=== PATIENT | male | born 1965 | race Caucasian/White ===

== ENCOUNTER 2022-07-03 01:35 | Emergency (ER) | payer OTHER, MEDICAID, SELFPAY ==
--- NOTE | ~2022-07-03 | CT_ITS ---
EXAMINATION: CT CHEST, ABDOMEN AND PELVIS WITH CONTRAST. CLINICAL INFORMATION: Pain, fall. COMPARISON: No pertinent prior studies are available for comparison. TECHNIQUE: Multidetector volumetric imaging was performed from the thoracic inlet through the pubic symphysis following administration of 85 mL Omnipaque 300 intravenous contrast. Sagittal and coronal reformatted images were obtained on the technologist's workstation. This CT examination was performed using dose optimization techniques as appropriate, variously including the following: *Automated exposure control *Adjustment of mA and/or kV according to patient size (this includes techniques or standardized protocols for targeted exams where dose is matched to indication/reason for exam; i.e. extremities or head) *Use of iterative reconstruction technique DLP: 483 mGy-cm FINDINGS: CHEST: Lung: Evaluation of lung nodules and parenchymal details is limited due to respiratory motion. No focal consolidation or significant groundglass disease. Central airways. No pulmonary mass. Mediastinum: Normal heart size. No pericardial effusion. No hilar or mediastinal lymphadenopathy. Normal thyroid gland. Pericardium/Pleura: No pleural effusion. No pleural mass or thickening. No pneumothorax. Chest Wall/Axilla: No lymphadenopathy by size criteria. ABDOMEN/PELVIS: Peritoneal Space: No free air or free fluid. Liver, Gallbladder, Biliary Tree: There is a 2.8 cm lesion in the periphery of the right hepatic lobe (3:17), not consistent with a cyst measuring up to 50 Hounsfield units. Otherwise, the liver is normal in size, shape and attenuation. Cholelithiasis. No pericholecystic inflammatory changes or gallbladder wall thickening. No biliary duct dilatation. Pancreas: Unremarkable. Spleen: Unremarkable. Adrenal Glands: There is a 1.5 cm left adrenal nodule measuring 47 Hounsfield units. Normal right adrenal gland. Kidneys and Ureters: The kidneys are normal in size, shape, and attenuation. No hydronephrosis, hydroureter, or calculi seen. No perinephric stranding. Bladder: Unremarkable. Gastrointestinal Tract: The small and large bowel are unremarkable. The appendix is unremarkable. Abdominal Wall: Fat stranding of the anterior abdominal wall with a few foci of air on the left side (3:46) and right-sided (3:64). Fat stranding in the left gluteal soft tissues. Lymphovascular Structures: No lymphadenopathy by size criteria. The abdominal aorta is of normal diameter. Pelvic Viscera: Unremarkable. Osseous Structures: Mild compression deformity at L5, likely degenerative, no surrounding soft tissue swelling or hematomas. Grade 1 anterolisthesis of L5 on S1 with L5 pars defects. Multilevel degenerative changes of the spine. Evaluation of bony fractures in the chest is limited due to motion. There is discontinuity of the lower sternal body on the sagittal view, which is likely related with motion and artifactual. No definite displaced rib fractures. CT/CT abdomen pelvis w IV con IMPRESSION: 1. Evaluation of bony fractures in the chest is limited due to motion. There is discontinuity of the lower sternal body on the sagittal view, which is likely related with motion and artifactual, with no surrounding inflammatory changes or hematoma. Correlate with point tenderness. 2. Fat stranding of the anterior abdominal wall with a few foci of air, nonspecific could be associated with injection sites or less likely contusions. 3. Fat stranding in the left gluteal soft tissues, could be associated with hematoma in the setting of trauma, correlate with physical examination. 4. Indeterminate liver lesion. Recommend further evaluation with an abdominal MRI with and without intravenous contrast. 5. Indeterminate left adrenal lesion measuring 1.5 cm. This is homogeneous, most likely represent an adenoma, however it is incompletely characterized in this examination. This could be further characterized at the moment of the above recommend abdominal MRI. 6. Cholelithiasis but no evidence of acute cholecystitis. 7. Grade 1 anterolisthesis of L5 on S1 with L5 pars defects. Mild compression deformity of L5 is likely degenerative in nature, correlate with point tenderness.
--- NOTE | ~2022-07-03 | CT_ITS ---
EXAMINATION: CT HEAD WITHOUT CONTRAST CT CERVICAL SPINE WITHOUT CONTRAST CLINICAL INFORMATION: Fall, pain. COMPARISON: CTA head and neck 05/28/2013. TECHNIQUE: Contiguous axial imaging was performed from the skull base to vertex without intravenous administration of contrast. Contiguous axial imaging was performed from the upper chest through the skull base without intravenous administration of contrast. Coronal and sagittal reformats were obtained at the acquisition workstation. This CT examination was performed using dose optimization techniques as appropriate, variously including the following: *Automated exposure control *Adjustment of mA and/or kV according to patient size (this includes techniques or standardized protocols for targeted exams where dose is matched to indication/reason for exam; i.e. extremities or head) *Use of iterative reconstruction technique DLP: 432 and 831 mGy-cm FINDINGS: Head: Confluent white matter hypoattenuation, suggestive of chronic microangiopathy, progressed when compared to 2012. Chronic infarct adjacent to the left caudate, stable since 2012. No intraparenchymal bleeding or edematous territorial infarction. No evidence for obstructive hydrocephalus. No abnormal mass effect or midline shift. No extra-axial fluid collections. No acute soft tissue or osseous abnormalities. The mastoid air cells and paranasal sinuses are clear. Cervical Spine: The atlantooccipital and atlantoaxial articulations remain well aligned. Straightening of the normal cervical lordosis with mild reversal at the level of the mid cervical spine. Otherwise, there is anatomic alignment of the vertebral bodies and posterior elements. Moderate multilevel cervical spondylosis. The vertebral body heights and disc spaces are maintained. There is no prevertebral soft tissue swelling. The thyroid gland and remaining cervical soft tissues are normal in appearance. The lung apices demonstrate no abnormalities. CT/CT cervical spine wo IV con IMPRESSION: 1. No acute intracranial pathology. 2. Chronic microangiopathy, progressed when compared to 2012. In this background, small infarctions may be occult, therefore if there is clinical concern for an acute cerebrovascular accident, correlation with an MR of the brain is recommended. 3. Straightening and mild reversal of the cervical lordosis nonspecific could be associated with muscular spasm or patient positioning. 4. No acute cervical spinal fractures or malalignment.
[2022-07-03 01:45] VITALS: BP 122/98; PULSE 95; O2SAT 96; BMI 30.9
[2022-07-03 01:57] VITALS: BP 106/68; PULSE 92; RESP 14; TEMP 36.7; O2SAT 98
--- NOTE | 2022-07-03 02:16 | PC.NURSE ---
Pt arrived via EMS coming from [facility], alert and oriented to self, place, and situation. Unable to identify today's date. Pt reports never keeping up with the date. Reports having a fall 3 or 4 days ago where pt was trying to re-position self on the wheel chair. Documents from [place] report pt had a witnessed fall earlier in the day. Pt reports left sided back and leg pain. Bruising noted on the abd area and left hip area. Bilateral pedal pulses present. +CMS. Pt has a hx of MS. SOW aware.
--- NOTE | 2022-07-03 02:21 | ECG_ITS ---
Test Reason : FALL Blood Pressure : / mmHG Vent. Rate : 095 BPM Atrial Rate : 095 BPM P-R Int : 160 ms QRS Dur : 102 ms QT Int : 372 ms P-R-T Axes : 035 -13 052 degrees QTc Int : 467 ms Normal sinus rhythm Inferior infarct (cited on or before 28-MAY-2013) Abnormal ECG When compared with ECG of 09-NOV-2013 16:48, Criteria for Lateral infarct are no longer Present Referred By: Yani Gamez Electronically Signed By:Yonathan Schaefer
--- NOTE | 2022-07-03 02:32 | ED_ITS ---
HPI - Fall General Chief Complaint: Fall Stated Complaint: Fall Time Seen by Provider: 07/03/22 01:59 Source: patient, EMS and other Mode of arrival: EMS History of Present Illness HPI Narrative: 56-year-old male brought in by EMS from [facility] for reports that patient had a witnessed fall out of his wheelchair earlier today, patient states that he fell 4 days ago. Patient staffed deny loss of consciousness or head strike and although initially there were no concerns for anticoagulation on further investigation it appears patient is on aspirin Plavix. Currently, patient reports left chest wall pain as well as leg and shoulder pain. Related Data Allergies Allergy/AdvReac Type Severity Reaction Status Date / Time morphine [MORPHINE] AdvReac Unknown VOMITING Unverified 04/01/20 17:49 Review of Systems Review of Systems: Pertinent positives and negatives as stated in HPI 10 point review of systems is otherwise negative. [facility] Past Medical History Source: nursing notes reviewed Social History Social History Smoked in Last 30 Days: Yes Use of substances other than those prescribed or required for medical reasons: No Advance Directives: No Advance Directives Information Provided: No Physical Exam Vital Signs: Vital Signs: Last Vital Signs Temp 98.0 F 07/03/22 01:57 Pulse 92 07/03/22 01:57 Resp 14 07/03/22 01:57 BP 106/68 07/03/22 01:57 Pulse Ox 98 07/03/22 01:57 O2 Del Method 07/03/22 01:57 BMI result Body Mass Index 30.9 VITAL SIGNS: Reviewed. GENERAL: Chronically ill, in no acute distress. HEAD: Normocephalic/atraumatic EYES: PERRLA, EOMI EARS: Ext canals without abnormality OROPHARYNX: no oral lesions noted, posterior pharynx clear NECK: Supple, no adenopathy, no midline cervical spine tenderness LUNGS: Normal breath sounds. No adventitious sounds or accessory muscle use. SpO2<98>; CHEST WALL: There is no deformity, crepitus but there is noted contusion/ecchymosis to lower left chest with tenderness on palpation CARDIOVASCULAR: Regular rate and rhythm without noted murmurs, no JVD or lower extremity edema. ABDOMEN: Soft, non-tender, non-distended with bowel sounds, abdominal wall with ecchymotic areas in various stages of healing HIP: Ecchymosis noted to left hip/gluteal area MUSCULOSKELETAL: No tenderness, deformities, or effusions noted on gross inspection. EXTREMITIES: No cyanosis, clubbing or edema. SKIN: Inspection of the skin reveals no rashes NEUROLOGIC: Alert and oriented x 2. Strength and sensation to light touch were grossly intact x 4. Course Course Course Narrative: 56-year-old male with history and clinical presentation consistent with accidental fall out of chair witnessed by staff without head strike or loss of consciousness. Patient is noted be on aspirin Plavix, review of all imaging studies to include CT of the head/C-spine/chest/abdomen/pelvis there are no acute traumatic injuries identified and left gluteal findings are consistent with clinical findings to suggest soft tissue contusion. In addition, I suspect left lower rib contusion as there are no identified fractures on CT but there is an ecchymotic area. The ecchymotic areas on the anterior abdomen are in various stages of healing and most consistent with subcutaneous injections. Review of all investigations otherwise chronically stable and patient discharged back to the facility in stable condition. Medications Administered Discontinued Medications Generic Name Dose Route Start Last Admin Trade Name Freq PRN Reason Stop Dose Admin Iohexol 85 ml 07/03/22 04:10 07/03/22 04:10 Iohexol 350 Mg/Ml 100 Ml Infus..Btl IV 07/03/22 04:11 85 ml ONCE ONE Administration Medical Decision Making Lab Data Result Diagrams: 07/03/22 02:58 07/03/22 02:58 Labs: Lab Results 07/03/22 07/03/22 07/03/22 Range/Units 02:58 02:58 02:58 WBC 7.2 (4.8-10.8) X10*3/uL RBC 5.78 (4.60-5.80) X10*6/uL Hgb 15.8 (14.0-18.0) g/dl Hct 47.0 (42.0-52.0) % MCV 81.3 (80.0-98.0) fL MCH 27.3 (27.0-33.0) pg MCHC 33.6 (31.0-36.0) g/dl RDW 13.9 (11.0-16.0) % Plt Count 287 (160-400) X10*3/uL MPV 9.7 (9.4-12.4) fL Immature Gran % (Auto) 0.6 H (0.0-0.4) % Neut % (Auto) 55.6 (45-73) % Lymph % (Auto) 30.0 (20-40) % [place] % (Auto) 8.7 (2-11) % Eos % (Auto) 4.3 H (0-4) % Baso % (Auto) 0.8 (0-2) % Lymph # (Auto) 2.2 (1.2-4.9) X10*3/uL [place] # (Auto) 0.6 (0.1-1.2) X10*3/uL Eos # (Auto) 0.3 (0.0-0.4) X10*3/uL Baso # (Auto) 0.1 (0.0-0.2) X10*3/uL Abs Immat Gran (auto) 0.04 H (0.00-0.03) X10*3/uL Absolute Neuts (auto) 4.0 (2.0-8.3) x10*3/uL Absolute Nucleated RBC 0.000 (0.0-0.012) X10*3/uL Nucleated RBC % (auto) 0.0 (0.0-0.2) /100WBC PT 12.4 (10.0-13.1) SEC INR 1.1 (0.9-1.1) Sodium 143 (135-145) mmol/L Potassium 3.6 (3.3-5.1) mmol/L Chloride 106 (96-108) mmol/L Carbon Dioxide 28 (22-29) mmol/L Anion Gap 13 (12-20) BUN 15 (9-16) mg/dL Creatinine 0.73 (0.5-1.4) mg/dL Estim Creat Clear Calc 108.9 Estimated GFR > 60 Random Glucose 161 H (60-115) mg/dL Calcium 9.6 (8.4-10.2) mg/dL Total Bilirubin 0.9 (0.0-1.0) mg/dL AST 20 (5-37) U/L ALT 26 (0-40) U/L Alkaline Phosphatase 101 (39-117) U/L Total Protein 5.9 L (6.5-8.0) g/dL Albumin 4.0 (3.5-5.0) g/dL Independent Interpretation I performed an independent interpretation of an: EKG Interpretation: Normal sinus rhythm, HR-95, no STEMI, OK/QRS/QTC are within normal limits. Discharge Plan Discharge Clinical Impression: Fall, Chest wall contusion Patient Disposition: [facility] Instructions: Fall Prevention for Older Adults (ED), Contusion in Adults (ED) Additional Instructions: 1. Resume all home medications as prescribed. 2. Follow-up with your primary care provider in the morning . Return to the ER for worsening symptoms.
[2022-07-03 03:03] LABS: Basophils Absolute Auto 0.1 X10*3/uL (0.0-0.2); Basophils Percent Auto 0.8 % (0-2); Eosinophils Absolute Auto 0.3 X10*3/uL (0.0-0.4); Eosinophils Percent Auto 4.3 % (0-4); Hemoglobin 15.8 g/dl (14.0-18.0); Imm Gran Abs Auto 0.04 X10*3/uL (0.00-0.03); Imm Gran Pct Auto 0.6 % (0.0-0.4); Lymphocytes Absolute Auto 2.2 X10*3/uL (1.2-4.9); MANUAL DIFF FLAG NO; Mean Corpuscular HGB Conc 33.6 g/dl (31.0-36.0); Mean Corpuscular Hemoglobin 27.3 pg (27.0-33.0); Mean Corpuscular Volume 81.3 fL (80.0-98.0); Mean Platelet Volume 9.7 fL (9.4-12.4); Monocytes Absolute Auto 0.6 X10*3/uL (0.1-1.2); Monocytes Percent Auto 8.7 % (2-11); Neutrophils Percent Auto 55.6 % (45-73); Platelet Count 287 X10*3/uL (160-400); Red Blood Count 5.78 X10*6/uL (4.60-5.80); Red Cell Distribution Width 13.9 % (11.0-16.0); White Blood Count 7.2 X10*3/uL (4.8-10.8)
[2022-07-03 03:22] LABS: INTERNATIONAL NORM RATIO 1.1 (0.9-1.1); Prothrombin Time 12.4 SEC (10.0-13.1)
[2022-07-03 03:24] LABS: Alanine Aminotransferase 26 U/L (0-40); Alkaline Phosphatase 101 U/L (39-117); Anion Gap 13 (12-20); Aspartate Amino Transferase 20 U/L (5-37); Bilirubin Total 0.9 mg/dL (0.0-1.0); Blood Urea Nitrogen 15 mg/dL (9-16); Calcium 9.6 mg/dL (8.4-10.2); Carbon Dioxide 28 mmol/L (22-29); Chloride 106 mmol/L (96-108); Creatinine Clr Calc Pharmacy 108.9; Estimated Glomerular Filt Rate > 60; Glucose Random 161 mg/dL (60-115); Potassium 3.6 mmol/L (3.3-5.1); Sodium 143 mmol/L (135-145); Total Protein 5.9 g/dL (6.5-8.0)
--- NOTE | 2022-07-03 03:24 | PC.NURSE ---
Call placed to [place] [facility] in regarding obtaining an updated diagnosis list for this pt. Agency nurse at [facility] reports the following medical diagnosis: CVA, DM, HTN, Polycythemia, MS. Pt has NKDA. Nurse will fax over updated records. MD reid.
[2022-07-03] MEDS: iohexoL 350 MG/ML 100 ML INFUS..BTL 85 ML IV (04:10)
[2022-07-03 05:59] VITALS: BP 142/83; PULSE 87; TEMP 36.7; O2SAT 93
[2022-07-03 06:00] VITALS: BP 123/86; PULSE 81; RESP 12; TEMP 36.7; O2SAT 95
--- NOTE | 2022-07-03 06:18 | MHC.EDTECH ---
Spoke with Whit from [place] at [phone] for a bls transfer back to [facility],Booked for .Rn aware
--- NOTE | 2022-07-03 07:00 | PC.NURSE ---
report given to Irma @ [facility] for transport back to facility
[2022-07-03 07:19] VITALS: BP 142/85; PULSE 78; RESP 12; O2SAT 93
--- NOTE | 2022-07-03 08:35 | MHC.EDTECH ---
@0882 CALL PLACED TO [facility] ASKING FOR UPDATED ETA THE ORIGINAL ETA WAS GIVEN : SANDRA (CALE Schumacher/KRISTY) ANSWERS AND WAS TOLD THE CREW HAS BEEN ON SCENE FOR 5 MINUTES AND SHOULD BE IN THE BUILDING SOON. NOT IN THE BUILDING @ THIS TIME 0811
--- NOTE | 2022-07-03 08:39 | MHC.EDTECH ---
[facility] HERE GETTING PAPERWORK @ THIS TIME
== END 2022-07-03 08:46 | disposition skilled nursing facility (03) ==
PROVIDERS: Emergency Provider Student in an Organized Health Care Education/Training Program
DX: S20.213A Contusion of bilateral front wall of thorax, initial encounter (principal); R51.9 Headache, unspecified; M54.2 Cervicalgia; R07.89 Other chest pain; M54.6 Pain in thoracic spine; W05.0XXA Fall from non-moving wheelchair, initial encounter; Y93.9 Activity, unspecified; Y92.9 Unspecified place or not applicable; Y99.9 Unspecified external cause status; Z79.899 Other long term (current) drug therapy
CPT/HCPCS: 36415; 70450; 71260; 72125; 74177; 80053; 85025; 85610; 93005; 99285; Q9967

== ENCOUNTER 2022-07-17 11:50 | Inpatient (IN) | payer OTHER, SELFPAY ==
--- NOTE | ~2022-07-17 | CT_ITS ---
EXAMINATION: CT HEAD WITHOUT CONTRAST (STROKE PROTOCOL) CLINICAL INFORMATION: Stroke protocol. Dizziness and numbness COMPARISON: July 03, 2022 TECHNIQUE: Contiguous axial imaging was performed from the skull base to vertex without intravenous administration of contrast. This CT examination was performed using dose optimization techniques as appropriate, variously including the following: *Automated exposure control *Adjustment of mA and/or kV according to patient size (this includes techniques or standardized protocols for targeted exams where dose is matched to indication/reason for exam; i.e. extremities or head) *Use of iterative reconstruction technique DLP: 713 mGy-cm FINDINGS: There is a new region of diminished density seen about the superior aspect of the lentiform nucleus and posterior limb of the internal capsule measuring approximately 1.8 x 0.9 cm in size which may represent an evolving infarct. This lies adjacent to the right lateral ventricle. No associated edema is seen. No intracranial hemorrhage is identified. No significant mass effect or midline structure shift is seen. No abnormal extra-axial fluid collection. There is a large amount of periventricular white matter low density consistent with microangiopathy. There is an old infarct seen within the lentiform nucleus along the anterior limb of the internal capsule. CT/CT head for stroke IMPRESSION: Question evolving infarct in the region of the posterior limb of internal capsule. MRI would be of help in further evaluation of this finding. Microangiopathy. This critical result was discussed with Carlos Vang MD at 1:10 PM hours on July 17, 2022. It was ascertained that the content and urgency of the report was understood at the time of direct communication.
--- NOTE | ~2022-07-17 | MR_ITS ---
EXAMINATION: MRI OF THE BRAIN WITHOUT CONTRAST CLINICAL INFORMATION: Changes in CT scan. Assess for infarct. COMPARISON: CT scan of the head earlier on 07/17/2022. Remote MRI scan of the brain 05/28/2013. TECHNIQUE: MRI of the brain was obtained using routine sequences without contrast. FINDINGS: There is a small area of increased diffusion signal with hyperintense ADC map and FLAIR signal adjacent to the posterior body of the right lateral ventricle which has corresponding low T1 signal. There is no evidence of hemorrhage. The findings are most consistent with a subacute to chronic infarct, and corresponds to the findings on the CT scan. There is a punctate area of restricted diffusion in the left temporal lobe with minimally increased T2/FLAIR signal, consistent with a punctate acute infarct. No mass effect or midline shift is seen. The ventricles and sulci are slightly commensurately prominent, and there is a cavum septum pellucidum and vergae.. There are extensive areas of hyperintense T2 and FLAIR signal in the periventricular and subcortical white matter, as well as within the slade which are consistent with chronic microvascular ischemic changes. There is a chronic lacunar infarct in the left basal ganglia with adjacent ex-vacuo dilatation of the body of the left lateral ventricle. This infarct has a thin peripheral rim of low gradient signal which may be due to hemosiderin staining or chronic microhemorrhage. These changes were less extensive, but were present on the prior MRI scan. No extra-axial fluid collections are seen. The cerebellum appears normal. There is no evidence of acute hemorrhage. There is a small focus of low gradient signal in the left posterior temporal lobe medially with central increased T1 and T2 signal and with mild surrounding low T2 signal. It corresponds to a small focus of calcification demonstrated on the CT scan and may be consistent with a small cavernoma, and was demonstrated on prior imaging. The craniovertebral junction, marrow signal, and midline structures are normal. The major intracranial flow-voids at the level of the [place] of [place] are preserved. The dural venous sinus flow-voids are maintained. The mastoid air cells and paranasal sinuses are well-aerated. MR/MR head/brain wo con IMPRESSION: 1. There is a small area of acute infarction in the left temporal lobe without evidence of hemorrhagic transformation. 2. There is an area of increased diffusion signal with hyperintense ADC map and FLAIR signal adjacent to the body of the right lateral ventricle, corresponding to the area of low attenuation seen on the prior CT scan, and most consistent with a subacute to chronic infarct. 3. 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 There are chronic microvascular ischemic changes and there is diffuse volume loss. There are no acute bleeds or other masses. 4. This critical result was discussed with Yani Gamez MD by telephone on 07/17/2022 history PPM and it was ascertained that the content and urgency of the report was understood at the time of direct communication.
--- NOTE | ~2022-07-17 | CT_ITS ---
EXAMINATION: CT ANGIOGRAM HEAD CT ANGIOGRAM NECK CLINICAL INFORMATION: Multiaged infarcts of the left temporal lobe and right caudate nucleus. COMPARISON: Brain MRI from 07/17/2022. CT head from 07/17/2022. TECHNIQUE: Initial noncontrast family lawyer imaging of the head and neck was performed. Comparison is made with noncontrast head CT from earlier today. Test bolus sequences followed by intravenous administration 70 mL of Omnipaque 350. Helical imaging was performed in the axial plane from the aortic arch to the skull vertex. Delayed postcontrast imaging of the head was also performed. The data was processed at the applied technologist's workstation for generation of MIP sequences. Angled MIPs and volume rendered reformatted images were also generated at an offline 3D workstation. Stenoses are assessed in accordance with NASCET criteria unless otherwise indicated. This CT examination was performed using dose optimization techniques as appropriate, variously including the following: *Automated exposure control. *Adjustment of mA and/or kV according to patient size (this includes techniques or standardized protocols for targeted exams where dose is matched to indication/reason for exam; i.e. extremities or head). *Use of iterative reconstruction technique. DLP: 1593 mGy-cm FINDINGS: CT Head: There is no evidence of acute intracranial hemorrhage or edematous territorial infarction. Scattered hypoattenuation in the periventricular and deep white matter are consistent with moderate microangiopathy. Chronic lacunar infarct of the left internal capsule/lentiform nucleus. Evolving subacute infarct of the right welch radiata/caudate tail. The previously noted small infarct of the left temporal lobe was better demonstrated on recent MRI. No new loss of berkowitz-white matter differentiation. Proportional prominence of the ventricles and sulcal spaces. No evidence for obstructive hydrocephalus. No abnormal mass effect or midline shift. No extra-axial fluid collections. No pathologic intra-axial enhancement. No acute soft tissue or osseous abnormalities. Mild mucosal thickening of the paranasal sinuses. Moderate leftward nasal septal deviation. The mastoid air cells and middle ear cavities are clear. The patient is edentulous. Mild to moderate degenerative arthropathy of the temporomandibular joints. CT Neck: The thyroid gland and remaining cervical soft tissues are within normal limits. Mild reversal the normal cervical lordosis centered on C4-C5. Moderate degenerative disc disease from C4-C7. Facet and uncovertebral joint arthropathy leads to osseous encroachment on the neural foramina from C3-T1. CT Upper Chest: The visualized lung apices and upper mediastinum are within normal limits. Neck CTA: Aortic Arch: Normal contour and caliber with mild calcific atherosclerotic disease. Classic 3 vessel branching pattern of the aortic arch. Great Vessel Origins: No significant stenosis of the branch origins. Right Common Carotid Artery: No focal stenosis or occlusion. Cervical Right Internal Carotid Artery: Calcific atherosclerotic disease of the carotid bulb and proximal internal carotid artery causing less than 50% stenosis. Left Common Carotid Artery: No focal stenosis or occlusion. Cervical Left Internal Carotid Artery: Mild calcific atherosclerotic disease of the carotid bulb and proximal internal carotid artery without flow-limiting stenosis. Cervical Right Vertebral Artery: Co-dominant. No focal stenosis or occlusion. Cervical Left Vertebral Artery: Co-dominant. No focal stenosis or occlusion. Brain CTA: Intracranial Internal Carotid Arteries: Calcific atherosclerotic disease of the intracranial internal carotid arteries without occlusion or flow-limiting stenosis. Right Anterior Cerebral Artery: Normal A1 segment. Normal opacification of the distal STEPHANIE segments. Left Anterior Cerebral Artery: Normal A1 segment. Normal opacification of the distal STEPHANIE segments. Anterior Communicating Artery: Normal. Right Middle Cerebral Artery: Normal M1 segment of the MCA without focal stenosis or occlusion. Normal arborization of the distal segments. Left Middle Cerebral Artery: Normal M1 segment of the MCA without focal stenosis or occlusion. Normal arborization of the distal segments. Right Vertebral Artery: Mild atherosclerotic disease of the V4 segment without flow-limiting stenosis. The posterior inferior cerebellar artery is not well opacified; however, there is no CT evidence of acute occlusion. Left Vertebral Artery: Mild atherosclerotic disease of the V4 segment without flow-limiting stenosis. Normal opacification of the proximal segments of the posterior inferior cerebellar artery. Basilar Artery: Mild atherosclerotic disease without flow-limiting stenosis or occlusion. Normal appearance of the proximal superior cerebellar arteries. Right Posterior Cerebral Artery: Normal P1 segment. Normal opacification of the distal CONTA[employer] L[employer]ER segments. Left Posterior Cerebral Artery: The P1 segment is diminutive. origin of the CON[employer] with robust opacification of the posterior communicating artery. Normal opacification of the distal CON[employer] segments. The left transverse/sigmoid sinuses are hypoplastic in nature. Otherwise, normal opacification of the superior sagittal, straight, transverse, and sigmoid sinuses. CT/CT angio head neck stroke IMPRESSION: 1. Evolving subacute infarct of the right welch radiata/caudate tail. The previously noted small infarct of the left temporal lobe was better demonstrated on recent MRI. Chronic lacunar infarct of the left internal capsule/lentiform nucleus. Moderate underlying microangiopathy and generalized cerebral volume loss. 2. No evidence of acute intracranial hemorrhage or edematous territorial infarction. 3. CTA of the head and neck without proximal occlusion or flow-limiting stenosis.
[2022-07-17 12:00] VITALS: BP 138/80; BP 145/89; PULSE 85; PULSE 95; RESP 20; TEMP 36.9; O2SAT 94; O2SAT 97; BMI 32.8
--- NOTE | 2022-07-17 12:37 | ED_ITS ---
HPI - Neuro Symptoms/Deficit General Chief Complaint: Neuro Symptoms/Deficit <CieraMADELINE PadillaNATHAN - Last Filed: 07/17/22 18:07> Stated Complaint: HEADACHE,NUMBNESS,WEAKNESS PER EMS <CieraRERE PadillaSTEPHON - Last Filed: 07/17/22 18:07> Time Seen by Provider: 07/17/22 12:22 <RERE HahnSTEPHON - Last Filed: 07/17/22 18:07> Source: patient, EMS and RN notes reviewed <Ciera Romelia Gonzalez HUMAN RESOURCE OFFICERANNI - Last Filed: 07/17/22 18:07> Mode of arrival: EMS <Ciera Gonzalez FUENTES - Last Filed: 07/17/22 18:07> Limitations: no limitations <Cieradawson Gonzalez FUENTES - Last Filed: 07/17/22 18:07> History of Present Illness HPI Narrative: 56-year-old male with past medical history of MS is here today for for complaining of left leg and arm tingling and numbness. Patient reports that he woke up at 07:00 o'clock with those symptoms. Patient states that he went to [facility] past week where he left his medications that he is on for MS. He is unsure of the name of the medication that he was on. Unable to take the medications for 3 days. Patient denies dizziness, presyncope, syncope, SOB with or without exertion, CP, PND. However patient reports that he felt dizzy yesterday. He states that dizziness is on and off. He denies feeling like the room is spinning. Denies any nausea or vomiting. Patient feels like he is dehydrated. He has been drinking Gatorade but reports that he has not drank much of water. Patient states that he went outside to smoke early this morning and felt like his both left arm and left leg were tingling, feeling heavy. <RERE HahnSTEPHON - Last Filed: 07/17/22 18:07> Onset (ago): day(s) <RERE HahnSTEPHON - Last Filed: 07/17/22 18:07> Location: left arm and left leg <RENATA Hahn-BC - Last Filed: 07/17/22 18:07> Related Data Home Medications: Home Medications Medication Instructions Recorded Confirmed aspirin 81 mg chewable tablet 1 tab PO DAILY 07/17/22 07/17/22 atorvastatin 80 mg tablet 1 tab PO BEDTIME 07/17/22 07/17/22 dulaglutide 3 mg/0.5 mL 3 mg subcut QWEEK 07/17/22 07/17/22 subcutaneous pen injector (Trulicity) lisinopril 30 mg tablet 1 tab PO DAILY 07/17/22 07/17/22 <RENATA Hahn-BC - Last Filed: 07/17/22 18:07> Allergies/Adverse Reactions: Allergies Allergy/AdvReac Type Severity Reaction Status Date / Time morphine [MORPHINE] AdvReac Unknown VOMITING Unverified 04/01/20 17:49 <MADELINE HahnP-BC - Last Filed: 07/17/22 18:07> Review of Systems Review of Systems: Constitutional : No Weight loss, No Fever, No Chills, No Night Sweats, No Fatigue, No Malaise ENT/Mouth : No Hearing loss, No Ear Pain, No Nasal Congestion, No Sinus Pain, No Hoarseness, No sore throat, No Rhinorrhea, No Swallowing Difficulty Eyes: No Eye Pain, No Swelling, No Redness, No Foreign Body, No Discharge, No Vision Changes Cardiovascular : No Chest Pain, No SOB, No Dyspnea on Exertion, No Orthopnea, No Edema, No Palpitations Respiratory : No Cough, No Sputum, No Wheezing, No Smoke Exposure, No Dyspnea Gastrointestinal : No Nausea, No Vomiting, No Diarrhea, No Constipation, No abd ominal Pain, No Hematochezia, No Melena Genitourinary : no irregular bleeding, No Dysuria, No Urinary Frequency, No Hematuria, No Urinary Incontinence, No Urgency, No Flank Pain, No Urinary Flow Changes, No Hesitancy Musculoskeletal : No joint pain, No Myalgias, No Joint Swelling Skin : No Skin Lesions, No rash Neuro : No Weakness, Numbness LUE and LLE, No Paresthesias, No Loss of Consciousness, Dizziness, No Headache Psych : No Anxiety/Panic, No Depression, No SI/HI/AH/VH, No Social Issues, Heme/Lymph: No Bruising, No Bleeding,No Lymphadenopathy Endocrine : No Polyuria, No Polydipsia, No Temperature Intolerance <RENATA Hahn-BC - Last Filed: 07/17/22 18:07> Yes all other systems are reviewed and are negative <RENATA Hahn-BC - Last Filed: 07/17/22 18:07> PMFSH Social History Social History: Social History Alcohol intake: never Smoked in Last 30 Days: Yes Use of substances other than those prescribed or required for medical reasons: No Advance Directives: No Advance Directives Information Provided: Yes <RENATA Hahn-BC - Last Filed: 07/17/22 18:07> Physical Exam Vital Signs: Vital Signs: Last Vital Signs Temp 98.4 F 07/17/22 12:00 Pulse 95 07/17/22 12:00 Resp 20 07/17/22 12:00 BP 145/89 H 07/17/22 12:00 Pulse Ox 97 07/17/22 12:00 O2 Del Method 07/17/22 12:00 BMI result Body Mass Index 32.8 <RENATA Hahn-BC - Last Filed: 07/17/22 18:07> Vital Signs: Last Vital Signs Temp 98.4 F 07/17/22 12:00 Pulse 95 07/17/22 12:00 Resp 20 07/17/22 12:00 BP 145/89 H 07/17/22 12:00 Pulse Ox 97 07/17/22 12:00 O2 Del Method 07/17/22 12:00 BMI result Body Mass Index 32.8 <JAY Viera - Last Filed: 07/17/22 18:17> Const: General: healthy appearing, no acute distress and well developed <RENATA Hahn-BC - Last Filed: 07/17/22 18:07> Nutritional Appearance: well nourished <RENATA Hahn-BC - Last Filed: 07/17/22 18:07> Orientation/consciousness: patient oriented x3 <RENATA Hahn-BC - Last Filed: 07/17/22 18:07> HEENT: Head: Yes normal to inspection, Yes normocephalic and Yes atraumatic <MADELINE HahnP-BC - Last Filed: 07/17/22 18:07> Face and sinus: Yes normal facial exam <MADELINE HahnP-BC - Last Filed: 07/17/22 18:07> Mouth: Normal oral and palatal mucosa present <Cieralyn Gonzalez HUMAN RESOURCE OFFICER-BC - Last Filed: 07/17/22 18:07> Throat: Yes posterior oropharynx normal, Yes tonsils normal and Yes uvula midline <Cieradawson Gonzalez HUMAN RESOURCE OFFICER-BC - Last Filed: 07/17/22 18:07> Eyes: General: appearance normal, both eyes and all related structures <Ciera Gonzalez HUMAN RESOURCE OFFICER-BC - Last Filed: 07/17/22 18:07> Neck: Neck: Yes normal visual inspection, Yes full ROM and Yes trachea midline <Ciera Gonzalez HUMAN RESOURCE OFFICER-BC - Last Filed: 07/17/22 18:07> Thyroid: Thyroid normal <Ciera Gonzalez HUMAN RESOURCE OFFICER-BC - Last Filed: 07/17/22 18:07> Resp: Effort & Inspection: normal respiratory effort, able to speak in complete sentences, no tracheal deviation and symmetric chest movement <MDAELINE HahnP-BC - Last Filed: 07/17/22 18:07> Auscultation: clear to auscultation bilaterally <MADELINE HahnP-BC - Last Filed: 07/17/22 18:07> Cardio: Jugular venous distension: no JVD <Ciera Gonzalez HUMAN RESOURCE OFFICER-BC - Last Filed: 07/17/22 18:07> Rate: regular rate <Ciera Gonzalez HUMAN RESOURCE OFFICER-BC - Last Filed: 07/17/22 18:07> Heart sounds: S1 normal heart sound present, S2 normal heart sound present, no gallops and no murmurs <Ciera Gonzalez HUMAN RESOURCE OFFICER-BC - Last Filed: 07/17/22 18:07> GI: Inspection: Yes normal to inspection and No distended <Ciera Gonzalez HUMAN RESOURCE OFFICER-BC - Last Filed: 07/17/22 18:07> Palpation (GI): Soft to palpation, not firm, nontender and No hepatosplenomegaly present <Ciera D Carlos, HUMAN RESOURCE OFFICER-BC - Last Filed: 07/17/22 18:07> Auscultation: normal bowel sounds <Ciera D Carlos, HUMAN RESOURCE OFFICER-BC - Last Filed: 09/07 18:07> : General: Yes no CVA tenderness <Ciera D Carlos, HUMAN RESOURCE OFFICER-BC - Last Filed: 07/17/22 18:07> Back/Spine/Pelvis: Back: no CVA tenderness <Ciera D Carlos, HUMAN RESOURCE OFFICER-BC - Last Filed: 07/17/22 18:07> Skin: General skin exam: elasticity normal, turgor normal and dry skin <Ciera D Carlos, HUMAN RESOURCE OFFICER-BC - Last Filed: 07/17/22 18:07> Neuro: General: patient oriented x3, moves all extremities and no focal motor deficits <Ciera D Acrlos, HUMAN RESOURCE OFFICER-BC - Last Filed: 07/17/22 18:07> Cranial nerves: Yes Normal facial strength present, Yes Midline tongue present, Yes Normal gag reflex present and Yes Ability to bilaterally rotate head present <Ciera D Carlos, HUMAN RESOURCE OFFICER-BC - Last Filed: 07/17/22 18:07> Cognition (Neuro): normal cognition <Ciera D Carlos, HUMAN RESOURCE OFFICER-BC - Last Filed: 07/17/22 18:07> Gait exam (Neuro): Normal gait present <Ciera D Carlos, HUMAN RESOURCE OFFICER-BC - Last Filed: 07/17/22 18:07> Motor exam (neuro): 5/5 motor strength present throughout <Ciera D Carlos, HUMAN RESOURCE OFFICER-BC - Last Filed: 07/17/22 18:07> Coordination: [id number] test normal <Ciera D Carlos, HUMAN RESOURCE OFFICER-BC - Last Filed: 07/17/22 18:07> Comatose Patient: corneal reflex present <Ciera D Carlos, HUMAN RESOURCE OFFICER-BC - Last Filed: 07/17/22 18:07> Psych: Appearance: grossly normal <Ciera D Carlos, HUMAN RESOURCE OFFICER-BC - Last Filed: 07/17/22 18:07> Mental Status: mental status grossly normal <FUENTES Hahn - Last Filed: 07/17/22 18:07> Speech and movement: Normal speech and movement present <FUENTES Hahn - Last Filed: 07/17/22 18:07> Affect: normal affect <FUENTES Hahn - Last Filed: 07/17/22 18:07> Attitude: cooperative <FUENTES Hahn - Last Filed: 07/17/22 18:07> Thought process: Normal thought process present <FUENTES Hahn - Last Filed: 07/17/22 18:07> Thought content: Normal thought content present <FUENTES Hahn - Last Filed: 07/17/22 18:07> Insight: Good insight present (Psych) <FUENTES Hahn - Last Filed: 07/17/22 18:07> Judgement: Good judgement present (Psych) <FUENTES Hahn - Last Filed: 07/17/22 18:07> Course Course Course Narrative: 56-year-old male with past medical history of MS is here today for for complaining of left leg and arm tingling and numbness. Patient reports that he woke up at 07:00 o'clock with those symptoms. Patient states that he went to [facility] past week where he left his medications that he is on for MS. He is unsure of the name of the medications that he was on. Unable to take the medications for 3 days. Patient denies dizziness, presyncope, syncope, SOB with or without exertion, CP, PND. Neuro exam negative. Will do CT scan. Per EMS patient had CT scan at [facility] and at [facility]. Labs, IV, fluids. Patient does report that he feels like he is dehydrated. <FUENTES Hahn - Last Filed: 07/17/22 18:07> Reevaluation(s) Reevaluation #1: Patient reports to be feeling better. CT scan showed ? involving infarct in the region of the posterior limb of the internal capsule. Will order MRI per Radiology recommendation. Patient's neuro's continue to be negative. We will call neurology after MRI. <Ciera RENATA Bravo-BC - Last Filed: 07/17/22 18:07> Reevaluation #2: Patient returned from MRI [place] radiologist spoke with Dr. 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 Spoke to unit assembler and call out to neuro [id number], patient continues to have no symptoms. Neuro exam repeated and negative. <Ciera Romelia Gonzalez HUMAN RESOURCE OFFICER-BC - Last Filed: 07/17/22 18:07> Reevaluation #3: Spoke to unit assembler who tried calling neurologist and was no answer. Patient continues to have no symptoms. Will call neurology stat <MADELINE HahnP-STEPHON - Last Filed: 07/17/22 18:07> Time: 15:15 <RENATA Hahn-BC - Last Filed: 07/17/22 18:07> Additional Reevaluation(s): Patient to CTA and back without any incidence. Patient continues with no symptoms. Awaiting results. Will speak to hospitalist team for admission. [id number] Report to Vasquez THOMPSON. we are to call Dr. Rodriguez back after results are read. <RERE HahnSTEPHON - Last Filed: 07/17/22 18:07> Consultations Consultation #1: Dr. Rodriguez: report from both CT scanned and MRI given to him. Will order CTA of head and neck as per Dr. Rodriguez recommendation. Will give low-dose asp irin. Patient unsure if he took aspirin this morning. <RENATA Hahn-BC - Last Filed: 07/17/22 18:07> Time: 15:39 <RENATA Hahn-BC - Last Filed: 07/17/22 18:07> Consultation #2: Discussed CTA results with Dr. Rodriguez, recommend statins, cardiology Consul and anti-platelet agent. Communicated this with attending hospitalist.. <JAY Viera - Last Filed: 07/17/22 18:17> Time: 18:17 <JAY Viera - Last Filed: 07/17/22 18:17> Medications Administered Discontinued Medications Generic Name Dose Route Start Last Admin Trade Name Freq PRN Reason Stop Dose Admin Aspirin 81 mg 07/17/22 15:59 07/17/22 16:42 Aspirin Enteric Coated 81 Mg Tablet.Dr ANNE 07/17/22 16:00 81 mg ONCE ONE Administration Iohexol 100 ml 07/17/22 16:24 07/17/22 16:25 Iohexol 350 Mg/Ml 100 Ml Infus..Btl IV 07/17/22 16:25 70 ml ONCE ONE Administration <Ciera Gonzalez HUMAN RESOURCE OFFICER-BC - Last Filed: 07/17/22 18:07> Medications Administered Discontinued Medications Generic Name Dose Route Start Last Admin Trade Name Freq PRN Reason Stop Dose Admin Aspirin 81 mg 07/17/22 15:59 07/17/22 16:42 Aspirin Enteric Coated 81 Mg Tablet.Dr ANNE 07/17/22 16:00 81 mg ONCE ONE Administration Iohexol 100 ml 07/17/22 16:24 07/17/22 16:25 Iohexol 350 Mg/Ml 100 Ml Infus..Btl IV 07/17/22 16:25 70 ml ONCE ONE Administration <JAY Viera - Last Filed: 07/17/22 18:17> Medical Decision Making Differential Diagnosis Differential Diagnoses: The differential diagnosis associated with the presentation includes <Ciera Gonzalez HUMAN RESOURCE OFFICER-BC - Last Filed: 07/17/22 18:07> CVA, migraine, intracranial hemorrhage <Ciera Gonzalez HUMAN RESOURCE OFFICER-BC - Last Filed: 07/17/22 18:07> Consult Healthcare Provider Management of the patient was discussed with: Business Development Director (Dr. Rodriguez) <Ciera Gonzalez HUMAN RESOURCE OFFICER-BC - Last Filed: 07/17/22 18:07> Lab Data MDM Lab Attestation statement: I reviewed the patient's lab results. <Ciera Gonzalez HUMAN RESOURCE OFFICER-BC - Last Filed: 07/17/22 18:07> Result Diagrams: : 07/17/22 13:31 07/17/22 13:31 <Ciera Gonzalez HUMAN RESOURCE OFFICER-BC - Last Filed: 07/17/22 18:07> Labs: Lab Results 07/17/22 07/17/22 Range/Units 13:31 13:31 WBC 6.9 (4.8-10.8) X10*3/uL RBC 5.73 (4.60-5.80) X10*6/uL Hgb 15.7 (14.0-18.0) g/dl Hct 46.8 (42.0-52.0) % MCV 81.7 (80.0-98.0) fL MCH 27.4 (27.0-33.0) pg MCHC 33.5 (31.0-36.0) g/dl RDW 14.6 (11.0-16.0) % Plt Count 264 (160-400) X10*3/uL MPV 9.8 (9.4-12.4) fL Immature Gran % (Auto) 0.4 (0.0-0.4) % Neut % (Auto) 63.7 (45-73) % Lymph % (Auto) 23.7 (20-40) % [place] % (Auto) 7.7 (2-11) % Eos % (Auto) 3.6 (0-4) % Baso % (Auto) 0.9 (0-2) % Lymph # (Auto) 1.6 (1.2-4.9) X10*3/uL [place] # (Auto) 0.5 (0.1-1.2) X10*3/uL Eos # (Auto) 0.3 (0.0-0.4) X10*3/uL Baso # (Auto) 0.1 (0.0-0.2) X10*3/uL Abs Immat Gran (auto) 0.03 (0.00-0.03) X10*3/uL Absolute Neuts (auto) 4.4 (2.0-8.3) x10*3/uL Absolute Nucleated RBC 0.000 (0.0-0.012) X10*3/uL Nucleated RBC % (auto) 0.0 (0.0-0.2) /100WBC Sodium 143 (135-145) mmol/L Potassium 3.8 (3.3-5.1) mmol/L Chloride 106 (96-108) mmol/L Carbon Dioxide 28 (22-29) mmol/L Anion Gap 13 (12-20) BUN 13 (9-16) mg/dL Creatinine 0.67 (0.5-1.4) mg/dL Estim Creat Clear Calc 122.2 Estimated GFR > 60 Random Glucose 128 H (60-115) mg/dL Calcium 9.6 (8.4-10.2) mg/dL <Ciera Gonzalez HUMAN RESOURCE OFFICER-BC - Last Filed: 07/17/22 18:07> Lab Results 07/17/22 07/17/22 Range/Units 13:31 13:31 WBC 6.9 (4.8-10.8) X10*3/uL RBC 5.73 (4.60-5.80) X10*6/uL Hgb 15.7 (14.0-18.0) g/dl Hct 46.8 (42.0-52.0) % MCV 81.7 (80.0-98.0) fL MCH 27.4 (27.0-33.0) pg MCHC 33.5 (31.0-36.0) g/dl RDW 14.6 (11.0-16.0) % Plt Count 264 (160-400) X10*3/uL MPV 9.8 (9.4-12.4) fL Immature Gran % (Auto) 0.4 (0.0-0.4) % Neut % (Auto) 63.7 (45-73) % Lymph % (Auto) 23.7 (20-40) % [place] % (Auto) 7.7 (2-11) % Eos % (Auto) 3.6 (0-4) % Baso % (Auto) 0.9 (0-2) % Lymph # (Auto) 1.6 (1.2-4.9) X10*3/uL [place] # (Auto) 0.5 (0.1-1.2) X10*3/uL Eos # (Auto) 0.3 (0.0-0.4) X10*3/uL Baso # (Auto) 0.1 (0.0-0.2) X10*3/uL Abs Immat Gran (auto) 0.03 (0.00-0.03) X10*3/uL Absolute Neuts (auto) 4.4 (2.0-8.3) x10*3/uL Absolute Nucleated RBC 0.000 (0.0-0.012) X10*3/uL Nucleated RBC % (auto) 0.0 (0.0-0.2) /100WBC Sodium 143 (135-145) mmol/L Potassium 3.8 (3.3-5.1) mmol/L Chloride 106 (96-108) mmol/L Carbon Dioxide 28 (22-29) mmol/L Anion Gap 13 (12-20) BUN 13 (9-16) mg/dL Creatinine 0.67 (0.5-1.4) mg/dL Estim Creat Clear Calc 122.2 Estimated GFR > 60 Random Glucose 128 H (60-115) mg/dL Calcium 9.6 (8.4-10.2) mg/dL <JAY Viera - Last Filed: 07/17/22 18:17> Independent Interpretation I performed an independent interpretation of an: EKG <FUENTES Hahn - Last Filed: 07/17/22 18:07> Radiology Impression Discussion of test interpretation with radiology: I discussed test interpretation with the radiologist <RERE Hahn - Last Filed: 07/17/22 18:07> Radiologist Impression: CT scan of the head FINDINGS: There is a new region of diminished density seen about the superior aspect of the lentiform nucleus and posterior limb of the internal capsule measuring approximately 1.8 x 0.9 cm in size which may represent an evolving infarct. This lies adjacent to the right lateral ventricle. No associated edema is seen. No intracranial hemorrhage is identified. No significant mass effect or midline structure shift is seen. No abnormal extra-axial fluid collection. There is a large amount of periventricular white matter low density consistent with microangiopathy. There is an old infarct seen within the lentiform nucleus along the anterior limb of the internal capsule. CT/CT head for stroke IMPRESSION: Question evolving infarct in the region of the posterior limb of internal capsule. MRI would be of help in further evaluation of this finding. ? Microangiopathy. ? This critical result was discussed with Carlos Vang MD at 1:10 PM hours on July 17, 2022. It was ascertained that the content and urgency of the report was understood at the time of direct communication. MRI brain FINDINGS: There is a small area of increased diffusion signal with hyperintense ADC map and FLAIR signal adjacent to the posterior body of the right lateral ventricle which has corresponding low T1 signal. There is no evidence of hemorrhage. The findings are most consistent with a subacute to chronic infarct, and corresponds to the findings on the CT scan. There is a punctate area of restricted diffusion in the left temporal lobe with minimally increased T2/FLAIR signal, consistent with a punctate acute infarct. No mass effect or midline shift is seen. The ventricles and sulci are slightly commensurately prominent, and there is a cavum septum pellucidum and vergae.. There are extensive areas of hyperintense T2 and FLAIR signal in the periventricular and subcortical white matter, as well as within the slade which are consistent with chronic microvascular ischemic changes. There is a chronic lacunar infarct in the left basal ganglia with adjacent ex-vacuo dilatation of the body of the left lateral ventricle. This infarct has a thin peripheral rim of low gradient signal which may be due to hemosiderin staining or chronic microhemorrhage. These changes were less extensive, but were present on the prior MRI scan. No extra-axial fluid collections are seen. The cerebellum appears normal. There is no evidence of acute hemorrhage. There is a small focus of low gradient signal in the left posterior temporal lobe medially with central increased T1 and T2 signal and with mild surrounding low T2 signal. It corresponds to a small focus of calcification demonstrated on the CT scan and may be consistent with a small cavernoma, and was demonstrated on prior imaging. The craniovertebral junction, marrow signal, and midline structures are normal. The major intracranial flow-voids at the level of the [place] are preserved. The dural venous sinus flow-voids are maintained. The mastoid air cells and paranasal sinuses are well-aerated. MR/MR head/brain wo con IMPRESSION: 1. There is a small area of acute infarction in the left temporal lobe without evidence of hemorrhagic transformation. ? 2. There is an area of increased diffusion signal with hyperintense ADC map and FLAIR signal adjacent to the body of the right lateral ventricle, corresponding to the area of low attenuation seen on the prior CT scan, and most consistent with a subacute to chronic infarct. ? 3. 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 There are chronic microvascular ischemic changes and there is diffuse volume loss. There are no acute bleeds or other masses. ? 4. This critical result was discussed with Yani Gamez MD by telephone on 07/17/2022 history PPM and it was ascertained that the content and urgency of the report was understood at the time of direct communication. ? <Ciera D Carlos, HUMAN RESOURCE OFFICER-BC - Last Filed: 07/17/22 18:07> NIH Stroke Scale Internal: Initial- Upon Arrival <Ciera D Carlos, HUMAN RESOURCE OFFICER-BC - Last Filed: 07/17/22 18:07> Level of Consciousness: Alert <Ciera D Carlos, HUMAN RESOURCE OFFICER-BC - Last Filed: 07/17/22 18:07> Level of Consciousness Questions: Answers both questions correctly <Ciera D Carlos, HUMAN RESOURCE OFFICER-BC - Last Filed: 07/17/22 18:07> Level of Consciousness Commands: Performs both tasks correctly <Ciera D Carlos, HUMAN RESOURCE OFFICER-BC - Last Filed: 07/17/22 18:07> Best Gaze: Normal <Ciera D Carlos, HUMAN RESOURCE OFFICER-BC - Last Filed: 07/17/22 18:07> Visual: No visual loss <Ciera D Carlos, HUMAN RESOURCE OFFICER-BC - Last Filed: 07/17/22 18:07> Facial Palsy: Normal <Ciera D Carlos, HUMAN RESOURCE OFFICER-BC - Last Filed: 07/17/22 18:07> Motor Arm (Right): No drift <Ciera D Carlos, HUMAN RESOURCE OFFICER-BC - Last Filed: 07/17/22 18:07> Motor Arm (Left): No drift <Ciera D Carlos, HUMAN RESOURCE OFFICER-BC - Last Filed: 07/17/22 18:07> Motor Leg (Right): No drift <Ciera D Carlos, HUMAN RESOURCE OFFICER-BC - Last Filed: 07/17/22 18:07> Motor Leg (Left): No drift <Ciera D Carlos, HUMAN RESOURCE OFFICER-BC - Last Filed: 07/17/22 18:07> Limb Ataxia: Absent <Ciera D Carlos, HUMAN RESOURCE OFFICER-BC - Last Filed: 07/17/22 18:07> Sensory: Normal <Ciera D Carlos, HUMAN RESOURCE OFFICER-BC - Last Filed: 07/17/22 18:07> Best Language: No aphasia <FUENTES Hahn - Last Filed: 07/17/22 18:07> Dysarthia: Normal <FUENTES Hahn - Last Filed: 07/17/22 18:07> Extinction and Inattention: No abnormality <FUENTES Hahn - Last Filed: 07/17/22 18:07> Score: 0 <FUENTES Hahn - Last Filed: 07/17/22 18:07> 0 <JAY Viera - Last Filed: 07/17/22 18:17> Discharge Plan Discharge Clinical Impression: Cerebrovascular accident Qualifiers: CVA mechanism: unspecified Qualified Code(s): I63.9 - Cerebral infarction, unspecified <FUENTES Hahn - Last Filed: 07/17/22 18:07> Patient Disposition: Still a Patient <FUENTES Hahn - Last Filed: 07/17/22 18:07> Prescriptions: No Action atorvastatin 80 mg tablet 1 tab PO BEDTIME lisinopril 30 mg tablet 1 tab PO DAILY aspirin 81 mg tablet,chewable 1 tab PO DAILY Trulicity 3 mg/0.5 mL pen injector 3 mg subcut QWEEK <FUENTES Hahn - Last Filed: 07/17/22 18:07>
--- NOTE | 2022-07-17 12:49 | PC.NURSE ---
taken to ct scan via stretcher, neuros appear intact. hyperverbal.
[2022-07-17 13:37] LABS: MANUAL DIFF FLAG NO
[2022-07-17 13:38] LABS: Basophils Absolute Auto 0.1 X10*3/uL (0.0-0.2); Basophils Percent Auto 0.9 % (0-2); Eosinophils Absolute Auto 0.3 X10*3/uL (0.0-0.4); Eosinophils Percent Auto 3.6 % (0-4); Hematocrit 46.8 % (42.0-52.0); Hemoglobin 15.7 g/dl (14.0-18.0); Imm Gran Abs Auto 0.03 X10*3/uL (0.00-0.03); Imm Gran Pct Auto 0.4 % (0.0-0.4); Lymphocytes Absolute Auto 1.6 X10*3/uL (1.2-4.9); Lymphocytes Percent Auto 23.7 % (20-40); Mean Corpuscular HGB Conc 33.5 g/dl (31.0-36.0); Mean Corpuscular Hemoglobin 27.4 pg (27.0-33.0); Mean Corpuscular Volume 81.7 fL (80.0-98.0); Mean Platelet Volume 9.8 fL (9.4-12.4); Monocytes Absolute Auto 0.5 X10*3/uL (0.1-1.2); Monocytes Percent Auto 7.7 % (2-11); Neutrophils Absolute Auto 4.4 x10*3/uL (2.0-8.3); Neutrophils Percent Auto 63.7 % (45-73); Platelet Count 264 X10*3/uL (160-400); Red Blood Count 5.73 X10*6/uL (4.60-5.80); Red Cell Distribution Width 14.6 % (11.0-16.0); White Blood Count 6.9 X10*3/uL (4.8-10.8)
[2022-07-17 13:53] LABS: Anion Gap 13 (12-20); Blood Urea Nitrogen 13 mg/dL (9-16); Calcium 9.6 mg/dL (8.4-10.2); Carbon Dioxide 28 mmol/L (22-29); Chloride 106 mmol/L (96-108); Creatinine Clr Calc Pharmacy 122.2; Estimated Glomerular Filt Rate > 60; Glucose Random 128 mg/dL (60-115); Potassium 3.8 mmol/L (3.3-5.1); Sodium 143 mmol/L (135-145)
--- NOTE | 2022-07-17 15:26 | MHC.EDTECH ---
@3:15 per request of Ciera Gonzalez, I called Neuro to get the reconciler doctor. The individual that answered the phone took the name of the provider, the name, and room number of the patient. The individual said she would notify the reconciler provider and call us back at the call back number I gave.
--- NOTE | 2022-07-17 15:43 | PC.NURSE ---
[employer]DER SUPERVISOR REQUESTING CONTACT WITH NEURO, THIS RN CALLED [facility]- ANSWERED BY STAFF AND STATES THEY WILL PUT A CALL OUT TO MD OCAMPO
[2022-07-17] MEDS: iohexoL 350 MG/ML 100 ML INFUS..BTL IV (16:25)
[2022-07-17] MEDS: Aspirin Enteric Coated 81 MG TABLET.DR PO (16:42)
--- NOTE | 2022-07-17 17:20 | PHA.MEDREC ---
Pharmacy Consult ? Medication Reconciliation Pharmacy has completed the medication reconciliation.
--- NOTE | 2022-07-17 17:59 | PM.IMHP ---
History of Present Illness Date of Service: 07/17/22 Attending physician on admission: Jethro Lopez Chief Complaint: Left leg and arm tingling and numbness Pt is a 56-year-old male with a PMH significant for CAD s/P KIM LCx in 2003, s/p KIM OM in 2019,?MS,optic neuritis, TIA in 2012, HTN, HLD, and non-insulin dependent diabetes who presents to the ED for evaluation of left leg and arm numbness and tingling. Patient states that when he woke up at 07:00 this morning he had a right-sided headache and felt numbness and tingling in his left arm and leg. Was able to move and get out of bed, but condition worsened about an hour later, when his left side was functionally paralyzed. This lasted about an hour until symptoms improved. They again worsened after another hour, and proceeded to wax and wane over the next few hours. Pt eventually called EMS after he fell off his scooter when attempting to go to town to purchase cigarettes around noon. Pt denies he experienced any facial droop, difficulty in speaking, change to vision or altered mentation. No chest pain/pressure, palpitations. Denies shortness of breath. No abdominal pain. Of note, review of medical records reveals the patient has recently been seen for similar symptoms of left-sided numbness and tingling at [facility] on 06/11/2022 and again on 07/15/2022. For his visit on 07/15/[address] of head negative for acute intracranial abnormalities and CTA with no intracranial LVO. Patient received no endovascular intervention and was sent home on aspirin, Plavix, and a statin. Review of records also found patient's diagnosis of MS is questionable. [facility] neurology outpatient office visit 03/23/2022 lb the patient reports MS but has never been treated for it and has had no recurrence of optic neuritis. They concluded that white matter lesions from MRI more suggestive of microvascular disease than MS. In the ED labs were unremarkable. 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 CTA of head and neck showed an evolving subacute infarct of the right welch radiata/caudate tail, and no evidence of acute intracranial hemorrhage or edematous territorial infarction. EKG showed normal sinus rhythm with no acute ischemic changes. Pt was treated in the ED with aspirin. Pt will be admitted to the hospital for treatment evaluation of cerebrovascular accident. Review of Systems Review of Systems: Left-sided numbness, weakness, and tingling No facial droop Denies changes to speech or vision No chest pain/pressure, palpitations Denies SOB Yes all other systems are reviewed and are negative [facility] Social History Alcohol intake: never Smoked in Last 30 Days: Yes Use of substances other than those prescribed or required for medical reasons: No Advance Directives: No Advance Directives Information Provided: Yes Meds Allergies Allergy/AdvReac Type Severity Reaction Status Date / Time morphine [MORPHINE] AdvReac Unknown VOMITING Unverified 04/01/20 17:49 Active Medications: Current Medications Pharmacy Consult (Consult Rx Perform Med Rec) 1 each MISCELLANE ONCE PRN PRN Reason: Consult order Home Medications Medication Instructions Recorded Confirmed Last Taken Type aspirin 81 mg chewable tablet 1 tab PO DAILY 07/17/22 07/17/22 07/17/22 History atorvastatin 80 mg tablet 1 tab PO BEDTIME 07/17/22 07/17/22 07/16/22 History dulaglutide 3 mg/0.5 mL 3 mg subcut QWEEK 07/17/22 07/17/22 07/17/22 History subcutaneous pen injector (Trulicity) lisinopril 30 mg tablet 1 tab PO DAILY 07/17/22 07/17/22 07/16/22 History Physical Exam Vital Signs and Narrative: Vital Signs: Last Vital Signs Temp 98.4 F 07/17/22 12:00 Pulse 95 07/17/22 12:00 Resp 20 07/17/22 12:00 BP 145/89 H 07/17/22 12:00 Pulse Ox 97 07/17/22 12:00 O2 Del Method 07/17/22 12:00 BMI result Body Mass Index 32.8 Constitutional: Combative at times. Alert, in no acute distress. Mental Status: Oriented to person, place and time. Eyes: Pupils are equal, round, and reactive to light. Ear, Nose, and Throat: Oropharynx clear, mucous membranes moist. Ears and nose without deformities. Trachea midline. Respiratory: Clear to auscultation bilaterally. No wheezing, rales, or rhonchi. Cardiovascular: S1, S2 regular. No murmurs, rubs, or gallops. Gastrointestinal: Abdomen soft, non-tender, non-distended. Normal bowel sounds. Neurologic: Cranial nerves II-XI are grossly intact. Tongue midline. Facial strength preserved. No focal neurological deficits. Moves all extremities spontaneously. 5/5 upper extremities strength bilaterally. 4/5 strength left leg hip extention. 5/5 strength hip flexion bilaterally. Skin: No rashes or lesions noted. Musculoskeletal: No cyanosis or clubbing. Extremities: No edema. Psychiatric: Normal mood and affect. Results Labs CBC and Chem 7: 07/17/22 13:31 07/17/22 13:31 Labs: Laboratory Results - last 24 hr 07/17/22 07/17/22 13:31 13:31 MCV 81.7 MCH 27.4 MCHC 33.5 RDW 14.6 Plt Count 264 MPV 9.8 Immature Gran % (Auto) 0.4 Neut % (Auto) 63.7 Lymph % (Auto) 23.7 [place] % (Auto) 7.7 Eos % (Auto) 3.6 Baso % (Auto) 0.9 Lymph # (Auto) 1.6 [place] # (Auto) 0.5 Eos # (Auto) 0.3 Baso # (Auto) 0.1 Abs Immat Gran (auto) 0.03 Absolute Neuts (auto) 4.4 Absolute Nucleated RBC 0.000 Nucleated RBC % (auto) 0.0 Anion Gap 13 Estim Creat Clear Calc 122.2 Estimated GFR > 60 Random Glucose 128 H Calcium 9.6 Imaging Radiologist's Impressions: Impressions Head CT 07/17/22 12:56 IMPRESSION: Question evolving infarct in the region of the posterior limb of internal capsule. MRI would be of help in further evaluation of this finding. Microangiopathy. This critical result was discussed with Carlos Vang MD at 1:10 PM hours on July 17, 2022. It was ascertained that the content and urgency of the report was understood at the time of direct communication. Brain MRI 07/17/22 14:19 IMPRESSION: 1. There is a small area of acute infarction in the left temporal lobe without evidence of hemorrhagic transformation. 2. There is an area of increased diffusion signal with hyperintense ADC map and FLAIR signal adjacent to the body of the right lateral ventricle, corresponding to the area of low attenuation seen on the prior CT scan, and most consistent with a subacute to chronic infarct. 3. 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 There are chronic microvascular ischemic changes and there is diffuse volume loss. There are no acute bleeds or other masses. 4. This critical result was discussed with aYni Gamez MD by telephone on 07/17/2022 history PPM and it was ascertained that the content and urgency of the report was understood at the time of direct communication. Head/Neck CTA 07/17/22 16:25 IMPRESSION: 1. Evolving subacute infarct of the right welch radiata/caudate tail. The previously noted small infarct of the left temporal lobe was better demonstrated on recent MRI. Chronic lacunar infarct of the left internal capsule/lentiform nucleus. Moderate underlying microangiopathy and generalized cerebral volume loss. 2. No evidence of acute intracranial hemorrhage or edematous territorial infarction. 3. CTA of the head and neck without proximal occlusion or flow-limiting stenosis. Assessment and Plan (1) Cerebrovascular accident: Qualifiers: CVA mechanism: unspecified Qualified Code(s): I63.9 - Cerebral infarction, unspecified Status: Acute Plan Pt is a 56-year-old male with a PMH significant for CAD s/P KIM LCx in 2003, s/p KIM OM in 2019,?MS,optic neuritis, TIA in 2012, HTN, HLD, and non-insulin dependent diabetes? 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 CTA of head and neck showed an evolving subacute infarct of the right welch radiata/caudate tail, and no evidence of acute intracranial hemorrhage or edematous territorial infarction.?Pt will be admitted to telemetry for evaluation and treatment of cerebrovascular accident. cerebrovascular accident physical exam benign; no focal deficits noted; appears back to baseline aspirin, Plavix, statin was not given TPA d/t pt's last well time being >4.5 hours echocardiogram w/bubble study lipid panel neurology consult non-insulin dependent diabetes hold Trulicity diabetic diet pending swallow eval ssi nicotine dependence patch smoking cessation advised question of MS not on any meds or exhibiting symptoms Full Code Attending:? DVT Prophylaxis: on Pt will require a hospitalization of at least two nights for treatment of? with . Time Spent With Patient Time: Total time managing care of this patient today ____ minutes. Quality Stroke Does the patient have a stroke diagnosis?: Yes Reason for No Anti-thrombotic by Day Two: Drug treatment not indicated (Pt's last known time of well-being outside of treatment window) VTE Prior VTE?: No VTE Risk Level:: Medical - moderate - high VTE Device Contraindication: Treatment Not Indicated VTE Drug Contraindication: N/A - Med Ordered
--- NOTE | 2022-07-17 18:56 | PM.EVENT ---
Event Note Date of Service: 07/18/22 Event Note: Addendum to history and physical by the advanced practice provider, JAY Lopez I interviewed and examined the patient. I discussed their presentation and management with the LILIAN. I reviewed the history and physical and agree with the documentation, with the following additions and corrections: 56yo M with DM2, MS unsure what meds he is on, woke up this AM at 700 with dizziness and numbness of L side. He said it was hard to distinguish between numbness and weakness and felt essentially paralyzed on his left side. Symptoms subsequently resolved to the point where he could walk to the store. On exam, no focal neurological deficits. CT with ?evolving posterior IC limb infarct + microangiopathy. MRI with small acute L temporal infarction; subacute-chronic infarct adjacent to body of R lateral ventricle. CTA no large vessel occlusion. Plan admit to telemetry, TTE, ASA, statin, PT/OT, neuro consults. Time Spent With Patient Time: Total time managing care of this patient today ____ minutes.
--- NOTE | 2022-07-17 19:39 | PC.NURSE ---
Attempted to call report to overflow at 1940. Will call back
[2022-07-17 20:47] LABS: Cholesterol 158 mg/dL; HDL Cholesterol 37 mg/dL; LDL Cholesterol Calculated 100 mg/dl; Triglycerides 108 mg/dL
--- NOTE | 2022-07-17 21:18 | PM.EVENT ---
Event Note Date of Service: 07/17/22 Event Note: Patient has been aggressive and combative with medical staff, swearing at staff and threatening to leave. Patient has been expressing frustration with the slow pace of getting him into a different bed and into his own room on the hospital floor. Patient has been moved to overflow and into a regular hospital bed. Patient prescribed Ativan for anxiety and restlessness. Time Spent With Patient Time: Total time managing care of this patient today ____ minutes.
[2022-07-17] MEDS: Enoxaparin Sodium 40 MG/0.4 ML SYRINGE SUBCUT (21:31)
[2022-07-17] MEDS: Atorvastatin Calcium 80 MG TABLET PO (21:32)
[2022-07-17] MEDS: Nicotine 21 MG PATCH.TD24 TRANSDERMA (21:32)
--- NOTE | 2022-07-17 21:40 | PC.NURSE ---
patient moved into overflow bed 1 and placed on surveillance system monitor. bed time meds given per mar and nicotine patch applied to L upper arm. will continue to monitor
[2022-07-17 21:42] LABS: Glucose, Whole Blood 135 mg/dL (60-115)
[2022-07-18] VITALS (7 sets, daily range): BP systolic 138–175; BP diastolic 75–94; PULSE 75–98; RESP 14–16; TEMP 36.4–36.8; O2SAT 96–100
[2022-07-18 06:54] LABS: Glucose, Whole Blood 111 mg/dL (60-115)
--- NOTE | 2022-07-18 07:14 | PC.NURSE ---
assumed care of patient, pt resting comfortably in bed, breakfast tray delivered, awaiting inpt bed, VSS
[2022-07-18 07:20] LABS: Cholesterol 140 mg/dL; HDL Cholesterol 33 mg/dL; LDL Cholesterol Calculated 75 mg/dl; Triglycerides 160 mg/dL
[2022-07-18] MEDS: Aspirin 81 MG TAB.CHEW PO (07:37)
[2022-07-18] MEDS: lisinopriL 10 MG TABLET 30 MG PO (07:37)
[2022-07-18] MEDS: Nicotine 21 MG PATCH.TD24 TRANSDERMA (07:37)
[2022-07-18 07:41] LABS: COVID-19 Test Negative (Negative); IDNOW Serial# 9DB6401D
--- NOTE | 2022-07-18 09:09 | MHC.CM.PN ---
CM spoke with Patient over the phone on his cell at [phone] and addressed IMM with him. Patient lives alone in an apartment and uses a scooter to assist with mobility. Patient states that his Neighbor looks out for him. PT is recommending STR and Patient is agreeable to a SNF search. CM has initiated and will follow for dc planning. Patient has received Covid vax x4and he is not yet established with a PCP.
[2022-07-18] MEDS: ondansetron HCL 4 MG/2 ML VIAL IVPUSH (09:23)
[2022-07-18] MEDS: Acetaminophen 325 MG TABLET 650 MG PO ×2 (10:18→20:31)
[2022-07-18] MEDS: LORazepam 1 MG TABLET PO ×2 (10:18→20:35)
[2022-07-18] MEDS: Magnesium Hydrox/Alum Hydrox 30 ML ORAL.SUSP PO (10:18)
--- NOTE | 2022-07-18 12:16 | P.PNIM_ITS ---
Subjective Subjective Date of Service: 07/18/22 Interval History: notes L-sided numbness feels tired, unbalanced STR recommended Review of Systems Review of Systems: Yes all other systems are reviewed and are negative Physical Exam Vital Signs: Vital Signs: Last Vital Signs Temp 98.2 F 07/18/22 06:00 Pulse 77 07/18/22 08:07 Resp 16 07/18/22 06:00 BP 147/94 H 07/18/22 08:07 Pulse Ox 100 07/18/22 08:07 O2 Del Method 07/18/22 06:00 BMI result Body Mass Index 32.8 Gen: in no acute distress HEENT: sclera anicteric, moist mucus membranes Neck: supple Lungs: clear to auscultation bilaterally Heart: regular rate and rhythm, no murmurs Abd: soft, non-tender, non-distended Ext: no edema Skin: warm/well-perfused Neuro: alert and oriented x3, no focal findings Psych: appropriate affect Objective Data Active Medications Acetaminophen (Acetaminophen 325 Mg Tablet) 650 mg PO Q6H PRN PRN Reason: Pain, Mild (Pain Scale 1-3) Last Admin: 07/18/22 10:18 Dose: 650 mg Documented By: JUAQUIN Al Hydroxide/Mg Hydroxide (Magnesium Hydrox/Alum Hydrox 30 Ml Oral.Susp) 30 ml PO Q4H PRN PRN Reason: dyspepsia Last Admin: 07/18/22 10:18 Dose: 30 ml Documented By: JUAQUIN Aspirin (Aspirin 81 Mg Tab.Chew) 81 mg PO DAILY [facility] Last Admin: 07/18/22 07:37 Dose: 81 mg Documented By: JUAQUIN Atorvastatin Calcium (Atorvastatin Calcium 80 Mg Tablet) 80 mg PO BEDTIME [facility] Last Admin: 07/17/22 21:32 Dose: 80 mg Documented By: HAZEL Clopidogrel Bisulfate (Clopidogrel Bisulfate 75 Mg Tablet) 75 mg PO DAILY [facility] Dextrose (Dextrose 50 % 25 Gm/50 Ml Syringe) 25 gm IVPUSH Q15M PRN; Protocol PRN Reason: per Hypoglycemia Standing Ord. Docusate Sodium (Docusate Sodium 100 Mg Capsule) 100 mg PO DAILY PRN PRN Reason: Constipation Enoxaparin Sodium (Enoxaparin Sodium 40 Mg/0.4 Ml Syringe) 40 mg SUBCUT Q24H [facility] Last Admin: 07/17/22 21:31 Dose: 40 mg Documented By: HAZEL Famotidine (Famotidine 20 Mg Tablet) 20 mg PO BID [facility] Last Admin: 07/18/22 10:10 Dose: Not Given Documented By: JUAQUIN Non-Admin Reason: Patient Refused Glucose (Glucose Gel 15 Gm Gel..Gram.) 15 gm PO Q15M PRN; Protocol PRN Reason: per Hypoglycemia Standing Ord. Insulin Human Lispro (Insulin Lispro 100 Unit/Ml 3 Ml Vial) 0 unit SUBCUT QIDACHS [facility]; Protocol Last Admin: 07/18/22 10:35 Dose: Not Given Documented By: JUAQUIN Non-Admin Reason: No Insulin Coverage Lisinopril (Lisinopril 10 Mg Tablet) 30 mg PO DAILY [facility]; Protocol Last Admin: 07/18/22 07:37 Dose: 30 mg Documented By: CHIO-MARTI Lorazepam (Lorazepam 1 Mg Tablet) 1 mg PO Q4H PRN PRN Reason: anxiety/restlessness Last Admin: 07/18/22 10:18 Dose: 1 mg Documented By: CHIO-MARTI Nicotine (Nicotine 21 Mg Patch.Td24) 21 mg TRANSDERMA DAILY [facility] Last Admin: 07/18/22 07:37 Dose: 21 mg Documented By: CHIO-MARTI Ondansetron HCl (Ondansetron Hcl 4 Mg/2 Ml Vial) 4 mg IVPUSH Q8H PRN PRN Reason: Nausea and Vomiting Last Admin: 07/18/22 09:23 Dose: 4 mg Documented By: JUAQUIN Pharmacy Consult (Consult Rx Perform Med Rec) 1 each MISCELLANE ONCE PRN PRN Reason: Consult order Labs CBC & Chem 7: 07/17/22 13:31 07/17/22 13:31 Labs: Laboratory Results - last 24 hr 07/17/22 07/17/22 07/17/22 13:31 13:31 21:39 MCV 81.7 MCH 27.4 MCHC 33.5 RDW 14.6 Plt Count 264 MPV 9.8 Immature Gran % (Auto) 0.4 Neut % (Auto) 63.7 Lymph % (Auto) 23.7 Hood % (Auto) 7.7 Eos % (Auto) 3.6 Baso % (Auto) 0.9 Lymph # (Auto) 1.6 Hood # (Auto) 0.5 Eos # (Auto) 0.3 Baso # (Auto) 0.1 Abs Immat Gran (auto) 0.03 Absolute Neuts (auto) 4.4 Absolute Nucleated RBC 0.000 Nucleated RBC % (auto) 0.0 Anion Gap 13 Estim Creat Clear Calc 122.2 Estimated GFR > 60 POC Glucose 135 H Random Glucose 128 H Calcium 9.6 Triglycerides 108 Cholesterol 158 LDL Cholesterol, Calc 100 HDL Cholesterol 37 COVID-19 ([facility]) COVID-19 Clin Com 07/18/22 07/18/22 07/18/22 06:26 06:47 07:18 MCV MCH MCHC RDW Plt Count MPV Immature Gran % (Auto) Neut % (Auto) Lymph % (Auto) Hood % (Auto) Eos % (Auto) Baso % (Auto) Lymph # (Auto) Hood # (Auto) Eos # (Auto) Baso # (Auto) Abs Immat Gran (auto) Absolute Neuts (auto) Absolute Nucleated RBC Nucleated RBC % (auto) Anion Gap Estim Creat Clear Calc Estimated GFR POC Glucose 111 Random Glucose Calcium Triglycerides 160 Cholesterol 140 LDL Cholesterol, Calc 75 HDL Cholesterol 33 COVID-19 ([facility]) Negative COVID-19 Clin Com See Note Assessment and Plan (1) Cerebrovascular accident: Status: Acute Plan d#2 56yo M with ?MS [per [facility] [place] unlikely MS and more likely chronic microvascular ischemic changes, but pt adamant that he has MS] with multiple recent CVA for which he was at [facility] 06/11/22 and 07/15/22 on DAPT presenting with LLE numbness/weakness, found to have small acute L temporal infarction, subacute R welch radiata infarction. # acute/subacute CVA - DAPT, high-intensity statin, BP control. Neuro consult, TTE. Per PT/OT STR placement. # HTN - lisinopril # DM2 - correction-dose lispro # tobacco abuse - NRT, evp general counsel cessation # VTE ppx: LMWH # dispo: STR placement In my clinical judgment, the patient requires continued inpatient hospitalization for the following reasons: neuro consult, STR placement Time Spent With Patient Time: Total time managing care of this patient today __38__ minutes. Quality Stroke Does the patient have a stroke diagnosis?: Yes Reason for No Anti-thrombotic by Day Two: Drug treatment not indicated (Pt's last known time of well-being outside of treatment window) VTE Prior VTE?: No VTE Risk Level:: Medical - moderate - high VTE Device Contraindication: Treatment Not Indicated VTE Drug Contraindication: N/A - Med Ordered
[2022-07-18 12:36] LABS: Glucose, Whole Blood 127 mg/dL (60-115)
[2022-07-18 15:27] LABS: Glucose, Whole Blood 199 mg/dL (60-115)
[2022-07-18] MEDS: Insulin Lispro 100 UNIT/ML 3 ML VIAL SUBCUT ×2 (15:28→20:32)
--- NOTE | 2022-07-18 15:31 | P.CNNE_ITS ---
History of Present Illness Data of Consult Service Date: 07/18/22 Primary Care Provider: Unknown Physician HPI Reason for consult: stroke with transient and fluctuating left sided weakness This is a 56-year-old male with a h/o CAD s/p KIM LCx in 2003, s/p KIM OM in 2019,?? diag. of MS with optic neuritis, TIA in 2012, HTN, HLD, and non-insulin dependent diabetes. He presented to [facility] for evaluation of left leg and arm numbness and tingling.?He woke up at 07:00 in the morning with a right-sided headache and felt numbness and tingling in his left arm and leg. He was able to move and get out of bed, but sx worsened about an hour later, when his left side was paralyzed. This lasted about an hour until symptoms improved. They again worsened after another hour, and proceeded to wax and wane over the next few hours. Pt eventually called EMS after he fell off his scooter when attempting to go to town to purchase cigarettes around noon. No facial droop, difficulty in speaking, change in vision or altered mentation.? No chest pain/pressure, palpitations.?He was seen for similar symptoms of left-sided numbness and tingling at [facility] on 06/11/2022 and again on 07/15/2022.? For his visit on 07/15/[address] of head negative for acute intracranial abnormalities and CTA with no intracranial LVO.? Patient received no endovascular intervention and was sent home on aspirin, Plavix, and a statin.?The diagnosis of MS is questionable.? [facility] neurology outpatient office visit 03/23/2022 : the patient reports MS but has never been treated for it and has had no recurrence of optic neuritis.? They concluded that white matter lesions from MRI more suggestive of microvascular disease than MS. 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 CTA of head and neck showed large vessel occlusions. Review of Systems Review of Systems: Left-sided numbness, weakness, and tingling No facial droop Denies changes to speech or vision No chest pain/pressure, palpitations Denies SOB Yes all other systems are reviewed and are negative [facility] Social History Social History Alcohol intake: never Smoked in Last 30 Days: Yes Use of substances other than those prescribed or required for medical reasons: No Advance Directives: No Advance Directives Information Provided: Yes service: Yes Current occupational status: disabled Meds Allergies Allergy/AdvReac Type Severity Reaction Status Date / Time morphine [MORPHINE] AdvReac Unknown VOMITING Unverified 04/01/20 17:49 Active Medications: Current Medications Acetaminophen (Acetaminophen 325 Mg Tablet) 650 mg PO Q6H PRN PRN Reason: Pain, Mild (Pain Scale 1-3) Last Admin: 07/18/22 10:18 Dose: 650 mg Al Hydroxide/Mg Hydroxide (Magnesium Hydrox/Alum Hydrox 30 Ml Oral.Susp) 30 ml PO Q4H PRN PRN Reason: dyspepsia Last Admin: 07/18/22 10:18 Dose: 30 ml Aspirin (Aspirin 81 Mg Tab.Chew) 81 mg PO DAILY [facility] Last Admin: 07/18/22 07:37 Dose: 81 mg Atorvastatin Calcium (Atorvastatin Calcium 80 Mg Tablet) 80 mg PO BEDTIME [facility] Last Admin: 07/17/22 21:32 Dose: 80 mg Clopidogrel Bisulfate (Clopidogrel Bisulfate 75 Mg Tablet) 75 mg PO DAILY [facility] Dextrose (Dextrose 50 % 25 Gm/50 Ml Syringe) 25 gm IVPUSH Q15M PRN; Protocol PRN Reason: per Hypoglycemia Standing Ord. Docusate Sodium (Docusate Sodium 100 Mg Capsule) 100 mg PO DAILY PRN PRN Reason: Constipation Enoxaparin Sodium (Enoxaparin Sodium 40 Mg/0.4 Ml Syringe) 40 mg SUBCUT Q24H [facility] Last Admin: 07/17/22 21:31 Dose: 40 mg Famotidine (Famotidine 20 Mg Tablet) 20 mg PO BID [facility] Last Admin: 07/18/22 10:10 Dose: Not Given Glucose (Glucose Gel 15 Gm Gel..Gram.) 15 gm PO Q15M PRN; Protocol PRN Reason: per Hypoglycemia Standing Ord. Insulin Human Lispro (Insulin Lispro 100 Unit/Ml 3 Ml Vial) 0 unit SUBCUT QIDACHS [facility]; Protocol Last Admin: 07/18/22 15:28 Dose: 2 unit Lisinopril (Lisinopril 10 Mg Tablet) 30 mg PO DAILY [facility]; Protocol Last Admin: 07/18/22 07:37 Dose: 30 mg Lorazepam (Lorazepam 1 Mg Tablet) 1 mg PO Q4H PRN PRN Reason: anxiety/restlessness Last Admin: 07/18/22 10:18 Dose: 1 mg Nicotine (Nicotine 21 Mg Patch.Td24) 21 mg TRANSDERMA DAILY [facility] Last Admin: 07/18/22 07:37 Dose: 21 mg Ondansetron HCl (Ondansetron Hcl 4 Mg/2 Ml Vial) 4 mg IVPUSH Q8H PRN PRN Reason: Nausea and Vomiting Last Admin: 07/18/22 09:23 Dose: 4 mg Pharmacy Consult (Consult Rx Perform Med Rec) 1 each MISCELLANE ONCE PRN PRN Reason: Consult order Home Medications Medication Instructions Recorded Confirmed Last Taken Type aspirin 81 mg chewable tablet 1 tab PO DAILY 07/17/22 07/17/22 07/17/22 History atorvastatin 80 mg tablet 1 tab PO BEDTIME 07/17/22 07/17/22 07/16/22 History dulaglutide 3 mg/0.5 mL 3 mg subcut QWEEK 07/17/22 07/17/22 07/17/22 History subcutaneous pen injector (Trulicity) lisinopril 30 mg tablet 1 tab PO DAILY 07/17/22 07/17/22 07/16/22 History Physical Exam Vital Signs: Vital Signs: Last Vital Signs Temp 98.2 F 07/18/22 06:00 Pulse 77 07/18/22 08:07 Resp 16 07/18/22 06:00 BP 147/94 H 07/18/22 08:07 Pulse Ox 100 07/18/22 08:07 O2 Del Method 07/18/22 06:00 BMI result Body Mass Index 32.8 Const: General: healthy appearing, no acute distress and well developed Nutritional Appearance: well nourished Orientation/consciousness: patient oriented x3 HEENT: Head: Yes normal to inspection, Yes normocephalic and Yes atraumatic Face and sinus: Yes normal facial exam Mouth: Normal oral and palatal mucosa present Throat: Yes posterior oropharynx normal, Yes tonsils normal and Yes uvula midline Eyes: General: appearance normal, both eyes and all related structures Neck: Neck: Yes normal visual inspection, Yes full ROM and Yes trachea midline Thyroid: Thyroid normal Resp: Effort & Inspection: normal respiratory effort, able to speak in complete sentences, no tracheal deviation and symmetric chest movement Auscultation: clear to auscultation bilaterally Cardio: Jugular venous distension: no JVD Rate: regular rate Heart sounds: S1 normal heart sound present, S2 normal heart sound present, no gallops and no murmurs GI: Inspection: Yes normal to inspection and No distended Palpation (GI): Soft to palpation, not firm, nontender and No hepatosplenomegaly present Auscultation: normal bowel sounds : General: Yes no CVA tenderness Back/Spine/Pelvis: Back: no CVA tenderness Skin: General skin exam: elasticity normal, turgor normal and dry skin Neuro: General: patient oriented x3, moves all extremities and no focal motor deficits Cranial nerves: Yes Normal facial strength present, Yes Midline tongue present, Yes Normal gag reflex present and Yes Ability to bilaterally rotate head present Cognition (Neuro): normal cognition Gait exam (Neuro): Normal gait present Motor exam (neuro): 5/5 motor strength present throu ghout Coordination: [id number] test normal Comatose Patient: corneal reflex present Psych: Appearance: grossly normal Mental Status: mental status grossly normal Speech and movement: Normal speech and movement present Affect: normal affect Attitude: cooperative Thought process: Normal thought process present Thought content: Normal thought content present Insight: Good insight present (Psych) Judgement: Good judgement present (Psych) Results Labs CBC & Chem 7: 07/17/22 13:31 07/17/22 13:31 Assessment and Plan (1) Cerebrovascular accident: Qualifiers: CVA mechanism: unspecified Qualified Code(s): I63.9 - Cerebral infarction, unspecified Status: Acute small vessel microvascular disease. Recom: ASA 81mg and Plavix 75mg. Atorvastatin. BP control. Echocardiogram with bubble study. Plan d#2 56yo M with ?MS [per [facility] [place] Neuro unlikely MS and more likely chronic microvascular ischemic changes, but pt adamant that he has MS] with multiple recent CVA for which he was at [facility] [place] 06/11/22 and 07/15/22 on DAPT presenting with LLE numbness/weakness, found to have small acute L temporal infarction, subacute R welhc radiata infarction. # acute/subacute CVA - DAPT, high-intensity statin, BP control. Neuro consult, TTE. Per PT/OT STR placement. # HTN - lisinopril # DM2 - correction-dose lispro # tobacco abuse - NRT, certified addiction counselor cessation # VTE ppx: LMWH # dispo: STR placement In my clinical judgment, the patient requires continued inpatient hospitalization for the following reasons: neuro consult, STR placement Time Spent With Patient Time: Total time managing care of this patient today ____ minutes. Procedures Date of Service Date of Service: 07/18/22
--- NOTE | 2022-07-18 16:35 | MHC.STROKE ---
07/17/22 1141 EMS PRE-NOTIFICATION, NO STROKE ALERT. ARRIVED AT 1150. C/O NUMBNESS OF LEFT LEG AND DIZZINESS. EXAMINED BY PROVIDER NIHSS = 0. CONFIRMED LKW 07/17/22 0000. WOKE WITH THESE SYMPTOMS AROUND 0700. AFTER SPEAKING WITH HIM HE SAID HE FELT LIKE HE MIGHT OF HAD THESE SYMPTOMS ON AND OFF FOR A FEW DAYS. EXCLUDED FROM THROMBOLYTICS BASED ON LKW > 4.[address], MRI, AND CTA H/N DONE. RESULTS REVIEWED WITH THE PATIENT AND I GAVE HIM SCREENSHOT OF THE MRI IMAGES AND THE LOCATION OF HIS STROKES. HE EXPLAINED THAT HE HAS VASCULAR DISEASE IN HIS HEAD. HE HAS NOT TAKEN HIS MEDICATIONS EXCEPT FOR ASPIRIN BECAUSE THE EMT'S TOOK HIS MEDICATIONS AND GAVE THEM TO THE NURSE AT [facility] AND HE NEVER GOT THEM BACK. HE SAID HE WENT TO REHAB FOR A FEW DAYS IN [place]UN[place]. I PROVIDED STROKE EDUCATION AND REVIEWED THE BOOKLET, HIS LABS, MEDICATIONS, BLOOD SUGARS. DR ARROYO ALSO ROUNDED. I ANSWERED HIS QUESTIONS, EMPTIES HIS URINAL FOR 800CC, GOT HIM A COFFEE AND MADE SURE HE HAD EVERYTHING HE NEEDED. I WILL CONTINUE TO FOLLOW.
--- NOTE | 2022-07-18 18:02 | PC.NURSE ---
patient becoming increasingly agitated about dinner tray wait time even after being given multiple sandwiches and juice. pt educated on appropriate behavior while here in ED. pt reminded that the food is still on the way
[2022-07-18] MEDS: Clopidogrel Bisulfate 75 MG TABLET PO (19:17)
--- NOTE | 2022-07-18 19:52 | PC.NURSE ---
Patient c/o numbness in left upper and lower lips, no facial droop noted. Patient speaking in full sentences. He is able to manage secretions. VS: T 96.7, P 92, BP 175/88, O2 Sat 96% RA. Patient removed continuous desk monitor and refusing desk monitor to be reapplied despite explanation of importance of monitoring HR and rhythm. Dr. Ambrosio notified, no new orders at this time.
--- NOTE | 2022-07-18 19:54 | MHC.EDTECH ---
RN IS AWARE THAT PT REFUSED TO WEAR HEART MONITOR .
[2022-07-18 20:28] LABS: Glucose, Whole Blood 197 mg/dL (60-115)
[2022-07-18] MEDS: Famotidine 20 MG TABLET PO (20:31)
[2022-07-18] MEDS: Atorvastatin Calcium 80 MG TABLET PO (20:32)
[2022-07-18] MEDS: Enoxaparin Sodium 40 MG/0.4 ML SYRINGE SUBCUT (20:32)
--- NOTE | 2022-07-18 20:38 | PC.NURSE ---
Patient is alert and oriented x4. Patient is able to make his needs known. VSS. Patient c/o headache 5/ at present. PRN PO Tylenol administered. Patient reports lips numbness resolved. Patient reports feeling anxious. PRN Lorazepam administered. POC 197. Humalog 2 units mold filler plastic dolls per sliding scale protocol. Patient continues to refuse application of continuos cardiac catheterization technician.
--- NOTE | 2022-07-19 03:02 | PC.NURSE ---
Patient is sleeping, no s/s of distress noted. RR 14, breathing unlabored. Call osuna within patient's reach.
[2022-07-19 06:00] VITALS: BP 156/85; PULSE 72; RESP 16; TEMP 36.5; O2SAT 98
--- NOTE | 2022-07-19 06:19 | MHC.EDTECH ---
patient slept all night ,drank 120 ml fluids .
--- NOTE | 2022-07-19 07:00 | CA_ITS ---
Transthoracic Echocardiogram Patient (Last, First, Middle): Kevin Montes J Gender: Male Date of : 1965 Age: 56 Procedure Date: 07/19/2022 Procedure Type: Transthoracic Echocardiogram Location: ER Height: 162.56 cm Weight: 86.64 kg BSA: 1.92 m2 Heart Rate: 71 bpm BP: 147 / 94 mmHg Carburizing Furnace Operator: DANNY Referring MD: Ursula THOMPSON Symptoms: Recurrent stroke, including Bubble Study Quality: Adequate ECG Rhythm: Sinus Conclusions: - The left ventricular systolic function is normal. The calculated ejection fraction is 62% by biplane method. - There is evidence of regional wall motion abnormalities. - There is no evidence of interatrial shunt by agitated saline. - No obvious valvular pathology seen on this study. Findings Left Ventricle Normal left ventricular cavity size. The left ventricular systolic function is normal. The calculated ejection fraction is 62% by biplane method. There is evidence of regional wall motion abnormalities. Diastolic function is normal for age. There is mild septal asymmetric hypertrophy. Wall Motion Rest Echo Findings The mid inferior and mid inferolateral segments are hypokinetic. The basal inferior segment is akinetic. Right Ventricle Normal right ventricular cavity size and systolic function. Atria Both atria are normal in size. There is no evidence of interatrial shunt by agitated saline. Bubble study negative with rest and valsalva. Aortic Valve There is a normal trileaflet aortic valve. There is no aortic valve stenosis. There is no aortic valve regurgitation. Mitral Valve The mitral valve appears normal. There is no mitral valve regurgitation. There is no mitral valve stenosis. Pulmonic Valve The pulmonic valve is likely normal. Tricuspid Valve Normal tricuspid valve structure. There is trace tricuspid valve regurgitation. There is no evidence of pulmonary hypertension. Great Vessels The asc aorta is normal in size. Venous The inferior vena cava is normal in size and collapses greater than 50% with inspiration. Pericardium/Pleural There is no evidence of pericardial effusion. Prior Study Comparison No prior study available for comparison. Recommendations, Care & Conclusions No obvious valvular pathology seen on this study. Measurements 2D Linear Measurements IVSd: 1.13 0.6-0.9/0.6-1.0 cm LVIDd: 4.79 3.9-5.3/4.2-5.9 cm LVIDd Index: 2.49 2.4-3.2/2.2-3.1 cm/m2 LVIDs: 4.02 2.0-3.6 cm LVPWd: 0.94 0.7-1.1 cm LA Diam: 3.30 2.7-3.8/3.0-4.0 cm LAIDs Index: 1.72 1.5-2.3 cm/m2 LV Mass: 221.88 67-162/88-224 g LV Mass Index: 115.56 43-95/49-115 g/m2 LVOT Diam: 2.20 3.0+(-)1.3 cm 2D Systolic Function EF 4C: 60.20 >55% EF 2C: 64.30 >55% EF BiP: 61.80 >55% Mitral Valve MV Pk E: 0.75 MV PK A: 0.82 MV Decel Time: 246.00 E/A: 0.90 E'Lateral: 7.40 E'Medial: 5.66 E/E' Med: 13.20 E/E' Lat: 10.10 PHT: 72.00 MVA PHT: 3.06 Decel [place]: 3.04 Aortic Valve AoV Pk Dale: 1.44 AoV Mn Dale: 1.07 AoV VTI: 0.28 AoV Pk Grad: 8.00 Aov Mn Grad: 5.00 CAITLIN Cont.VTI: 2.55 LVOT LVOT Pk Dale: 0.97 LVOT Mn Dale: 0.66 LVOT VTI: 0.19 LVOT Pk Grad: 4.00 LVOT Mn Grad: 2.00 LVOT Diam: 2.20 LVOT Area: 3.80 Diastolic Function MV Pk E: 0.75 MV Pk A: 0.82 E/A: 0.90 E'Medial: 5.66 E/E' Med: 13.20 E' Laterial: 7.40 E/E' Lat: 10.10 Right Ventricle TAPSE (mm): 20.30 TVS' Dale: 13.60 Tricuspid Valve RA Press: 3.00 Great Vessels Aorta Sinus of Valsalva: 3.30 2.0-3.5 cm Ao Asc: 3.30 2.1-3.4 cm Pulmonary Valve PV Pk Dale: 0.93 Peak PV Grad: 3.00 Updated in Other Vendor System with Status of Final Be Pope MD electronically signed on 07/19/2022 12:47:53 PM with status of Final
[2022-07-19 07:22] LABS: Glucose, Whole Blood 132 mg/dL (60-115)
[2022-07-19 08:02] VITALS: BP 144/87; PULSE 94; RESP 16; TEMP 36.7; O2SAT 94
[2022-07-19] MEDS: lisinopriL 10 MG TABLET 30 MG PO (08:50)
[2022-07-19] MEDS: Clopidogrel Bisulfate 75 MG TABLET PO (08:50)
[2022-07-19] MEDS: Famotidine 20 MG TABLET PO ×2 (08:50→21:23)
[2022-07-19] MEDS: Nicotine 21 MG PATCH.TD24 TRANSDERMA (08:50)
[2022-07-19] MEDS: Aspirin 81 MG TAB.CHEW PO (08:50)
[2022-07-19 09:14] VITALS: BP 144/87; PULSE 94; O2SAT 94
[2022-07-19] MEDS: Docusate Sodium 100 MG CAPSULE PO (10:40)
[2022-07-19] MEDS: Acetaminophen 325 MG TABLET 650 MG PO (12:06)
[2022-07-19] MEDS: LORazepam 1 MG TABLET PO ×2 (12:06→21:24)
--- NOTE | 2022-07-19 12:09 | PC.NURSE ---
assumed care of pt at 1100, pt a&ox3, vss, GCS 15, medicated for 5/10 headache w some increased anxiety. pt expressing some agitation at not getting moved upstairs, explained that pts that he has seen leaving are going to open beds on a different unit. pt pending bed assignment.
[2022-07-19 12:23] LABS: Glucose, Whole Blood 152 mg/dL (60-115)
--- NOTE | 2022-07-19 12:56 | PC.NURSE ---
per pt IV fell out when turning over in bed.
[2022-07-19] MEDS: Insulin Lispro 100 UNIT/ML 3 ML VIAL SUBCUT ×3 (13:22→21:23)
--- NOTE | 2022-07-19 13:25 | PC.NURSE ---
pt medicated per provider order, denies any pain at this time.
--- NOTE | 2022-07-19 13:29 | PC.NURSE ---
attempted to call report to [facility], RN to call back.
--- NOTE | 2022-07-19 14:19 | HO.PM.IMPN ---
Subjective Subjective Date of Service: 07/19/22 Interval History: LLE numbness/weakness improved no chest pain no dyspnea Review of Systems Review of Systems: Yes all other systems are reviewed and are negative Physical Exam Vital Signs: Vital Signs: Last Vital Signs Temp 98.0 F 07/19/22 08:02 Pulse 94 07/19/22 09:14 Resp 16 07/19/22 08:02 BP 144/87 H 07/19/22 09:14 Pulse Ox 94 07/19/22 09:14 O2 Del Method 07/19/22 08:02 BMI result Body Mass Index 32.8 Gen: in no acute distress HEENT: sclera anicteric, moist mucus membranes Neck: supple Lungs: clear to auscultation bilaterally Heart: regular rate and rhythm, no murmurs Abd: soft, non-tender, non-distended Ext: no edema Skin: warm/well-perfused Neuro: alert and oriented x3, no focal findings Psych: appropriate affect Objective Data Active Medications Acetaminophen (Acetaminophen 325 Mg Tablet) 650 mg PO Q6H PRN PRN Reason: Pain, Mild (Pain Scale 1-3) Last Admin: 07/19/22 12:06 Dose: 650 mg Documented By: GABE Al Hydroxide/Mg Hydroxide (Magnesium Hydrox/Alum Hydrox 30 Ml Oral.Susp) 30 ml PO Q4H PRN PRN Reason: dyspepsia Last Admin: 07/18/22 10:18 Dose: 30 ml Documented By: JUAQUIN Aspirin (Aspirin 81 Mg Tab.Chew) 81 mg PO DAILY [facility] Last Admin: 07/19/22 08:50 Dose: 81 mg Documented By: DOMINIQUE Atorvastatin Calcium (Atorvastatin Calcium 80 Mg Tablet) 80 mg PO BEDTIME [facility] Last Admin: 07/18/22 20:32 Dose: 80 mg Documented By: JAMARI Clopidogrel Bisulfate (Clopidogrel Bisulfate 75 Mg Tablet) 75 mg PO DAILY [facility] Last Admin: 07/19/22 08:50 Dose: 75 mg Documented By: DOMINIQUE Dextrose (Dextrose 50 % 25 Gm/50 Ml Syringe) 25 gm IVPUSH Q15M PRN; Protocol PRN Reason: per Hypoglycemia Standing Ord. Docusate Sodium (Docusate Sodium 100 Mg Capsule) 100 mg PO DAILY PRN PRN Reason: Constipation Last Admin: 07/19/22 10:40 Dose: 100 mg Documented By: DOMINIQUE Enoxaparin Sodium (Enoxaparin Sodium 40 Mg/0.4 Ml Syringe) 40 mg SUBCUT Q24H [facility] Last Admin: 07/18/22 20:32 Dose: 40 mg Documented By: JAMARI Famotidine (Famotidine 20 Mg Tablet) 20 mg PO BID [facility] Last Admin: 07/19/22 08:50 Dose: 20 mg Documented By: DOMINIQUE Glucose (Glucose Gel 15 Gm Gel..Gram.) 15 gm PO Q15M PRN; Protocol PRN Reason: per Hypoglycemia Standing Ord. Insulin Human Lispro (Insulin Lispro 100 Unit/Ml 3 Ml Vial) 0 unit SUBCUT QIDACHS [facility]; Protocol Last Admin: 07/19/22 13:22 Dose: 2 unit Documented By: GABE Lisinopril (Lisinopril 10 Mg Tablet) 30 mg PO DAILY [facility]; Protocol Last Admin: 07/19/22 08:50 Dose: 30 mg Documented By: DOMINIQUE Lorazepam (Lorazepam 1 Mg Tablet) 1 mg PO Q4H PRN PRN Reason: anxiety/restlessness Last Admin: 07/19/22 12:06 Dose: 1 mg Documented By: GABE Nicotine (Nicotine 21 Mg Patch.Td24) 21 mg TRANSDERMA DAILY [facility] Last Admin: 07/19/22 08:50 Dose: 21 mg Documented By: DOMINIQUE Ondansetron HCl (Ondansetron Hcl 4 Mg/2 Ml Vial) 4 mg IVPUSH Q8H PRN PRN Reason: Nausea and Vomiting Last Admin: 07/18/22 09:23 Dose: 4 mg Documented By: JUAQUIN Pharmacy Consult (Consult Rx Perform Med Rec) 1 each MISCELLANE ONCE PRN PRN Reason: Consult order Labs CBC & Chem 7: 07/17/22 13:31 07/17/22 13:31 Labs: Laboratory Results - last 24 hr 07/18/22 07/18/22 07/19/22 15:24 20:24 07:18 POC Glucose 199 H 197 H 132 H 07/19/22 12:09 POC Glucose 152 H TTE 07/19/22 - The left ventricular systolic function is normal.? The ? calculated ejection fraction is 62% by biplane method. ? - There is evidence of regional wall motion abnormalities. ? ? ? - There is no evidence of interatrial shunt by agitated saline.? - No obvious valvular pathology seen on this study.? Assessment and Plan (1) Cerebrovascular accident: Status: Acute Plan d#3 56yo M with ?MS [per [facility] Neuro unlikely MS and more likely chronic microvascular ischemic changes, but pt adamant that he has MS] with multiple recent CVA for which he was at [facility] 06/11/22 and 07/15/22 on DAPT presenting with LLE numbness/weakness, found to have small acute L temporal infarction, subacute R welch radiata infarction. # acute/subacute CVA - secondary prevention with DAPT, high-intensity statin, BP control. Neuro consulted. Per PT/OT STR placement. # regional WMAs on TTE - Cardiology consultation # HTN - lisinopril # DM2 - correction-dose lispro # tobacco abuse - NRT, group home counselor cessation # VTE ppx: LMWH # dispo: STR placement In my clinical judgment, the patient requires continued inpatient hospitalization for the following reasons: card consult, STR placement Time Spent With Patient Time: Total time managing care of this patient today __28__ minutes. Quality Stroke Does the patient have a stroke diagnosis?: Yes Reason for No Anti-thrombotic by Day Two: Drug treatment not indicated (Pt's last known time of well-being outside of treatment window) VTE Prior VTE?: No VTE Risk Level:: Medical - moderate - high VTE Device Contraindication: Treatment Not Indicated VTE Drug Contraindication: N/A - Med Ordered
--- NOTE | 2022-07-19 14:23 | PC.NURSE ---
RN-RN report called into over, transport notified.
[2022-07-19 16:00] VITALS: BP 142/90; PULSE 78; RESP 15; TEMP 36.9; O2SAT 94
[2022-07-19 16:38] LABS: Glucose, Whole Blood 176 mg/dL (60-115)
[2022-07-19 19:11] VITALS: BP 155/90; PULSE 88; RESP 15; TEMP 36.7; O2SAT 94
[2022-07-19 20:12] LABS: Glucose, Whole Blood 183 mg/dL (60-115)
[2022-07-19] MEDS: Atorvastatin Calcium 80 MG TABLET PO (21:23)
[2022-07-19] MEDS: Enoxaparin Sodium 40 MG/0.4 ML SYRINGE SUBCUT (21:23)
[2022-07-19 23:39] VITALS: BP 158/82; PULSE 73; RESP 18; TEMP 37.1; O2SAT 96
[2022-07-20] VITALS (8 sets, daily range): BP systolic 140–185; BP diastolic 90–108; PULSE 73–102; RESP 18–20; TEMP 36.1–37.1; O2SAT 92–97
[2022-07-20 07:42] LABS: Glucose, Whole Blood 134 mg/dL (60-115)
[2022-07-20] MEDS: lisinopriL 10 MG TABLET 30 MG PO (08:18)
[2022-07-20] MEDS: Aspirin 81 MG TAB.CHEW PO (08:18)
[2022-07-20] MEDS: Clopidogrel Bisulfate 75 MG TABLET PO (08:18)
[2022-07-20] MEDS: Famotidine 20 MG TABLET PO ×2 (08:19→20:24)
[2022-07-20] MEDS: Nicotine 21 MG PATCH.TD24 TRANSDERMA (08:19)
[2022-07-20] MEDS: Docusate Sodium 100 MG CAPSULE PO (08:24)
--- NOTE | 2022-07-20 10:15 | P.CONCA_ITS ---
History of Present Illness History of Present Illness Date of Service: 07/20/22 Chief complaint: Left-sided numbness and tingling Narrative: This is a cardiology consultation regarding abnormal echocardiogram with wall motion abnormality. Patient reportedly has had KIM to circumflex in 2003 and KIM to OM in 2019 but admit to verify this information from catheterization data. Apparently, other comorbidities include TIA, hypertension, hyperlipidemia, diabetes, MS among others. Current admission is because of stroke-like symptoms. In this context, he had an echocardiogram and that showed wall motion abnormality leading to consultation. As mentioned above, prior coronary disease/PCI but limited information. Patient is very vague about cardiology follow-up some states he might have seen somebody at [facility] but cannot give any further details. However, denies any complaints like angina or shortness of breath or in fact anything cardiac related. Review of Systems Review of Systems: Yes all other systems are reviewed and are negative Constitutional: Constitutional: Reports as per HPI Eyes: Eyes: Reports as per HPI ENT: Reports as per HPI Cardiovascular: Cardiovascular: Reports as per HPI, Denies acrocyanosis, Denies cool extremities, Denies chest pain, Denies leg edema, Denies lightheadedness, Denies palpitations and Denies dyspnea Respiratory: Respiratory: Reports as per HPI, Reports no additional respiratory complaints and Denies dyspnea Gastrointestinal: Gastrointestinal: Reports as per HPI and Reports no additional gastrointestinal complaints Genitourinary: Genitourinary: Reports no additional male genitourinary complaints and Reports as per HPI Musculoskeletal: Musculoskeletal: Reports no additional musculoskeletal complaints and Reports as per HPI Integumentary/Breasts: Skin/Breast: Reports system reviewed and no additional complaints, except as docu Neurologic: Reports system reviewed and no additional complaints, except as documented and Reports as per HPI Psychiatric: Psychiatric: Reports no additional psychiatric complaints and Reports as per HPI Endocrine: Endocrine: Reports no additional endocrine complaints, Reports as per HPI and Denies palpitations Hematologic/Lymphatic: Hematologic/Lymphatic: Reports no additional hematologic/lymphatic complaints and Reports as per HPI Allergic/Immunologic: Allergic/Immunologic: Reports no additional allergic/imm unologic complaints and Reports as per HPI [facility] Past Medical History Medical History (Updated 07/20/22 @ 10:19 by Be Pope MD) Atherosclerotic cardiovascular disease Essential hypertension Other and unspecified hyperlipidemia Smoking Type 2 diabetes mellitus with unspecified complications Family History Pertinent family history: Patient states he does not know as he was adopted. Social History Social History Household Members: None Housing: Apartment Do you presently have visiting nurse or other home services: No Alcohol intake: never Patient Tobacco Use Status: Current someday Tobacco user service: Yes Current occupational status: disabled Meds Allergies Allergy/AdvReac Type Severity Reaction Status Date / Time morphine [MORPHINE] AdvReac Unknown VOMITING Unverified 04/01/20 17:49 Active Medications: Current Medications Acetaminophen (Acetaminophen 325 Mg Tablet) 650 mg PO Q6H PRN PRN Reason: Pain, Mild (Pain Scale 1-3) Last Admin: 07/19/22 12:06 Dose: 650 mg Al Hydroxide/Mg Hydroxide (Magnesium Hydrox/Alum Hydrox 30 Ml Oral.Susp) 30 ml PO Q4H PRN PRN Reason: dyspepsia Last Admin: 07/18/22 10:18 Dose: 30 ml Aspirin (Aspirin 81 Mg Tab.Chew) 81 mg PO DAILY [facility] Last Admin: 07/20/22 08:18 Dose: 81 mg Atorvastatin Calcium (Atorvastatin Calcium 80 Mg Tablet) 80 mg PO BEDTIME [facility] Last Admin: 07/19/22 21:23 Dose: 80 mg Clopidogrel Bisulfate (Clopidogrel Bisulfate 75 Mg Tablet) 75 mg PO DAILY [facility] Last Admin: 07/20/22 08:18 Dose: 75 mg Dextrose (Dextrose 50 % 25 Gm/50 Ml Syringe) 25 gm IVPUSH Q15M PRN; Protocol PRN Reason: per Hypoglycemia Standing Ord. Docusate Sodium (Docusate Sodium 100 Mg Capsule) 100 mg PO DAILY PRN PRN Reason: Constipation Last Admin: 07/20/22 08:24 Dose: 100 mg Enoxaparin Sodium (Enoxaparin Sodium 40 Mg/0.4 Ml Syringe) 40 mg SUBCUT Q24H [facility] Last Admin: 07/19/22 21:23 Dose: 40 mg Famotidine (Famotidine 20 Mg Tablet) 20 mg PO BID [facility] Last Admin: 07/20/22 08:19 Dose: 20 mg Glucose (Glucose Gel 15 Gm Gel..Gram.) 15 gm PO Q15M PRN; Protocol PRN Reason: per Hypoglycemia Standing Ord. Insulin Human Lispro (Insulin Lispro 100 Unit/Ml 3 Ml Vial) 0 unit SUBCUT QIDACHS [facility]; Protocol Last Admin: 07/20/22 08:12 Dose: Not Given Lisinopril (Lisinopril 10 Mg Tablet) 30 mg PO DAILY [facility]; Protocol Last Admin: 07/20/22 08:18 Dose: 30 mg Lorazepam (Lorazepam 1 Mg Tablet) 1 mg PO Q4H PRN PRN Reason: anxiety/restlessness Last Admin: 07/19/22 21:24 Dose: 1 mg Nicotine (Nicotine 21 Mg Patch.Td24) 21 mg TRANSDERMA DAILY [facility] Last Admin: 07/20/22 08:19 Dose: 21 mg Ondansetron HCl (Ondansetron Hcl 4 Mg/2 Ml Vial) 4 mg IVPUSH Q8H PRN PRN Reason: Nausea and Vomiting Last Admin: 07/18/22 09:23 Dose: 4 mg Pharmacy Consult (Consult Rx Perform Med Rec) 1 each MISCELLANE ONCE PRN PRN Reason: Consult order Home Medications Medication Instructions Recorded Confirmed Last Taken Type aspirin 81 mg chewable tablet 1 tab PO DAILY 07/17/22 07/17/22 07/17/22 History atorvastatin 80 mg tablet 1 tab PO BEDTIME 07/17/22 07/17/22 07/16/22 History dulaglutide 3 mg/0.5 mL 3 mg subcut QWEEK 07/17/22 07/17/22 07/17/22 History subcutaneous pen injector (Trulicity) lisinopril 30 mg tablet 1 tab PO DAILY 07/17/22 07/17/22 07/16/22 History Physical Exam Vital Signs: Vital Signs: Last Vital Signs Temp 97.0 F 07/20/22 07:29 Pulse 84 07/20/22 07:29 Resp 20 07/20/22 07:29 BP 140/92 H 07/20/22 07:29 Pulse Ox 94 07/20/22 07:29 O2 Del Method 07/20/22 07:29 BMI result Body Mass Index 32.8 Const: General: comfortable and no acute distress Orientation/consciousness: patient oriented x3 HEENT: Other: Unremarkable Head: Yes normal to inspection Neck: Neck: Yes normal visual inspection Chest: Chest palpation & inspection: normal inspection of the chest Resp: Auscultation: clear to auscultation bilaterally Cardio: Palpation: normal PMI Heart sounds: S1 normal heart sound present, S2 normal heart sound present, no gallops, no murmurs and no rubs GI: Palpation (GI): Soft to palpation Back/Spine/Pelvis: Other: unremarkable Skin: General skin exam: no rashes or lesions noted Neuro: General: patient oriented x3 Extrem: General: Yes normal to inspection Psych: Mental Status: mental status grossly normal Objective Labs and Meds Result diagrams: 07/17/22 13:31 07/17/22 13:31 Lab results: Laboratory Results - last 24 hr 07/19/22 07/19/22 07/19/22 12:09 16:35 19:53 POC Glucose 152 H 176 H 183 H 07/20/22 07:28 POC Glucose 134 H ECG Interpretation: EKG with sinus rhythm at 95/Min; old inferior infarct but otherwise unremarkable. Assessment and Plan (1) Atherosclerotic cardiovascular disease: Status: Acute (2) Type 2 diabetes mellitus with unspecified complications: Status: Acute (3) Essential hypertension: Status: Acute (4) Other and unspecified hyperlipidemia: Status: Acute (5) Smoking: Status: Acute (6) Cerebrovascular accident: Qualifiers: CVA mechanism: unspecified Qualified Code(s): I63.9 - Cerebral infarction, unspecified Status: Acute Plan Known coronary disease with prior PCI to circumflex/OM by history, multiple risk factors including diabetes, hypertension, dyslipidemia, smoking presenting with stroke symptoms. Baseline EKG shows probable prior inferior infarct. Echocardiogram with preserved LVEF and inferior wall motion abnormality. Basal inferior akinesis. Mid inferior/inferolateral hypokinesis. Findings are likely chronic and reflects stable CAD. Do not believe he had any acute coronary symptoms/syndrome. Can check troponins to clarify this further. Discussed with Dr. Klein. Otherwise, aggressive risk factor management including appropriate management of diabetes, hypertension and lipids. Smoking cessation. Antiplatelet per neurology. Discussed with hospitalist. Time Spent With Patient Time: Total time managing care of this patient today 70 minutes. Procedures Date of Service Date of Service: 07/20/22
[2022-07-20 11:27] LABS: Troponin-I High Sensitivity 4.4 ng/L (<3.5-35.0)
[2022-07-20 11:35] LABS: Glucose, Whole Blood 185 mg/dL (60-115)
[2022-07-20] MEDS: Insulin Lispro 100 UNIT/ML 3 ML VIAL SUBCUT ×2 (12:10→16:38)
[2022-07-20] MEDS: amLODIPine Besylate 5 MG TABLET PO (13:43)
--- NOTE | 2022-07-20 14:11 | HO.PM.IMPN ---
Subjective Subjective Date of Service: 07/20/22 Interval History: Denies chest pain, no shortness of breath, no palpitations, continued to have left lower extremity numbness and weakness, seen by Physical therapy they recommend short-term rehab, no acute events overnight tolerating diet with no nausea, no vomiting, no abdominal pain, noted to have elevated blood pressures Review of Systems Review of Systems: Yes all other systems are reviewed and are negative Physical Exam Vital Signs: Vital Signs: Last Vital Signs Temp 97.4 F 07/20/22 12:00 Pulse 88 07/20/22 12:00 Resp 20 07/20/22 12:00 BP 150/91 H 07/20/22 12:00 Pulse Ox 96 07/20/22 12:00 O2 Del Method 07/20/22 12:00 BMI result Body Mass Index 32.8 Const: Other: Gen: in no acute distress HEENT: sclera anicteric, moist mucus membranes Neck: supple Lungs: clear to auscultation bilaterally Heart: regular rate and rhythm, no murmurs Abd: soft, non-tender, non-distended Ext: no edema Skin: warm/well-perfused Neuro: alert and oriented x3, nonfocal Psych: appropriate affect ? Objective Data Active Medications Acetaminophen (Acetaminophen 325 Mg Tablet) 650 mg PO Q6H PRN PRN Reason: Pain, Mild (Pain Scale 1-3) Last Admin: 07/19/22 12:06 Dose: 650 mg Documented By: GABE Al Hydroxide/Mg Hydroxide (Magnesium Hydrox/Alum Hydrox 30 Ml Oral.Susp) 30 ml PO Q4H PRN PRN Reason: dyspepsia Last Admin: 07/18/22 10:18 Dose: 30 ml Documented By: JUAQUIN Amlodipine Besylate (Amlodipine Besylate 5 Mg Tablet) 5 mg PO DAILY [facility]; Protocol Last Admin: 07/20/22 13:43 Dose: 5 mg Documented By: BRE Aspirin (Aspirin 81 Mg Tab.Chew) 81 mg PO DAILY [facility] Last Admin: 07/20/22 08:18 Dose: 81 mg Documented By: BRE Atorvastatin Calcium (Atorvastatin Calcium 80 Mg Tablet) 80 mg PO BEDTIME [facility] Last Admin: 07/19/22 21:23 Dose: 80 mg Documented By: LUIS F Clopidogrel Bisulfate (Clopidogrel Bisulfate 75 Mg Tablet) 75 mg PO DAILY [facility] Last Admin: 07/20/22 08:18 Dose: 75 mg Documented By: BRE Dextrose (Dextrose 50 % 25 Gm/50 Ml Syringe) 25 gm IVPUSH Q15M PRN; Protocol PRN Reason: per Hypoglycemia Standing Ord. Docusate Sodium (Docusate Sodium 100 Mg Capsule) 100 mg PO DAILY PRN PRN Reason: Constipation Last Admin: 07/20/22 08:24 Dose: 100 mg Documented By: BRE Enoxaparin Sodium (Enoxaparin Sodium 40 Mg/0.4 Ml Syringe) 40 mg SUBCUT Q24H [facility] Last Admin: 07/19/22 21:23 Dose: 40 mg Documented By: LUIS F Famotidine (Famotidine 20 Mg Tablet) 20 mg PO BID [facility] Last Admin: 07/20/22 08:19 Dose: 20 mg Documented By: BRE Glucose (Glucose Gel 15 Gm Gel..Gram.) 15 gm PO Q15M PRN; Protocol PRN Reason: per Hypoglycemia Standing Ord. Insulin Human Lispro (Insulin Lispro 100 Unit/Ml 3 Ml Vial) 0 unit SUBCUT QIDACHS [facility]; Protocol Last Admin: 07/20/22 12:10 Dose: 2 unit Documented By: BRE Lisinopril (Lisinopril 10 Mg Tablet) 30 mg PO DAILY [facility]; Protocol Last Admin: 07/20/22 08:18 Dose: 30 mg Documented By: BRE Lorazepam (Lorazepam 1 Mg Tablet) 1 mg PO Q4H PRN PRN Reason: anxiety/restlessness Last Admin: 07/19/22 21:24 Dose: 1 mg Documented By: LUIS F Nicotine (Nicotine 21 Mg Patch.Td24) 21 mg TRANSDERMA DAILY [facility] Last Admin: 07/20/22 08:19 Dose: 21 mg Documented By: BRE Ondansetron HCl (Ondansetron Hcl 4 Mg/2 Ml Vial) 4 mg IVPUSH Q8H PRN PRN Reason: Nausea and Vomiting Last Admin: 07/18/22 09:23 Dose: 4 mg Documented By: JUAQUIN Pharmacy Consult (Consult Rx Perform Med Rec) 1 each MISCELLANE ONCE PRN PRN Reason: Consult order Labs CBC & Chem 7: 07/17/22 13:31 07/17/22 13:31 Labs: Laboratory Results - last 24 hr 07/19/22 07/19/22 07/20/22 16:35 19:53 07:28 POC Glucose 176 H 183 H 134 H Troponin I High Sens 07/20/22 07/20/22 10:53 11:31 POC Glucose 185 H Troponin I High Sens 4.4 Assessment and Plan (1) Cerebrovascular accident: Status: Acute Plan d#3 56yo M with ?MS [per [facility] Neuro unlikely MS and more likely chronic microvascular ischemic changes, but pt adamant that he has MS] with multiple recent CVA for which he was at [facility] 06/11/22 and 07/15/22 on DAPT presenting with LLE numbness/weakness, found to have small acute L temporal infarction, subacute R welch radiata infarction. # acute/subacute CVA - no new neuro deficit, continue secondary prevention with DAPT, high-intensity statin, BP control. Neuro consulted. Per PT/OT STR placement. # regional WMAs on TTE - case discussed with Dr. 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 Quality Stroke Does the patient have a stroke diagnosis?: Yes Reason for No Anti-thrombotic by Day Two: Drug treatment not indicated (Pt's last known time of well-being outside of treatment window) VTE Prior VTE?: No VTE Risk Level:: Medical - moderate - high VTE Device Contraindication: Treatment Not Indicated VTE Drug Contraindication: N/A - Med Ordered
[2022-07-20 16:13] LABS: Glucose, Whole Blood 160 mg/dL (60-115)
[2022-07-20] MEDS: LORazepam 1 MG TABLET PO (16:38)
[2022-07-20 19:55] LABS: Glucose, Whole Blood 149 mg/dL (60-115)
[2022-07-20] MEDS: Atorvastatin Calcium 80 MG TABLET PO (20:24)
[2022-07-20] MEDS: Enoxaparin Sodium 40 MG/0.4 ML SYRINGE SUBCUT (20:24)
[2022-07-21] VITALS (10 sets, daily range): BP systolic 140–170; BP diastolic 59–96; PULSE 77–101; RESP 12–18; TEMP 36.2–37.1; O2SAT 92–98
[2022-07-21 07:39] LABS: Glucose, Whole Blood 124 mg/dL (60-115)
[2022-07-21] MEDS: Nicotine 21 MG PATCH.TD24 TRANSDERMA (09:44)
[2022-07-21] MEDS: amLODIPine Besylate 5 MG TABLET PO (09:45)
[2022-07-21] MEDS: LORazepam 1 MG TABLET PO (09:45)
[2022-07-21] MEDS: lisinopriL 10 MG TABLET 30 MG PO (09:45)
[2022-07-21] MEDS: Aspirin 81 MG TAB.CHEW PO (09:45)
[2022-07-21] MEDS: Clopidogrel Bisulfate 75 MG TABLET PO (09:45)
[2022-07-21] MEDS: Famotidine 20 MG TABLET PO ×2 (09:46→21:18)
[2022-07-21 11:10] LABS: Glucose, Whole Blood 143 mg/dL (60-115)
--- NOTE | 2022-07-21 11:35 | PM.PNCARD ---
Subjective Subjective Date of Service: 07/21/22 Interval history: He does not have any cardiac symptoms. Denies chest pain. States he is very constipated. Review of Systems Review of Systems Yes all other systems are reviewed and are negative Constitutional: Reports as per HPI Eyes: Reports as per HPI Reports as per HPI Cardiovascular: Reports as per HPI, Denies acrocyanosis, Denies cool extremities, Denies chest pain, Denies leg edema, Denies lightheadedness, Denies palpitations and Denies dyspnea Respiratory: Reports as per HPI, Reports no additional respiratory complaints and Denies dyspnea Gastrointestinal: Reports as per HPI and Reports no additional gastrointestinal complaints Genitourinary: Reports no additional male genitourinary complaints and Reports as per HPI Musculoskeletal: Reports no additional musculoskeletal complaints and Reports as per HPI Skin/Breast: Reports system reviewed and no additional complaints, except as docu Reports system reviewed and no additional complaints, except as documented and Reports as per HPI Psychiatric: Reports no additional psychiatric complaints and Reports as per HPI Endocrine: Reports no additional endocrine complaints, Reports as per HPI and Denies palpitations Hematologic/Lymphatic: Reports no additional hematologic/lymphatic complaints and Reports as per HPI Allergic/Immunologic: Reports no additional allergic/immunologic complaints and Reports as per HPI Physical Exam Vital Signs: Last Vital Signs Temp 98.3 F 07/21/22 11:05 Pulse 86 07/21/22 11:05 Resp 14 07/21/22 11:05 BP 150/62 H 07/21/22 11:05 Pulse Ox 92 07/21/22 11:05 O2 Del Method 07/21/22 11:05 BMI result Body Mass Index 32.8 Const General: comfortable and no acute distress Orientation/consciousness: patient oriented x3 HEENT Other: Unremarkable Head: Yes normal to inspection Neck Neck: Yes normal visual inspection Chest Chest palpation & inspection: normal inspection of the chest Resp Auscultation: clear to auscultation bilaterally Cardio Palpation: normal PMI Heart sounds: S1 normal heart sound present, S2 normal heart sound present, no gallops, no murmurs and no rubs GI Palpation (GI): Soft to palpation Back/Spine/Pelvis Other: unremarkable Skin General skin exam: no rashes or lesions noted Neuro General: patient oriented x3 Extrem General: Yes normal to inspection Psych Mental Status: mental status grossly normal Objective Labs and Meds 07/17/22 13:31 07/17/22 13:31 Lab results: Laboratory Results - last 24 hr 07/20/22 07/20/22 07/20/22 11:31 16:09 19:51 POC Glucose 185 H 160 H 149 H 07/21/22 07/21/22 07:22 11:03 POC Glucose 124 H 143 H Progress Note: A&P Assessment and plan (1) Atherosclerotic cardiovascular disease: Status: Acute (2) Type 2 diabetes mellitus with unspecified complications: Status: Acute (3) Essential hypertension: Status: Acute (4) Other and unspecified hyperlipidemia: Status: Acute (5) Smoking: Status: Acute (6) Cerebrovascular accident: Status: Acute Plan [facility] records reviewed. Last cardiac catheterization is from 2019. In that report, it is mentioned that he had PCI to mid circumflex in 2013. In the 2019 catheterization, occluded stent noted in the mid circumflex. Chronically occluded mid left circumflex stent with moderate collaterals to distal left circumflex/PL branch why RCA marginal branch. Also severe stenosis in the proximal large OM 2 branch. He underwent PCI to large OM 2. No significant disease in left main, lad or RCA. Echocardiogram then showed LVEF 50-55% with mid to distal inferolateral/anterolateral hypokinesis. No significant valvular issues. He last had appointment with Dr. Maki in 06/2020 by tele visit. In the current admission, negative troponins. Echocardiogram findings reflect his chronic coronary disease. Do not think there is anything acute. Aggressive risk factor management for his risk factors as listed above. Smoking cessation. Antiplatelet drugs and is currently on aspirin as well as Plavix. Follow-up with [facility] if able but he states he has got no transport. In that case, at least PCP. Discussed with Dr. Klein. Time Spent With Patient Time: Total time managing care of this patient today 40 minutes. Progress Note: Quality Stroke Does the patient have a stroke diagnosis?: Yes Reason for No Anti-thrombotic by Day Two: Drug treatment not indicated (Pt's last known time of well-being outside of treatment window) Procedures Date of Service Date of Service: 07/21/22
--- NOTE | 2022-07-21 11:48 | HO.PM.IMPN ---
Subjective Subjective Date of Service: 07/21/22 Interval History: Complaining of constipation, no nausea no vomiting, tolerating diet denies fever chills, denies lower extremity weakness or numbness. No acute events overnight. Review of Systems Review of Systems: Yes all other systems are reviewed and are negative Physical Exam Vital Signs: Vital Signs: Last Vital Signs Temp 98.3 F 07/21/22 11:05 Pulse 86 07/21/22 11:05 Resp 14 07/21/22 11:05 BP 150/62 H 07/21/22 11:05 Pulse Ox 92 07/21/22 11:05 O2 Del Method 07/21/22 11:05 BMI result Body Mass Index 32.8 Const: Other: Gen: in no acute distress HEENT: sclera anicteric, moist mucus membranes Neck: supple Lungs: clear to auscultation bilaterally Heart: regular rate and rhythm, no murmurs Abd: soft, non-tender, non-distended Ext: no edema Skin: warm/well-perfused Neuro: alert and oriented x3, nonfocal exam Psych: appropriate affect Objective Data Active Medications Acetaminophen (Acetaminophen 325 Mg Tablet) 650 mg PO Q6H PRN PRN Reason: Pain, Mild (Pain Scale 1-3) Last Admin: 07/19/22 12:06 Dose: 650 mg Documented By: GABE Al Hydroxide/Mg Hydroxide (Magnesium Hydrox/Alum Hydrox 30 Ml Oral.Susp) 30 ml PO Q4H PRN PRN Reason: dyspepsia Last Admin: 07/18/22 10:18 Dose: 30 ml Documented By: JUAQUIN Amlodipine Besylate (Amlodipine Besylate 5 Mg Tablet) 5 mg PO DAILY [facility]; Protocol Last Admin: 07/21/22 09:45 Dose: 5 mg Documented By: BRE Aspirin (Aspirin 81 Mg Tab.Chew) 81 mg PO DAILY [facility] Last Admin: 07/21/22 09:45 Dose: 81 mg Documented By: BRE Atorvastatin Calcium (Atorvastatin Calcium 80 Mg Tablet) 80 mg PO BEDTIME [facility] Last Admin: 07/20/22 20:24 Dose: 80 mg Documented By: CHON Clopidogrel Bisulfate (Clopidogrel Bisulfate 75 Mg Tablet) 75 mg PO DAILY [facility] Last Admin: 07/21/22 09:45 Dose: 75 mg Documented By: BRE Dextrose (Dextrose 50 % 25 Gm/50 Ml Syringe) 25 gm IVPUSH Q15M PRN; Protocol PRN Reason: per Hypoglycemia Standing Ord. Docusate Sodium (Docusate Sodium 100 Mg Capsule) 100 mg PO DAILY PRN PRN Reason: Constipation Last Admin: 07/20/22 08:24 Dose: 100 mg Documented By: BRE Enoxaparin Sodium (Enoxaparin Sodium 40 Mg/0.4 Ml Syringe) 40 mg SUBCUT Q24H [facility] Last Admin: 07/20/22 20:24 Dose: 40 mg Documented By: CHON Famotidine (Famotidine 20 Mg Tablet) 20 mg PO BID [facility] Last Admin: 07/21/22 09:46 Dose: 20 mg Documented By: BRE Glucose (Glucose Gel 15 Gm Gel..Gram.) 15 gm PO Q15M PRN; Protocol PRN Reason: per Hypoglycemia Standing Ord. Insulin Human Lispro (Insulin Lispro 100 Unit/Ml 3 Ml Vial) 0 unit SUBCUT QIDACHS [facility]; Protocol Last Admin: 07/21/22 07:47 Dose: Not Given Documented By: BRE Non-Admin Reason: No Insulin Coverage Lisinopril (Lisinopril 10 Mg Tablet) 30 mg PO DAILY [facility]; Protocol Last Admin: 07/21/22 09:45 Dose: 30 mg Documented By: BRE Lorazepam (Lorazepam 0.5 Mg Tablet) 0.5 mg PO Q6H PRN PRN Reason: anxiety/restlessness Nicotine (Nicotine 21 Mg Patch.Td24) 21 mg TRANSDERMA DAILY [facility] Last Admin: 07/21/22 09:44 Dose: 21 mg Documented By: BRE Ondansetron HCl (Ondansetron Hcl 4 Mg/2 Ml Vial) 4 mg IVPUSH Q8H PRN PRN Reason: Nausea and Vomiting Last Admin: 07/18/22 09:23 Dose: 4 mg Documented By: JUAQUIN Pharmacy Consult (Consult Rx Perform Med Rec) 1 each MISCELLANE ONCE PRN PRN Reason: Consult order Polyethylene Glycol (Polyethylene Glycol 3350 17 Gm Powd.Pack) 17 gm PO DAILY [facility] Labs 07/17/22 13:31 07/17/22 13:31 Labs: Laboratory Results - last 24 hr 07/20/22 07/20/22 07/21/22 16:09 19:51 07:22 POC Glucose 160 H 149 H 124 H 07/21/22 11:03 POC Glucose 143 H Assessment and Plan (1) Cerebrovascular accident: Status: Acute Plan d#3 56yo M with ?MS [[place] [facility] [place] unlikely MS and more likely chronic microvascular ischemic changes, but pt adamant that he has MS] with multiple recent CV[place] which [place] [facility] [place] 07/15/22 on DAPT presenting with LLE numbness/weakness, found to have small acute L temporal infarction, subacute R welch radiata infarction. # acute/subacute CVA - no new neuro deficit, continue secondary prevention with DAPT, high-intensity statin, BP control. Seen by neuro patient noted to have microvascular disease, PT recommend short-term rehab. # [facility] on TTE - case discussed with Dr. Pope obtained troponin that is negative patient denies chest pain cardiology do not believe patient has acute coronary syndrome, and recommends aggressive risk factor management of diabetes hypertension and hyperlipidemia, will continue statins, close blood pressure and blood sugar monitoring, # HTN - elevated blood pressure added Norvasc 5 mg yesterday, continue home lisinopril 30 mg follow BP closely # DM2 - stable ,correction-dose lispro # tobacco abuse - NRT, counseling director cessation # constipation added MiraLax 17 g daily will give lactulose x1 dose recommend out of bed to chair and high-fiber diet # VTE ppx: LMWH # dispo: STR placement In my clinical judgment, the patient requires continued inpatient hospitalization for the following reasons: Safe discharge to STR Time Spent With Patient Time: Total time managing care of this patient today ____ minutes. Quality Stroke Does the patient have a stroke diagnosis?: Yes Reason for No Anti-thrombotic by Day Two: Drug treatment not indicated (Pt's last known time of well-being outside of treatment window) VTE Prior VTE?: No VTE Risk Level:: Medical - moderate - high VTE Device Contraindication: Treatment Not Indicated VTE Drug Contraindication: N/A - Med Ordered
[2022-07-21] MEDS: Lactulose 20 GM/30 ML SOLUTION 10 GM PO (12:05)
--- NOTE | 2022-07-21 12:47 | MHC.CM.PN ---
Patient is medically cleared for dc pending bed offer; SNF referrals have been updated. CM will follow.
[2022-07-21 16:25] LABS: Glucose, Whole Blood 160 mg/dL (60-115)
[2022-07-21] MEDS: Acetaminophen 325 MG TABLET 650 MG PO (16:37)
[2022-07-21] MEDS: Insulin Lispro 100 UNIT/ML 3 ML VIAL SUBCUT (16:38)
[2022-07-21 19:47] LABS: Glucose, Whole Blood 129 mg/dL (60-115)
[2022-07-21] MEDS: Atorvastatin Calcium 80 MG TABLET PO (21:18)
[2022-07-21] MEDS: LORazepam 0.5 MG TABLET PO (21:21)
[2022-07-21] MEDS: Enoxaparin Sodium 40 MG/0.4 ML SYRINGE SUBCUT (21:25)
[2022-07-22] MEDS: Acetaminophen 325 MG TABLET 650 MG PO ×3 (00:07→21:14)
[2022-07-22 00:08] VITALS: BP 140/100
[2022-07-22 03:29] VITALS: BP 144/93; PULSE 69; RESP 14; TEMP 36.1; O2SAT 97
[2022-07-22 07:38] VITALS: BP 140/80; PULSE 81; RESP 18; TEMP 36.6; O2SAT 95
[2022-07-22 07:43] LABS: Glucose, Whole Blood 158 mg/dL (60-115)
[2022-07-22] MEDS: Insulin Lispro 100 UNIT/ML 3 ML VIAL SUBCUT ×4 (08:17→21:15)
[2022-07-22] MEDS: Aspirin 81 MG TAB.CHEW PO (08:17)
[2022-07-22] MEDS: lisinopriL 10 MG TABLET 30 MG PO (08:18)
[2022-07-22] MEDS: Clopidogrel Bisulfate 75 MG TABLET PO (08:18)
[2022-07-22] MEDS: Nicotine 21 MG PATCH.TD24 TRANSDERMA (08:18)
[2022-07-22] MEDS: amLODIPine Besylate 5 MG TABLET PO (08:18)
[2022-07-22] MEDS: Famotidine 20 MG TABLET PO ×2 (08:18→21:14)
[2022-07-22] MEDS: polyethylene glycoL 3350 17 GM POWD.PACK PO (08:19)
--- NOTE | 2022-07-22 10:21 | P.PNIM_ITS ---
Subjective Subjective Date of Service: 07/22/22 Interval History: Offers no acute complaints, had a bowel movement yesterday, tolerating diet denies nausea vomiting abdominal pain, no acute events overnight, has been participating with physical therapy and noted to have increased impulsivity and continued high risk for fall. Review of Systems Review of Systems: Yes all other systems are reviewed and are negative Physical Exam Vital Signs: Vital Signs: Last Vital Signs Temp 97.9 F 07/22/22 07:38 Pulse 81 07/22/22 07:38 Resp 18 07/22/22 07:38 BP 140/80 H 07/22/22 07:38 Pulse Ox 95 07/22/22 07:38 O2 Del Method 07/22/22 07:38 BMI result Body Mass Index 32.8 Const: Other: Gen: in no acute d istress HEENT: scl era anicteric, chun st mucus membranes Neck: supple Lung s: clear to auscul tation bilaterally Heart: regular ra te and rhythm, no murmurs Abd: soft, non-tender, non-d istended Ext: no e elyse Skin: warm/we ll-perfused Neuro: alert and oriente d x3, nonfocal exa m Psych: appropria te affect Objective Data Active Medications Acetaminophen (Acetaminophen 325 Mg Tablet) 650 mg PO Q6H PRN PRN Reason: Pain, Mild (Pain Scale 1-3) Last Admin: 07/22/22 00:07 Dose: 650 mg Documented By: KESHAV Al Hydroxide/Mg Hydroxide (Magnesium Hydrox/Alum Hydrox 30 Ml Oral.Susp) 30 ml PO Q4H PRN PRN Reason: dyspepsia Last Admin: 07/18/22 10:18 Dose: 30 ml Documented By: JUAQUIN Amlodipine Besylate (Amlodipine Besylate 5 Mg Tablet) 5 mg PO DAILY [facility]; Protocol Last Admin: 07/22/22 08:18 Dose: 5 mg Documented By: SEUN Aspirin (Aspirin 81 Mg Tab.Chew) 81 mg PO DAILY [facility] Last Admin: 07/22/22 08:17 Dose: 81 mg Documented By: SEUN Atorvastatin Calcium (Atorvastatin Calcium 80 Mg Tablet) 80 mg PO BEDTIME [facility] Last Admin: 07/21/22 21:18 Dose: 80 mg Documented By: KESHAV Clopidogrel Bisulfate (Clopidogrel Bisulfate 75 Mg Tablet) 75 mg PO DAILY [facility] Last Admin: 07/22/22 08:18 Dose: 75 mg Documented By: SEUN Dextrose (Dextrose 50 % 25 Gm/50 Ml Syringe) 25 gm IVPUSH Q15M PRN; Protocol PRN Reason: per Hypoglycemia Standing Ord. Docusate Sodium (Docusate Sodium 100 Mg Capsule) 100 mg PO DAILY PRN PRN Reason: Constipation Last Admin: 07/20/22 08:24 Dose: 100 mg Documented By: RIOSCEL Enoxaparin Sodium (Enoxaparin Sodium 40 Mg/0.4 Ml Syringe) 40 mg SUBCUT Q24H [facility] Last Admin: 07/21/22 21:25 Dose: 40 mg Documented By: KESHAV Famotidine (Famotidine 20 Mg Tablet) 20 mg PO BID [facility] Last Admin: 07/22/22 08:18 Dose: 20 mg Documented By: SEUN Glucose (Glucose Gel 15 Gm Gel..Gram.) 15 gm PO Q15M PRN; Protocol PRN Reason: per Hypoglycemia Standing Ord. Insulin Human Lispro (Insulin Lispro 100 Unit/Ml 3 Ml Vial) 0 unit SUBCUT QID [facility]; Protocol Last Admin: 07/22/22 08:17 Dose: 2 unit Documented By: SEUN Lisinopril (Lisinopril 10 Mg Tablet) 30 mg PO DAILY [facility]; Protocol Last Admin: 07/22/22 08:18 Dose: 30 mg Documented By: SEUN Lorazepam (Lorazepam 0.5 Mg Tablet) 0.5 mg PO Q6H PRN PRN Reason: anxiety/restlessness Last Admin: 07/21/22 21:21 Dose: 0.5 mg Documented By: KESHAV Nicotine (Nicotine 21 Mg Patch.Td24) 21 mg TRANSDERMA DAILY [facility] Last Admin: 07/22/22 08:18 Dose: 21 mg Documented By: SEUN Ondansetron HCl (Ondansetron Hcl 4 Mg/2 Ml Vial) 4 mg IVPUSH Q8H PRN PRN Reason: Nausea and Vomiting Last Admin: 07/18/22 09:23 Dose: 4 mg Documented By: JUAQUIN Pharmacy Consult (Consult Rx Perform Med Rec) 1 each MISCELLANE ONCE PRN PRN Reason: Consult order Polyethylene Glycol (Polyethylene Glycol 3350 17 Gm Powd.Pack) 17 gm PO DAILY [facility] Last Admin: 07/22/22 08:19 Dose: 17 gm Documented By: SEUN Labs 07/17/22 13:31 07/17/22 13:31 Labs: Laboratory Results - last 24 hr 07/21/22 07/21/22 07/21/22 11:03 16:17 19:42 POC Glucose 143 H 160 H 129 H 07/22/22 07:35 POC Glucose 158 H Assessment and Plan (1) Cerebrovascular accident: Status: Acute Plan 56yo M with ?MS [place] [facility] [place] and more likely chronic microvascular ischemic changes, but pt adamant that he has MS] with multiple recent CV[place] [facility] [place] 07/15/22 on DAPT presenting with LLE numbness/weakness, found to have small acute L temporal infarction, subacute R welch radiata infarction. # acute/subacute CVA - no new neuro deficit, continue secondary prevention with DAPT, high-intensity statin, BP control. Seen by neuro patient noted to have microvascular disease, PT recommend short-term rehab. # [facility] on TTE - case discussed with Dr. 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 Quality Stroke Does the patient have a stroke diagnosis?: Yes Reason for No Anti-thrombotic by Day Two: Drug treatment not indicated (Pt's last known time of well-being outside of treatment window) VTE Prior VTE?: No VTE Risk Level:: Medical - moderate - high VTE Device Contraindication: Treatment Not Indicated VTE Drug Contraindication: N/A - Med Ordered
[2022-07-22 10:57] VITALS: BP 126/70; PULSE 92; RESP 18; TEMP 36.7; O2SAT 94
[2022-07-22 11:17] LABS: Glucose, Whole Blood 151 mg/dL (60-115)
[2022-07-22 15:16] VITALS: BP 130/82; PULSE 95; RESP 18; TEMP 36.8; O2SAT 96
[2022-07-22 15:52] LABS: Glucose, Whole Blood 152 mg/dL (60-115)
[2022-07-22 19:07] VITALS: BP 140/81; PULSE 97; RESP 18; TEMP 36.5; O2SAT 96
[2022-07-22 19:39] LABS: Glucose, Whole Blood 185 mg/dL (60-115)
[2022-07-22] MEDS: Atorvastatin Calcium 80 MG TABLET PO (21:14)
[2022-07-22] MEDS: Enoxaparin Sodium 40 MG/0.4 ML SYRINGE SUBCUT (21:15)
[2022-07-23] VITALS: PULSE 74
--- NOTE | 2022-07-23 02:25 | PC.NURSE ---
Patient educated on high fall risk protocol and refusing.
[2022-07-23 04:00] VITALS: BP 135/87; PULSE 84; RESP 20; TEMP 36.3; O2SAT 96
[2022-07-23 07:37] VITALS: BP 140/86; PULSE 74; RESP 19; TEMP 36.9; O2SAT 95
[2022-07-23 07:38] LABS: Glucose, Whole Blood 137 mg/dL (60-115)
[2022-07-23] MEDS: Clopidogrel Bisulfate 75 MG TABLET PO (08:32)
[2022-07-23] MEDS: Nicotine 21 MG PATCH.TD24 TRANSDERMA (08:32)
[2022-07-23] MEDS: Aspirin 81 MG TAB.CHEW PO (08:32)
[2022-07-23] MEDS: lisinopriL 10 MG TABLET 30 MG PO (08:32)
[2022-07-23] MEDS: Famotidine 20 MG TABLET PO ×2 (08:32→20:00)
[2022-07-23] MEDS: polyethylene glycoL 3350 17 GM POWD.PACK PO (08:32)
[2022-07-23] MEDS: amLODIPine Besylate 5 MG TABLET PO (08:32)
--- NOTE | 2022-07-23 10:14 | HO.PM.IMPN ---
Subjective Subjective Date of Service: 07/23/22 Physical Exam Vital Signs: Vital Signs: Last Vital Signs Temp 98.4 F 07/23/22 07:37 Pulse 74 07/23/22 07:37 Resp 19 07/23/22 07:37 BP 140/86 H 07/23/22 07:37 Pulse Ox 95 07/23/22 07:37 O2 Del Method 07/23/22 07:37 BMI result Body Mass Index 32.8 Objective Data Active Medications Acetaminophen (Acetaminophen 325 Mg Tablet) 650 mg PO Q6H PRN PRN Reason: Pain, Mild (Pain Scale 1-3) Last Admin: 07/22/22 21:14 Dose: 650 mg Documented By: KESHAV Al Hydroxide/Mg Hydroxide (Magnesium Hydrox/Alum Hydrox 30 Ml Oral.Susp) 30 ml PO Q4H PRN PRN Reason: dyspepsia Last Admin: 07/18/22 10:18 Dose: 30 ml Documented By: JUAQUIN Amlodipine Besylate (Amlodipine Besylate 5 Mg Tablet) 5 mg PO DAILY [facility]; Protocol Last Admin: 07/23/22 08:32 Dose: 5 mg Documented By: SEUN Aspirin (Aspirin 81 Mg Tab.Chew) 81 mg PO DAILY [facility] Last Admin: 07/23/22 08:32 Dose: 81 mg Documented By: SEUN Atorvastatin Calcium (Atorvastatin Calcium 80 Mg Tablet) 80 mg PO BEDTIME [facility] Last Admin: 07/22/22 21:14 Dose: 80 mg Documented By: KESHAV Clopidogrel Bisulfate (Clopidogrel Bisulfate 75 Mg Tablet) 75 mg PO DAILY [facility] Last Admin: 07/23/22 08:32 Dose: 75 mg Documented By: SEUN Dextrose (Dextrose 50 % 25 Gm/50 Ml Syringe) 25 gm IVPUSH Q15M PRN; Protocol PRN Reason: per Hypoglycemia Standing Ord. Docusate Sodium (Docusate Sodium 100 Mg Capsule) 100 mg PO DAILY PRN PRN Reason: Constipation Last Admin: 07/20/22 08:24 Dose: 100 mg Documented By: EVANSCBRENDON Enoxaparin Sodium (Enoxaparin Sodium 40 Mg/0.4 Ml Syringe) 40 mg SUBCUT Q24H [facility] Last Admin: 07/22/22 21:15 Dose: 40 mg Documented By: KESHAV Famotidine (Famotidine 20 Mg Tablet) 20 mg PO BID [facility] Last Admin: 07/23/22 08:32 Dose: 20 mg Documented By: SEUN Glucose (Glucose Gel 15 Gm Gel..Gram.) 15 gm PO Q15M PRN; Protocol PRN Reason: per Hypoglycemia Standing Ord. Insulin Human Lispro (Insulin Lispro 100 Unit/Ml 3 Ml Vial) 0 unit SUBCUT QIDACHS [facility]; Protocol Last Admin: 07/23/22 07:41 Dose: Not Given Documented By: SEUN Non-Admin Reason: No Insulin Coverage Lisinopril (Lisinopril 10 Mg Tablet) 30 mg PO DAILY [facility]; Protocol Last Admin: 07/23/22 08:32 Dose: 30 mg Documented By: SEUN Lorazepam (Lorazepam 0.5 Mg Tablet) 0.5 mg PO Q6H PRN PRN Reason: anxiety/restlessness Last Admin: 07/21/22 21:21 Dose: 0.5 mg Documented By: KESHAV Nicotine (Nicotine 21 Mg Patch.Td24) 21 mg TRANSDERMA DAILY [facility] Last Admin: 07/23/22 08:32 Dose: 21 mg Documented By: SEUN Ondansetron HCl (Ondansetron Hcl 4 Mg/2 Ml Vial) 4 mg IVPUSH Q8H PRN PRN Reason: Nausea and Vomiting Last Admin: 07/18/22 09:23 Dose: 4 mg Documented By: JUAQUIN Pharmacy Consult (Consult Rx Perform Med Rec) 1 each MISCELLANE ONCE PRN PRN Reason: Consult order Polyethylene Glycol (Polyethylene Glycol 3350 17 Gm Powd.Pack) 17 gm PO DAILY [facility] Last Admin: 07/23/22 08:32 Dose: 17 gm Documented By: SEUN Labs 07/17/22 13:31 07/17/22 13:31 Labs: Laboratory Results - last 24 hr 07/22/22 07/22/22 07/22/22 10:54 15:49 19:35 POC Glucose 151 H 152 H 185 H 07/23/22 07:34 POC Glucose 137 H Assessment and Plan (1) Cerebrovascular accident: Status: Acute Plan 56yo M with ?MS [place] [facility] [place] and more likely chronic microvascular ischemic changes, but pt adamant that he has MS] with multiple recent [place] [facility] [place]/15/22 on DAPT presenting with LLE numbness/weakness, found to have small acute L temporal infarction, subacute R welch radiata infarction. # acute/subacute CVA small acute L temporal infarction, subacute R welch radiata infarction. no new neuro deficit, continue secondary prevention with DAPT, high-intensity statin, BP control. Seen by neuro patient noted to have microvascular disease, PT recommend short-term rehab, due to poor safety awareness and impulsivity and high risk for fall # [facility] on TTE - case discussed with Dr. 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 Quality Stroke Does the patient have a stroke diagnosis?: Yes Reason for No Anti-thrombotic by Day Two: Drug treatment not indicated (Pt's last known time of well-being outside of treatment window) VTE Prior VTE?: No VTE Risk Level:: Medical - moderate - high VTE Device Contraindication: Treatment Not Indicated VTE Drug Contraindication: N/A - Med Ordered
[2022-07-23 11:15] LABS: Glucose, Whole Blood 147 mg/dL (60-115)
[2022-07-23 12:00] VITALS: BP 137/85; PULSE 99; RESP 18; TEMP 37; O2SAT 93
[2022-07-23] MEDS: oxyCODONE HCl Immed Release 5 MG TABLET PO (15:07)
[2022-07-23 15:15] VITALS: BP 129/90; PULSE 100; RESP 18; TEMP 36.7; O2SAT 94
[2022-07-23 16:06] LABS: Glucose, Whole Blood 120 mg/dL (60-115)
[2022-07-23 19:03] VITALS: BP 121/78; PULSE 91; RESP 18; TEMP 36.3; O2SAT 94
[2022-07-23 19:11] LABS: Glucose, Whole Blood 171 mg/dL (60-115)
[2022-07-23] MEDS: Enoxaparin Sodium 40 MG/0.4 ML SYRINGE SUBCUT (20:00)
[2022-07-23] MEDS: Atorvastatin Calcium 80 MG TABLET PO (20:00)
[2022-07-23] MEDS: Insulin Lispro 100 UNIT/ML 3 ML VIAL SUBCUT (20:01)
[2022-07-24] VITALS (7 sets, daily range): BP systolic 117–125; BP diastolic 69–83; PULSE 75–93; RESP 16–20; TEMP 36.1–36.8; O2SAT 91–98
[2022-07-24 08:00] LABS: Glucose, Whole Blood 153 mg/dL (60-115)
[2022-07-24] MEDS: Famotidine 20 MG TABLET PO ×2 (10:22→20:30)
[2022-07-24] MEDS: Aspirin 81 MG TAB.CHEW PO (10:22)
[2022-07-24] MEDS: lisinopriL 10 MG TABLET 30 MG PO (10:22)
[2022-07-24] MEDS: amLODIPine Besylate 5 MG TABLET PO (10:22)
[2022-07-24] MEDS: Clopidogrel Bisulfate 75 MG TABLET PO (10:22)
[2022-07-24] MEDS: Nicotine 21 MG PATCH.TD24 TRANSDERMA (10:23)
[2022-07-24] MEDS: Insulin Lispro 100 UNIT/ML 3 ML VIAL SUBCUT ×3 (10:24→20:31)
[2022-07-24] MEDS: oxyCODONE HCl Immed Release 5 MG TABLET PO (10:26)
[2022-07-24 10:55] LABS: Glucose, Whole Blood 239 mg/dL (60-115)
--- NOTE | 2022-07-24 12:03 | MHC.CM.PN ---
Patient is medically cleared for dc and PT continue to recommend STR. Broad SNF search is in progress and referrals have been updated. CM will follow.
[2022-07-24 15:30] LABS: Glucose, Whole Blood 92 mg/dL (60-115)
--- NOTE | 2022-07-24 16:14 | HO.PM.IMPN ---
Subjective Subjective Date of Service: 07/24/22 Interval History: Offers no acute complaints, tolerating diet with no nausea, no vomiting, no abdominal pain, no constipation, denies chest pain, no palpitation no lightheadedness or dizziness tolerating diet no acute events overnight. Review of Systems Review of Systems: Yes all other systems are reviewed and are negative Physical Exam Vital Signs: Vital Signs: Last Vital Signs Temp 97.6 F 07/24/22 15:10 Pulse 86 07/24/22 15:10 Resp 17 07/24/22 15:10 BP 125/72 07/24/22 15:10 Pulse Ox 98 07/24/22 15:10 O2 Del Method 07/24/22 15:10 BMI result Body Mass Index 32.8 Const: Other: Gen: in no acute distress HEENT: sclera anicteric, moist mucus membranes Neck: supple Lungs: clear to auscultation bilaterally Heart: regular rate and rhythm, no murmurs Abd: soft, non-tender, non-distended Ext: no edema Skin: warm/well-perfused Neuro: alert and oriented x3, nonfocal exam, good motor strength lower extremity, Psych: appropriate affect Objective Data Active Medications Acetaminophen (Acetaminophen 325 Mg Tablet) 650 mg PO Q6H PRN PRN Reason: Pain, Mild (Pain Scale 1-3) Last Admin: 07/22/22 21:14 Dose: 650 mg Documented By: KESHAV Al Hydroxide/Mg Hydroxide (Magnesium Hydrox/Alum Hydrox 30 Ml Oral.Susp) 30 ml PO Q4H PRN PRN Reason: dyspepsia Last Admin: 07/18/22 10:18 Dose: 30 ml Documented By: JUAQUIN Amlodipine Besylate (Amlodipine Besylate 5 Mg Tablet) 5 mg PO DAILY [facility]; Protocol Last Admin: 07/24/22 10:22 Dose: 5 mg Documented By: DEVIN Aspirin (Aspirin 81 Mg Tab.Chew) 81 mg PO DAILY [facility] Last Admin: 07/24/22 10:22 Dose: 81 mg Documented By: DEVIN Atorvastatin Calcium (Atorvastatin Calcium 80 Mg Tablet) 80 mg PO BEDTIME [facility] Last Admin: 07/23/22 20:00 Dose: 80 mg Documented By: CHON Clopidogrel Bisulfate (Clopidogrel Bisulfate 75 Mg Tablet) 75 mg PO DAILY [facility] Last Admin: 07/24/22 10:22 Dose: 75 mg Documented By: DEVIN Dextrose (Dextrose 50 % 25 Gm/50 Ml Syringe) 25 gm IVPUSH Q15M PRN; Protocol PRN Reason: per Hypoglycemia Standing Ord. Docusate Sodium (Docusate Sodium 100 Mg Capsule) 100 mg PO DAILY PRN PRN Reason: Constipation Last Admin: 07/20/22 08:24 Dose: 100 mg Documented By: RIOSCBRENDON Enoxaparin Sodium (Enoxaparin Sodium 40 Mg/0.4 Ml Syringe) 40 mg SUBCUT Q24H [facility] Last Admin: 07/23/22 20:00 Dose: 40 mg Documented By: CHON Famotidine (Famotidine 20 Mg Tablet) 20 mg PO BID [facility] Last Admin: 07/24/22 10:22 Dose: 20 mg Documented By: DEVIN Glucose (Glucose Gel 15 Gm Gel..Gram.) 15 gm PO Q15M PRN; Protocol PRN Reason: per Hypoglycemia Standing Ord. Insulin Human Lispro (Insulin Lispro 100 Unit/Ml 3 Ml Vial) 0 unit SUBCUT QIDACHS [facility]; Protocol Last Admin: 07/24/22 16:11 Dose: Not Given Documented By: GREGORY Non-Admin Reason: No Insulin Coverage Lisinopril (Lisinopril 10 Mg Tablet) 30 mg PO DAILY [facility]; Protocol Last Admin: 07/24/22 10:22 Dose: 30 mg Documented By: DEVIN Lorazepam (Lorazepam 0.5 Mg Tablet) 0.5 mg PO Q6H PRN PRN Reason: anxiety/restlessness Last Admin: 07/21/22 21:21 Dose: 0.5 mg Documented By: KESHAV Nicotine (Nicotine 21 Mg Patch.Td24) 21 mg TRANSDERMA DAILY [facility] Last Admin: 07/24/22 10:23 Dose: 21 mg Documented By: DEVIN Ondansetron HCl (Ondansetron Hcl 4 Mg/2 Ml Vial) 4 mg IVPUSH Q8H PRN PRN Reason: Nausea and Vomiting Last Admin: 07/18/22 09:23 Dose: 4 mg Documented By: LANAMARTI Oxycodone HCl (Oxycodone Hcl Immed Release 5 Mg Tablet) 5 mg PO Q6H PRN PRN Reason: Pain, Moderate (Pain Scale 4-6 Last Admin: 07/24/22 10:26 Dose: 5 mg Documented By: DVEIN Pharmacy Consult (Consult Rx Perform Med Rec) 1 each MISCELLANE ONCE PRN PRN Reason: Consult order Polyethylene Glycol (Polyethylene Glycol 3350 17 Gm Powd.Pack) 17 gm PO DAILY [facility] Last Admin: 07/24/22 10:23 Dose: Not Given Documented By: DEVIN Non-Admin Reason: Patient Refused Labs 07/17/22 13:31 07/17/22 13:31 Labs: Laboratory Results - last 24 hr 07/23/22 07/24/22 07/24/22 19:08 07:56 10:51 POC Glucose 171 H 153 H 239 H 07/24/22 15:12 POC Glucose 92 Assessment and Plan (1) Cerebrovascular accident: Status: Acute Plan 56yo M with ?MS [[place] [facility] [place] unlikely MS and more likely chronic microvascular ischemic changes, but pt adamant that he has MS] with multiple recent CVA for which he was [place] [facility] [place] and 07/15/22 on DAPT presenting with LLE numbness/weakness, found to have small acute L temporal infarction, subacute R welch radiata infarction. # acute/subacute CVA small acute L temporal infarction, subacute R welch radiata infarction. no new neuro deficit, continue secondary prevention with DAPT, high-intensity statin, BP control. Seen by neuro patient noted to have microvascular disease, PT recommend short-term rehab, due to poor safety awareness and impulsivity and high risk for fall, transplant case manager arranging for safe discharge # [facility] on [facility]TE - case discussed with Dr. 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 Quality Stroke Does the patient have a stroke diagnosis?: Yes Reason for No Anti-thrombotic by Day Two: Drug treatment not indicated (Pt's last known time of well-being outside of treatment window) VTE Prior VTE?: No VTE Risk Level:: Medical - moderate - high VTE Device Contraindication: Treatment Not Indicated VTE Drug Contraindication: N/A - Med Ordered
[2022-07-24 19:33] LABS: Glucose, Whole Blood 169 mg/dL (60-115)
[2022-07-24] MEDS: Atorvastatin Calcium 80 MG TABLET PO (20:30)
[2022-07-24] MEDS: Enoxaparin Sodium 40 MG/0.4 ML SYRINGE SUBCUT (20:31)
[2022-07-25 03:48] VITALS: BP 124/74; PULSE 78; RESP 14; TEMP 36.2; O2SAT 95
[2022-07-25 07:10] VITALS: BP 122/88; PULSE 81; RESP 14; TEMP 36.7; O2SAT 94
[2022-07-25 07:19] LABS: Glucose, Whole Blood 157 mg/dL (60-115)
[2022-07-25] MEDS: polyethylene glycoL 3350 17 GM POWD.PACK PO (08:16)
[2022-07-25] MEDS: Insulin Lispro 100 UNIT/ML 3 ML VIAL SUBCUT ×3 (08:16→17:00)
[2022-07-25] MEDS: Clopidogrel Bisulfate 75 MG TABLET PO (08:16)
[2022-07-25] MEDS: Aspirin 81 MG TAB.CHEW PO (08:16)
[2022-07-25] MEDS: lisinopriL 10 MG TABLET 30 MG PO (08:17)
[2022-07-25] MEDS: amLODIPine Besylate 5 MG TABLET PO (08:17)
[2022-07-25] MEDS: Famotidine 20 MG TABLET PO ×2 (08:17→19:58)
[2022-07-25] MEDS: Nicotine 21 MG PATCH.TD24 TRANSDERMA (08:25)
[2022-07-25 10:55] VITALS: BP 122/88; PULSE 81; O2SAT 94
[2022-07-25 11:02] VITALS: BP 125/71; PULSE 86; RESP 12; TEMP 36.9; O2SAT 94
[2022-07-25 11:07] LABS: Glucose, Whole Blood 178 mg/dL (60-115)
--- NOTE | 2022-07-25 13:28 | P.PNIM_ITS ---
Subjective Subjective Date of Service: 07/26/22 Interval History: Follow up -acute/subacute CVA Review of Systems no acute events overnight no fevers ,tolerating diet with no nausea, no vomiting, no abdominal pain, no constipation, denies chest pain, no palpitation or lightheadedness or dizziness. Physical Exam Vital Signs: Vital Signs: Last Vital Signs Temp 98.4 F 07/25/22 11:02 Pulse 86 07/25/22 11:02 Resp 12 07/25/22 11:02 BP 125/71 07/25/22 11:02 Pulse Ox 94 07/25/22 11:02 O2 Del Method 07/25/22 11:02 BMI result Body Mass Index 32.8 Appearance: Alert.? Oriented X3.? not in distress. cvs: rrr, [id number] , no murmur res: clear to auscultation ,no rhonchii or wheezing abd: no rebound or guarding ,nt, bs present. ext pulses present , no cyanosis . neuro: axo3 , nonfocal. Objective Data Active Medications Acetaminophen (Acetaminophen 325 Mg Tablet) 650 mg PO Q6H PRN PRN Reason: Pain, Mild (Pain Scale 1-3) Last Admin: 07/22/22 21:14 Dose: 650 mg Documented By: KESHAV Al Hydroxide/Mg Hydroxide (Magnesium Hydrox/Alum Hydrox 30 Ml Oral.Susp) 30 ml PO Q4H PRN PRN Reason: dyspepsia Last Admin: 07/18/22 10:18 Dose: 30 ml Documented By: JUAQUIN Amlodipine Besylate (Amlodipine Besylate 5 Mg Tablet) 5 mg PO DAILY [facility]; Protocol Last Admin: 07/25/22 08:17 Dose: 5 mg Documented By: TERA Aspirin (Aspirin 81 Mg Tab.Chew) 81 mg PO DAILY [facility] Last Admin: 07/25/22 08:16 Dose: 81 mg Documented By: TERA Atorvastatin Calcium (Atorvastatin Calcium 80 Mg Tablet) 80 mg PO BEDTIME [facility] Last Admin: 07/24/22 20:30 Dose: 80 mg Documented By: GREGORY Clopidogrel Bisulfate (Clopidogrel Bisulfate 75 Mg Tablet) 75 mg PO DAILY [facility] Last Admin: 07/25/22 08:16 Dose: 75 mg Documented By: TERA Dextrose (Dextrose 50 % 25 Gm/50 Ml Syringe) 25 gm IVPUSH Q15M PRN; Protocol PRN Reason: per Hypoglycemia Standing Ord. Docusate Sodium (Docusate Sodium 100 Mg Capsule) 100 mg PO DAILY PRN PRN Reason: Constipation Last Admin: 07/20/22 08:24 Dose: 100 mg Documented By: BRE Enoxaparin Sodium (Enoxaparin Sodium 40 Mg/0.4 Ml Syringe) 40 mg SUBCUT Q24H [facility] Last Admin: 07/24/22 20:31 Dose: 40 mg Documented By: GREGORY Famotidine (Famotidine 20 Mg Tablet) 20 mg PO BID [facility] Last Admin: 07/25/22 08:17 Dose: 20 mg Documented By: TERA Glucose (Glucose Gel 15 Gm Gel..Gram.) 15 gm PO Q15M PRN; Protocol PRN Reason: per Hypoglycemia Standing Ord. Insulin Human Lispro (Insulin Lispro 100 Unit/Ml 3 Ml Vial) 0 unit SUBCUT QIDACHS [facility]; Protocol Last Admin: 07/25/22 11:53 Dose: 2 unit Documented By: TERA Lisinopril (Lisinopril 10 Mg Tablet) 30 mg PO DAILY [facility]; Protocol Last Admin: 07/25/22 08:17 Dose: 30 mg Documented By: TERA Lorazepam (Lorazepam 0.5 Mg Tablet) 0.5 mg PO Q6H PRN PRN Reason: anxiety/restlessness Last Admin: 07/21/22 21:21 Dose: 0.5 mg Documented By: KESHAV Nicotine (Nicotine 21 Mg Patch.Td24) 21 mg TRANSDERMA DAILY [facility] Last Admin: 07/25/22 08:25 Dose: 21 mg Documented By: TERA Ondansetron HCl (Ondansetron Hcl 4 Mg/2 Ml Vial) 4 mg IVPUSH Q8H PRN PRN Reason: Nausea and Vomiting Last Admin: 07/18/22 09:23 Dose: 4 mg Documented By: LANAMARTI Oxycodone HCl (Oxycodone Hcl Immed Release 5 Mg Tablet) 5 mg PO Q6H PRN PRN Reason: Pain, Moderate (Pain Scale 4-6 Last Admin: 07/24/22 10:26 Dose: 5 mg Documented By: DEVIN Pharmacy Consult (Consult Rx Perform Med Rec) 1 each MISCELLANE ONCE PRN PRN Reason: Consult order Polyethylene Glycol (Polyethylene Glycol 3350 17 Gm Powd.Pack) 17 gm PO DAILY [facility] Last Admin: 07/25/22 08:16 Dose: 17 gm Documented By: TERA Labs 07/17/22 13:31 07/17/22 13:31 Labs: Laboratory Results - last 24 hr 07/24/22 07/24/22 07/25/22 15:12 19:25 07:16 POC Glucose 92 169 H 157 H 07/25/22 11:01 POC Glucose 178 H Assessment and Plan (1) Cerebrovascular accident: Status: Acute (2) Atherosclerotic cardiovascular disease: Status: Acute (3) Type 2 diabetes mellitus with unspecified complications: Status: Acute (4) Essential hypertension: Status: Acute (5) Smoking: Status: Acute (6) Overweight: Status: Acute Plan 56yo M with ?MS [[place] [facility] unlikely MS and more likely chronic microvascular ischemic changes, but pt adamant that he has MS] with multiple recent CVA [place] which [place] [facility] [place] 07/15/22 on DAPT presenting with LLE numbness/weakness, found to have small acute L temporal infarction, subacute R welch radiata infarction. # acute/subacute CVA small acute L temporal infarction, subacute R welch radiata infarction. no new neuro deficit, continue secondary prevention with DAPT, high-intensity statin, BP control. Seen by neuro patient noted to have microvascular disease, PT recommend short-term rehab, due to poor safety awareness and impulsivity and high risk for fall, telephonic case manager arranging for safe discharge # [facility] on TTE - case discussed with Dr. Pope obtained troponin that is negative patient denies chest pain cardiology do not believe patient has acute coronary syndrome, and recommends aggressive risk factor management of diabetes hypertension and hyperlipidemia, will continue statins, close blood pressure and blood sugar monitoring, # HTN - better blood pressure control with addition of Norvasc 5 mg, continue lisinopril 30 mg # DM2 - stable ,correction-dose lispro # tobacco abuse - NRT, head counselor cessation # constipation resolved continue MiraLax 17 g daily overweight : encouraged to lose weight . # VTE ppx: LMWH # dispo: STR placement In my clinical judgment, the patient requires continued inpatient hospitalization for the following reasons: Safe discharge to [facility] Time Spent With Patient Time: Total time managing care of this patient today ____ minutes. Quality Stroke Does the patient have a stroke diagnosis?: Yes Reason for No Anti-thrombotic by Day Two: Drug treatment not indicated (Pt's last known time of well-being outside of treatment window) VTE Prior VTE?: No VTE Risk Level:: Medical - moderate - high VTE Device Contraindication: Treatment Not Indicated VTE Drug Contraindication: N/A - Med Ordered
[2022-07-25 15:23] LABS: Glucose, Whole Blood 169 mg/dL (60-115)
[2022-07-25 19:35] VITALS: BP 113/85; PULSE 91; RESP 16; TEMP 36.4; O2SAT 96
[2022-07-25 19:40] LABS: Glucose, Whole Blood 125 mg/dL (60-115)
[2022-07-25] MEDS: Enoxaparin Sodium 40 MG/0.4 ML SYRINGE SUBCUT (19:58)
[2022-07-25] MEDS: Atorvastatin Calcium 80 MG TABLET PO (19:58)
[2022-07-25 23:38] VITALS: BP 111/77; PULSE 80; RESP 16; TEMP 36.3; O2SAT 96
[2022-07-26 03:44] VITALS: BP 116/82; PULSE 76; RESP 16; TEMP 36.6; O2SAT 96
[2022-07-26] MEDS: oxyCODONE HCl Immed Release 5 MG TABLET PO (03:46)
[2022-07-26 07:17] VITALS: BP 123/83; PULSE 89; RESP 20; TEMP 36.6; O2SAT 95
[2022-07-26 07:23] LABS: Glucose, Whole Blood 161 mg/dL (60-115)
[2022-07-26] MEDS: Insulin Lispro 100 UNIT/ML 3 ML VIAL SUBCUT (07:42)
[2022-07-26] MEDS: Clopidogrel Bisulfate 75 MG TABLET PO (07:43)
[2022-07-26] MEDS: Aspirin 81 MG TAB.CHEW PO (07:43)
[2022-07-26] MEDS: Nicotine 21 MG PATCH.TD24 TRANSDERMA (07:43)
[2022-07-26] MEDS: polyethylene glycoL 3350 17 GM POWD.PACK PO (07:43)
[2022-07-26] MEDS: amLODIPine Besylate 5 MG TABLET PO (07:43)
[2022-07-26] MEDS: lisinopriL 10 MG TABLET 30 MG PO (07:43)
[2022-07-26] MEDS: Famotidine 20 MG TABLET PO (07:43)
[2022-07-26 11:02] VITALS: BP 113/76; PULSE 89; RESP 20; TEMP 36.9; O2SAT 93
[2022-07-26 11:13] LABS: Glucose, Whole Blood 137 mg/dL (60-115)
[2022-07-26 11:28] VITALS: BP 113/76; PULSE 89; O2SAT 93
--- NOTE | 2022-07-26 11:59 | MHC.CM.PN ---
pt accepted at [facility] today at3
[2022-07-26 12:36] LABS: COVID-19 Test Negative (Negative); IDNOW Serial# 55D5AD1C
--- NOTE | 2022-07-26 13:07 | P.DS_ITS ---
DS: Providers Provider Date of Service: 07/26/22 Date of admission: 07/17/22 19:04 Primary care physician: Unknown Physician Consults: 07/17/22 18:52 Consult to Neurology Routine Consulting Provider: [facility] Reason for consultation: Acute infarct of left temporal lobe Has provider been notified: No 07/19/22 14:18 Consult to Cardiology Routine Consulting Provider: Be Pope Reason for consultation: recurrent CVA, regional WMAs on TTE DS: Diagnosis Discharge Diagnosis (1) Cerebrovascular accident: Status: Acute (2) Atherosclerotic cardiovascular disease: Status: Acute (3) Type 2 diabetes mellitus with unspecified complications: Status: Acute (4) Essential hypertension: Status: Acute (5) Smoking: Status: Acute (6) Other and unspecified hyperlipidemia: Status: Acute DS: Summary Hospital Course Hospital Course: 56-year-old male with a PMH significant for CAD s/P KIM LCx in 2003, s/p KIM OM in 2019,?MS,optic neuritis, TIA in 2012, HTN, HLD, and non-insulin dependent diabetes? who presents to the ED for evaluation of left leg and arm numbness and tingling.? Patient states that when he woke up at 07:00 this morning he had a right-sided headache and felt numbness and tingling in his left arm and leg. Was able to move and get out of bed, but condition worsened about an hour later, when his left side was functionally paralyzed. This lasted about an hour until symptoms improved. They again worsened after another hour, and proceeded to wax and wane over the next few hours. Pt eventually called EMS after he fell off his scooter when attempting to go to [facility] to purchase cigarettes around noon. Pt denies he experienced any facial droop, difficulty in speaking, change to vision or altered mentation.? No? chest pain/pressure, palpitations.? Denies shortness of breath.? No abdominal pain.? Of note, review of medical records reveals the patient has recently been seen for similar symptoms of left-sided numbness and tingling at [facility] on 06/11/2022 and again on 07/15/2022.? For his visit on 07/15/[address] of head negative for acute intracranial abnormalities and CTA with no intracranial LVO.? Patient received no endovascular intervention and was sent home on aspirin, Plavix, and a statin.? Review of records also found patient's diagnosis of MS is questionable.? [facility] neurology outpatient office visit 03/23/2022 lb the patient reports MS but has never been treated for it and has had no recurrence of optic neuritis.? They concluded that white matter lesions from MRI more suggestive of microvascular disease than MS. In the ED labs were unremarkable. 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 CTA of head and neck showed an evolving subacute infarct of the right welch radiata/caudate tail, and no evidence of acute intracranial hemorrhage or edematous territorial infarction.? EKG showed normal sinus rhythm with no acute ischemic changes. Pt was treated in the ED with aspirin. Pt will be admitted to the hospital for treatment evaluation of cerebrovascular accident. Hospital course: Patient was admitted left lower extremity weakness/ numbness found to have acute/subacute CVA-his symptoms are somewhat improving. Seen by neurology recommended continue dual antiplatelet therapy, statin and risk factor control including htn and diabetes. Seen by PT recommended to go to rehab( snf/acute rehab). In addition-patient was found have regional WMAs on TTE:seen by cardiology:do not believe patient has acute coronary syndrome, and recommends aggressive risk factor management of diabetes,hypertension and hyperlipidemia-continue statins, close blood pressure and blood sugar monitoring. Patient is to follow up outpatient with Cardiology for further management. 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 Patient is to follow up outpatient with Cardiology. Above management discussed with patient in detail and he understand and in agreement with the above plan, time spent 50 minute. Time Spent with Patient Time attestation: Total time managing care of this patient today ____ minutes. Discharge coordination time: Greater than 30 minutes Quality: Safe Use of Opioids Does Pt have an Active Cancer Diagnosis on the Problem List?: No Quality: Stroke Does the patient have a stroke diagnosis?: No Physical Exam Vital Signs: Vital Signs: Last Vital Signs Temp 98.5 F 07/26/22 11:02 Pulse 89 07/26/22 11:28 Resp 20 07/26/22 11:02 BP 113/76 07/26/22 11:28 Pulse Ox 93 07/26/22 11:28 O2 Del Method 07/26/22 07:17 BMI result Body Mass Index 32.8 Gen: in no acute distress HEENT: sclera anicteric, moist mucus membranes Neck: supple Lungs: clear to auscultation bilaterally Heart: regular rate and rhythm, no murmurs Abd: soft, non-tender, non-distended Ext: no edema Skin: warm/well-perfused Neuro: alert and oriented x3, nonfocal exam, good motor strength lower extremity, Psych: appropriate affect DS: Data Data Completed and Pending Labs on day of discharge: Laboratory Results - last 24 hr 07/25/22 07/25/22 07/26/22 15:19 19:36 07:20 POC Glucose 169 H 125 H 161 H COVID-19 ([facility]ARG[facility]ITA) COVID-19 Clin Com 07/26/22 07/26/22 11:10 12:06 POC Glucose 137 H COVID-19 ([facility]ARGARITA) Negative COVID-19 Clin Com See Note Imaging Chest x-ray: Radiologist's impression: ITS Impressions Head CT 07/17/22 12:56 IMPRESSION: Question evolving infarct in the region of the posterior limb of internal capsule. MRI would be of help in further evaluation of this finding. Microangiopathy. This critical result was discussed with Carlos Vang MD at 1:10 PM hours on July 17, 2022. It was ascertained that the content and urgency of the report was understood at the time of direct communication. Brain MRI 07/17/22 14:19 IMPRESSION: 1. There is a small area of acute infarction in the left temporal lobe without evidence of hemorrhagic transformation. 2. There is an area of increased diffusion signal with hyperintense ADC map and FLAIR signal adjacent to the body of the right lateral ventricle, corresponding to the area of low attenuation seen on the prior CT scan, and most consistent with a subacute to chronic infarct. 3. 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 There are chronic microvascular ischemic changes and there is diffuse volume loss. There are no acute bleeds or other masses. 4. This critical result was discussed with Yani Gamez MD by telephone on 07/17/2022 history PPM and it was ascertained that the content and urgency of the report was understood at the time of direct communication. Head/Neck CTA 07/17/22 16:25 IMPRESSION: 1. Evolving subacute infarct of the right welch radiata/caudate tail. The previously noted small infarct of the left temporal lobe was better demonstrated on recent MRI. Chronic lacunar infarct of the left internal capsule/lentiform nucleus. Moderate underlying microangiopathy and generalized cerebral volume loss. 2. No evidence of acute intracranial hemorrhage or edematous territorial infarction. 3. CTA of the head and neck without proximal occlusion or flow-limiting stenosis. Echo: Conclusions: - The left ventricular systolic function is normal.? The ? calculated ejection fraction is 62% by biplane method. ? - There is evidence of regional wall motion abnormalities. ? ? ? - There is no evidence of interatrial shunt by agitated saline.? - No obvious valvular pathology seen on this study.? Findings Left Ventricle Normal left ventricular cavity size.? The left ventricular systolic function is normal.? The calculated ejection fraction is 62% by biplane method.? There is evidence of regional wall motion abnormalities.? Diastolic function is normal for age.? There is mild septal asymmetric hypertrophy. Wall Motion Rest Echo Findings The mid inferior and mid inferolateral segments are hypokinetic. The basal inferior segment is akinetic. Right Ventricle Normal right ventricular cavity size and systolic function. Atria Both atria are normal in size.? There is no evidence of interatrial shunt by agitated saline.? Bubble study negative with rest and valsalva. Aortic Valve There is a normal trileaflet aortic valve.? There is no aortic valve stenosis.? There is no aortic valve regurgitation. Mitral Valve The mitral valve appears normal.? There is no mitral valve regurgitation. There is no mitral valve stenosis. Pulmonic Valve The pulmonic valve is likely normal. Tricuspid Valve Normal tricuspid valve structure.? There is trace tricuspid valve regurgitation.? There is no evidence of pulmonary hypertension. Great Vessels The asc aorta is normal in size. Venous The inferior vena cava is normal in size and collapses greater than 50% with inspiration. Pericardium/Pleural There is no evidence of pericardial effusion. Prior Study Comparison No prior study available for comparison. Recommendations, Care & Conclusions No obvious valvular pathology seen on this study. Discharge Plan Discharge Anticipated Discharge Date/Time: 07/26/22 11:59 Patient Disposition: Xfer SNF Discharge Diagnosis: Acute/subacute CVA , regional WMAs on TTE Referrals: [facility] [Other] - 1 Week Physician,Unknown J [Primary Care Provider] - 1 Week Discharge Medications: New insulin lispro [Humalog U-100 Insulin] 100 unit/mL Solution See Protocol subcut QIDACHS Qty: 1 0RF Protocol: Insulin Correction Scale Less than or equal to 110 ---- Give (units): 0 111 to 150 Give (units): 0 151 to 200 Give (units): 2 201 to 250 Give (units): 4 251 to 300 Give (units): 6 301 to 350 Give (units): 8 Greater than 350 Give (units): 10 Call MD if Blood Glucose > : 350 famotidine 20 mg Tablet 20 mg PO BID Qty: 60 0RF polyethylene glycol 3350 17 gram Powder In Packet 17 g PO DAILY PRN (Reason: constipation) Qty: 30 0RF clopidogrel 75 mg Tablet 75 mg PO DAILY Qty: 30 0RF docusate sodium 100 mg Capsule 100 mg PO DAILY PRN (Reason: Constipation) Qty: 30 0RF nicotine 21 mg/24 hr Patch 24 Hour 21 mg transdermal DAILY Qty: 7 0RF amlodipine 5 mg Tablet 5 mg PO DAILY Qty: 30 0RF Protocol: Hold for SBP< HOLD for SBP < : 90 Continued atorvastatin 80 mg tablet 1 tab PO BEDTIME lisinopril 30 mg tablet 1 tab PO DAILY aspirin 81 mg tablet,chewable 1 tab PO DAILY Trulicity 3 mg/0.5 mL pen injector 3 mg subcut QWEEK Discharge Orders: Discharge Order (Routine); Ordered 07/26/22 Ordered By: Mercy Lerner Diet: Advance to usual diet Activity on Discharge: As tolerated Stand Alone Forms: Patient Portal Discharge page Care Plan Goals: Patient was admitted left lower extremity weakness/ numbness found to have acute/subacute CVA-his symptoms are somewhat improving. Seen by neurology recommended continue dual antiplatelet therapy, statin and risk factor control including htn and diabetes. Seen by PT recommended to go to rehab( snf/acute rehab). In addition-patient was found have regional WMAs on TTE:seen by cardiology:do not believe patient has acute coronary syndrome, and recommends aggressive risk factor management of diabetes,hypertension and hyperlipidemia-continue statins, close blood pressure and blood sugar monitoring. Patient is to follow up outpatient with Cardiology for further management. Health Concerns: As above. Plan of Treatment: As above. Assessment: As above.
== END 2022-07-26 15:39 | disposition skilled nursing facility (03) | DRG 66 ==
LOC: HO.ED 17:44 → HO.EDOVER 19:17 → HO.IMC 07-19 13:14
PROVIDERS: Family Medicine; Hospitalist; Nurse Practitioner Family; Psychiatry & Neurology Neurology; Admitting Provider Student in an Organized Health Care Education/Training Program; Emergency Provider Student in an Organized Health Care Education/Training Program; Visit Provider Internal Medicine
DX: I63.9 Cerebral infarction, unspecified (principal); I25.10 Atherosclerotic heart disease of native coronary artery without angina pectoris; F17.210 Nicotine dependence, cigarettes, uncomplicated; I10 Essential (primary) hypertension; E11.9 Type 2 diabetes mellitus without complications; R29.700 NIHSS score 0; E78.5 Hyperlipidemia, unspecified; K59.00 Constipation, unspecified; G83.34 Monoplegia, unspecified affecting left nondominant side; Z95.5 Presence of coronary angioplasty implant and graft; Z20.822 Contact with and (suspected) exposure to COVID-19; Z71.6 Tobacco abuse counseling; Z86.73 Personal history of transient ischemic attack (TIA), and cerebral infarction without residual deficits; Z88.5 Allergy status to narcotic agent; Z79.4 Long term (current) use of insulin; Z79.82 Long term (current) use of aspirin; Z79.899 Other long term (current) drug therapy
CPT/HCPCS: 36415; 70450; 70496; 70498; 70551; 80048; 80061; 82947; 84484; 85025; 87635; 93306; 97110; 97116; 97162; 97166; 97530; 97535; 99285; J1650; J2405; Q9957; Q9967

== ENCOUNTER 2023-02-06 17:50 | Inpatient (IN) | payer OTHER, SELFPAY ==
--- NOTE | ~2023-02-06 | CT_ITS ---
EXAMINATION: CT HEAD WITHOUT CONTRAST (STROKE PROTOCOL) CLINICAL INFORMATION: Stroke protocol. Right-sided weakness. Slurred speech. COMPARISON: CT head 07/17/2022, 07/03/2022 TECHNIQUE: Contiguous axial imaging was performed from the skull base to vertex without intravenous administration of contrast. Coronal and sagittal reformatted images are performed at the CT scanner. [This CT examination was performed using dose optimization techniques as appropriate, variously including the following: *Automated exposure control *Adjustment of mA and/or kV according to patient size (this includes techniques or standardized protocols for targeted exams where dose is matched to indication/reason for exam; i.e. extremities or head) *Use of iterative reconstruction technique] DLP: 733 mGy-cm. FINDINGS: There is a chronic lacunar infarct in the left basal ganglia unchanged since prior studies. There is an involving infarct in the right welch radiata/caudate tail. This was present on prior CT exam. This lesion is now more radiolucent than prior exams. No new change. No intracranial hemorrhage. No extra-axial collection. No mass effect. Proportional prominence of the ventricles and sulci. There is no osseous abnormality. The mastoid air cells and visualized portions of the paranasal sinuses are well-aerated. CT/CT head for stroke IMPRESSION: 1. Evolving infarct in the right weclh radiata/caudate tail. No new change. 2. Old lacunar infarct left basal ganglia. 3. No intracranial hemorrhage. This critical result was discussed with Dr. Brown at 1817 hours on 02/06/2023. It was ascertained that the content and urgency of the report was understood at the time of direct communication.
--- NOTE | ~2023-02-06 | MR_ITS ---
EXAMINATION: MRI BRAIN WITHOUT CONTRAST CLINICAL INFORMATION: Stroke. COMPARISON: CT angiogram of the head and neck 02/06/2023. Brain MRI 07/17/2022. TECHNIQUE: Multiplanar MR imaging the brain was performed without contrast. FINDINGS: There are numerous foci of T2 FLAIR signal hyperintensity within the periventricular white matter, basal ganglia, thalami and, and slade. There are also a few chronic lacunar infarcts for instance within the right centrum semiovale and the anterior limb of the left internal capsule. There is a small focus of restricted diffusion representing an acute striatocapsular lacunar infarct extending from the left putamen across the posterior limb and the left internal capsule into the centrum semiovale best visualized on axial image 20 of 33 series 3. The gradient recalled echo sequence demonstrates a lobulated T2 hyperintense lesion with a rim of hemosiderin staining located within the subcortical white matter along the undersurface of the right posterior temporal lobe at its junction with the occipital lobe best visualized on axial image 11 of 26 series 8 measuring approximately 0.6 cm in maximal transaxial dimension. Intracranial vascular flow voids are grossly maintained. There is no intracranial mass effect or midline shift. No abnormal extra-axial collection. Lateral and third ventricles are normal. No hydrocephalus. Midline structures including the cervicomedullary junction are normal. No acute bone marrow signal changes. No mastoid middle ear effusion. Mild paranasal sinus mucosal thickening primarily involving the ethmoid air cells. Globes and orbits are symmetric. MR/MR head/brain wo con IMPRESSION: There is an acute left striatocapsular lacunar infarct. This finding is superimposed upon numerous chronic small vessel ischemic changes primarily involving the periventricular white matter, basal ganglia, thalami, and slade. Incidentally there is a 0.6 and the cavernous malformation located within subcortical white matter along the undersurface of the right posterior temporal lobe near its junction with the occipital lobe. This finding has remained stable when compared to prior imaging from 07/18/2022.
--- NOTE | ~2023-02-06 | CT_ITS ---
EXAMINATION: CT ANGIOGRAM NECK WITH CONTRAST CT ANGIOGRAM BRAIN WITH CONTRAST CLINICAL INFORMATION: Right sided weakness. COMPARISON: CT head and neck 07/17/2022 TECHNIQUE: Test bolus sequences followed by intravenous administration 100 mL of Omnipaque 350. Helical imaging was performed in the axial plane from the thoracic inlet to the skull vertex. Delayed postcontrast imaging of the head was also performed. The data was processed at the technologist infectious disease workstation for generation of MIP sequences. Angled MIPs and volume rendered reformatted images were also generated at an offline 3D workstation. Stenoses are assessed in accordance with NASCET criteria unless otherwise indicated. This CT examination was performed using dose optimization techniques as appropriate, variously including the following: *Automated exposure control *Adjustment of mA and/or kV according to patient size (this includes techniques or standardized protocols for targeted exams where dose is matched to indication/reason for exam; i.e. extremities or head) *Use of iterative reconstruction technique DLP: 1565 mGy-cm FINDINGS: Head CT: There is no intracranial hemorrhage, large acute infarction, or mass lesion. The ventricles are normal in size and configuration without evidence of hydrocephalus. There is moderate to severe chronic microangiopathy. Chronic lacunar infarcts are seen in the bilateral basal ganglia. There is no abnormal enhancement. The dural venous sinuses are normally opacified. The visualized paranasal sinuses and mastoid air cells are clear. Neck CTA: Mild atheromatous changes seen involving the aortic arch without stenosis of the great vessel origins. Both common internal carotid arteries are patent with significant motion artifact limiting evaluation of the carotid bifurcations. The cervical ICAs are patent. Atheromatous changes are seen at the carotid siphons without significant stenosis. The vertebral artery origins are difficult to evaluate due to motion artifact. The bilateral vertebral artery cervical segments are both patent. Head CTA: No large vessel occlusion is seen. There is a left ALGOLOGIST. Atheromatous changes are seen along the left M2 MCA. There is focal high-grade stenosis of the distal left M3 MCA branch seen on series 12 image 73/192. Atheromatous changes are seen within the basilar artery without significant stenosis. No aneurysm is seen. Non-vascular findings: The cervical soft tissues are within normal limits. There is no consolidation within the imaged portions of the lungs. Mild degenerative changes are seen within the spine. CT/CT angio head neck stroke IMPRESSION: CT HEAD: No intracranial hemorrhage or large acute infarction. Background changes of advanced chronic microangiopathy. Chronic lacunar infarcts seen in the bilateral basal ganglia. CTA NECK: Motion artifact limits evaluation of the carotid bifurcations. No significant stenosis within the major neck arteries. CTA HEAD: No large vessel occlusion. Focal high-grade stenosis of a distal left M2 M3 MCA branch.
--- NOTE | ~2023-02-06 | XR_ITS ---
EXAMINATION: XR CHEST CLINICAL INFORMATION: SOB COMPARISON: None available. TECHNIQUE: Frontal view of the chest was obtained. FINDINGS: No significant abnormality is noted involving the heart, lungs, mediastinum, bony thorax or soft tissues. XR/XR chest 1V IMPRESSION: Unremarkable chest examination.
--- NOTE | 2023-02-06 17:57 | ECG_ITS ---
Test Reason : STROKE Blood Pressure : / mmHG Vent. Rate : 092 BPM Atrial Rate : 092 BPM P-R Int : 170 ms QRS Dur : 090 ms QT Int : 370 ms P-R-T Axes : 063 -23 054 degrees QTc Int : 457 ms Normal sinus rhythm Inferior infarct (cited on or before 28-MAY-2013) Abnormal ECG When compared with ECG of 03-JUL-2022 02:40, No significant change was found Referred By: Lisa Brown Electronically Signed By:BENSON LAU MD
[2023-02-06] MEDS: iohexoL 350 MG/ML 100 ML INFUS..BTL IV (18:14)
[2023-02-06 18:18] VITALS: BP 225/144; PULSE 108; O2SAT 96
[2023-02-06 18:23] VITALS: BP 208/111; PULSE 108; RESP 18; O2SAT 98; BMI 30.8
--- NOTE | 2023-02-06 18:31 | PC.NURSE ---
pt arrived via ems; suspect stroke. pt axox4 on arrival. md to bedside. neuro exam shows R. sided weakness BUE and BLE; facial droop noted on right side. pt taken to ct; second iv established. poc 125, inr 1.1. nsr on monitor 97 bpm. respirations even and unlabored; sats 98% RA. skin wpd. cap refill <3 secs. pt reports last known well time 1200; onset with feeling of weakness. pt reports on eliquis. + stroke per Dr. Brown, no new orders at this time, no acute tx d/t timing/sx. tech obtaining lab work, call [facility] within reach.
[2023-02-06 18:34] LABS: Prothrombin Time Whole Bld POC 13.1 sec (11.1-13.5); ~PT, ~INR - Anti Coag Clinic 1.1 (0.9-1.1)
[2023-02-06 18:40] VITALS: BP 181/107; PULSE 92; RESP 12; TEMP 36.6; O2SAT 97
[2023-02-06 18:42] LABS: MANUAL DIFF FLAG NO
[2023-02-06 18:48] LABS: Prothrombin Time 11.8 SEC (11.1-13.3)
[2023-02-06 18:51] LABS: Partial Thromboplastin Time 37.3 SEC (26.0-36.4)
[2023-02-06 18:53] LABS: Glucose Random 116 mg/dL (60-115); Stroke Lab Use COMPLETE
[2023-02-06 18:56] LABS: Basophils Absolute Auto 0.1 X10*3/uL (0.0-0.2); Basophils Percent Auto 0.7 % (0-2); Eosinophils Absolute Auto 0.1 X10*3/uL (0.0-0.4); Eosinophils Percent Auto 1.4 % (0-4); Hematocrit 47.2 % (42.0-52.0); Hemoglobin 15.5 g/dl (14.0-18.0); Imm Gran Abs Auto 0.11 X10*3/uL (0.00-0.03); Imm Gran Pct Auto 1.1 % (0.0-0.4); Lymphocytes Absolute Auto 1.4 X10*3/uL (1.2-4.9); Lymphocytes Percent Auto 14.2 % (20-40); Mean Corpuscular HGB Conc 32.8 g/dl (31.0-36.0); Mean Corpuscular Hemoglobin 26.3 pg (27.0-33.0); Mean Corpuscular Volume 80.1 fL (80.0-98.0); Mean Platelet Volume 9.5 fL (9.4-12.4); Monocytes Absolute Auto 0.8 X10*3/uL (0.1-1.2); Monocytes Percent Auto 7.4 % (2-11); Neutrophils Absolute Auto 7.6 x10*3/uL (2.0-8.3); Neutrophils Percent Auto 75.2 % (45-73); Platelet Count 243 X10*3/uL (160-400); Red Blood Count 5.89 X10*6/uL (4.60-5.80); Red Cell Distribution Width 17.5 % (11.0-16.0); White Blood Count 10.1 X10*3/uL (4.8-10.8)
--- NOTE | 2023-02-06 19:01 | ED_ITS ---
HPI - Neuro Symptoms/Deficit General Chief Complaint: Stroke Stated Complaint: signs of stroke, per ems Time Seen by Provider: 02/06/23 17:56 History of Present Illness HPI Narrative: Presented today with having right-sided weakness that was sudden in onset. Patient claims the last known well time is approximately noon time. He feels his speech is off he has a facial droop he also feel clumsiness in his right hand and weakness in his right leg. Baseline patient is right handed. Denies any fever denies any pain on urination denies any chest pain denies any palpitation no history of irregular heartbeat not on blood thinners. Denies any recreational drug use. Positive history of strokes patient on Plavix. Positive history of hypertension, hypercholesterolemia. Positive history of diabetes on insulin Related Data Home Medications Medication Instructions Recorded Confirmed aspirin 81 mg chewable tablet 1 tab PO DAILY 07/17/22 02/06/23 atorvastatin 80 mg tablet 1 tab PO BEDTIME 07/17/22 02/06/23 dulaglutide 3 mg/0.5 mL 3 mg subcut WE 07/17/22 02/06/23 subcutaneous pen injector (Trulicity) lisinopril 40 mg tablet 40 mg PO DAILY 02/06/23 02/06/23 metformin 500 mg tablet 500 mg PO QAM 02/06/23 02/06/23 Previous Rx's Medication Instructions Recorded clopidogrel 75 mg tablet 75 mg PO DAILY #30 tabs 07/26/22 Allergies Allergy/AdvReac Type Severity Reaction Status Date / Time morphine [MORPHINE] AdvReac Unknown VOMITING Verified 07/24/22 11:05 Review of Systems Review of Systems: No fever no chills no chest pain or shortness of breath positive history of diabetes positive history of smoking. Yes all other systems are reviewed and are negative [facility] Past Medical History Attestation statement: The following information was validated with the patient. Medical History (Updated 02/06/23 @ 19:10 by Lisa Brown MD) Atherosclerotic cardiovascular disease Essential hypertension Other and unspecified hyperlipidemia Smoking Type 2 diabetes mellitus with unspecified complications Social History Social History Household Members: None Housing: Apartment Do you presently have visiting nurse or other home services: No Alcohol intake: never Patient Tobacco Use Status: Current someday Tobacco user Smoked in Last 30 Days: Yes Use of substances other than those prescribed or required for medical reasons: No Advance Directives: No Advance Directives Information Provided: Yes service: Yes Current occupational status: disabled Physical Exam Vital Signs: Vital Signs: Last Vital Signs Temp 98 F 02/06/23 18:40 Pulse 92 02/06/23 19:07 Resp 20 02/06/23 19:07 BP 170/115 H 02/06/23 19:07 Pulse Ox 95 02/06/23 19:07 O2 Del Method Room Air 02/06/23 19:07 BMI result Body Mass Index 30.8 Appearance: Alert. Oriented X3. No acute distress. Eyes: Pupils equal, round and reactive to light. ENT: Pharynx normal. Neck: Normal inspection. Neck supple. No lymph nodes noted. No crepitus CVS: Normal heart rate and rhythm. Pulses normal. Normal S1 and S2 Respiratory: No respiratory distress. Breath sounds normal. No Wheezing. No rales Abdomen: Soft and nontender. No rigidity. No distention. good BS x4 Skin: Skin warm and dry. Normal skin color. Normal skin turgor. Extremities: No lower extremity edema. Neurovascular intact to all extremities. No Lacerations. No Rash Neuro: Oriented X 3. Positive slight facial droop on the right. [id number] was off on the right side. Right leg appears to be weaker than the left. Unable to hold up against gravity for for 5 seconds. No sensory deficit. Moving all extermities. Positive slurred speech Medications Administered Discontinued Medications Generic Name Dose Route Start Last Admin Trade Name Chadq PRN Reason Stop Dose Admin Iohexol 100 ml 02/06/23 18:14 02/06/23 18:14 Iohexol 350 Mg/Ml 100 Ml Infus..Btl IV 02/06/23 18:15 70 ml ONCE ONE Administration Medical Decision Making Medical Decision Making MDM Narrative: Patient's last known well times proximally 12 noon. It has been 6 hours on arrival. Not a candidate for tPA. Patient's NIH stroke scale was 4. CT head and CTA were both negative. There is no large vessel occlusions. No intervent ional neurosurgical intervention needed. Patient symptom approximally the same. Sugar was over 100 there is no evidence for hypoglycemia. Question patient had CVA today. Will require admission for further evaluation. Electrolytes are still pending. Patient's previous record examine. Previously patient has left-sided weakness. Differential Diagnosis Differential Diagnoses: The differential diagnosis associated with the presentation includes Multiple sclerosis which patient has a history of. CVA, infection, hypoglycemia Admission/Observation Consideration of admission/observation: Escalation of care including admission/observation considered Consult Healthcare Provider Management of the patient was discussed with: Hospitalist Lab Data MDM Lab Attestation statement: I reviewed the patient's lab results. 02/06/23 18:37 02/06/23 18:37 Labs: Lab Results 02/06/23 02/06/23 02/06/23 Range/Units 18:03 18:37 18:37 WBC 10.1 (4.8-10.8) X10*3/uL RBC 5.89 H (4.60-5.80) X10*6/uL Hgb 15.5 (14.0-18.0) g/dl Hct 47.2 (42.0-52.0) % MCV 80.1 (80.0-98.0) fL MCH 26.3 L (27.0-33.0) pg MCHC 32.8 (31.0-36.0) g/dl RDW 17.5 H (11.0-16.0) % Plt Count 243 (160-400) X10*3/uL MPV 9.5 (9.4-12.4) fL Immature Gran % (Auto) 1.1 H (0.0-0.4) % Neut % (Auto) 75.2 H (45-73) % Lymph % (Auto) 14.2 L (20-40) % [place] % (Auto) 7.4 (2-11) % Eos % (Auto) 1.4 (0-4) % Baso % (Auto) 0.7 (0-2) % Lymph # (Auto) 1.4 (1.2-4.9) X10*3/uL [place] # (Auto) 0.8 (0.1-1.2) X10*3/uL Eos # (Auto) 0.1 (0.0-0.4) X10*3/uL Baso # (Auto) 0.1 (0.0-0.2) X10*3/uL Abs Immat Gran (auto) 0.11 H (0.00-0.03) X10*3/uL Absolute Neuts (auto) 7.6 (2.0-8.3) x10*3/uL Absolute Nucleated RBC 0.000 (0.0-0.012) X10*3/uL Nucleated RBC % (auto) 0.0 (0.0-0.2) /100WBC PT (11.1-13.3) SEC Whole Blood PT 13.1 (11.1-13.5) sec INR (0.9-1.1) Whole Blood INR 1.1 (0.9-1.1) APTT (26.0-36.4) SEC Sodium 143 (135-145) mmol/L Potassium 4.1 (3.3-5.1) mmol/L Chloride 106 (96-108) mmol/L Carbon Dioxide 27 (22-29) mmol/L Anion Gap 14 (12-20) BUN 12 (9-16) mg/dL Creatinine 0.68 (0.5-1.4) mg/dL Estim Creat Clear Calc 115.4 Estimated GFR > 60 Random Glucose 118 H (60-115) mg/dL Calcium 9.4 (8.4-10.2) mg/dL Phosphorus 3.3 (2.7-4.5) mg/dL Magnesium 2.0 (1.6-2.6) mg/dL Total Bilirubin 0.5 (0.0-1.0) mg/dL Direct Bilirubin 0.2 (0.0-0.5) mg/dL AST 16 (5-37) U/L ALT 11 (0-40) U/L Alkaline Phosphatase 83 (39-117) U/L Total Creatine Kinase 259 H (38-174) U/L Troponin I High Sens (<3.5-35.0) ng/L Total Protein 6.6 (6.5-8.0) g/dL Albumin 4.2 (3.5-5.0) g/dL TSH 1.65 (0.32-4.0) uIU/mL 02/06/23 02/06/23 02/06/23 Range/Units 18:37 18:37 18:37 WBC (4.8-10.8) X10*3/uL RBC (4.60-5.80) X10*6/uL Hgb (14.0-18.0) g/dl Hct (42.0-52.0) % MCV (80.0-98.0) fL MCH (27.0-33.0) pg MCHC (31.0-36.0) g/dl RDW (11.0-16.0) % Plt Count (160-400) X10*3/uL MPV (9.4-12.4) fL Immature Gran % (Auto) (0.0-0.4) % Neut % (Auto) (45-73) % Lymph % (Auto) (20-40) % [place] % (Auto) (2-11) % Eos % (Auto) (0-4) % Baso % (Auto) (0-2) % Lymph # (Auto) (1.2-4.9) X10*3/uL [place] # (Auto) (0.1-1.2) X10*3/uL Eos # (Auto) (0.0-0.4) X10*3/uL Baso # (Auto) (0.0-0.2) X10*3/uL Abs Immat Gran (auto) (0.00-0.03) X10*3/uL Absolute Neuts (auto) (2.0-8.3) x10*3/uL Absolute Nucleated RBC (0.0-0.012) X10*3/uL Nucleated RBC % (auto) (0.0-0.2) /100WBC PT 11.8 (11.1-13.3) SEC Whole Blood PT (11.1-13.5) sec INR 1.0 (0.9-1.1) Whole Blood INR (0.9-1.1) APTT 37.3 H (26.0-36.4) SEC Sodium (135-145) mmol/L Potassium (3.3-5.1) mmol/L Chloride (96-108) mmol/L Carbon Dioxide (22-29) mmol/L Anion Gap (12-20) BUN (9-16) mg/dL Creatinine (0.5-1.4) mg/dL Estim Creat Clear Calc Estimated GFR Random Glucose 116 H (60-115) mg/dL Calcium (8.4-10.2) mg/dL Phosphorus (2.7-4.5) mg/dL Magnesium (1.6-2.6) mg/dL Total Bilirubin (0.0-1.0) mg/dL Direct Bilirubin (0.0-0.5) mg/dL AST (5-37) U/L ALT (0-40) U/L Alkaline Phosphatase (39-117) U/L Total Creatine Kinase (38-174) U/L Troponin I High Sens 4.8 (<3.5-35.0) ng/L Total Protein (6.5-8.0) g/dL Albumin (3.5-5.0) g/dL TSH (0.32-4.0) uIU/mL Independent Interpretation I performed an independent interpretation of an: EKG and CT Scan Interpretation: My interpretation the patient's EKG showed a sinus pattern heart rate is 90 IA QRS QT within normal limits is no acute ST segment elevation noted. My interpretation the patient's CT scan was grossly negative for any acute evidence of bleeding. Radiology Impression Discussion of test interpretation with radiology: I have reviewed the radiologist's reading. Independent Historian Clinical information obtained from an independent historian. History obtained from or confirmed by: EMS External Record Review External record reviewed: Inpatient record Previous admission reviewed Chronic Conditions Patient?s care impacted by: Diabetes and Hypertension MS NIH Stroke Scale Internal: Initial- Upon Arrival Time: 19:02 Level of Consciousness: Alert Level of Consciousness Questions: Answers both questions correctly Level of Consciousness Commands: Performs both tasks correctly Best Gaze: Normal Visual: No visual loss Facial Palsy: Minor paralyis Motor Arm (Right): No drift Motor Arm (Left): No drift Motor Leg (Right): Drift Motor Leg (Left): No drift Limb Ataxia: Present in one limb Sensory: Normal Best Language: Mild to moderate aphasia Dysarthia: Normal Extinction and Inattention: No abnormality Score: 4 Discharge Plan Discharge Clinical Impression: Cerebrovascular accident Patient Disposition: Admitted As Inpatient
[2023-02-06 19:04] LABS: Alanine Aminotransferase 11 U/L (0-40); Albumin Level 4.2 g/dL (3.5-5.0); Alkaline Phosphatase 83 U/L (39-117); Anion Gap 14 (12-20); Aspartate Amino Transferase 16 U/L (5-37); Bilirubin Direct 0.2 mg/dL (0.0-0.5); Bilirubin Total 0.5 mg/dL (0.0-1.0); Blood Urea Nitrogen 12 mg/dL (9-16); Calcium 9.4 mg/dL (8.4-10.2); Carbon Dioxide 27 mmol/L (22-29); Chloride 106 mmol/L (96-108); Creatinine Clr Calc Pharmacy 115.4; Estimated Glomerular Filt Rate > 60; Glucose Random 118 mg/dL (60-115); Phosphorus 3.3 mg/dL (2.7-4.5); Potassium 4.1 mmol/L (3.3-5.1); Sodium 143 mmol/L (135-145); Total Protein 6.6 g/dL (6.5-8.0)
[2023-02-06 19:05] LABS: Troponin-I High Sensitivity 4.8 ng/L (<3.5-35.0)
[2023-02-06 19:07] VITALS: BP 170/115; PULSE 92; RESP 20; O2SAT 95
[2023-02-06 19:19] LABS: Thyroid Stimulating Hormone 1.65 uIU/mL (0.32-4.0)
--- OUTSIDE RECORDS SUMMARY | 2023-02-06 19:28 | XMS_ITS | Continuity of Care Document ---
Author Name Unknown Organization [facility] Address [address], [address], [address] [place] [id number]- Care Team Providers Care Deposit Clerk Name Role Phone Not on Staff, PCP Primary Care Physician Unavail able Encounter [facility] Date(s): 03/23/22 - 04/22/22 [facility] [address], [address], [address] [place] [id number]- Allergies, Adverse Reactions, Alerts No Known Allergies Immunizations Given and Recorded Vaccine Date Status Refusal Reason SARS-CoV-2 mRNA ([id number]) vax 10/25/21 Given SARS-CoV-2 (COVID-19) mRNA BNT-162b2 vac 06/03/21 Recorded SARS-CoV-2 (COVID-19) mRNA BNT-162b2 vac 10/25/20 Recorded SARS-CoV-2 (COVID-19) mRNA BNT-162b2 vac 10/04/20 Recorded Influenza Virus Vaccine (oldterm) 04/15/20 Recorde d influenza virus vaccine, inactivated 1 05/14/18 Re corded influenza virus vaccine, inactivated 04/21/16 Sergey rded pneumococcal 23-valent vaccine 03/25/14 Recorded diphtheria/tetanus/pertussis, acel(DTaP) 04/03/13 Recorded 1Result Comment: [05/14/2018] flu shot rec'd at [facility] Medications Aspirin Low Dose 81 mg oral tablet, chewable 1 tablet, By Mouth, Daily, for 90 days, # 90 tablet, 3 Refills, Physician Stop 05/08/22 10:14:00 EDT, 05/13/21 10:14:00 EDT, [id number], 161.5, cm, 12/14/20 7:49:00 EDT, Height, 100, kg, 05/23/20 18:05:00 EST, Dry Weight Start Date: 05/13/21 Stop Date: 05/08/22 Status: Ordered atorvastatin 80 mg oral tablet 1 tablet = 80 mg, By Mouth, Daily at bedtime, # 90 tablet, 3 Refills, Maintenance, 05/13/21 10:15:00 EDT, Tablet, [id number], 161.5, cm, 12/14/20 7:49:00 EDT, Height, 100, kg, 05/23/20 18:05:00 EST, Dry Weight Start Date: 05/13/21 Stop Date: 05/08/22 Status: Ordered Freestyle Lite Lancets See Instructions, # 90 each, Refills 11, Tot. Refills 11, Maintenance, Type 2 Diabetes Mellitus ICD10 E 11.9. Test 2 times daily., 11/19/19 8:55:00 EDT, Compound, 162.5, cm, 08/25/19 8:40:00 EST, Height, 101.6, kg, 08/06/19 9:59:00 EST, Dry Weight Start Date: 11/19/19 Status: Ordered Freestyle Lite Monitor See Instructions, # 1 each, Refills 0, Tot. Refills 0, Maintenance, Type 2 Diabetes Mellitus ICD 10E 11.9. Test 2 times daily., 07/29/18 8:17:47 EST, Compound Start Date: 07/29/18 Status: Ordered Freestyle Lite Test Strips See Instructions, # 50 each, Refills 11, Tot. Refills 11, Maintenance, Type 2 Diabetes Mellitus ICD10 E 11.9. Test 2 times daily. 25 day supply, 11/19/19 8:55:00 EDT, Compound, 162.5, cm, 08/25/19 8:40:00 EST, Height, 101.6, kg, 08/06/19 9:59:00 EST,... Start Date: 11/19/19 Status: Ordered isopropyl alcohol 70% topical pad See Instructions, TEST BLOOD SUGAR TWICE DAILY, # 100 Unknown, 6 Refills, Maintenance, [id number], 50, TEST BLOOD SUGAR TWICE DAILY, 162.5, cm, 08/25/19 8:40:00 EST, Height, 101.6, kg, 08/06/19 9:59:00 EST, Dry Weight Start Date: 11/19/19 Status: Ordered lisinopril 20 mg oral tablet 1, tablet, By Mouth, Daily, for 90 days, # 90 tablet, Refills 3, Tot. Refills 3, Physician Stop 10/15/22 10:51:00 EDT, 10/20/21 10:51:00 EDT, Route to Pharmacy Electronically, [id number], 163, cm, 10/20/21 10:33:00 EDT, Height, 93, kg, ... Start Date: 10/20/21 Stop Date: 10/15/22 Status: Ordered lisinopril 30 mg oral tablet 1 tablet = 30 mg, By Mouth, Daily, new dosage, # 90 tablet, 1 Refills, Maintenance, 10/21/21 16:06:00 EDT, Tablet, [facility] #[id number], new dosage, 163, cm, 10/20/21 11:13:00 EDT, Height, 93, kg, 08/04/21 11:31:00 EST, Dry Weight Start Date: 10/21/21 Status: Ordered NuLYTELY with Flavor Packs oral powder for reconstitution See Instructions, 240 mL By Mouth Every 15 minutes, # 4,000 mL, 0 Refills, Maintenance, 08/25/19 9:00:00 EST, [facility] #[id number], 240 mL By Mouth Every 15 minutes, 162.5, cm, 08/25/19 8:40:00 EST, Height, 101.6, kg, 08/06/19 9:59:00 EST, Dry Weight Start Date: 08/25/19 Status: Ordered Trulicity Pen 3 mg/0.5 mL subcutaneous solution = 3 mg, Subcutaneous Injection, Every week, rotate injection sites, # 6 mL, 3 Refills, Maintenance,10/20/21 10:48:00 EDT, Solution, [facility] #[id number], cancel rx for trulicity 1.5mg, 163, cm, 10/20/21 10:33:00 EDT, Height, 93, kg, 08/04/21 11:31:00 E... Start Date: 10/20/21 Stop Date: 4/2/23 Status: Ordered Problem List Condition Confirmation Course Effective Dates Status H ealth Status Informant Back pain at L4-L5 level Confirmed Active Chest pain Confirmed Active ; Chest pain Confirmed Active ; Myocardial infarctions - s/p KIM LCx in 2013, s/p KIM OM in 2019 Confirmed Active History of TIA 2012 Confirmed Active Hyperlipidemia Confirmed Active Hypertension Confirmed Active Multiple sclerosis Confirmed Active Tobacco Use Confirmed Active Obese class II Confirmed Active SAQIB - refuses CPAP Confirmed Active Optic neuritis Confirmed Active Routine medical exam Confirmed Active Colonoscopy due in 2018 Confirmed Active Type 2 diabetes mellitus Confirmed Active Social History Social History Type Response Smoking Status Current every day tosha gallo; Tobacco user in household: No entered on: 04/24/18 Sex Patient Care team information Personnel Name: Not on Staff, PCP
--- OUTSIDE RECORDS SUMMARY | 2023-02-06 19:28 | XMS_ITS | Continuity of Care Document ---
Author Name Unknown Organization [facility] ter Address [address] [place] [id number]- Care Team Providers Care Licensed Prosthetist Name Role Phone Not on Staff, PCP Primary Care Physician Unavail able Encounter [facility] Date(s): 06/11/22 - 06/14/[address] [id number]- Encounter Diagnosis Weakness of left lower extremity(Final) - 06/11/22 Weakness of left upper extremity(Final) - 06/11/22 Multiple sclerosis(Final) - 06/11/22 Discharge Disposition: A-Transfer SNF Attending Physician: Lisa SOW, Kaylene River Admitting Physician: Nani SOW, Evan Liz Referring Physician: Not on Staff, Referring MD Allergies, Adverse Reactions, Alerts No Known Allergies Immunizations Given and Recorded Vaccine Date Status Refusal Reason [id number] 12y+ bivalent booster vax 04/29/22 Recorded SARS-CoV-2 mRNA ([id number]) vax 10/25/21 Given SARS-CoV-2 (COVID-19) mRNA BNT-162b2 vac 06/03/21 Recorded SARS-CoV-2 (COVID-19) mRNA BNT-162b2 vac 10/25/20 Recorded SARS-CoV-2 (COVID-19) mRNA BNT-162b2 vac 10/04/20 Recorded Influenza Virus Vaccine (oldterm) 04/15/20 Recorde d influenza virus vaccine, inactivated 1 05/14/18 Re corded influenza virus vaccine, inactivated 04/21/16 Sergey rded pneumococcal 23-valent vaccine 03/25/14 Recorded diphtheria/tetanus/pertussis, acel(DTaP) 04/03/13 Recorded Not Given Vaccine Date Status Refusal Reason influenza virus vaccine, inactivated 2 06/13/22 No t Given Patient Refuses 1Result Comment: [05/14/2018] flu shot rec'd at [facility] 2Result Comment: reports he has allready recieved Medications amLODIPine 5 mg oral tablet 5 mg, Tablet, By Mouth, Once, Routine, 06/14/22 14:00:00 EST, Stop date 06/14/22 14:00:00 EST Start Date: 06/14/22 Stop Date: 06/14/22 Status: Completed amLODIPine 5 mg oral tablet 10 mg, 2, tablet, By Mouth, Daily, Refills 0, Maintenance, 06/14/22 11:54:00 EST, Partial fill uponpatient request if the prescription is for a schedule II opioid drug. Start Date: 06/14/22 Status: Ordered aspirin 81 mg oral delayed release tablet 81 mg, 1, tablet, By Mouth, Daily, Refills 0, Maintenance, 05/16/22 11:40:00 EDT, Partial fill uponpatient request if the prescription is for a schedule II opioid drug. Start Date: 05/16/22 Status: Ordered atorvastatin 80 mg oral tablet 1 tablet = 80 mg, By Mouth, Daily at bedtime, # 90 tablet, 3 Refills, Maintenance, 05/13/21 10:15:00 EDT, Tablet, [facility]/pharm[facility] #[id number], 161.5, cm, 12/14/20 7:49:00 EDT, Height, 100, kg, 05/23/20 18:05:00 EST, Dry Weight Start Date: 05/13/21 Stop Date: 05/08/22 Status: Ordered Docusate/Senna Tablet 1 tablet, By Mouth, 2 times a day, PRN Constipation, 0 Refills, Maintenance, 06/14/22 11:57:00 EST,Tablet, Partial fill upon patient request if the prescription is for a schedule II opioid drug. Start Date: 06/14/22 Status: Ordered insulin lispro 100 u/ml subcutaneous injection 2-10 units, Subcutaneous Injection, 3 times a day before meals, << Sliding Scale Comments >> 150 - 199 2 units Call if less than 70 200 - 249 4 units 250 - 299 6 units 300 - 349 8 units 350 - 399 10 units Call if greater than 400 <<... Start Date: 06/14/22 Status: Ordered lisinopril 20 mg oral tablet 40 mg, 2, tablet, By Mouth, Daily, Refills 0, Maintenance, 06/14/22 11:53:00 EST, Partial fill uponpatient request if the prescription is for a schedule II opioid drug. Start Date: 06/14/22 Status: Ordered MiraLax Powder 1 pack/packet = 17 Gm, By Mouth, Daily, PRN Constipation, 0 Refills, Maintenance, 06/14/22 11:56:00EST, Powder, Partial fill upon patient request if the prescription is for a schedule II opioid drug. Start Date: 06/14/22 Status: Ordered Plavix 75 mg oral tablet 75 mg, 1, tablet, By Mouth, Daily, Refills 0, Maintenance, 06/14/22 11:54:00 EST, Partial fill uponpatient request if the prescription is for a schedule II opioid drug. Start Date: 06/14/22 Status: Ordered Trulicity Pen 3 mg/0.5 mL subcutaneous solution = 3 mg, Subcutaneous Injection, Every week, rotate injection sites, # 6 mL, 3 Refills, Maintenance,10/20/21 10:48:00 EDT, Solution, [id number], cancel rx for trulicity 1.5mg, 163, cm, 10/20/21 10:33:00 EDT, Height, 93, kg, 08/04/21 11:31:00 E... Start Date: 10/20/21 Stop Date: 10/15/22 Status: Ordered Problem List Condition Confirmation Course [...] Active Tobacco Use Confirmed Active Obese class I Confirmed Active SAQIB - refuses CPAP Confirmed Active Optic neuritis Confirmed Active Routine medical exam Confirmed Active Colonoscopy due in 2018 Confirmed Active Type 2 diabetes mellitus Confirmed Active Results Radiology Reports * Exam Date Time Procedure Performing Provider Status 06/12/22 2:09 AM MRA Neck W/ Contrast Dona Lee; Shivam h (Verified) Notes: (MRA Neck W/ Contrast) Reason For Exam: L sided weakness, and RI ICA stenosis on CTA;Other: RESULT: MRA Neck W/ Contrast MRA Neck W/ Contrast Reason: Other:; L sided weakness, and RI ICA stenosis on limited CTA; Clinical Question(s): Other:;Order Comment: Please see Reference Text for complete list of contraindications / Other: TECHNIQUE: Contrast-enhanced MRA of the neck was performed. 3D rotational MIP reformats of the cervical vessels were created on a separate workstation and used in the interpretation. All stenoses aremeasured using NASCET criteria. 20 mL of Clariscan was administered intravenously. COMPARISON: CTA 06/11/2022 FINDINGS: Arch: There is a three vessel aortic arch. The proximal innominate and left common carotid arteriesare normal. There is an apparent 50% stenosis involving the origin of the left subclavian artery. Right carotid system: There is no evidence of stenosis or dissection. The bifurcation is well visualized. Left carotid system: There is no evidence of stenosis or dissection. The bifurcation is well visualized. There is a co-dominant vertebral artery system. Right vertebral: The vessel mildly fluctuates in caliber with no significant stenosis identified. Left vertebral: There is a 50% stenosis present just proximal to the origin of the posterior inferior cerebellar artery. There is mild irregularity of this vessel distal to the posterior inferior cerebellar artery origin. There is mild irregularity of the basilar artery without critical stenosis. There are apparent 50% stenoses involving the P2 segment of the left posterior cerebral artery. IMPRESSION: 1. 50% stenosis at the origin of the left subclavian artery. 2. No stenosis of either common or internal carotid artery is appreciated. 3. 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 WSN: [id number] Ordering Physician: Jules Melendrez Dictated By: Simeon Kline MD Dictated Date/Time: 06/12/22 8:33 am Reviewed By: Simeon Kline MD Signed By: Simeon Kline MD Signed Date/Time: 06/12/22 8:33 am Transcribed By: ALEJANDRA Transcribed Date/Time: 06/12/22 8:26 am * Exam Date Time Procedure Performing Provider Status 06/12/22 2:09 AM MRI Cervical Spine W +W/O Contrast Dona Lee; Auth (Verified) Notes: (MRI Cervical Spine W+W/O Contrast) Reason For Exam: new onset LLE & LUE weakness;Other: RESULT: MRI Cervical Spine W+W/O Contrast MRI Cervical Spine W+W/O Contrast INDICATION: Reason: Other:; new onset LLE LUE weakness; Clinical Question(s): Other:; Order Comment: Please see Reference Text for complete list of contraindications Other: TECHNIQUE: MRI of the cervical spine was performed with and without intravenous contrast utilizing sagittal T1, sagittal T2, sagittal STIR, axial gradient echo, axial T1, and axial T2-weighted sequences, and post-contrast sagittal T1 and axial T1-weighted sequences. 20 mL of Clariscan was administered intravenously. COMPARISON: None FINDINGS: Many of the sequences are mildly to moderately limited by motion artifact. ALIGNMENT, VERTEBRAE, MARROW, AND DISCS: No suspicious marrow signal abnormality is noted. No subluxation is present. POSTERIOR FOSSA AND CORD: The spinal cord is normal in configuration and signal intensity. There isno abnormal enhancement. PARASPINAL TISSUES: No mass is identified. Small anterior and posterior osteophytes at C4-5 do not appear to be significant. Small anterior osteophytes and a small central posterior disc herniations are present at C5-6 and C6-7. Visualizationof the axial images is limited by motion artifact but no nerve root compression is suspected. IMPRESSION: 1. No spinal cord abnormality is identified. 2. Small central posterior disc herniations at C5-6 and C6-7 of questionable clinical significance. 3. The examination is mildly to moderately limited by motion artifact on many sequences. WSN: [id number] Ordering Physician: Jake Pulido Dictated By: Simeon Kline MD Dictated Date/Time: 06/12/22 7:34 am Reviewed By: Simeon Kline MD Signed By: Simeon Kline MD Signed Date/Time: 06/12/22 7:34 am Transcribed By: ALEJANDRA Transcribed Date/Time: 06/12/22 7:31 am * Exam Date Time Procedure Performing Provider Status 06/12/22 2:09 AM MRI Brain W+W/O Contrast Dona Lee; Daren (Verified) Notes: (MRI Brain W+W/O Contrast) Reason For Exam: new onset LLE & LUE weakness;Other: RESULT: MRI Brain W+W/O Contrast MRI Brain W+W/O Contrast INDICATION / CLINICAL QUESTION: Reason: Other:; new onset LLE LUE weakness; Clinical Question(s): Other:; Order Comment: Please see Reference Text for complete list of contraindications Other: TECHNIQUE: MRI of the brain was performed with and without contrast utilizing sagittal and axial T1, axial T2, axial FLAIR, axial SWAN, and axial DWI sequences, and post-contrast 3D T1 SUNSHINE with multiplanar reformats. 20 mL of Clariscan was administered intravenously. COMPARISON: CT 06/11/2022, MRI 08/20/2019 a site of restricted diffusion measuring up to 21 x 9 mm transversely and involves the posterior right welch radiata extending inferiorly into the posterior limb of the internal capsule and putamen. There is very slight corresponding FLAIR and T2 hyperintensity. No mass effect or hemorrhage is noted in this region. An elliptical area of enhancement measuring approximate 5 mm in diameter and only 2 mm in thickness is present in the posterolateral margin of the left thalamus, immediately adjacent to the transverse cerebral fissure and extending to the region of the geniculate bodies. This could represent an area of subacute ischemia but is difficult to appreciate as an abnormality on any other sequence. It was not present on the MRI of 08/20/2019. No site of restricted diffusion is noted elsewhere. A 13 mm old, cavitary lacune with hemosiderin stained margins indicating hemorrhage is present in the left anterior putamen and anterior limb of the internal capsule. A moderate amount of FLAIR hyperintensity is present in subcortical and periventricular white matter and in the slaed. An 8 mm site of old hemorrhage is present in the right posterior medial temporal lobe. No discrete old cortical infarct is noted. No extra-axial collection or mass effect is noted. There is no evidence of obstructive hydrocephalus. There is ex vacuo dilatation of the body of the left lateral ventricle. Incidentally noted is a cavum septum lucidum and cavum septum vergae. The foramen magnum is normal. There is no evidence of vessel occlusion. 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 No abnormal contrast enhancement is demonstrated elsewhere. The orbits and paranasal sinuses are normal. FINDINGS: 1. Area of acute ischemia involving the right posterior welch radiata, putamen and posterior limb of the internal capsule measuring up to 21 mm in diameter. There is no evidence of associated hemorrhage, mass effect or vessel occlusion. 2. 5 x 5 x 2 mm area of enhancement at the posterior margin of the left thalamus, new from 2019. This is of uncertain etiology and significance but could represent a subacute area of ischemia. 3. Old left anterior putamen and anterior limb of the internal capsule lacune. Moderate white matter abnormality consistent with chronic ischemia and small vessel disease. WSN: [id number] Ordering Physician: Jake Pulido Dictated By: Simeon Kline MD Dictated Date/Time: 06/12/22 7:30 am Reviewed By: Simeon Kline MD Signed By: Simeon Kline MD Signed Date/Time: 06/12/22 7:30 am Transcribed By: ALEJANDRA Transcribed Date/Time: 06/12/22 7:20 am * Exam Date Time Procedure Performing Provider Status 06/11/22 9:16 AM Knee 1 or 2 Views Left Africa Somers ; Auth (Verified) Notes: (Knee 1 or 2 Views Left) Reason For Exam: with Pain;Trauma RESULT: Knee 1 or 2 Views Left Knee 1 or 2 Views Left, 2 views Reason: Trauma; with Pain; Clinical Question(s): Fracture COMPARISON: None. FINDINGS: There is no evidence of acute or healing fracture, dislocation or bone lesion. No arthritic changes. No osteochondral defects or intra-articular loose bodies. No evidence of joint effusion. Mild vascular calcifications. IMPRESSION: No evidence of acute osseous abnormality. WSN: [id number] Ordering Physician: Jake Pulido Dictated By: Bear Nazario MD Dictated Date/Time: 06/11/22 9:23 am Reviewed By: Bear Nazario MD Signed By: Bear Nazario MD Signed Date/Time: 06/11/22 9:23 am Transcribed By: ALEJANDRA Transcribed Date/Time: 06/11/22 9:23 am * Exam Date Time Procedure Performing Provider Status 06/11/22 9:16 AM Chest 2 Views Frontal and Lat Africa Jasso; Auth (Verified) Notes: (Chest 2 Views Frontal and Lat) Reason For Exam: Stroke;Other: RESULT: Chest 2 Views Frontal and Lat Chest 2 Views Frontal and Lat Reason: Other:; Stroke; Clinical Question(s): CHF / CHF COMPARISON: 05/23/2020 FINDINGS: LINES AND TUBES: None. LUNGS AND PLEURA: Clear lungs. Normal pulmonary vascularity. No pleural effusion. No pneumothorax. HEART, MEDIASTINUM AND DAVID: Heart is normal in size. Normal mediastinal and hilar contour. BONES AND SOFT TISSUES: No acute abnormality. IMPRESSION: No evidence of acute abnormality. WSN: [id number] Ordering Physician: Jake Pulido Dictated By: Bear Nazario MD Dictated Date/Time: 06/11/22 9:23 am Reviewed By: Bear Nazario MD Signed By: Bear Nazario MD Signed Date/Time: 06/11/22 9:23 am Transcribed By: ALEJANDRA Transcribed Date/Time: 06/11/22 9:22 am * Exam Date Time Procedure Performing Provider Status 06/11/22 9:[address] Angio Neck Yani Dc (Verified) Notes: (CT Angio Neck) Reason For Exam: Aneurysm, neck vessel(s);Other: RESULT: CT Angio Neck CT Angio Head, CT Angio Neck Reason: Other:; Neuro deficit, acute, stroke suspected; Clinical Question(s): Other:; Hematoma Aneurysm / Other: TECHNIQUE: CT angiogram of the head and neck was performed after bolus administration of intravenous contrast. 100 mL of Omnipaque 300 was administered intravenously. Coronal and sagittal MIP reformatted images were obtained. Additional 3-D images were created on a separate workstation under concurrent supervision by the attending radiologist. All stenoses are measured using NASCET criteria. Weight-based protocol using automatic tube modulation was used to optimize exposure parameters. RADIATION DOSE PARAMETERS: CTDIvol Body: 14.33 mGy, DLP Body: 802 mGy*cm. COMPARISON: Noncontrast CT head performed concurrently. FINDINGS: The study is limited by motion artifacts. There is a 3 vessel arch. Mural calcified and noncalcified atherosclerotic plaques are seen along the visualized aortic arch and the supraaortic proximal great neck vessels. The origins of the proximal great vessels are degraded by beam hardening artifacts and difficult to evaluate. The right common carotid artery is normal in caliber. The right carotid bulb has mild mural calcifications without stenosis. The right proximal ICA is degraded by motion artifacts. There may be a focal area of severe stenosis at the origin of the right ICA. The left common carotid artery and the left proximal internal carotid artery are degraded by motionartifacts. The origin is difficult to evaluate. The left common carotid artery shows no significantstenosis. The left proximal ICA likely shows 0% stenosis by NASCET criteria. Right vertebral artery: The proximal V1 segment is degraded by beam artifacts and difficult to evaluate. The rest segments are patent without stenosis. Left vertebral artery: Slightly dominant. The proximal V1 segment is degraded by artifacts and could not be evaluated. The rest segments show no stenosis. Cervical spine: A minimally reversed cervical lordosis and mild spondylosis. Soft tissues and lung apices: The visualized upper lungs are degraded by motion artifacts. No definite acute pathology. Bilateral thyroid lobes are unremarkable. There is no definite abnormality throughout the soft tissue neck. [place]: Concurrent CT of head showed no acute pathology. Generalized volume loss and bilateral periventricular hypodensities are noted. Bilateral internal carotid arteries at the skull base have multiple mural calcifications. No definite stenosis is seen. Bilateral posterior communicating arteries are visualized, bigger on the left. There is an infundibulum at the origin of the right posterior communicating artery. Bilateral ACAs, MCAs and their branches are patent. No stenosis or vessel cut off is seen. No definite aneurysm is noted. The left vertebral artery is slightly dominant. Bilateral intracranial vertebral arteries show mildirregularities with focal areas of mild stenosis. The vertebrobasilar junction is normal. The basilar artery has diffuse mild irregularities and focal areas of mild stenosis.. No stenosis or dissection is seen. There is no basilar tip aneurysm. The P1 segment of left [employer] is hypoplastic. There is a origin of left [employer]. A focal area of moderate stenosis is seen at the proximal P2 segment of the left [employer]. The right [employer]] branches are patent. The superior sagittal sinuses, the straight sinus, bilateral transverse and sigmoid sinuses: Patentwithout dural sinus thrombosis. IMPRESSION: Limited study due to motion artifacts. No cutoff or high-grade stenosis of the major branches of the intracranial arteries. A focal area of moderate stenosis is seen at the proximal P2 segment of left [employer]. The right proximal internal carotid artery is degraded by motion artifacts. There may be a focal area of severe stenosis at origin of the right ICA. The left proximal internal carotid artery is degraded by motion artifacts. No indication stenosis by NASCET criteria. The proximal V1 segment of the right vertebral artery is degraded by artifacts and difficult to evaluate. The rest of segments show no significant stenosis. The proximal V1 segment of the left vertebral artery is degraded by artifacts and could not be evaluated. The rest segments show no significant stenosis. REFERENCE: NASCET Criteria: The degree of internal carotid stenosis is based on NASCET Criteria: Normal: No stenosis Mild: Less than 50% stenosis Moderate: 50-69% stenosis Severe: 70-99% stenosis Total occlusion: No detectable patent lumen. The report was cortext to Dr. Jake Pulido at 9:21 AM on 06/11/2022. WSN: [id number] Ordering Physician: Jake Pulido Dictated By: Freddy Leal MD Dictated Date/Time: 06/11/22 12:42 p Reviewed By: Freddy Leal MD Signed By: Freddy Leal MD Signed Date/Time: 06/11/22 12:42 pm Transcribed By: ALEJANDRA Transcribed Date/Time: 06/11/22 12:38 pm * Exam Date Time Procedure Performing Provider Status 06/11/22 9:[address] Angio Head Yani Dc (Verified) Notes: (CT Angio Head) Reason For Exam: Neuro deficit, acute, stroke suspected;Other: RESULT: CT Angio Head CT Angio Head, CT Angio Neck Reason: Other:; Neuro deficit, acute, stroke suspected; Clinical Question(s): Other:; Hematoma Aneurysm / Other: TECHNIQUE: CT angiogram of the head and neck was performed after bolus administration of intravenous contrast. 100 mL of Omnipaque 300 was administered intravenously. Coronal and sagittal MIP reformatted images were obtained. Additional 3-D images were created on a separate workstation under concurrent supervision by the attending radiologist. All stenoses are measured using NASCET criteria. Weight-based protocol using automatic tube modulation was used to optimize exposure parameters. RADIATION DOSE PARAMETERS: CTDIvol Body: 14.33 mGy, DLP Body: 802 mGy*cm. COMPARISON: Noncontrast CT head performed concurrently. FINDINGS: The study is limited by motion artifacts. There is a 3 vessel arch. Mural calcified and noncalcified atherosclerotic plaques are seen along the visualized aortic arch and the supraaortic proximal great neck vessels. The origins of the proximal great vessels are degraded by beam hardening artifacts and difficult to evaluate. The right common carotid artery is normal in caliber. The right carotid bulb has mild mural calcifications without stenosis. The right proximal ICA is degraded by motion artifacts. There may be a focal area of severe stenosis at the origin of the right ICA. The left common carotid artery and the left proximal internal carotid artery are degraded by motionartifacts. The origin is difficult to evaluate. The left common carotid artery shows no significantstenosis. The left proximal ICA likely shows 0% stenosis by NASCET criteria. Right vertebral artery: The proximal V1 segment is degraded by beam artifacts and difficult to evaluate. The rest segments are patent without stenosis. Left vertebral artery: Slightly dominant. The proximal V1 segment is degraded by artifacts and could not be evaluated. The rest segments show no stenosis. Cervical spine: A minimally reversed cervical lordosis and mild spondylosis. Soft tissues and lung apices: The visualized upper lungs are degraded by motion artifacts. No definite acute pathology. Bilateral thyroid lobes are unremarkable. There is no definite abnormality throughout the soft tissue neck. [place] of [place]: Concurrent CT of head showed no acute pathology. Generalized volume loss and bilateral periventricular hypodensities are noted. Bilateral internal carotid arteries at the skull base have multiple mural calcifications. No definite stenosis is seen. Bilateral posterior communicating arteries are visualized, bigger on the left. There is an infundibulum at the origin of the right posterior communicating artery. Bilateral ACAs, MCAs and their branches are patent. No stenosis or vessel cut off is seen. No definite aneurysm is noted. The left vertebral artery is slightly dominant. Bilateral intracranial vertebral arteries show mildirregularities with focal areas of mild stenosis. The vertebrobasilar junction is normal. The basilar artery has diffuse mild irregularities and focal areas of mild stenosis.. No stenosis or dissection is seen. There is no basilar tip aneurysm. The P1 segment of left [employer] is hypoplastic. There is a origin of left [employer]. A focal area of moderate stenosis is seen at the proximal P2 segment of the left [employer]. The right [employer]] branches are patent. The superior sagittal sinuses, the straight sinus, bilateral transverse and sigmoid sinuses: Patentwithout dural sinus thrombosis. IMPRESSION: Limited study due to motion artifacts. No cutoff or high-grade stenosis of the major branches of the intracranial arteries. A focal area of moderate stenosis is seen at the proximal P2 segment of left [employer]. The right proximal internal carotid artery is degraded by motion artifacts. There may be a focal area of severe stenosis at origin of the right ICA. The left proximal internal carotid artery is degraded by motion artifacts. No indication stenosis by NASCET criteria. The proximal V1 segment of the right vertebral artery is degraded by artifacts and difficult to evaluate. The rest of segments show no significant stenosis. The proximal V1 segment of the left vertebral artery is degraded by artifacts and could not be evaluated. The rest segments show no significant stenosis. REFERENCE: NASCET Criteria: The degree of internal carotid stenosis is based on NASCET Criteria: Normal: No stenosis Mild: Less than 50% stenosis Moderate: 50-69% stenosis Severe: 70-99% stenosis Total occlusion: No detectable patent lumen. The report was cortext to Dr. Jkae Pulido at 9:21 AM on 06/11/2022. WSN: [id number] Ordering Physician: Jake Pulido Dictated By: Freddy Leal MD Dictated Date/Time: 06/11/22 12:42 p Reviewed By: Freddy Leal MD Signed By: Freddy Leal MD Signed Date/Time: 06/11/22 12:42 pm Transcribed By: ALEJANDRA Transcribed Date/Time: 06/11/22 12:38 pm * Exam Date Time Procedure Performing Provider Status 06/11/22 9:[address] Head/Brain W/O Contrast Yani Kapadia (Verified) Notes: (CT Head/Brain W/O Contrast) Reason For Exam: Neuro deficit, acute, stroke suspected;Other: RESULT: CT Head/Brain W/O Contrast CT Head/Brain W/O Contrast INDICATION: Reason: Other:; Neuro deficit, acute, stroke suspected; Clinical Question(s): Other:; Hematoma Infarction TECHNIQUE: Noncontrast head CT using axial technique and reconstructed in axial and coronal planes.Iterative reconstruction techniques are used to optimize dose and image quality. CTDIvol Head: 46.20 mGy, DLP Head: 773 mGy*cm. COMPARISON: Correlated with MRI dated 08/20/2019 FINDINGS: [employer] Associate view findings, lines and tubes: None. BRAIN AND EXTRA-AXIAL SPACES: Chronic lacunar infarct left lentiform nucleus. No parenchymal hemorrhage, midline shift, or mass effect. Kim-white matter differentiation is well preserved. Ventricles, sulci, and basilar cisterns are normal. Periventricular and subcortical white matter disease likely secondary to known multiple sclerosis. No subarachnoid hemorrhage. No subdural or epidural collection. CALVARIUM, SKULL BASE, AND SOFT TISSUES: No fractures or suspicious bony lesions. Visualized orbits and globes are intact. The extracranial soft tissues are unremarkable. IMPRESSION: No acute intracranial pathology. I have personally reviewed the images and I agree with this report. WSN: [id number] Ordering Physician: Jake Pulido Dictated By: Garrison Crabtree MD Dictated Date/Time: 06/11/22 9:27 am Reviewed By: Jake Almonte MD Signed By: Jake Almonte MD Signed Date/Time: 06/11/22 9:32 am Transcribed By: ALEJANDRA Transcribed Date/Time: 06/11/22 9:21 am Vital Signs Most recent to oldest [Reference Range]: 1 2 3 Height 162 cm (06/14/22 1:02 PM) 162 cm (06/14/22 11:54 AM) 162 cm (06/14/22 7:27 AM) Weight 89.7 kg (06/12/22 4:10 PM) Oxygen Saturation [94-100 %] 92 % *L* (06/14/22 1:02 PM) 96 % (06/14/22 11:54 AM) 94 % (06/14/22 7:27 AM) Pulse Rate [55-90 bpm] 105 bpm *H* (06/14/22 1:02 PM) 100 bpm *H* (06/14/22 11:54 AM) 88 bpm (06/14/22 7:27 AM) Body Mass Index [18.5-24.99 kg/m2] 34.18 kg/m2 *>HHI* (06/12/22 4:10 PM) Blood Pressure [90-138/55-84 mm Hg] 152/85mm Hg *H* (06/14/22 2:28 PM) 152/85mm Hg *H* (06/14/22 1:02 PM) 146/99mm Hg *H* (06/14/22 11:54 AM) Respiratory Rate [16-30 br/min] 18 br/min (06/14/22 1:02 PM) 18 br/min (06/14/22 11:54 AM) 18 br/min (06/14/22 7:27 AM) Temperature [96.8-100.4 DegF] 98.7 DegF (06/14/22 1:02 PM) 97.9 DegF (06/14/22 11:54 AM) 98.8 DegF (06/14/22 7:27 AM) Mode of Delivery (Oxygen) Room air (06/14/22 1:02 PM) Room air (06/14/22 11:54 AM) Room air (06/14/22 7:27 AM) Blood pressure sites Arm, right (06/14/22 1:02 PM) Arm, right (06/14/22 11:54 AM) Arm, left (06/14/22 7:27 AM) Temperature Route Oral (06/14/22 1:02 PM) Oral (06/14/22 11:54 AM) Oral (06/14/22 7:27 AM) Dry Weight 89.7 kg (06/12/22 4:10 PM) Weight Obtained Via Bed scale (06/12/22 4:10 PM) Social History Social History Type Response Smoking Status Current every day tosha gallo; Tobacco user in household: No entered on: 04/24/18 Sex Admission evaluation note * Parvin SOW, Jules Montesinos: MODIFY, PERFORM, MODIFY Event Display: Admission Note Authored Date: Patient: ??JOEY BAKER ? Age:??56 Years?Sex:??Male?:??1965?? Chief Complaint/Reason for Consultation woke up this morning, states he cannot feel anything with generalized weakness. states he fell OOB.?MS flare. 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 Patient reports that he awoke this morning around 7 AM with new onset left lower extremity and left upper extremity weakness that caused him to fall out of bed and struck his left knee on the ground.?? Weakness in left upper and left lower extremity have persisted since the onset.?? Last known well time was priorto going to bed between 8 and 9 PM yesterday.?? Patient is normally able to ambulate on his own buthas been unable to today due to this weakness.?? Denies headaches, chest pain, shortness of breath,nausea, vomiting, fevers, chills and recent illness. ?? The emergency room, patient has been afebrile, hypertensive to systolic blood pressure in 170s???180s, patient blood pressure was 177/94, saturating 95% on room air. ?? Labs???no leukocytosis, patient is polycythemic, hemoglobin/hematocrit is 18.3/55.7, platelet countWNL, INR is 1, serum sodium is 140, potassium is 4.3, chloride/bicarb 103/25, hyperglycemic to 235,BUN/creatinine 15/0.7, first high- sensitivity troponin negative, UA negative, COVID-negative. EKG shows sinus rhythm at 89 bpm, left axis deviation, no obvious ST/T wave changes, no significantchange since EKG from May 2020.?? Patient had a chest x-ray that was unremarkable, x-ray of left knee was unremarkable as well. ?? Imaging???CT head no acute intracranial abnormality. 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 Initial NIH stroke scale was 5. ?? Emergency room team has discussed with neurology team who recommends MRI of the brain, C-spine and T-spine with and without contrast, hence patient has been admitted to medicine for further observation and MRI scans. Review of Systems GEN: ??Denies any issues with sleep, fatigue or changes in wt. NEURO: Positive for left upper and lower extremity weakness as mentioned in HPI HEENT: Denies runny nose, dry mouth, ??sore throat or changes to his vision. CV: Denies CP, palpitations, edema or orthopnea. PULM: Denies any SOB, wheezing, cough. ABD: Denies any abdominal pain, N/V/D, heartburn. ??Denies any changes to bowel habits or stool character.?? : Denies dysuria, polyuria, or hematuria. EXT: Denies any joint pain, stiffness, numbness or tingling.?? PSYCH: Denies any depression or anxiety. Objective Vital Signs?? Temperature: 97.9 DegF (06/11/22 11:19:00) Temperature Route: Oral (06/11/22 11:19:00) Pulse Rate:??94 bpm??High (06/11/22 11:19:00) Respiratory Rate: 18 br/min (06/11/22 11:19:00) Systolic Blood Pressure:??177 mm Hg??High (06/11/22 11:19:00) Diastolic Blood Pressure:??94 mm Hg??High (06/11/22 11:19:00) Blood pressure sites: Arm, left (06/11/22 11:19:00) Mean Arterial Pressure: 135 mm Hg (06/11/22 08:44:00) Pulse Pressure: 79 mm Hg (06/11/22 08:44:00) Oxygen Saturation: 95 % (06/11/22 11:19:00) Mode of Delivery (Oxygen): Room air (06/11/22 11:19:00) Early Warning Score: 4 (06/11/22 12:43:59) ? Intake/Output? No Data Available ? Physical Exam ? General Appearance: Currently, patient??was eating lunch, does not appear to be in any??acute distress however seems very upset, he is angry,??intermittently abusive to??ED staff Cardiovascular: RRR S1 and S2 heard with no M/R/G. No JVD. Respiratory: ??Breath sounds clear to auscultation bilaterally. No wheezing. Good air movement throughout both lungs. GI: Soft. Nontender and nondistended. Normal bowel sounds present throughout abdomen.?No palpable organomegaly MS: ??No edema or erythema in the lower extremities. No wounds seen on the feet. ??Abrasion on leftknee??from falling Neuro: ??No slurred speech. ??Patient seen moving his right upper and lower extremity independently,??2 out of 5 strength in left lower extremity 3-5 strength in left upper extremity 5 out of 5 strength in right upper and lower extremities Sensation intact to light touch through right upper and lower extremities Decreased sensation to light touch in left upper and lower extremities.? Psych: Alert and oriented x3. ??Appears angry, upset Lines: Peripheral IV in place.? Assessment/Plan Diagnoses Diabetes ??(E11.9) Hypertension ??(I10) Multiple sclerosis ??(G35) Polycythemia ??(D75.1) Smoker ??(F17.200) Weakness of left lower extremity ??(R29.898) Weakness of left upper extremity ??(R29.898) ?? Assessment:??This is a 56-year-old gentleman with a past medical history of left lumbar radiculopathy, chronic active smoker, type 2 diabetes, TIA in 2012,myocardial infarctions s/p KIM LCx in 2013, s/p KIM OM in 2019 and presumed multiple sclerosis who was brought in by EMS for focal weakness. ? Emergency room team has discussed with neurology team who recommends MRI of the brain, C-spine and T-spine with and without contrast, hence patient has been admitted to medicine for further observation and MRI scans. ?? Weakness of left lower extremity (R29.898):??Differentials include acute stroke versus??possible MSflare.??Initial CT head is negative,??CTA head and neck shows: no large vessel occlusion, a focal area of moderate stenosis is seen at the proximal P2 segment of left A[employer] OPERATIONS INTELLIGENCE OFFICER, there may be a focal area of severe stenosis at the origin of the right ICA. Initial NIH stroke scale was 5. ?? Will continue with with aspirin and statin, passed swallow eval, getting??cardiac/diabetic??diet. Physical therapy consult requested. Check A1c, lipids. Subcutaneous heparin for DVT prophylaxis Allowing permissive hypertension??less than 220/120. EKG nonischemic, no A. fib Monitor on telemetry,??check echo if ruled in for a stroke on MRI. Neurochecks every 4, neuro consult requested ?? Diabetes (E11.9):??On Trulicity at home,??while in the hospital, will manage with sliding scale coverage, POC ACH S, hypoglycemia protocol, check A1c ?? Hypertension (I10):??Only on lisinopril at home, given concern for possible stroke, I am holding lisinopril to allow permissive hypertension ?? Multiple sclerosis (G35):??Patient has a history of multiple sclerosis in the past however??he states he has never been treated for it. He has had similar symptoms??like this presentation in the past,??question of these symptoms are related to another MS flare. Neurology consult has been requested,??per ED discussion with neurology, getting MRI brain, C-spine as well as T-spine with and without contrast ?? Polycythemia (D75.1):??Hemoglobin/hematocrit were 16/49.1 in 2020, current hemoglobin/hematocrit ishigher than that,??question if??polycythemia is as a result of??chronic??smoking??coupled with??possible intravascular volume depletion??causing??hemoconcentration. I will give him a trial of gentle fluids today,??trend CBC daily ?? Smoker (F17.200):??Patient has been smoking all his life,??patient refused nicotine replacement therapy ?? VTE Prophylaxis:??This is a middle-aged gentleman however being ruled out for stroke, limited mobility??given??left-sided weakness, subcutaneous heparin ordered ?? Code Status:??Patient is a full code ?Order Code Status:??Code Status Ordered ? Addendum???3:21 PM? Plan of care discussed with neurology Dr. Castano,??recommended checking MRI brain,??and??C-spinewith and without contrast as ordered. Given concern for ICA stenosis, recommended checking ultrasound carotid, ordered. ?? Histories Allergies Allergies ?(Active and Proposed Allergies Only) NKA? (Severity: Unknown severity, Onset: Unknown) ? Past Medical History/Problem List Active Problems??(15) Back pain at L4-L5 level Chest pain Chest pain Colonoscopy due in 2019 History of TIA 2013 Hyperlipidemia Hypertension Multiple sclerosis Myocardial infarctions - s/p KIM LCx in 2013, s/p KIM OM in 2019 Obese class II Optic neuritis SAQIB - refuses CPAP Routine medical exam Tobacco Use Type 2 diabetes mellitus ? Past Surgical History Colonoscopy with polypectomy: 04/13/16 Colonoscopy Cardiac catheterization procedure ? Social History Alcohol Details:??Use: Denies ?? Substance Abuse Details:??Use: Denies Tobacco Details:??Current every day smoker, Tobacco user in household: No. Details:??Current every day smoker, Tobacco user in household: Yes. ??Other: 1/2 PACK A DAY. ? Family History Patient lives by himself, he is unsure of any relevant family history ? Medications Home Medications Aspirin (aspirin 81 mg oral delayed release tablet)?81?Milligram?1?tablet?By Mouth?Daily Atorvastatin (atorvastatin 80 mg oral tablet)?1?tab(s)?80?Milligram?By Mouth?Daily at bedtime?for 90?Days dulaglutide (Trulicity Pen 3 mg/0.5 mL subcutaneous solution)?3?Milligram?Subcutaneous Injection?Every week?for 90?Days?rotate injection sites Durable Medical Equipment (Freestyle Lite Monitor)?See Instructions?Type 2 Diabetes Mellitus ICD 10 E 11.9. Test 2 times daily. Durable Medical Equipment (Freestyle Lite Test Strips)?See Instructions?Type 2 Diabetes Mellitus ICD 10 E 11.9. Test 2 times daily. 25 day supply Durable Medical Equipment (Freestyle Lite Lancets)?See Instructions?Type 2 Diabetes Mellitus ICD 10 E 11.9. Test 2 times daily. Isopropyl Alcohol Topical (isopropyl alcohol 70% topical pad)?See Instructions?TEST BLOOD SUGAR TWICE DAILY Lisinopril (lisinopril 20 mg oral tablet)?1?tablet?By Mouth?Daily?for 90?Days Lisinopril (lisinopril 30 mg oral tablet)?1?tab(s)?30?Milligram?By Mouth?Daily?new dosage PEG Electrolyte Solution (NuLYTELY with Flavor Packs oral powder for reconstitution)?See Instructions?240 mL By Mouth Every 15 minutes ? Results Recent Labs BLOOD BANK Blood Type A Positive ()?? 06/11/2022 08:33 Antibody Screen Negative ()?? 06/11/2022 08:33 ?? BLOOD COUNT & DIFF WBC 8.2 k/mm3 ()?? 06/11/2022 08:45 RBC 6.74 m/mm3 (High)?? 06/11/2022 08:45 Hgb 18.3 Gm/dL (High)?? 06/11/2022 08:45 Hct 55.7 % (High)?? 06/11/2022 08:45 MCV 82.6 femtoliters ()?? 06/11/2022 08:45 MCH 27.2 pg ()?? 06/11/2022 08:45 MCHC 32.9 g/dL (Low)?? 06/11/2022 08:45 Platelet Count 237 k/mm3 ()?? 06/11/2022 08:45 RDW-SD 42.5 femtoliters ()?? 06/11/2022 08:45 MPV 10.5 femtoliters ()?? 06/11/2022 08:45 Nucleated RBC (Automated) 0.0 #/100 WBC'S ()?? 06/11/2022 08:45 Abs. NRBC 0.0 k/mm3 ()?? 06/11/2022 08:45 Abs. Neut 3.8 k/mm3 ()?? 06/11/2022 08:45 Abs. Lymph 3.4 k/mm3 (High)?? 06/11/2022 08:45 Abs. [place] 0.7 k/mm3 ()?? 06/11/2022 08:45 Abs. Eo 0.3 k/mm3 ()?? 06/11/2022 08:45 Abs. Baso 0.1 k/mm3 ()?? 06/11/2022 08:45 Neut % 45.7 % ()?? 06/11/2022 08:45 Lymph % 40.9 % ()?? 06/11/2022 08:45 [place] % 8.2 % ()?? 06/11/2022 08:45 Eos % 3.8 % ()?? 06/11/2022 08:45 Baso % 0.9 % ()?? 06/11/2022 08:45 Imm Gran 0.5 % ()?? 06/11/2022 08:45 Abs. Imm Gran 0.0 k/mm3 ()?? 06/11/2022 08:45 ?? CARDIAC High Sensitivity Troponin (HSTnT) 9 ng/L ()?? 06/11/2022 08:45 ?? CHEM GENERAL Sodium 140 mmol/L ()?? 06/11/2022 08:45 Potassium 4.3 mmol/L ()?? 06/11/2022 08:45 Chloride 103 mmol/L ()?? 06/11/2022 08:45 Bicarbonate Level 25 mmol/L ()?? 06/11/2022 08:45 Anion Gap 12 ()?? 06/11/2022 08:45 Glucose Level 235 mg/dL (High)?? 06/11/2022 08:45 Glucose, POC 200 mg/dL (High)?? 06/11/2022 08:18 BUN 15 mg/dL ()?? 06/11/2022 08:45 Creatinine-Blood 0.7 mg/dL ()?? 06/11/2022 08:45 Estimated GFR Creatinine 107 ML/MIN/1.73 M2 ()?? 06/11/2022 08:45 Calcium 9.4 mg/dL ()?? 06/11/2022 08:45 AST (SGOT) 14 units/L ()?? 06/11/2022 08:45 ?? COAG INR 1.0 ()?? 06/11/2022 08:45 Protime (PT) 10.7 seconds ()?? 06/11/2022 08:45 APTT 26.3 seconds ()?? 06/11/2022 08:45 ?? UA/URINALYSIS Appear/Color, Urine LIGHT YELLOW ()?? 06/11/2022 12:35 Specific [place], Urine >1.050 (High)?? 06/11/2022 12:35 pH, Urine 6.0 ()?? 06/11/2022 12:35 Albumin, Urine 1+ (Abnormal)?? 06/11/2022 12:35 Glucose, Urine 3+ (Abnormal)?? 06/11/2022 12:35 Ketones, Urine NEGATIVE ()?? 06/11/2022 12:35 Bilirubin, Urine NEGATIVE ()?? 06/11/2022 12:35 Hemoglobin, Urine NEGATIVE ()?? 06/11/2022 12:35 Nitrite, Urine NEGATIVE ()?? 06/11/2022 12:35 Leukocyte, Urine NEGATIVE ()?? 06/11/2022 12:35 Urobilinogen NORMAL mg/dL ()?? 06/11/2022 12:35 WBC's, Urine 2 /HPF ()?? 06/11/2022 12:35 RBC's, Urine NONE SEEN /HPF ()?? 06/11/2022 12:35 Mucus SLIGHT /LPF ()?? 06/11/2022 12:35 Hold Urine Culture Testing available 48 hours from time of collection. ()?? 06/11/2022 12:35 ?? VIROLOGY COVID-19 by RT-PCR NEGATIVE ()?? 06/11/2022 08:22 ? Urinalysis Albumin, Urine: 1+ Abnormal (12:35) Appear/Color, Urine: LIGHT YELLOW (12:35) Bilirubin, Urine: NEGATIVE (12:35) Glucose, Urine: 3+ Abnormal (12:35) Hemoglobin, Urine: NEGATIVE (12:35) Hold Urine Culture: Testing available 48 hours from time of collection. (12:35) Ketones, Urine: NEGATIVE (12:35) Leukocyte, Urine: NEGATIVE (12:35) Mucus: SLIGHT (12:35) Nitrite, Urine: NEGATIVE (12:35) pH, Urine: 6 (12:35) RBC's, Urine: NONE SEEN (12:35) Specific [place], Urine:??>1.050??High (12:35) Urobilinogen: NORMAL (12:35) WBC's, Urine: 2 /HPF (12:35) ?? US Heart * Event Display: Echocardiogram - Complete Authored Date: Transthoracic Echocardiography Report (TTE) Patient Demographics Patient Name JOEY BAKER Date of Study 06/13/2022 Corporate Gender Male Facility Race Ethnicity Date of 1965 Height: 64.17 inches Age 56 year(s) Weight: 207.24 pounds Accession Number [id number] BSA: 1.99 m2 Room Number [id number] BMI: 35.38 kg/m2 Referring Physician Kaylene Gonzalez MD Interpreting Ryder Palma MD Physician Mold Machine Operator Cosmo Larson Indications Cardiomyopathy, unspecified. Study Data Type of Study TTE procedure:Echo Complete-(Doppler, Colorflow) with Contrast. Procedure Information:Saline (bubble study) was administered by RN . Study Date06/13/2022 Start Time: 10:43 AM Study Location: [facility] Adult Echo Study Status: Bedside Patient Status: Routine Technical Quality: Fair Blood Pressure:168/117 mmHg EKG: Normal sinus rhythm HR: 84 bpm Contrast Medium: Bubble Study. Allergies - No allergy information. 2D Measurements LV Diastolic Dimension: 4.3 cm LV Systolic Dimension: 3 cm LV Septum Diastolic: 1.2 cm LV PW Diastolic: 1.2 cm AO Root Dimension: 2.5 cm LA Dimension: 3 cm LVOT Stroke Volume: 66.25 ml LVOT: 2 cm Stroke Volume Index33.29 ml/m2 Ascending Aorta:3.5 cm Cardiac Index:2.8 l/min/m2 Doppler Measurements AV Peak Velocity: 114 cm/s MV Peak E-Wave: 99 cm/s AV Peak Gradient: 5.2 mmHg MV Peak A-Wave: 121 cm/s AV Mean Gradient: 4 mmHg MV E/A Ratio: 0.82 AV VTI:23.3 cm LVOT Peak Velocity: 107 cm/s LVOT VTI21.1 cm MV Deceleration Time: 173 msec AV Area (Continuity):2.84 cm2 TR Velocity:130 cm/s TR Gradient:6.76 mmHg E' Septal Velocity: 7.62 cm/s E' Lateral Velocity: 8.49 cm/s E/Med E':12.42064 E/Lat E':11.98526 Cardiac Anatomy Left Ventricle/Interventricular Septum The left ventricular size is normal. The left ventricular wall thickness is mildly increased. The LV systolic function is normal. The left ventricular ejection fraction is 60-65%. There are no definite regional wall motion abnormalities, although sensitivity is reduced given poor endocardial definition. There is no doppler evidence of increased filling pressures. Left Atrium/Interatrial Septum The left atrium is normal in size. An agitated saline study (bubble study) was performed and was normal at rest and with Valsalva. There is no evidence of right to left shunting. Aortic Valve The aortic valve is poorly visualized. There is no significant aortic stenosis or regurgitation. Mitral Valve The mitral valve appears mildly thickened. There is trace mitral regurgitation. Aorta The ascending aorta is at the upper limit of normal. Right Ventricle The right ventricle is normal in size and function. Right Atrium The right atrium is normal in size. Pulmonic Valve The pulmonic valve appears grossly normal. Tricuspid Valve The tricuspid valve is grossly normal. There is trace tricuspid valve regurgitation. Pumonary Artery An accurate pulmonary artery pressure could not be obtained. Venous Structures The inferior vena cava appears grossly normal. Pericardium/Extracardiac There is no significant pericardial effusion. Summary 1) The LV systolic function is normal. The left ventricular ejection fraction is 60-65%. There are no definite regional wall motion abnormalities, although sensitivity is reduced given poor endocardial definition. 2) The left ventricular wall thickness is mildly increased. 3) The right ventricle is normal in size and function. 4) No significant valvular abnormalities 5) An agitated saline study (bubble study) was performed and was normal at rest and with Valsalva. There is no evidence of right to left shunting. Comparison Comparison is made to the study of May 24 2022 Previously noted hypokinesis of the distal lateral wall is no longer present (although sensitivity is reduced given poor endocardial definition) Signature * Event Display: Echocardiogram - Complete Authored Date: Hospital Progress note * Tracee Zamarripa RN: PERFORM, SIGN, VERIFY Event Display: Progress Note Hospital Authored Date: Patient: JOEY BAKER Age: 56 years Sex: Male : 1965 Associated Diagnoses: None Author: Dallin RAUSCH, Tracee Findings Narrative/Incidental Pt is AxO3. Pt lacks insight about stroke diagnosis. Pt with mild word finding and scattered thinking. Pt gets frustated with himself and staff bc he cannot figure out how to express himself. Decreased sensation and strength in LUE and LLE. Plan to bladder scan pt at 1200 due to being straight cathed at 0600. Abrasion on L knee. Pt on tele - NSR. Bed alarm on for safety as pt is very active in bed and previous fall at home.. Discharge Information Rehabilitation Discharge : Rehab Discharge Index 06/13/2022 10:37 EST Comments on treatment indicated 56M p/w focal weakness, a fall, and decreased mobility. + CVA. PT indicated to improve bed mob, transfers, coordination, and amb. Distance pt will ambulate 5 Full chart review completed Yes Hospital course See comment. Other findings Pt presented with anxiety re: his condition but ready to attempt PT. Bed mob and sustained sitting with Min A to maintain midline. Transfers with Min A to the RW with L LE buckling. High fall risk. Scooting with Min A and poor coordination as evidenced by Plan of care PT Gait training, Transfer training, Therapeutic exercise, Functional Activities, Balance training * Preethi Marie LPN: PERFORM, SIGN, VERIFY, SIGN, MODIFY Event Display: Progress Note Hospital Authored Date: Patient: JOEY BAKER Age: 56 years Sex: Male : 1965 Associated Diagnoses: None Author: Preethi Marie LPN Findings Problem Related to Knowledge Deficit : Knowledge Deficit/new 06/14/2022 0:48 EST Knowledge Deficit related to: Disease process Goals & Outcomes, Knowledge Deficit Pt/caregiver is able to verbalize disease process, Pt/caregiver states/demonstrates self care, Pt/caregiver will state understanding of condition Interventions, Knowledge Deficit Assess learning needs of pt/caregiver, Avoid terms that may confuse pt/caregiver, Encourage questions, concerns, and opportunity for self care, Provide education appropriate to the learner's needs BH Goals/Interventions,Knowledge deficit Yes Knowledge Deficit, Problem Start 06/12/2022 14:40 Reviewed Plan with, Knowledge Deficit Patient Patient Progression, Knowledge Deficit Pt progressing according to plan . Nursing Data Vital Signs : VITAL SIGNS SECTION 06/13/2022 20:34 EST Early Warning Score 4.00 06/13/2022 20:34 EST Temperature 97.9 DegF Temperature Route Oral Pulse Rate 94 bpm H Respiratory Rate 16 br/min Systolic Blood Pressure 160 mm Hg H Diastolic Blood Pressure 104 mm Hg H Blood pressure sites Arm, right Mean Arterial Pressure 123 mm Hg Pulse Pressure 56 mm Hg Oxygen Saturation 95 % Mode of Delivery (Oxygen) Room air . Evaluation Patient alert and oriented x 3. Restless at times. Wants to get stronger and lacks insight into disease process. emotional support and education provided. Denies pain. No c/o dizziness, headaches or changes in vision. Blood pressure continues to be on the high side. Providers aware. On telemerty monitoring but does remove leads on occasion requiring reminders to not remove them and what their purpose is. He states we should just glue them on . ECG leads reapplied as necessary. Patient remains in NSR with HR in the mid 80's. Continent with use of the urinal at bedside. Abdomen soft and non tender with positive bowel sounds throughout. No Edema noted. Skin is intact with a small abrasion to left knee that was present prior to admission. Safety maintained.. Discharge Information Rehabilitation Discharge : Rehab Discharge Index 06/13/2022 10:37 EST Comments on treatment indicated 56M p/w focal weakness, a fall, and decreased mobility. + CVA. PT indicated to improve bed mob, transfers, coordination, and amb. Distance pt will ambulate 5 Full chart review completed Yes Hospital course See comment. Other findings Pt presented with anxiety re: his condition but ready to attempt PT. Bed mob and sustained sitting with Min A to maintain midline. Transfers with Min A to the RW with L BETTE buckling. High fall risk. Scooting with Min A and poor coordination as evidenced by Plan of care PT Gait training, Transfer training, Therapeutic exercise, Functional Activities, Balance training * Preethi Marie LPN: PERFORM Event Display: Progress Note Hospital Authored Date: [id number] At 05:30 Oatient c/o feeling the urge to urinate and the inability to pass urine. Bladder scanned patient and received 414ml urine in bladder. Paged covering provider. N.O. for bladder scan with st. cath for vol. greater than 400ml. St. Catheterized patient for 500ml. * Galilea Ramirez RN: PERFORM, SIGN, VERIFY Event Display: Progress Note Hospital Authored Date: Patient: JOEY BAKER Age: 56 years Sex: Male : 1965 Associated Diagnoses: None Author: Galilea Ramirez RN Patient is alert and responsive. Alert and oriented but impulsive at times, attempting to get out of bed and moving around the bed pulling at lines. Reports left leg numbness and weakness but is ableto move around. Also is able to move his left arm around but doesnt have good control of his arms. Tolerating diet. No s/s of resp distress noted. BP elevated- MD adjusted medication. Bed lowest locked position. Resting in bed. using bedside urinal. Discharge Information Rehabilitation Discharge : Rehab Discharge Index 06/13/2022 10:37 EST Comments on treatment indicated 56M p/w focal weakness, a fall, and decreased mobility. + CVA. PT indicated to improve bed mob, transfers, coordination, and amb. Distance pt will ambulate 5 Full chart review completed Yes Hospital course See comment. Other findings Pt presented with anxiety re: his condition but ready to attempt PT. Bed mob and sustained sitting with Min A to maintain midline. Transfers with Min A to the RW with L LE buckling. High fall risk. Scooting with Min A and poor coordination as evidenced by Plan of care PT Gait training, Transfer training, Therapeutic exercise, Functional Activities, Balance training Note * Светлана Palacio RN: PERFORM Event Display: Discharge/Transfer Note Hospital Authored Date: Nursing Discharge Note Entered On: 06/14/2022 15:30 EST Performed On: 06/14/2022 15:30 EST by Светлана Palacio RN Nursing Discharge Note 2 Discharge Time : 06/14/2022 15:30 EST Discharge Level of Care at Discharge : Short-term Acute Inpatient Discharge Nursing Homes/Rehab Facilities : [facility] Patient Left Unit Via : Ambulance Patient Accompanied Off Unit with : Ambulance/Chair Van Personnel Handover Given to Transport Personnel : Yes DC Instructions Provided & Signed by Pt : Yes Patient Understands D/C Instructions : Yes Patient Instructions Discharge Signed : Yes Did Pt have Specialty Bed or Wound Vac : No Светлана Palacio RN - 06/14/2022 15:30 EST * Lisa SOW, Kaylene River: PERFORM Event Display: Discharge/Transfer Note Hospital Authored Date: [id number] Patient: ??JOEY BAKER ? Age:??56 Years?Sex:??Male?:??1965?? Patient Information Discharge Location: S1 Primary Care Physician: Not on Staff, PCP Admit Date/Time: 06/11/22 12:40 Discharge Disposition Discharge Disposition: ?? Discharge Diagnosis ? Acute stroke Diabetes (E11.9) Hypertension (I10) Multiple sclerosis (G35) Polycythemia (D75.1) Smoker (F17.200) Weakness of left lower extremity (R29.898) Weakness of left upper extremity (R29.898) ?? _ Discharge Medications Amlodipine (amLODIPine 5 mg oral tablet)?10?Milligram?2?tablet?By Mouth?Daily Aspirin (aspirin 81 mg oral delayed release tablet)?81?Milligram?1?tablet?By Mouth?Daily Atorvastatin (atorvastatin 80 mg oral tablet)?1?tab(s)?80?Milligram?By Mouth?Daily at bedtime?for 90?Days Clopidogrel (Plavix 75 mg oral tablet)?75?Milligram?1?tablet?By Mouth?Daily Docusate-Senna (Docusate/Senna Tablet)?1?tab(s)?By Mouth?2 times a day?as needed?Constipation dulaglutide (Trulicity Pen 3 mg/0.5 mL subcutaneous solution)?3?Milligram?Subcutaneous Injection?Every week?for 90?Days?rotate injection sites Insulin Lispro (insulin lispro 100 u/ml subcutaneous injection)?2-10 units?Subcutaneous Injection?3 times a day before meals?<< Sliding Scale Comments >>150 - 199 ?? 2 units Call if less than 22134 - 249 ?? 4 units 250 - 299 ?? 6 units 300 - 349 ?? 8 units 350 - 399 ?? 10 units Call if greater than 400<< Sliding Scale Comments >> Lisinopril (lisinopril 20 mg oral tablet)?40?Milligram?2?tablet?By Mouth?Daily Polyethylene Glycol 3350 (MiraLax Powder)?1?pack/packet?17?gram?By Mouth?Daily?as needed?Constipation ? Medications Started Amlodipine. plavix Allergies Allergies ?(Active and Proposed Allergies Only) NKA? (Severity: Unknown severity, Onset: Unknown) ? Future Appointments Sunday 8:45 AM EST ?? With: Shanthi SOW, [facility] Where: [facility] [address] [place] [address]- Hospital Course 56 y/o male with h/o left lumbar radiculopathy, chronic active smoker, type 2 diabetes, TIA in 2012,myocardial infarctions s/p KIM LCx in 2013, s/p KIM OM in 2019 and presumed multiple sclerosis who was brought in by EMS for with left sided weakness/numbness ?? Acute stroke ?? Presented with symptoms w/ functional components including +Hoovers exam. CT head (-) CTA limited visibility of carotid bifurcation. MRI brain revealed acute Right Thalamic infarct. HbA1c 9.3; LDL 107 ?? ECHO : Normal LVF ?? Plan: Will continue with DAPT for 3 months then ASA monotherapy after Will continue high dose statin ? Diabetes (E11.9): Uncontrolled; HbA1c 9.1 ?? On Trulicity at home Will continue SSI while in the hospital ? Hypertension (I10): BP still very high ? Plan: Will increase Lisinopril from 30 mg to 40 mg Will add amlodipine 5 mg and titrate up as needed ? Multiple sclerosis (G35): Patient has a history of multiple sclerosis in the past however he states he has never been treatedfor it. MRI brain and C spine did not have any suggestion of MS ? Polycythemia (D75.1): Hemoglobin/hematocrit were 16/49.1 in 2020, current hemoglobin/hematocrit is higher than that, question if polycythemia is as a result of chronic smoking coupled with possible intravascular volume depletion causing hemoconcentration. Can follow up with hematology after d/c ?? Smoker (F17.200): Refused nicotine replacement therapy ? VTE Prophylaxis: SQ Lovenox ?? Code Status: Full code ?? Disp: Rehab as per PT ? Objective Assessment and Plan Assessment:?? Vital Signs?? Temperature: 97.9 DegF (06/14/22 11:54:00) Temperature Route: Oral (06/14/22 11:54:00) Pulse Rate:??100 bpm??High (06/14/22 11:54:00) Respiratory Rate: 18 br/min (06/14/22 11:54:00) Systolic Blood Pressure:??146 mm Hg??High (06/14/22 11:54:00) Diastolic Blood Pressure:??99 mm Hg??High (06/14/22 11:54:00) Blood pressure sites: Arm, right (06/14/22 11:54:00) Mean Arterial Pressure: 115 mm Hg (06/14/22 11:54:00) Pulse Pressure: 47 mm Hg (06/14/22 11:54:00) Oxygen Saturation: 96 % (06/14/22 11:54:00) Mode of Delivery (Oxygen): Room air (06/14/22 11:54:00) Early Warning Score: 2 (06/14/22 11:55:17) ? . Physical Exam Awake, alert, oriented Lungs: Clear to auscultation bilateral, no wheezing no rales Heart: Regular rate and rhythm, no murmur, no rub or gallop Abdomen: Soft, nontender, nondistended; Bowel sounds present Extremity: No edema cyanosis clubbing Neurological: No focal deficit Pending Results Add On Lab Order ordered on 06/11/2022 Follow-Up Appointments Added Follow Up ?Time Frame ?Comments Annemarie Alfonso MD?Neurology will make appointment with stroke Clinic Post Discharge Care Discharge ?06/14/22 11:55:00 EST Discharge Prescriptions ?None, ??06/14/22 11:55:00 EST Home Health Face to Face ^HomeHealth[facility]F Results Discharge Labs BLOOD BANK Blood Type A Positive ()?? 06/11/2022 08:33 Antibody Screen Negative ()?? 06/11/2022 08:33 ?? BLOOD COUNT & DIFF WBC 10.0 k/mm3 ()?? 06/12/2022 04:00 RBC 6.16 m/mm3 (High)?? 06/12/2022 04:00 Hgb 17.1 Gm/dL ()?? 06/12/2022 04:00 Hct 51.1 % (High)?? 06/12/2022 04:00 MCV 83.0 femtoliters ()?? 06/12/2022 04:00 MCH 27.8 pg ()?? 06/12/2022 04:00 MCHC 33.5 g/dL ()?? 06/12/2022 04:00 Platelet Count 221 k/mm3 ()?? 06/12/2022 04:00 RDW-SD 42.5 femtoliters ()?? 06/12/2022 04:00 MPV 9.6 femtoliters ()?? 06/12/2022 04:00 Nucleated RBC (Automated) 0.0 #/100 WBC'S ()?? 06/12/2022 04:00 Abs. NRBC 0.0 k/mm3 ()?? 06/12/2022 04:00 Abs. Neut 3.8 k/mm3 ()?? 06/11/2022 08:45 Abs. Lymph 3.4 k/mm3 (High)?? 06/11/2022 08:45 Abs. [place] 0.7 k/mm3 ()?? 06/11/2022 08:45 Abs. Eo 0.3 k/mm3 ()?? 06/11/2022 08:45 Abs. Baso 0.1 k/mm3 ()?? 06/11/2022 08:45 Neut % 45.7 % ()?? 06/11/2022 08:45 Lymph % 40.9 % ()?? 06/11/2022 08:45 [place] % 8.2 % ()?? 06/11/2022 08:45 Eos % 3.8 % ()?? 06/11/2022 08:45 Baso % 0.9 % ()?? 06/11/2022 08:45 Imm Gran 0.5 % ()?? 06/11/2022 08:45 Abs. Imm Gran 0.0 k/mm3 ()?? 06/11/2022 08:45 ?? CARDIAC High Sensitivity Troponin (HSTnT) 9 ng/L ()?? 06/11/2022 08:45 ? CHEM GENERAL Sodium 140 mmol/L ()?? 06/12/2022 04:00 Potassium 3.8 mmol/L ()?? 06/12/2022 04:00 Chloride 105 mmol/L ()?? 06/12/2022 04:00 Bicarbonate Level 24 mmol/L ()?? 06/12/2022 04:00 Anion Gap 11 ()?? 06/12/2022 04:00 Glucose Level 165 mg/dL (High)?? 06/12/2022 04:00 Glucose, POC 110 mg/dL (High)?? 06/14/2022 07:18 Hemoglobin A1C (Monitoring) 9.3 % (High)?? 06/11/2022 08:45 BUN 14 mg/dL ()?? 06/12/2022 04:00 Creatinine-Blood 0.6 mg/dL (Low)?? 06/12/2022 04:00 Estimated GFR Creatinine 112 ML/MIN/1.73 M2 ()?? 06/12/2022 04:00 Calcium 9.3 mg/dL ()?? 06/12/2022 04:00 AST (SGOT) 14 units/L ()?? 06/11/2022 08:45 ? COAG INR 1.0 ()?? 06/11/2022 08:45 Protime (PT) 10.7 seconds ()?? 06/11/2022 08:45 APTT 26.3 seconds ()?? 06/11/2022 08:45 ? LIPID STUDIES Cholesterol 180 mg/dL ()?? 06/12/2022 04:00 Triglycerides 195 mg/dL (High)?? 06/12/2022 04:00 HDL Cholesterol 34 mg/dL (Low)?? 06/12/2022 04:00 LDL Cholesterol 107 mg/dL ()?? 06/12/2022 04:00 Non HDL Cholesterol 146 mg/dL ()?? 06/12/2022 04:00 ? UA/URINALYSIS Appear/Color, Urine LIGHT YELLOW ()?? 06/11/2022 12:35 Specific [place], Urine >1.050 (High)?? 06/11/2022 12:35 pH, Urine 6.0 ()?? 06/11/2022 12:35 Albumin, Urine 1+ (Abnormal)?? 06/11/2022 12:35 Glucose, Urine 3+ (Abnormal)?? 06/11/2022 12:35 Ketones, Urine NEGATIVE ()?? 06/11/2022 12:35 Bilirubin, Urine NEGATIVE ()?? 06/11/2022 12:35 Hemoglobin, Urine NEGATIVE ()?? 06/11/2022 12:35 Nitrite, Urine NEGATIVE ()?? 06/11/2022 12:35 Leukocyte, Urine NEGATIVE ()?? 06/11/2022 12:35 Urobilinogen NORMAL mg/dL ()?? 06/11/2022 12:35 WBC's, Urine 2 /HPF ()?? 06/11/2022 12:35 RBC's, Urine NONE SEEN /HPF ()?? 06/11/2022 12:35 Mucus SLIGHT /LPF ()?? 06/11/2022 12:35 Hold Urine Culture Testing available 48 hours from time of collection. ()?? 06/11/2022 12:35 ? VIROLOGY COVID-19 by RT-PCR NEGATIVE ()?? 06/11/2022 08:22 COVID-19 PCR Specimen Source NASAL ()?? 06/12/2022 05:01 COVID-19 PCR Result NEGATIVE ()?? 06/12/2022 05:01 ? Microbiology ?? COVID-19 (Novel Coronavirus), Rapid PCR?? Completed?? Source: Nasal Body Site: Nose Collected Dt/Tm: 06/11/2022 08:36 Last Updated Dt/Tm: 06/11/2022 09:53 COVID-19 (2019 Novel Coronavirus) PCR?? Completed?? Source: Nasal Body Site: Nose Collected Dt/Tm: 06/12/2022 05:01 Last Updated Dt/Tm: 06/12/2022 19:35 ? 30??minutes spent on discharge * Berta Sullivan RN: PERFORM, SIGN, VERIFY Event Display: Case Management Discharge Plan Authored Date: Patient: JOEY BAKER Age: 56 years Sex: Male : 1965 Associated Diagnoses: None Author: Berta Sullivan RN Discharge Plan Case Management Discharge Plan : Case Management Discharge Plan Data 06/14/2022 12:18 EST Discharge Level of Care at Discharge Short-term Acute Inpatient Discharge Nursing Homes/Rehab Facilities [facility] Discharge Transportation Arranged [facility] [address] [place] [phone] Discharge Arranged Transport Date/Time 06/14/2022 15:00 Mode of Transportation Arranged Ambulance Name of Agency #1 [facility] [employer] # Service Categories #1 Occupational Therapy, Physical Therapy, Speech Therapy Service Comments #1 An ambulance has been arranged through [facility] to transport patient to [place] today@ 3pm * Tracee Zamarripa RN: PERFORM Tracee Zamarripa RN: PERFORM Event Display: Patient Education/Instruction Authored Date: Inpatient Adult Discharge Instructions [address] [address] Name: JOEY BAKER : 1965 Visit: 06/11/2022 12:40:00 Current Date: 06/14/2022 11:59 Account: [id number] Inpatient Adult Discharge Instructions We would like to thank you for allowing us to assist you with your healthcare needs. The following includes patient education materials and information regarding your injury/illness. Our entire staffstrives to provide an excellent experience for our patients and their families. PLEASE ENSURE YOU FOLLOW-UP PER THE INSTRUCTIONS BELOW! ?? YOUR OPINION IS IMPORTANT TO US! Please complete the survey you may receive by mail or email. Your feedback will be used to make improvements to the healthcare experiences of our patients and their families. Surveys are administered by [employer] ?? If further treatment with your primary care physician or another doctor is recommended, it is important for you to keep the appointment. Call your primary care physician or return to the Emergency Department immediately if your condition worsens, fails to improve, or new symptoms develop. If you need to find a doctor, you can call [facility] for a referral at [phone] or toll free at [phone]) or log in to [email or web address].. ?? You can view and manage your care through the patient portal or by using a health care ricarda of your choosing. [employer] is a website that allows you to securely view your medical information including your hospital discharge summary, office visit summaries, medications and follow-up visits. You can also request appointments, renew medications, and request access to your medical information using a health care ricarda of your choosing, or just ask a question. You can enroll at [email or web address] or register during your next office visit. You have been discharged from [facility], Patient Care Unit: S1. If you have any questions regarding these instructions after you leave, please call us and we will be happy to assist you. [facility] Your Care Team Attending Physician Kaylene Gonzalez MD Consulting Providers Salvador Brown MD Discharging Providers Kaylene Gonzalez MD Reason for Admission woke up this morning, states he cannot feel anything with generalized weakness. states he fell OOB.?MS flare. Uncooperative with EMS. BLS crew Your Diagnosis Weakness of left lower extremity Weakness of left upper extremity Multiple sclerosis Smoker Hypertension Polycythemia Diabetes Tests Performed Below is a partial list of the tests performed during your hospitalization. You may have had other tests and procedures not included in this list. Please discuss all test results with your provider. AST Basic Metabolic Panel BUN Calcium Level CBC CBC w/ Differential COVID-19 (2019 Novel Coronavirus) PCR COVID-19 (Novel Coronavirus), Rapid PCR Creatinine Electrolytes Glucose Level GLUCOSE POC HEMOGLOBIN A1C High??Sensitivity??Troponin T Lipid Panel PT (INR) PTT Type and Screen Urinalysis w/hold for Urine Culture CT Angio Head CT Angio Neck CT Head/Brain W/O Contrast MRA Neck W/ Contrast MRI Brain W+W/O Contrast MRI Cervical Spine W+W/O Contrast XR Chest 2 Views Frontal and Lat XR Knee 1 or 2 Views Left Primary Care Provider Not on Staff, PCP Advance Directive Health Care Proxy on File No Patient refuses to discuss No qualifying data available. Discharge Vitals Temperature: 97.9 DegF Height: 162 cm Pulse Rate:??100 bpm??High Weight: 89.7 kg Respiratory Rate: 18 br/min Body Mass Index:??34.18 kg/m2??Critical Systolic Blood Pressure:??146 mm Hg??High Body surface area: 2.01 Diastolic Blood Pressure:??99 mm Hg??High ?? Oxygen Saturation: 96 % ?? Studies Pending All tests and labs ordered during this hospital stay have been completed unless listed below. Please discuss all pending results with your provider listed above in these instructions. ?? Add On Lab Order What to do next Instructions From Your Doctor Discharge Orders Scheduled Follow-Up Appointments Sunday 8:45 AM EST ?? With: [facility]anthi SOW, [facility] [address] [place] [address]- You Need to Schedule the Following Appointments Follow Up with??Bertha Marin MD, Annemarie When?? Why: Neurology will make appointment with stroke Clinic Where: Discharge Medications JOEY BAKER :1965 Visit Date:06/11/2022 Medications: Please continue your medications until treatment is completed or stopped by your provider. Medications not listed below should be discontinued. Discuss any questions related to medications with your provider. What How Much When Instructions Next Dose New Amlodipine (amLODIPine 5 mg oral tablet) 2 tab(s) Oral Daily 12/1 AM New Clopidogrel (Plavix 75 mg oral tablet) 1 tab(s) Oral Daily 12/1 AM New Docusate-Senna (Docusate/ Senna Tablet) 1 tab(s) Oral Twice a day as needed for Constipation as needed New Insulin Lispro (insulin lispro 100 u/ ml subcutaneous injection) 2-10 units Subcutaneous Injection 3 times a day before meals << Sliding Scale Comments >> 150 - 199 ?? 2 units Call if less than 70 200 - 249 ?? 4 units 250 - 299 ?? 6 units 300 - 349 ?? 8 units 350 - 399 ?? 10 units Call if greater than 400 << Sliding Scale Comments >> ?? with dinner New Polyethylene Glycol 3350 (MiraLax Powder) 17 gram Oral Daily as needed for Constipation as needed [facility] 06/12 Changed Lisinopril (lisinopril 20 mg oral tablet) 2 tab(s) Oral Daily 12/1 AM Unchanged Aspirin (aspirin 81 mg oral delayed release tablet) 1 tab(s) Oral Daily 12/1 AM Unchanged Atorvastatin (atorvastatin 80 mg oral tablet) 1 tab(s) Oral Daily at Bedtime Duration: 90 Days 06/14 PM Unchanged dulaglutide (Trulicity Pen 3 mg/ 0.5 mL subcutaneous solution) 3 Milligram Subcutaneous Injection Every week Duration: 90 Days rotate injection sites ?? regular schedule ?? What How Much When Comments Stop Taking Durable Medical Equipment (Freestyle Lite Lancets) See instructions Type 2 Diabetes Mellitus ICD 10 E 11.9. Test 2 times daily. ?? Stop Taking Durable Medical Equipment (Freestyle Lite Monitor) See instructions Type 2 Diabetes Mellitus ICD 10 E 11.9. Test 2 times daily. ?? Stop Taking Durable Medical Equipment (Freestyle Lite Test Strips) See instructions Type 2 Diabetes Mellitus ICD 10 E 11.9. Test 2 times daily. 25 day supply ?? Stop Taking Isopropyl Alcohol Topical (isopropyl alcohol 70% topical pad) See instructions TEST BLOOD SUGAR TWICE DAILY ?? Stop Taking PEG Electrolyte Solution (NuLYTELY with Flavor Packs oral powder for reconstitution) See instructions 240 mL By Mouth Every 15 minutes ?? Test Results Below is a partial list of the most recent Laboratory test results done prior to this discharge. You may have had other tests and procedures not included in this list. Please discuss all test resultswith your provider. AST (06/11/2022) ???AST (SGOT) - 14 units/L Basic Metabolic Panel (06/11/2022) ???Sodium - 140 mmol/L???Potassium - 4.3 mmol/L???Chloride - 103 mmol/L???Bicarbonate Level - 25 mmol/L???Anion Gap - 12???Glucose Level - 235 mg/dL???BUN - 15 mg/dL???Creatinine-Blood - 0.7 mg/dL???Estimated GFR Creatinine - 107 ML/MIN/1.73 M2???Calcium - 9.4 mg/dL BUN (06/12/2022) ???BUN - 14 mg/dL Calcium Level (06/12/2022) ???Calcium - 9.3 mg/dL CBC (06/12/2022) ???WBC - 10.0 k/mm3???RBC - 6.16 m/mm3???Hgb - 17.1 Gm/dL???Hct - 51.1 %???MCV - 83.0 femtoliters???MCH - 27.8 pg???MCHC - 33.5 g/dL???Platelet Count - 221 k/mm3???RDW-SD - 42.5 femtoliters???MPV - 9.6 femtoliters???Nucleated RBC (Automated) - 0.0 #/100 WBC'S???Abs. NRBC - 0.0 k/mm3 CBC w/ Differential (06/11/2022) ???WBC - 8.2 k/mm3???RBC - 6.74 m/mm3???Hgb - 18.3 Gm/dL???Hct - 55.7 %???MCV - 82.6 femtoliters???MCH - 27.2 pg???MCHC - 32.9 g/dL???Platelet Count - 237 k/mm3???RDW-SD - 42.5 femtoliters???MPV - 10.5 femtoliters???Nucleated RBC (Automated) - 0.0 #/100 WBC'S???Abs. NRBC - 0.0 k/mm3???Abs. Neut - 3.8 k/mm3???Abs. Lymph - 3.4 k/mm3???Abs. [place] - 0.7 k/mm3???Abs. Eo - 0.3 k/mm3???Abs. Baso - 0.1 k/mm3???Neut % - 45.7 %???Lymph % - 40.9 %???[place] % - 8.2 %???Eos % - 3.8 %???Baso % - 0.9 %???Imm Gran - 0.5 %???Abs. Imm Gran - 0.0 k/mm3 COVID-19 (2019 Novel Coronavirus) PCR (06/12/2022) ???COVID-19 PCR Specimen Source - NASAL???COVID-19 PCR Result - NEGATIVE COVID-19 (Novel Coronavirus), Rapid PCR (06/11/2022) ???COVID-19 by RT-PCR - NEGATIVE Creatinine (06/12/2022) ???Creatinine-Blood - 0.6 mg/dL???Estimated GFR Creatinine - 112 ML/MIN/1.73 M2 Electrolytes (06/12/2022) ???Sodium - 140 mmol/L???Potassium - 3.8 mmol/L???Chloride - 105 mmol/L???Bicarbonate Level - 24 mmol/L???Anion Gap - 11 Glucose Level (06/12/2022) ???Glucose Level - 165 mg/dL GLUCOSE POC (06/14/2022) ???Glucose, POC - 112 mg/dL HEMOGLOBIN A1C (06/11/2022) ???Hemoglobin A1C (Monitoring) - 9.3 % High??Sensitivity??Troponin T (06/11/2022) ???High Sensitivity Troponin (HSTnT) - 9 ng/L Lipid Panel (06/12/2022) ???Cholesterol - 180 mg/dL???Triglycerides - 195 mg/dL???HDL Cholesterol - 34 mg/dL???LDL Cholesterol - 107 mg/dL???Non HDL Cholesterol - 146 mg/dL PT (INR) (06/11/2022) ???INR - 1.0???Protime (PT) - 10.7 seconds PTT (06/11/2022) ???APTT - 26.3 seconds Type and Screen (06/11/2022) ???Blood Type - A Positive???Antibody Screen - Negative Urinalysis w/hold for Urine Culture (06/11/2022) ? ?Appear/Color, Urine - LIGHT YELLOW? ?Specific [place], Urine - >1.050? ?pH, Urine - 6.0? ?Albumin, Urine - 1+???Glucose, Urine - 3+???Ketones, Urine - NEGATIVE???Bilirubin, Urine - NEGATIVE???Hemoglobin, Urine - NEGATIVE???Nitrite, Urine - NEGATIVE???Leukocyte, Urine - NEGATIVE???Urobilinogen- NORMAL???WBC's, Urine - 2 /HPF???RBC's, Urine - NONE SEEN???Mucus - SLIGHT???Hold Urine Culture -Testing available 48 hours from time of collection. Immunizations This Visit Not Given Vaccine Commentsinfluenza virus vaccine, inactivated Patient Refuses reports he has allready recieved Allergies (NKA means No Known Allergies) NKA Problems Active Problems??(18) Anxiety?? Back pain at L4-L5 level?? Chest pain?? Chest pain?? Colonoscopy due in 2018?? Hemorrhoids?? History of TIA 2012?? Hyperlipidemia?? Hypertension?? Multiple sclerosis?? Myocardial infarctions - s/p KIM LCx in 2013, s/p KIM OM in 2019?? Obese class I?? Obesity?? Optic neuritis?? SAQIB - refuses CPAP?? Routine medical exam?? Tobacco Use?? Type 2 diabetes mellitus?? Education Materials Below is the list of Educational Leaflet Providered with your Discharge Instructions. Aspirin Delayed Release Oral Tablet?? Amlodipine Oral Tablet?? Heart Disease Education?? Discharge Instructions for High Blood Pressure (Hypertension)?? Valuables and Belongings I fully understand and agree that [facility] accepts no responsibility for all my personal property including clothing, toilet articles, radios, jewelry, dentures, hearing aids, rings, money, or any other property that is in my possession or is brought to me after admission. I understand certain valuables may be placed in a hospital safe for a short period of time. I understand that the hospital is not liable for loss or damage due to accident, fire, or other natural occurrence while said property is in the safe. I accept full responsibility for any personal property that I keep with me, and will not hold the hospital responsible in case of loss or disappearance. I acknowledge that i have been encouraged to send valuables and belongings home. ?? Date for Pt to Sign Valuables/Belongings: 06/11/22 08:50:00 ?? Other Discharge Information ? Pulmonary Rehab Status?? Pulmonary Rehab Discharge Status?? Respiratory Rate: 18 br/min ? Common Emergency Awareness Tips IS IT A STROKE? Act FAST and Check for these signs: FACE Does the face look uneven? ARM Does one arm drift down? SPEECH Does their speech sound strange? TIME Call at any sign of stroke ?? Heart Attack Signs Chest discomfort: Most heart attacks involve discomfort in the center of the chest and lasts more than a few minutes, or goes away and comes back. It can feel like uncomfortable pressure, squeezing, fullness or pain. Discomfort in upper body: Symptoms can include pain or discomfort in one or both arms, back, neck, jaw or stomach. Shortness of breath: With or without discomfort. Other signs: Breaking out in a cold sweat, nausea, or lightheaded. Remember, MINUTES DO MATTER. If you experience any of these heart attack warning signs, call to get immediate medical attention! ?? Smoking can increase your chances of developing chronic health problems and can cause harmful effects to other family members in your house. If you smoke, you are strongly encouraged to quit. Please call [facility] Link at [phone] or [phone]) or log in to [email or web address] for referrals to smoking cessation programs. ?? The National Suicide Prevention Hotline is available 05/02 if you or someone you know needs to find a reason to keep living. By calling 8-145-316-Revolver (6512) you'll be connected to a skilled, trained counselor at a crisis center in your area. INPATIENT DISCHARGE INSTRUCTIONS SIGNATURE PAGE JOEY BAKER Location:[facility] Registration Date and Time:06/11/2022 12:40 EST Primary Care Physician: Not on Staff, PCP I JOEY BAKER, have received the above patient education materials/instructions and have verbalized understanding. If ambulance or transport services are being used I further acknowledge being given a choice of service. ?? If you need to contact me, please call me at this number: . Patient/De Ionizer Operator Name: Patient/De Ionizer Operator Signature: Relationship to Patient: Witness Name/Signature: Date: * Tracee Zamarripa RN: PERFORM Event Display: Patient Education Leaflets Authored Date: [id number] Aspirin Delayed Release Oral Tablet ?? 09800-6 Aspirin Delayed Release Oral Tablet Brands: Aspir-Low, Renata Aspirin, Ecotrin, Miniprin, Cache Aspirin Uses This medicine is used for the following purposes: ??? fever ??? inflammatory disease ??? pain ??? prevent blood clots ??? prevent stroke ??? prevent heart attack ?? Instructions Swallow the medicine without crushing or chewing it. Sit or stand upright for 10 minutes after taking the medicine. Do not lie down. Swallow with a full glass (8 oz) of water unless your doctor gives you different instructions. You may take with food to prevent stomach upset. Keep the medicine at room temperature. Avoid heat and direct light. If you are using this medicine regularly, it is important to take each dose of medicine on time. Keep taking the medicine even if you feel well. If you forget to take a dose on time, take it as soon as you remember. If it is almost time for thenext dose, do not take the missed dose. Return to your normal dosing schedule. Do not take 2 doses of this medicine at one time. Drug interactions can change how medicines work or increase risk for side effects. Tell your healthcare providers about all medicines taken. Include prescription and soir-nmh-dmymyde medicines, vitamins, and herbal medicines. Speak with your doctor or pharmacist before starting or stopping any medicine. Tell your doctor if symptoms do not get better or if they get worse. Talk to your doctor before taking other medicines, including aspirins and ibuprofen containing products. Speak to your doctor about which medicines are safe to use while you are on this medicine. ?? Cautions IMPORTANT: Children and teenagers should not use medications containing aspirin for cold and flu symptoms or chickenpox. Tell your doctor and pharmacist if you ever had an allergic reaction to a medicine. There is an increased risk of bleeding while on this medicine, please tell your doctor or nurse if you notice any excessive bleeding or bruising. Do not use the medication any more than instructed. If you drink more than a few alcoholic beverages each day, ask your doctor whether you should be onthis medicine. Avoid smoking while on this medicine. Smoking may increase your risk for stomach bleeding. Contact your doctor if you notice a change in the amount or darkening of your urine. Tell the doctor or pharmacist if you are , planning to be , or . ?? Side Effects The following is a list of some common side effects from this medicine. Please speak with your doctor about what you should do if you experience these or other side effects. ??? stomach upset or abdominal pain If you have any of the following side effects, you may be getting too much medicine. Please contactyour doctor to let them know about these side effects. ??? ringing in the ears Call your doctor or get medical help right away if you notice any of these more serious side effects: ??? severe or persistent abdominal pain ??? increased risk of bleeding ??? bleeding that is severe or takes longer to stop ??? coughing up blood or vomit that looks like coffee grounds ??? fever ??? swelling in the neck or throat ??? shortness of breath ??? dark, tarry stool ??? urinating less often A few people may have an allergic reaction to this medicine. Symptoms can include difficulty breathing, skin rash, itching, swelling, or severe dizziness. If you notice any of these symptoms, seek medical help quickly. ?? Extra Please speak with your doctor, nurse, or pharmacist if you have any questions about this medicine. ?? [email or web address] IMPORTANT NOTE: This document tells you briefly how to take your medicine, but it does not tell youall there is to know about it. Your doctor or pharmacist may give you other documents about your medicine. Please talk to them if you have any questions. Always follow their advice. There is a more complete description of this medicine available in [employer]. Scan this code on your smartphone or tablet or use the web address below. You can also ask your pharmacist for a printout. If you have any questions, please ask your pharmacist. The display and use of this drug information is subject to Terms of Use. Copyright(c) [address] ?? [employer]. All rights reserved. This information is not intended as a substitute for professional medical care. Always follow your healthcare professional's instructions. ?? * Tracee Zamarripa RN: PERFORM Event Display: Patient Education Leaflets Authored Date: [id number] Amlodipine Oral Tablet ?? [id number] Amlodipine Oral Tablet Brands: Ranberry Uses This medicine is used for the following purposes: ??? angina ??? high blood pressure ??? Raynaud's disease ?? Instructions This medicine may be taken with or without food. It is very important that you take the medicine at about the same time every day. It will work bestif you do this. Keep the medicine at room temperature. Avoid heat and direct light. It is important that you keep taking each dose of this medicine on time even if you are feeling well. If you forget to take a dose on time, take it as soon as you remember. If it is almost time for thenext dose, do not take the missed dose. Return to your normal dosing schedule. Do not take 2 doses of this medicine at one time. Tell your doctor and pharmacist about all your medicines. Include prescription and hfpx-xbs-pfbgkvstaltmbwqw, vitamins, and herbal medicines. Keep all appointments for medical exams and tests while on this medicine. ?? Cautions Do not use the medication any more than instructed. If possible, avoid using with marijuana or other medicines that can cause dizziness or drowsiness. These include allergy/cold products, muscle relaxers, sleep aids, and pain relievers. Your ability to stay alert or to react quickly may be impaired by this medicine. Do not drive or operate machinery until you know how this medicine will affect you. Please check with your doctor before drinking alcohol while on this medicine. Tell the doctor or pharmacist if you are , planning to be , or . Do not start or stop any other medicines without first speaking to your doctor or pharmacist. Do not share this medicine with anyone who has not been prescribed this medicine. ?? Side Effects The following is a list of some common side effects from this medicine. Please speak with your doctor about what you should do if you experience these or other side effects. ??? dizziness ??? swelling of the legs, feet, and hands ??? lack of energy and tiredness ??? feeling of heat or flushing ??? low blood pressure Call your doctor or get medical help right away if you notice any of these more serious side effects: ??? worsening chest pain or crushing feeling ??? fainting ??? fast or irregular heart beats ??? jawpain ??? shortness of breath A few people may have an allergic reaction to this medicine. Symptoms can include difficulty breathing, skin rash, itching, swelling, or severe dizziness. If you notice any of these symptoms, seek medical help quickly. ?? Extra Please speak with your doctor, nurse, or pharmacist if you have any questions about this medicine. ?? [email or web address] IMPORTANT NOTE: This document tells you briefly how to take your medicine, but it does not tell youall there is to know about it. Your doctor or pharmacist may give you other documents about your medicine. Please talk to them if you have any questions. Always follow their advice. There is a more complete description of this medicine available in [employer]. Scan this code on your smartphone or tablet or use the web address below. You can also ask your pharmacist for a printout. If you have any questions, please ask your pharmacist. The display and use of this drug information is subject to Terms of Use. Copyright(c) [address] ?? [employer]. All rights reserved. This information is not intended as a substitute for professional medical care. Always follow your healthcare professional's instructions. ?? * Tracee Zamarripa RN: PERFORM Event Display: Patient Education Leaflets Authored Date: [id number] Heart Disease Education ?? [id number] Heart Disease Education The heart beats 60 to 100 times??per minute, 24 hours a day. This equals almost 100,000 times a day. It pumps??blood with oxygen and nutrients to the tissues and organs of the body. But the heart is a muscle and needs its own supply of blood. Blood flow to the heart is supplied by the coronary arteries. Coronary artery disease (atherosclerosis) is a result of cholesterol, saturated fat, and calcium deposits (plaques) that build up inside the rodriguez. This causes inflammation within??the coronary arteries. These plaques narrow the artery and reduce blood flow to the heart muscle. The reduction in blood flow to the heart muscle decreases oxygen supply to the heart. If the narrowing is significant enough, the oxygen supply to 1 or more regions of the heart can be temporarily or permanently shut down. Sometimes the plaque can burst open (rupture), exposing the materials in the plaque to the bloodstream. This can lead to a blood clot suddenly forming on top of the plaque that interrupts blood flow to the heart muscle. This can cause??chest pain (angina) and possibly of heart tissue (heart attack). Types of chest pain Angina is the name for pain in the heart muscle. Angina is a warning sign of serious heart disease.When untreated, it can lead to a heart attack, also known as acute myocardial infarction, or AMI. Angina occurs when there is not enough blood and oxygen flowing to the heart for the amount of work it is doing. This most often happens during physical exertion, when the heart is working hardest. It is usually??relieved by rest or nitroglycerin. Angina may also occur after a large meal, when extra blood is sent to the digestive organs and less goes to the heart. In the case of advanced or unstable??heart disease, angina can occur at rest or awaken you from sleep. Angina usually lasts from a fewminutes up to 20 minutes or more. When treated early, the effects of angina can be reversed withoutpermanent damage to the heart. Angina is a serious condition and needs to be evaluated by a medicalprofessional immediately. There are 2 types of angina???stable and unstable: ??? Stable angina. This often occurs with??a predictable??level of activity. Being stable, its character, severity, and occurrence don't change much over time. It often starts with activity and resolves with rest or taking your medicine as instructed by your healthcare provider. The symptoms usually don't last long. ??? Unstable angina. This changes or gets worse over time. It is different from whatever you are used to. It may feel different or worse, begin without cause, occur with exercise orexertion, wake you up from sleep, and last longer. It may not respond in the same way as it does when you take your usual medicines for an attack. This type of angina can be a warning sign of an impen ding heart attack.?? A heart attack is often the result of a blood clot that suddenly forms in a coronary artery that has been narrowed with plaque. When this occurs,??blood flow may be cut??off to a part of the heart muscle, causing??the cells??to . This weakens the pumping action of the heart, which affects the delivery of blood to all the other organs in the body, including the brain. If not treated immediately, this damage will become permanent. The earlier that treatment is given, the better chance that theheart muscle can be saved. The pain you feel with angina and a heart attack may have a similar quality. However, it is usuallydifferent in intensity and duration. Here are some typical descriptions of a heart attack: ??? It's most often felt as a squeezing, crushing, pressure-like sensation in the center of the chest. ??? It's sometimes described as ???something heavy sitting??on my chest.? It may feel morelike a bad case of indigestion. ??? The pain may spread from the chest to the arm, shoulder, throat, or jaw. ??? Sometimes the pain isn't felt in the chest at all, but only in the arm, shoulder, throat, or jaw. ??? There may also be nausea, vomiting, dizziness or light-headedness, sweating, and trouble breathing. ??? Unexplained weakness You may not be able to tell the difference between bad angina and a heart attack at home. Get help if your symptoms are different than usual. Don't be in denial or just try to tough it out. ?? Call 911 It's important to call 911. This is the fastest and safest way to get to the ER. Don't delay. You may be having a heart attack. The paramedics can also start treatment on the way to the hospital. This saves valuable time for your heart. Call 911 right away if any of these occur: ??? The angina gets worse ??? The angina continues after taking a nitroglycerin tablet or using nitroglycerin spray ??? The angina stops and returns Other reasons to call 911 Don't wait until symptoms become severe to call 911. Other reasons to call 911 include: ??? Trouble breathing ??? Feeling lightheaded, faint, or dizzy ??? Rapid heartbeat ??? Slower than usual heart rate compared to your normal ??? Angina with weakness, dizziness, fainting, heavy sweating, nausea, or vomiting ??? Extreme drowsiness, confusion ??? Weakness of an arm or leg or 1 side ofthe face ??? Trouble with speech or vision After you call 911 After you call 911: ??? Take a second nitroglycerin tablet or spray unless instructed otherwise. When repeating doses, sit down, if possible, because it can make you feel lightheaded or dizzy. ??? Wait another 5 minutes. If the angina still doesn't go away, take a third nitroglycerin tablet or spray. Don't take more than 3 tablets or sprays within 15 minutes. ??? Stay on the phone with 911 for more instructions. Note: Your healthcare provider may give you slightly different instructions than those above. If so, follow them carefully. ?? When to get medical care Remember, the signs and symptoms of a heart attack are not always like they are on TV. Sometimes, they are not so obvious. You may only feel weak, or just not right. If it is not clear or if you haveany doubt, call for advice. ??? Get help if there's a change in the type of pain, if it feels different, or if your symptoms are mild. ??? Don't drive yourself. Have someone else drive you. If no onecan drive, call 911. ??? Don't delay. Fast diagnosis and treatment can prevent or limit the amount of heart damage during a heart attack. ??? Don't go to your healthcare provider's office or a clinic. They may not be able to provide all the testing and treatment required for this condition. ??? If your provider has given you medicine to take when symptoms occur, take them. But don't delay gettinghelp trying to locate medicines. ?? What happens in the emergency room (ER) The emergency room (ER) is connected to your local emergency medical system (EMS) through 911. That's why during a cardiac emergency, calling 911 is the fastest way to get help. The goal of the ER isto quickly screen, evaluate, and treat people. Once you're there, an electrocardiogram (ECG) will be done. Often this will be done by paramedics who will send it to the hospital even before you get to the ER. Blood samples may be taken. These look for the presence of heart enzymes that leak from damaged heart cells and show if a heart attack isoccurring. You'll often be evaluated by a internet database specialist (tank builder and erector) who decides the best course of action. In the case of severe angina or early heart attack, and depending on the circumstances, powerful clot-busting medicines can be used to dissolve blood clots in the coronary artery. In most cases, you may be taken to a cardiac catheterization lab for emergency angiography and coronary intervention. During this procedure, a long, thin, plastic tube (catheter) is put in an artery in your groin or arm. It's threaded through the blood vessel to the blockage. Blood flow will be evaluated. If a significant blockage is seen, a balloon and metal mesh coil (stent) may be inserted. This is done to open the artery and restore blood flow.? Risk factors for heart disease Some risk factors for heart disease can be modified. Others can't be changed, such as your family history. Many risk factors work by either directly or indirectly damaging the blood vessels of the heart, or by increasing the risk of forming blood or cholesterol clots, which then clog up and block the arteries. Examples of physical lifestyle risk factors: ??? Cigarette smoking or tobacco use ??? High blood pressure ??? High blood cholesterol ??? Use of stimulant drugs such as cocaine, crack, and methamphetamine ??? Eating high-fat, high-cholesterol foods ??? Diabetes ??? Overweight and obesity, which increases the risk for diabetes and high blood pre ssure ??? Lack of regular physical activity?? Examples of emotional lifestyle factors: ??? Chronic high stress levels release stress hormones. These raise blood pressure and cholesterol levels and make blood clot more easily. ??? Held-in anger, hostile or cynical attitude ??? Social and emotional isolation, lack of intimacy ??? Loss of relationship ??? Depression Other factors that increase the risk of heart attack that you can't control: ??? Age. The older youget beyond 40, the greater your risk is of significant coronary artery disease. ??? Gender. More men than women get heart disease. But after menopause, a woman's risk of heart disease dramatically increases. ??? Family history. If your mother, father, brother, or sister has coronary artery disease,your risk of having it is higher than a person your age without this family history. ?? What you can do to decrease your risk To reduce your risk for heart disease: ??? Get regular checkups with your healthcare provider. ??? Take your medicines for blood pressure, cholesterol, or diabetes as directed. ??? Watch your diet. Eat a heart-healthy diet, choosing fresh foods, less salt, cholesterol, and fat. ??? Stop smoking. Get help if needed. ??? Stop using illegal drugs. ??? Get regular exercise. ??? Manage stress. ??? Askyour provider if they advise behavioral counseling to promote a healthy diet and physical activity. ?? Last Reviewed Date: 2021 ?? 5910-9994 [employer]. All rights reserved. This information is not intended as a substitute for professional medical care. Always follow your healthcare professional's instructions. ?? * BHSPowerscribe , CIS S: TRANSCRIBE Simeon Kline MD: VERIFY Event Display: Result: Authored Date: [id number] MRA Neck W/ Contrast Reason: Other:; L sided weakness, and RI ICA stenosis on limited CTA; Clinical Question(s): Other:;Order Comment: Please see Reference Text for complete list of contraindications / Other: TECHNIQUE: Contrast-enhanced MRA of the neck was performed. 3D rotational MIP reformats of the cervical vessels were created on a separate workstation and used in the interpretation. All stenoses aremeasured using NASCET criteria. 20 mL of Clariscan was administered intravenously. COMPARISON: CTA 06/11/2022 FINDINGS: Arch: There is a three vessel aortic arch. The proximal innominate and left common carotid arteriesare normal. There is an apparent 50% stenosis involving the origin of the left subclavian artery. Right carotid system: There is no evidence of stenosis or dissection. The bifurcation is well visualized. Left carotid system: There is no evidence of stenosis or dissection. The bifurcation is well visualized. There is a co-dominant vertebral artery system. Right vertebral: The vessel mildly fluctuates in caliber with no significant stenosis identified. Left vertebral: There is a 50% stenosis present just proximal to the origin of the posterior inferior cerebellar artery. There is mild irregularity of this vessel distal to the posterior inferior cerebellar artery origin. There is mild irregularity of the basilar artery without critical stenosis. There are apparent 50% stenoses involving the P2 segment of the left posterior cerebral artery. IMPRESSION: 1. 50% stenosis at the origin of the left subclavian artery. 2. No stenosis of either common or internal carotid artery is appreciated. 3. 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 WSN: [id number] Ordering Physician: Jules Melendrez Dictated By: Simeon Kline MD Dictated Date/Time: 06/12/22 8:33 am Reviewed By: Simeon Kline MD Signed By: Simeon Kline MD Signed Date/Time: 06/12/22 8:33 am Transcribed By: ALEJANDRA Transcribed Date/Time: 06/12/22 8:26 am * RICK Zavala S: TRANSCRIBear West MD: VERIFY Event Display: Result: Authored Date: Chest 2 Views Frontal and Lat Reason: Other:; Stroke; Clinical Question(s): CHF / CHF COMPARISON: 05/23/2020 FINDINGS: LINES AND TUBES: None. LUNGS AND PLEURA: Clear lungs. Normal pulmonary vascularity. No pleural effusion. No pneumothorax. HEART, MEDIASTINUM AND DAVID: Heart is normal in size. Normal mediastinal and hilar contour. BONES AND SOFT TISSUES: No acute abnormality. IMPRESSION: No evidence of acute abnormality. WSN: [id number] Ordering Physician: Jake Pulido Dictated By: Bear Nazario MD Dictated Date/Time: 06/11/22 9:23 am Reviewed By: Bear Nazario MD Signed By: Bear Nazario MD Signed Date/Time: 06/11/22 9:23 am Transcribed By: ALEJANDRA Transcribed Date/Time: 06/11/22 9:22 am XR Knee - left 1 or 2 Views * Lucas CIS S: TRANSCRIBear West MD: VERIFY Event Display: Result: Authored Date: [id number] Knee 1 or 2 Views Left, 2 views Reason: Trauma; with Pain; Clinical Question(s): Fracture COMPARISON: None. FINDINGS: There is no evidence of acute or healing fracture, dislocation or bone lesion. No arthritic changes. No osteochondral defects or intra-articular loose bodies. No evidence of joint effusion. Mild vascular calcifications. IMPRESSION: No evidence of acute osseous abnormality. WSN: [id number] Ordering Physician: Jake Pulido Dictated By: Bear Nazario MD Dictated Date/Time: 06/11/22 9:23 am Reviewed By: Bear Nazario MD Signed By: Bear Nazario MD Signed Date/Time: 06/11/22 9:23 am Transcribed By: ALEJANDRA Transcribed Date/Time: 06/11/22 9:[address] Head WO contrast * RICK Zavala S: TRANSCJake Pradhan MD P: VERIFY Garrison Crbatree MD: SIGN Event Display: Result: Authored Date: [id number] CT Head/Brain W/O Contrast INDICATION: Reason: Other:; Neuro deficit, acute, stroke suspected; Clinical Question(s): Other:; Hematoma Infarction TECHNIQUE: Noncontrast head CT using axial technique and reconstructed in axial and coronal planes.Iterative reconstruction techniques are used to optimize dose and image quality. CTDIvol Head: 46.20 mGy, DLP Head: 773 mGy*cm. COMPARISON: Correlated with MRI dated 08/20/2019 FINDINGS: [employer] view findings, lines and tubes: None. BRAIN AND EXTRA-AXIAL SPACES: Chronic lacunar infarct left lentiform nucleus. No parenchymal hemorrhage, midline shift, or mass effect. Kim-white matter differentiation is well preserved. Ventricles, sulci, and basilar cisterns are normal. Periventricular and subcortical white matter disease likely secondary to known multiple sclerosis. No subarachnoid hemorrhage. No subdural or epidural collection. CALVARIUM, SKULL BASE, AND SOFT TISSUES: No fractures or suspicious bony lesions. Visualized orbits and globes are intact. The extracranial soft tissues are unremarkable. IMPRESSION: No acute intracranial pathology. I have personally reviewed the images and I agree with this report. WSN: [id number] Ordering Physician: Jake Pulido Dictated By: Garrison Crabtree MD Dictated Date/Time: 06/11/22 9:27 am Reviewed By: Jake Almonte MD Signed By: Jake Almonte MD Signed Date/Time: 06/11/22 9:32 am Transcribed By: ALEJANDRA Transcribed Date/Time: 06/11/22 9:21 am CTA Neck vessels W contrast IV * Lucas , CIS S: Freddy James MD: VERIFY Event Display: Result: Authored Date: [id number] CT Angio Head, CT Angio Neck Reason: Other:; Neuro deficit, acute, stroke suspected; Clinical Question(s): Other:; Hematoma Aneurysm / Other: TECHNIQUE: CT angiogram of the head and neck was performed after bolus administration of intravenous contrast. 100 mL of Omnipaque 300 was administered intravenously. Coronal and sagittal MIP reformatted images were obtained. Additional 3-D images were created on a separate workstation under concurrent supervision by the attending radiologist. All stenoses are measured using NASCET criteria. Weight-based protocol using automatic tube modulation was used to optimize exposure parameters. RADIATION DOSE PARAMETERS: CTDIvol Body: 14.33 mGy, DLP Body: 802 mGy*cm. COMPARISON: Noncontrast CT head performed concurrently. FINDINGS: The study is limited by motion artifacts. There is a 3 vessel arch. Mural calcified and noncalcified atherosclerotic plaques are seen along the visualized aortic arch and the supraaortic proximal great neck vessels. The origins of the proximal great vessels are degraded by beam hardening artifacts and difficult to evaluate. The right common carotid artery is normal in caliber. The right carotid bulb has mild mural calcifications without stenosis. The right proximal ICA is degraded by motion artifacts. There may be a focal area of severe stenosis at the origin of the right ICA. The left common carotid artery and the left proximal internal carotid artery are degraded by motionartifacts. The origin is difficult to evaluate. The left common carotid artery shows no significantstenosis. The left proximal ICA likely shows 0% stenosis by NASCET criteria. Right vertebral artery: The proximal V1 segment is degraded by beam artifacts and difficult to evaluate. The rest segments are patent without stenosis. Left vertebral artery: Slightly dominant. The proximal V1 segment is degraded by artifacts and could not be evaluated. The rest segments show no stenosis. Cervical spine: A minimally reversed cervical lordosis and mild spondylosis. Soft tissues and lung apices: The visualized upper lungs are degraded by motion artifacts. No definite acute pathology. Bilateral thyroid lobes are unremarkable. There is no definite abnormality throughout the soft tissue neck. [place]: Concurrent CT of head showed no acute pathology. Generalized volume loss and bilateral periventricular hypodensities are noted. Bilateral internal carotid arteries at the skull base have multiple mural calcifications. No definite stenosis is seen. Bilateral posterior communicating arteries are visualized, bigger on the left. There is an infundibulum at the origin of the right posterior communicating artery. Bilateral ACAs, MCAs and their branches are patent. No stenosis or vessel cut off is seen. No definite aneurysm is noted. The left vertebral artery is slightly dominant. Bilateral intracranial vertebral arteries show mildirregularities with focal areas of mild stenosis. The vertebrobasilar junction is normal. The basilar artery has diffuse mild irregularities and focal areas of mild stenosis.. No stenosis or dissection is seen. There is no basilar tip aneurysm. The P1 segment of left [employer] is hypoplastic. There is a origin of left [employer]. A focal area of moderate stenosis is seen at the proximal P2 segment of the left [employer]. The right [employer]] branches are patent. The superior sagittal sinuses, the straight sinus, bilateral transverse and sigmoid sinuses: Patentwithout dural sinus thrombosis. IMPRESSION: Limited study due to motion artifacts. No cutoff or high-grade stenosis of the major branches of the intracranial arteries. A focal area of moderate stenosis is seen at the proximal P2 segment of left [employer]. The right proximal internal carotid artery is degraded by motion artifacts. There may be a focal area of severe stenosis at origin of the right ICA. The left proximal internal carotid artery is degraded by motion artifacts. No indication stenosis by NASCET criteria. The proximal V1 segment of the right vertebral artery is degraded by artifacts and difficult to evaluate. The rest of segments show no significant stenosis. The proximal V1 segment of the left vertebral artery is degraded by artifacts and could not be evaluated. The rest segments show no significant stenosis. REFERENCE: NASCET Criteria: The degree of internal carotid stenosis is based on NASCET Criteria: Normal: No stenosis Mild: Less than 50% stenosis Moderate: 50-69% stenosis Severe: 70-99% stenosis Total occlusion: No detectable patent lumen. The report was cortext to Dr. Jake Pulido at 9:21 AM on 06/11/2022. WSN: [id number] Ordering Physician: Jake Pulido Dictated By: Freddy Leal MD Dictated Date/Time: 06/11/22 12:42 p Reviewed By: Freddy Lela MD Signed By: Freddy Leal MD Signed Date/Time: 06/11/22 12:42 pm Transcribed By: CSAdam Transcribed Date/Time: 06/11/22 12:38 pm CTA Head vessels W contrast IV * BHSPowerscribe , CIS S: TRANSCRIBE Freddy Leal MD: VERIFY Event Display: Result: Authored Date: [id number] CT Angio Head, CT Angio Neck Reason: Other:; Neuro deficit, acute, stroke suspected; Clinical Question(s): Other:; Hematoma Aneurysm / Other: TECHNIQUE: CT angiogram of the head and neck was performed after bolus administration of intravenous contrast. 100 mL of Omnipaque 300 was administered intravenously. Coronal and sagittal MIP reformatted images were obtained. Additional 3-D images were created on a separate workstation under concurrent supervision by the attending radiologist. All stenoses are measured using NASCET criteria. Weight-based protocol using automatic tube modulation was used to optimize exposure parameters. RADIATION DOSE PARAMETERS: CTDIvol Body: 14.33 mGy, DLP Body: 802 mGy*cm. COMPARISON: Noncontrast CT head performed concurrently. FINDINGS: The study is limited by motion artifacts. There is a 3 vessel arch. Mural calcified and noncalcified atherosclerotic plaques are seen along the visualized aortic arch and the supraaortic proximal great neck vessels. The origins of the proximal great vessels are degraded by beam hardening artifacts and difficult to evaluate. The right common carotid artery is normal in caliber. The right carotid bulb has mild mural calcifications without stenosis. The right proximal ICA is degraded by motion artifacts. There may be a focal area of severe stenosis at the origin of the right ICA. The left common carotid artery and the left proximal internal carotid artery are degraded by motionartifacts. The origin is difficult to evaluate. The left common carotid artery shows no significantstenosis. The left proximal ICA likely shows 0% stenosis by NASCET criteria. Right vertebral artery: The proximal V1 segment is degraded by beam artifacts and difficult to evaluate. The rest segments are patent without stenosis. Left vertebral artery: Slightly dominant. The proximal V1 segment is degraded by artifacts and could not be evaluated. The rest segments show no stenosis. Cervical spine: A minimally reversed cervical lordosis and mild spondylosis. Soft tissues and lung apices: The visualized upper lungs are degraded by motion artifacts. No definite acute pathology. Bilateral thyroid lobes are unremarkable. There is no definite abnormality throughout the soft tissue neck. [place] of [place]: Concurrent CT of head showed no acute pathology. Generalized volume loss and bilateral periventricular hypodensities are noted. Bilateral internal carotid arteries at the skull base have multiple mural calcifications. No definite stenosis is seen. Bilateral posterior communicating arteries are visualized, bigger on the left. There is an infundibulum at the origin of the right posterior communicating artery. Bilateral ACAs, MCAs and their branches are patent. No stenosis or vessel cut off is seen. No definite aneurysm is noted. The left vertebral artery is slightly dominant. Bilateral intracranial vertebral arteries show mildirregularities with focal areas of mild stenosis. The vertebrobasilar junction is normal. The basilar artery has diffuse mild irregularities and focal areas of mild stenosis.. No stenosis or dissection is seen. There is no basilar tip aneurysm. The P1 segment of left [employer] is hypoplastic. There is a origin of left [employer]. A focal area of moderate stenosis is seen at the proximal P2 segment of the left [employer]. The right [employer]] branches are patent. The superior sagittal sinuses, the straight sinus, bilateral transverse and sigmoid sinuses: Patentwithout dural sinus thrombosis. IMPRESSION: Limited study due to motion artifacts. No cutoff or high-grade stenosis of the major branches of the intracranial arteries. A focal area of moderate stenosis is seen at the proximal P2 segment of left [employer]. The right proximal internal carotid artery is degraded by motion artifacts. There may be a focal area of severe stenosis at origin of the right ICA. The left proximal internal carotid artery is degraded by motion artifacts. No indication stenosis by NASCET criteria. The proximal V1 segment of the right vertebral artery is degraded by artifacts and difficult to evaluate. The rest of segments show no significant stenosis. The proximal V1 segment of the left vertebral artery is degraded by artifacts and could not be evaluated. The rest segments show no significant stenosis. REFERENCE: NASCET Criteria: The degree of internal carotid stenosis is based on NASCET Criteria: Normal: No stenosis Mild: Less than 50% stenosis Moderate: 50-69% stenosis Severe: 70-99% stenosis Total occlusion: No detectable patent lumen. The report was cortext to Dr. Jake Pulido at 9:21 AM on 06/11/2022. WSN: [id number] Ordering Physician: Jake Pulido Dictated By: Freddy Leal MD Dictated Date/Time: 06/11/22 12:42 p Reviewed By: Freddy Leal MD Signed By: Freddy Leal MD Signed Date/Time: 06/11/22 12:42 pm Transcribed By: CSAdam Transcribed Date/Time: 06/11/22 12:38 pm MR Brain WO and W contrast IV * BHSPowerscribe , CIS S: TRANSCRIBE Raisa SOW, Simeon Hdz: VERIFY Event Display: Result: Authored Date: [id number] MRI Brain W+W/O Contrast INDICATION / CLINICAL QUESTION: Reason: Other:; new onset LLE LUE weakness; Clinical Question(s): Other:; Order Comment: Please see Reference Text for complete list of contraindications Other: TECHNIQUE: MRI of the brain was performed with and without contrast utilizing sagittal and axial T1, axial T2, axial FLAIR, axial SWAN, and axial DWI sequences, and post-contrast 3D T1 SUNSHINE with multiplanar reformats. 20 mL of Clariscan was administered intravenously. COMPARISON: CT 06/11/2022, MRI 08/20/2019 a site of restricted diffusion measuring up to 21 x 9 mm transversely and involves the posterior right welch radiata extending inferiorly into the posterior limb of the internal capsule and putamen. There is very slight corresponding FLAIR and T2 hyperintensity. No mass effect or hemorrhage is noted in this region. An elliptical area of enhancement measuring approximate 5 mm in diameter and only 2 mm in thickness is present in the posterolateral margin of the left thalamus, immediately adjacent to the transverse cerebral fissure and extending to the region of the geniculate bodies. This could represent an area of subacute ischemia but is difficult to appreciate as an abnormality on any other sequence. It was not present on the MRI of 08/20/2019. No site of restricted diffusion is noted elsewhere. A 13 mm old, cavitary lacune with hemosiderin stained margins indicating hemorrhage is present in the left anterior putamen and anterior limb of the internal capsule. A moderate amount of FLAIR hyperintensity is present in subcortical and periventricular white matter and in the slade. An 8 mm site of old hemorrhage is present in the right posterio r medial temporal lobe. No discrete old cortical infarct is noted. No extra-axial collection or mass effect is noted. There is no evidence of obstructive hydrocephalus. There is ex vacuo dilatation of the body of the left lateral ventricle. Incidentally noted is a cavum septum lucidum and cavum septum vergae. The foramen magnum is normal. There is no evidence of vessel occlusion. 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 No abnormal contrast enhancement is demonstrated elsewhere. The orbits and paranasal sinuses are normal. FINDINGS: 1. Area of acute ischemia involving the right posterior welch radiata, putamen and posterior limb of the internal capsule measuring up to 21 mm in diameter. There is no evidence of associated hemorrhage, mass effect or vessel occlusion. 2. 5 x 5 x 2 mm area of enhancement at the posterior margin of the left thalamus, new from 2019. This is of uncertain etiology and significance but could represent a subacute area of ischemia. 3. Old left anterior putamen and anterior limb of the internal capsule lacune. Moderate white matter abnormality consistent with chronic ischemia and small vessel disease. WSN: [id number] Ordering Physician: Jake Pulido Dictated By: Simeon Kline MD Dictated Date/Time: 06/12/22 7:30 am Reviewed By: Simeon Kline MD Signed By: Simeon Kline MD Signed Date/Time: 06/12/22 7:30 am Transcribed By: ALEJANDRA Transcribed Date/Time: 06/12/22 7:20 am MR Cervical spine WO and W contrast IV * [facility]SPowerscribe , CIS S: TRANSCRIBE Simeon Kline MD: VERIFY Event Display: Result: Authored Date: [id number] MRI Cervical Spine W+W/O Contrast INDICATION: Reason: Other:; new onset LLE LUE weakness; Clinical Question(s): Other:; Order Comment: Please see Reference Text for complete list of contraindications Other: TECHNIQUE: MRI of the cervical spine was performed with and without intravenous contrast utilizing sagittal T1, sagittal T2, sagittal STIR, axial gradient echo, axial T1, and axial T2-weighted sequences, and post-contrast sagittal T1 and axial T1-weighted sequences. 20 mL of Clariscan was administered intravenously. COMPARISON: None FINDINGS: Many of the sequences are mildly to moderately limited by motion artifact. ALIGNMENT, VERTEBRAE, MARROW, AND DISCS: No suspicious marrow signal abnormality is noted. No subluxation is present. POSTERIOR FOSSA AND CORD: The spinal cord is normal in configuration and signal intensity. There isno abnormal enhancement. PARASPINAL TISSUES: No mass is identified. Small anterior and posterior osteophytes at C4-5 do not appear to be significant. Small anterior osteophytes and a small central posterior disc herniations are present at C5-6 and C6-7. Visualizationof the axial images is limited by motion artifact but no nerve root compression is suspected. IMPRESSION: 1. No spinal cord abnormality is identified. 2. Small central posterior disc herniations at C5-6 and C6-7 of questionable clinical significance. 3. The examination is mildly to moderately limited by motion artifact on many sequences. WSN: [id number] Ordering Physician: Jake Pulido Dictated By: Simeon Kline MD Dictated Date/Time: 06/12/22 7:34 am Reviewed By: Simeon Kline MD Signed By: Simeon Kline MD Signed Date/Time: 06/12/22 7:34 am Transcribed By: ALEJANDRA Transcribed Date/Time: 06/12/22 7:31 am Patient Care team information Care Team Personnel Name: Nitish Bishop RN Position: [facility] ED RN W/OE and Tasks Member Role: Primary Care Nurse Name: Sandrine Celaya RN Position: S RN Member Role: Primary Care Nurse Name: Not on Staff, PCP Position: [facility] Physician (General Medicine) Member Role: PCP Name: Tracee Zamarripa RN Position: [facility] RN Member Role: Primary Care Nurse Name: Abraham JIM Attending Position: [facility] ED Medicine MD Name: Wanda Brunner Position: [facility] ED TA [facility] Member Role: Road Tester Name: Daniella Rojas Position: [facility] ED RN W/OE and Tasks Member Role: Patient Care Provider Name: Carolina Concepcion Position: [facility] ED TA [facility] Member Role: Road Tester Name: Jayson Voss LPN Position: [facility] ED RN W/OE and Tasks Member Role: Patient Care Provider Care Team Related Persons Name: JANETTE PENA Name: NO ONE, PER PT
--- OUTSIDE RECORDS SUMMARY | 2023-02-06 19:28 | XMS_ITS | Continuity of Care Document ---
Author Name Unknown Organization [facility] ter Address [address] [place] [id number]- Care Team Providers Care Nurse Coordinator Name Role Phone Not on Staff, PCP Primary Care Physician Unavail able Encounter [facility] [place] Date(s): 07/15/22 - 07/15/[address] [id number]- Encounter Diagnosis Numbness of arm(Final) - 07/15/22 Numbness of arm(Final) - 07/15/22 Discharge Disposition: Discharged to Hospice-Home (routine care Attending Physician: Doyle Parrish MD Admitting Physician: Doyle Parrish MD Referring Physician: Not on Staff, Referring MD Allergies, Adverse Reactions, Alerts No Known Allergies Immunizations Given and Recorded Vaccine Date Status Refusal Reason [id number] 12y+ bivalent booster vax 04/29/22 Recorded SARS-CoV-2 mRNA ([id number]) vax 10/25/21 Given SARS-CoV-2 (COVID-19) mRNA BNT-162b2 [...] recieved Medications amLODIPine 5 mg oral tablet 10 mg, [...] opioid drug. Start Date: 05/16/22 Status: Ordered Aspirin Low Dose 81 mg oral tablet, chewable 1 tablet, By Mouth, Daily, # 90 tablet, 3 Refills, Maintenance, 06/23/22 8:15:00 EST, [id number], 162, cm, 06/14/22 13:02:00 EST, Height, 89.7, kg, 06/12/22 19:44:00 EST, Dry Weight Start Date: 06/23/22 Status: Ordered atorvastatin 80 mg oral tablet 1 tablet = 80 mg, By Mouth, Daily at bedtime, # 90 tablet, 3 Refills, Maintenance, 05/13/21 10:15:00 EDT, Tablet, [facility]/pharmacy #[id number], 161.5, cm, 12/14/20 7:49:00 EDT, [...] medical exam Confirmed Active Colonoscopy due in 2019 Confirmed Active Type 2 diabetes mellitus Confirmed Active Results Radiology Reports * Exam Date Time Procedure Performing Provider Status 07/15/22 4:28 PM Chest Portable Rashid Lira (Verified) Notes: (Chest Portable) Reason For Exam: Stroke;Other: RESULT: Chest Portable Chest Portable Reason: Stroke; Clinical Question(s): CHF COMPARISON: 06/11/2022 FINDINGS: LINES AND TUBES: None. LUNGS AND PLEURA: No pneumothorax. No pleural effusion. The lungs are clear. Pulmonary vascularity is normal. HEART, MEDIASTINUM AND DAVID: Heart is normal in size. Normal mediastinal silhouette. BONES AND SOFT TISSUES: No acute bony abnormalities. IMPRESSION: No acute abnormality. WSN: [id number] Ordering Physician: Kyle Oakes Dictated By: Doyle Blair MD Dictated Date/Time: 07/15/22 4:31 pm Reviewed By: Doyle Blair MD Signed By: Doyle Blair MD Signed Date/Time: 07/15/22 4:31 pm Transcribed By: ALEJANDRA Transcribed Date/Time: 07/15/22 4:30 pm * Exam Date Time Procedure Performing Provider Status 07/15/22 3:[address] Head-Hyper Acute Stroke Shine Latrice; Auth (Verified) Notes: (CT Head-Hyper Acute Stroke) Reason For Exam: Neuro deficit, acute, stroke suspected;Other: RESULT: CT Head-Hyper Acute Stroke CT Head-Hyper Acute Stroke Reason: Other:; Neuro deficit, acute, stroke suspected; Clinical Question(s): Other:; Hematoma Infarction TECHNIQUE: Noncontrast head CT using axial technique and reconstructed in axial and coronal planes.Iterative reconstruction techniques are used to optimize dose and image quality. CTDIvol Body: 9.73 mGy, DLP Body: 642 mGy*cm. CTDIvol Head: 45.90 mGy, DLP Head: 772 mGy*cm. COMPARISON: Head CT dated 06/11/2022 and brain MRI dated 06/12/2022. FINDINGS: Freight Hustler view findings, lines and tubes: None. BRAIN AND EXTRA-AXIAL SPACES: No parenchymal hemorrhage, midline shift, or mass effect. Kim-white matter differentiation is wellpreserved. No acute territorial infarct. Unchanged hypodensity in the left basal ganglia extending to the left welch radiata. There is hypodensity compatible with evolving ischemia in the region of the posterior right welch radiata and posterior aspect of the right internal capsule.. Ventricles, sulci, and basilar cisterns are normal. Moderate low-density white matter changes. No subarachnoid hemorrhage. No subdural or epidural collection. CALVARIUM, SKULL BASE, AND SOFT TISSUES: No fractures or suspicious bony lesions. The paranasal sinuses and mastoid air cells are clear. Visualized orbits and globes are intact. The extracranial soft tissues are unremarkable. IMPRESSION: No evidence of intracranial hemorrhage, acute territorial infarct or extra-axial fluid collection. A message regarding these findings was sent to Kyle Oakes DO via Hua[employer] at 07/15/2022 4:10 PM. WSN: [id number] Ordering Physician: Kyle Oakes Dictated By: Africa Bellamy MD Dictated Date/Time: 07/15/22 4:11 pm Reviewed By: Africa Bellamy MD Signed By: Africa Bellamy MD Signed Date/Time: 07/15/22 4:11 pm Transcribed By: ALEJANDRA Transcribed Date/Time: 07/15/22 3:57 pm Vital Signs Most recent to oldest [Reference Range]: 1 2 Oxygen Saturation [94-100 %] 98 % (07/15/22 5:58 PM) 99 % (07/15/22 3:44 PM) Pulse Rate [55-90 bpm] 90 bpm (07/15/22 5:58 PM) 99 bpm *H* (07/15/22 3:44 PM) Blood Pressure [90-138/55-84 mm Hg] 110/ 78mm Hg (07/15/22 5:58 PM) 146/90mm Hg *H* (07/15/22 3:44 PM) Respiratory Rate [16-30 br/min] 17 br/mi n (07/15/22 5:58 PM) 18 br/min (07/15/22 3:44 PM) Temperature [96.8-100.4 DegF] 97.8 DegF (07/15/22 3:44 PM) Mode of Delivery (Oxygen) Room air (07/15/22 5:58 PM) Blood pressure sites Arm, right (07/15/22 5:58 PM) Temperature Route Oral (07/15/22 5:58 PM) Social History Social History Type Response Smoking Status Current every day sm oker; Tobacco user in household: No entered on: 04/24/18 Sex Note * Kyle Oakes DO: PERFORM, SIGN, VERIFY Event Display: Patient Education Handout Authored Date: * BHSPowerscribe , RICK S: Africa White MD: VERIFY Event Display: Result: Authored Date: CT Head-Hyper Acute Stroke Reason: Other:; Neuro deficit, acute, stroke suspected; Clinical Question(s): Other:; Hematoma Infarction TECHNIQUE: Noncontrast head CT using axial technique and reconstructed in axial and coronal planes.Iterative reconstruction techniques are used to optimize dose and image quality. CTDIvol Body: 9.73 mGy, DLP Body: 642 mGy*cm. CTDIvol Head: 45.90 mGy, DLP Head: 772 mGy*cm. COMPARISON: Head CT dated 06/11/2022 and brain MRI dated 06/12/2022. FINDINGS: Freight Hustler view findings, lines and tubes: None. BRAIN AND EXTRA-AXIAL SPACES: No parenchymal hemorrhage, midline shift, or mass effect. Kim-white matter differentiation is wellpreserved. No acute territorial infarct. Unchanged hypodensity in the left basal ganglia extending to the left welch radiata. There is hypodensity compatible with evolving ischemia in the region of the posterior right welch radiata and posterior aspect of the right internal capsule.. Ventricles, sulci, and basilar cisterns are normal. Moderate low-density white matter changes. No subarachnoid hemorrhage. No subdural or epidural collection. CALVARIUM, SKULL BASE, AND SOFT TISSUES: No fractures or suspicious bony lesions. The paranasal sinuses and mastoid air cells are clear. Visualized orbits and globes are intact. The extracranial soft tissues are unremarkable. IMPRESSION: No evidence of intracranial hemorrhage, acute territorial infarct or extra-axial fluid collection. A message regarding these findings was sent to Kyle Oakes DO via [employer] at 07/15/2022 4:10 PM. WSN: [id number] Ordering Physician: Kyle Oakes Dictated By: Africa Bellamy MD Dictated Date/Time: 07/15/22 4:11 pm Reviewed By: Africa Bellamy MD Signed By: Africa Bellamy MD Signed Date/Time: 07/15/22 4:11 pm Transcribed By: ALEJANDRA Transcribed Date/Time: 07/15/22 3:57 pm Portable XR Chest Views * Lucas , CIS S: BENJAMIN Blair MD Doyle J: VERIFY Event Display: Result: Authored Date: Chest Portable Reason: Stroke; Clinical Question(s): CHF COMPARISON: 06/11/2022 FINDINGS: LINES AND TUBES: None. LUNGS AND PLEURA: No pneumothorax. No pleural effusion. The lungs are clear. Pulmonary vascularity is normal. HEART, MEDIASTINUM AND DAVID: Heart is normal in size. Normal mediastinal silhouette. BONES AND SOFT TISSUES: No acute bony abnormalities. IMPRESSION: No acute abnormality. WSN: [id number] Ordering Physician: Kyle Oakes Dictated By: Doyle Blair MD Dictated Date/Time: 07/15/22 4:31 pm Reviewed By: Doyle Blair MD Signed By: Doyle Blair MD Signed Date/Time: 07/15/22 4:31 pm Transcribed By: ALEJANDRA Transcribed Date/Time: 07/15/22 4:30 pm Patient Care team information Care Team Personnel Name: Nitish Bishop RN Position: [facility] ED RN W/OE and Tasks Member Role: Primary Care Nurse Name: Sandrine Celaya RN Position: [facility] RN Member Role: Primary Care Nurse Name: Not on Staff, PCP Position: [facility] Physician (General Medicine) Member Role: PCP Name: Tracee Zamarripa RN Position: [facility] RN Member Role: Primary Care Nurse Name: Cameron Tyler Position: [facility] ED RN W/OE and Tasks Name: Raisa , Caleb Position: [facility] ED [facility] Member Role: Entertainment Musician Name: Doyle Parrish MD Position: [facility] Resident Member Role: Admitting Physician Address: Address: [address] [place] [address] Name: Evan Armstrong RN Position: [facility] ED RN W/OE and Tasks Member Role: Patient Care Provider Name: Kyle Oakes DO Position: [facility] Resident Member Role: ED Resident Address: Address: [address] [place] [address] Care Team Related Persons Name: JANETTE PENA Name: NO ONE, PER PT
--- OUTSIDE RECORDS SUMMARY | 2023-02-06 19:28 | XMS_ITS | Continuity of Care Document ---
Author Name Unknown Organization [facility] ter Address [address] [place] [id number]- Care Team Providers Care Document Analyst Name Role Phone Preethi Kessler MD Primary Care Physician [place] [facility] [place] - 08/04/[address] [address]- Discharge Disposition: A-D/C Walkout Attending Physician: Not on Staff, Attending MD Admitting Physician: Not on Staff, Admitting MD Referring Physician: Not on Staff, Referring MD Allergies, Adverse Reactions, Alerts No Known Allergies Immunizations Given and Recorded Vaccine Date Status Refusal Reason SARS-CoV-2 (COVID-19) mRNA BNT-162b2 vac 10/25/20 Recorded SARS-CoV-2 (COVID-19) mRNA BNT-162b2 vac 10/04/20 Recorded Influenza Virus Vaccine (oldterm) 04/15/20 Recorde d influenza virus vaccine, inactivated 1 05/14/18 Re corded influenza virus vaccine, inactivated 04/21/16 Sergey rded pneumococcal 23-valent vaccine 03/25/14 Recorded diphtheria/tetanus/pertussis, acel(DTaP) 04/03/13 Recorded 1Result Comment: [05/14/2018] flu shot rec'd at [facility] Medications amLODIPine 5 mg oral tablet 5 mg, 1, tablet, By Mouth, Daily, # 90 tablet, Refills 3, Tot. Refills 3, Maintenance, 05/13/21 10:14:00 EDT, Route to Pharmacy Electronically, [facility]/pharmacy #[id number], 161.5, cm, 12/14/20 7:49:00 EDT, Height, 100, kg, 05/23/20 18:05:00 EST, Dry Weight Start Date: 05/13/21 Stop Date: 05/08/22 Status: Ordered Aspirin Low Dose 81 mg oral tablet, chewable 1 tablet, By Mouth, Daily, for 90 days, # 90 tablet, 3 Refills, Physician Stop 05/08/22 10:14:00 EDT, 05/13/21 10:14:00 EDT, [facility]/pharmacy #[id number], 161.5, cm, 12/14/20 7:49:00 EDT, Height, 100, kg, 05/23/20 18:05:00 EST, Dry Weight Start Date: 05/13/21 Stop Date: 05/08/22 Status: Ordered atorvastatin 80 mg oral tablet 1 tablet = 80 mg, By Mouth, Daily at bedtime, # 90 tablet, 3 Refills, Maintenance, 05/13/21 10:15:00 EDT, Tablet, [facility]/pharmacy #[id number], 161.5, cm, 12/14/20 7:49:00 EDT, Height, [...] 100 Unknown, 6 Refills, Maintenance, [id number], 50, TEST BLOOD SUGAR TWICE DAILY, 162.5, cm, 08/25/19 8:40:00 EST, Height, 101.6, kg, 08/06/19 9:59:00 EST, Dry Weight Start Date: 11/19/19 Status: Ordered Januvia 50 mg oral tablet = 50 mg, By Mouth, Daily, # 30 tablet, 3 Refills, Maintenance, 06/28/21 15:30:00 EST, Tablet, [facility]/pharmacy #[id number], new medication; cancel meformin, 161.5, cm, 06/20/21 7:32:00 EST, Height, 100, kg, 05/23/20 18:05:00 EST, Dry Weight Start Date: 06/28/21 Status: Ordered lisinopril 20 mg oral tablet 1, tablet, By Mouth, Daily, # 30 tablet, Refills 2, Route to Pharmacy Electronically, [id number], 161.5, cm, 12/14/20 7:49:00 EDT, Height, 100, kg, 05/23/20 18:05:00 EST, Dry Weight Start Date: 06/05/21 Status: Ordered magnesium oxide 400 mg (240 mg elemental magnesium) oral tablet 1 tablet = 400 mg, By Mouth, Daily, # 100 tablet, 0 Refills, Maintenance, 05/14/20 17:11:00 EDT, Tablet Start Date: 05/14/20 Status: Ordered NuLYTELY with Flavor Packs oral powder for reconstitution See Instructions, 240 mL By Mouth Every 15 minutes, # 4,000 mL, 0 Refills, Maintenance, 08/25/19 9:00:00 EST, [facility]/pharmacy #[id number], 240 mL By Mouth Every 15 minutes, 162.5, cm, 08/25/19 8:40:00 EST, Height, 101.6, kg, 08/06/19 9:59:00 EST, Dry Weight Start Date: 08/25/19 Status: Ordered Trulicity Pen 1.5 mg/0.5 mL subcutaneous solution See Instructions, INJECT 0.5 ML SUBCUTANEOUSLY EVERY WEEK, # 2 Unknown, 5 Refills, 05/12/21 16:42:00 EDT, [id number], 161.5, cm, 12/14/20 7:49:00 EDT, Height, 100, kg, 05/23/20 18:05:00 EST, Dry Weight Start Date: 05/12/21 Status: Ordered Zetia 10 mg oral tablet 1 tablet = 10 mg, By Mouth, Daily, # 30 tablet, 1 Refills, Maintenance, 06/20/21 7:56:00 EST, Tablet, [facility]/pharmacy #[id number], Partial fill upon patient request if the prescription is for a schedule II opioid drug., 161.5, cm, 06/20/21 7:32:00 EST, Height,... Start Date: 06/20/21 Status: Ordered Problem List Condition Effective Dates Status Health Status Inform ant Back pain at L4-L5 level(Confirmed) Active Chest pain(Confirmed) Active ; Chest pain(Confirmed) Active ; Myocardial infarctions - s/p KIM LCx in 2013, s/p KIM OM in 2019(Confirmed) Active History of TIA 2012(Confirmed) Active Hyperlipidemia(Confirmed) Active Hypertension(Confirmed) Active Multiple sclerosis(Confirmed) Active Tobacco Use(Confirmed) Active Obese class I(Confirmed) Active SAQIB - refuses CPAP(Confirmed) Active Optic neuritis(Confirmed) Active Colonoscopy due in 2018(Confirmed) Active Type 2 diabetes mellitus(Confirmed) Active Vital Signs Most recent to oldest [Reference Range]: 1 2 Height 163 cm (08/04/21 11:31 AM) 163 cm (08/04/21 11:20 AM) Weight 93 kg (08/04/21 11:31 AM) 93 kg (08/04/21 11:20 AM) Oxygen Saturation [94-100 %] 100 % (08/04/21 11:31 AM) 98 % (08/04/21 11:20 AM) Pulse Rate [55-90 bpm] 118 bpm *H* (08/04/21 11:31 AM) 122 bpm *H* (08/04/21 11:20 AM) Body Mass Index [18.5-24.99] 35 *>HHI* (08/04/21 11:31 AM) Blood Pressure [90-138/55-84 mm Hg] 173/ 109mm Hg *H* (08/04/21 11:31 AM) 178/138mm Hg *H* (08/04/21 11:20 AM) Respiratory Rate [16-30 br/min] 20 br/mi n (08/04/21 11:31 AM) 18 br/min (08/04/21 11:20 AM) Temperature [96.8-100.4 DegF] 97.7 DegF (08/04/21 11:20 AM) Mode of Delivery (Oxygen) Room air (08/04/21 11:31 AM) Room air (08/04/21 11:20 AM) Blood pressure sites Arm, left (08/04/21 11:31 AM) Arm, left (08/04/21 11:20 AM) Temperature Route Oral (08/04/21 11:20 AM) Dry Weight 93 kg (08/04/21 11:31 AM) 93 kg (08/04/21 11:20 AM) Social History Social History Type Response Smoking Status Current every day tosha gallo; Tobacco user in household: No entered on: 04/24/18 Sex
--- OUTSIDE RECORDS SUMMARY | 2023-02-06 19:28 | XMS_ITS | Continuity of Care Document ---
Author Name Unknown Organization [facility] Address [address] [facility], [address], [address] [place] [id number]- Care Team Providers Care Compounder [employer] Name Role Phone Harman SOW, Vicki Primary Care Physician [phone] [place] [facility] [place] [facility] [address], [address], [address] [place] [id number]- [facility] Attending Physician: Not on Staff, Attending MD Allergies, Adverse Reactions, Alerts Substance Reaction Severity Status NKA Active Immunizations Given and Recorded Vaccine Date Status Refusal Reason influenza virus vaccine, inactivated 1 05/14/18 Re corded influenza virus vaccine, inactivated 04/21/16 Sergey rded pneumococcal 23-valent vaccine 03/25/14 Recorded diphtheria/tetanus/pertussis, acel(DTaP) 04/03/13 Recorded 1Result Comment: [05/14/2018] flu shot rec'd at [facility] Medications Alcohol Wipes See Instructions, # 1 box, Refills 6, Tot. Refills 6, Maintenance, Type 2 Diabetes Mellitus ICD 10 E 11.9. Test 3 times daily., 07/08/18 14:44:55 EST, Compound Start Date: 07/08/18 Status: Ordered amLODIPine 5 mg oral tablet 5 mg, 1, tablet, By Mouth, Daily, # 90 tablet, Refills 3, Tot. Refills 3, Maintenance, 08/06/19 10:11:00 EST, Route to Pharmacy Electronically, [facility]/pharmacy #[id number], 162.5, cm, 08/06/19 9:59:00 EST, Height, 101.6, kg, 08/06/19 9:59:00 EST, Dry Weight Start Date: 08/06/19 Stop Date: 07/31/20 Status: Ordered aspirin 81 mg oral tablet 1 tablet = 81 mg, By Mouth, Daily, OTC, 0 Refills, Maintenance, 07/05/18 11:14:05 EST Start Date: 07/05/18 Status: Ordered atorvastatin 80 mg oral tablet 1 tablet = 80 mg, By Mouth, Daily at bedtime, # 90 tablet, 3 Refills, Maintenance, 07/21/19 12:24:00 EST, Tablet, [facility]/pharmacy #[id number], 162.5, cm, 04/11/19 8:53:00 EDT, Height, 106.6, kg, 10/03/18 11:10:00 EDT, Dry Weight Start Date: 07/21/19 Stop Date: 07/15/20 Status: Ordered clopidogrel 75 mg oral tablet 75 mg, 1, tablet, By Mouth, Daily, # 90 tablet, Refills 3, Tot. Refills 3, Maintenance, 07/21/19 12:24:00 EST, Route to Pharmacy Electronically, [facility]/pharmacy #[id number], 162.5, cm, 04/11/19 8:53:00 EDT, Height, 106.6, kg, 10/03/18 11:10:00 EDT, Dry Weight Start Date: 07/21/19 Stop Date: 07/15/20 Status: Ordered Freestyle Lite Lancets See Instructions, # 90 each, Refills 11, Tot. Refills 11, Maintenance, Type 2 Diabetes Mellitus ICD10 E 11.9. Test 3 times daily., 07/29/18 8:18:28 EST, Compound Start Date: 07/29/18 Status: Ordered Freestyle Lite Monitor See Instructions, [...] Test 2 times daily. 25 day supply, 10/03/18 11:31:30 EDT, Compound Start Date: 10/03/18 Status: Ordered lisinopril 20 mg oral tablet 20 mg, 1, tablet, By Mouth, Daily, # 90 tablet, Refills 3, Tot. Refills 3, Maintenance, 08/06/19 10:12:00 EST, Route to Pharmacy Electronically, [facility]/pharmacy #[id number], please cancel HCTZ-lisinopril and replace with this medication. thanks., 162.5, cm, 01... Start Date: 08/06/19 Stop Date: 07/31/20 Status: Ordered magnesium oxide 400 mg oral tablet 1 tablet = 400 mg, By Mouth, Daily, for 30 days, Take with meal., # 30 tablet, 5 Refills, Acute 01/26/20 14:28:00 EDT, 07/30/19 14:28:00 EST, [facility]/pharmacy #[id number], 162.5, cm, 07/30/19 14:05:00 EST, Height, 106.6, kg, 10/03/18 11:10:00 EDT, Dry Weight Start Date: 07/30/19 Stop Date: 01/26/20 Status: Ordered metFORMIN 1000 mg oral tablet 1 tablet = 1,000 mg, By Mouth, 2 times a day, # 180 tablet, 3 Refills, Maintenance, 10/03/18 11:46:23 EDT, Tablet, please note dose increase from 500 mg to 1000 mg daily Start Date: 10/03/18 Stop Date: 09/28/19 Status: Ordered NuLYTELY with Flavor Packs oral powder for reconstitution See Instructions, 240 mL By Mouth Every 15 minutes, # 4,000 mL, 0 Refills, Maintenance, 08/25/19 9:00:00 EST, [facility]/pharmacy #[id number], 240 mL By Mouth Every 15 minutes, 162.5, cm, 08/25/19 8:40:00 EST, Height, 101.6, kg, 08/06/19 9:59:00 EST, Dry Weight Start Date: 08/25/19 Status: Ordered Trulicity Pen 1.5 mg/0.5 mL subcutaneous solution 0.5 mL = 1.5 mg, Subcutaneous Injection, Every week, # 2.5 mL, 5 Refills, Maintenance, 07/25/19 15:18:00 EST, Solution, [facility]/pharmacy #[id number], 162.5, cm, 04/11/19 8:53:00 EDT, Height, 106.6, kg, 10/03/18 11:10:00 EDT, Dry Weight Start Date: 07/25/19 Status: Ordered Problem List Condition Effective Dates Status Health Status Inform ant Back pain at L4-L5 level(Confirmed) Active CAD - Inferior STEMI s/p KIM in 2013(Confirmed) Active History of TIA 2012(Confirmed) Active Hyperlipidemia(Confirmed) Active Hypertension(Confirmed) Active Multiple sclerosis(Confirmed) Active Tobacco Use(Confirmed) Active SAQIB - refuses CPAP(Confirmed) Active Optic neuritis(Confirmed) Active Colonoscopy due in 2018(Confirmed) Active Type 2 diabetes mellitus(Confirmed) Active Social History Social History Type Response Smoking Status Current every day sm cleo; Tobacco user in household: No entered on: 04/24/18 Sex
--- OUTSIDE RECORDS SUMMARY | 2023-02-06 19:28 | XMS_ITS | Continuity of Care Document ---
Author Name Unknown Organization [facility] Address [address] [place] [address]- Care Team Providers Care Deputy Court Name Role Phone Harman SOW, Vicki Primary Care Physician Encounter [facility] Date(s): 05/14/20 - 05/21/20 [facility] [address], [place] [address] Attending Physician: Vicki Hammer MD Allergies, Adverse Reactions, Alerts Substance Reaction Severity Status NKA Active Immunizations Given and Recorded Vaccine Date Status Refusal Reason Influenza Virus Vaccine (oldterm) 04/15/20 Recorde d influenza virus vaccine, inactivated 1 05/14/18 Re corded influenza virus vaccine, inactivated 04/21/16 Sergey rded pneumococcal 23-valent vaccine 03/25/14 Recorded diphtheria/tetanus/pertussis, acel(DTaP) 04/03/13 Recorded 1Result Comment: [05/14/2018] flu shot rec'd at [facility] Medications amLODIPine 5 mg oral tablet 5 mg, 1, tablet, By Mouth, Daily, # 90 tablet, Refills 3, Tot. Refills 3, Maintenance, 03/23/20 9:43:00 EDT, Route to Pharmacy Electronically, [facility]/pharmacy #[id number], 162.5, cm, 08/25/19 8:40:00 EST, Height, 101.6, kg, 08/06/19 9:59:00 EST, Dry Weight Start Date: 03/23/20 Stop Date: 03/18/21 Status: Ordered aspirin 81 mg oral tablet 1 tablet = 81 mg, By Mouth, Daily, OTC, 0 Refills, Maintenance, 07/05/18 11:14:05 EST Start Date: 07/05/18 Status: Ordered atorvastatin 80 mg oral tablet 1 tablet = 80 mg, By Mouth, Daily at bedtime, # 90 tablet, 3 Refills, Maintenance, 03/23/20 9:42:00EDT, Tablet, [facility]/pharmacy #[id number], 162.5, cm, 08/25/19 8:40:00 EST, Height, 101.6, kg, 08/06/19 9:59:00 EST, Dry Weight Start Date: 03/23/20 Stop Date: 03/18/21 Status: Ordered clopidogrel 75 mg oral tablet 75 mg, 1, tablet, By Mouth, Daily, # 90 tablet, Refills 3, Tot. Refills 3, Maintenance, 03/23/20 9:43:00 EDT, Route to Pharmacy Electronically, [facility]/pharmacy #[id number], 162.5, cm, 08/25/19 8:40:00 EST, Height, 101.6, kg, 08/06/19 9:59:00 EST, Dry Weight Start Date: 03/23/20 Stop Date: 03/18/21 Status: Ordered Freestyle Lite Lancets See Instructions, [...] 100 Unknown, 6 Refills, Maintenance, [facility], 50, TEST BLOOD SUGAR TWICE DAILY, 162.5, cm, 08/25/19 8:40:00 EST, Height, 101.6, kg, 08/06/19 9:59:00 EST, Dry Weight Start Date: 11/19/19 Status: Ordered lisinopril 20 mg oral tablet 20 mg, 1, tablet, By Mouth, Daily, # 90 tablet, Refills 3, Tot. Refills 3, Maintenance, 03/23/20 9:43:00 EDT, Route to Pharmacy Electronically, [facility]/pharmacy #[id number], please cancel HCTZ-lisinopril and replace with this medication. thanks., 162.5, cm, ... Start Date: 03/23/20 Stop Date: 03/18/21 Status: Ordered magnesium oxide 400 mg (240 mg elemental magnesium) oral tablet 1 tablet = 400 mg, By Mouth, Daily, # 100 tablet, 0 Refills, Maintenance, 05/14/20 17:11:00 EDT, Tablet Start Date: 05/14/20 Status: Ordered metFORMIN 1000 mg oral tablet 1 tablet = 1,000 mg, By Mouth, 2 times a day, # 180 tablet, 3 Refills, Maintenance, 03/23/20 9:43:00 EDT, Tablet, [facility]/pharmacy #[id number], please note dose increase from 500 mg to 1000 mg daily, 162.5, cm, 08/25/19 8:40:00 EST, Height, 101.6, kg, 08/06/19... Start Date: 03/23/20 Stop Date: 03/18/21 Status: Ordered NuLYTELY with Flavor Packs oral powder for reconstitution See Instructions, 240 mL By Mouth Every 15 minutes, # 4,000 mL, 0 Refills, Maintenance, 08/25/19 9:00:00 EST, [facility]/pharmacy #[id number], 240 mL By Mouth Every 15 minutes, 162.5, cm, 08/25/19 8:40:00 EST, Height, 101.6, kg, 08/06/19 9:59:00 EST, Dry Weight Start Date: 08/25/19 Status: Ordered Trulicity Pen 1.5 mg/0.5 mL subcutaneous solution 0.5 mL = 1.5 mg, Subcutaneous Injection, Every week, # 2.5 mL, 5 Refills, Maintenance, 03/23/20 9:42:00 EDT, Solution, [id number], 162.5, cm, 08/25/19 8:40:00 EST, Height, 101.6, kg, :59:00 EST, Dry Weight Start Date: 03/23/20 Status: Ordered Problem List Condition Effective Dates [...]
--- OUTSIDE RECORDS SUMMARY | 2023-02-06 19:28 | XMS_ITS | Continuity of Care Document ---
Author Name Unknown Organization [facility] Address [address] [place] [address]- Care Team Providers Care Draw In Hand Name Role Phone Vicki Hammer MD Primary Care Physician [id number] Date(s): 03/23/20 - 03/30/20 [facility] [address] [place] [address]- [facility] Attending Physician: Vicki Hammer MD Allergies, Adverse [...] 03/23/20 9:43:00 EDT, Route to Pharmacy Electronically, [facility]/pharmacy #[id number], 162.5, cm, 08/25/19 8:40:00 EST, Height, [...] tablet, 3 Refills, Maintenance, 03/23/20 9:42:00EDT, Tablet, [facility]/pharmacy #[id number], 162.5, cm, 08/25/19 8:40:00 EST, Height, 101.6, kg, 08/06/19 9:59:00 EST, Dry Weight Start Date: 03/23/20 Stop Date: 03/18/21 Status: Ordered clopidogrel 75 mg oral tablet 75 mg, 1, tablet, By Mouth, Daily, # 90 tablet, Refills 3, Tot. Refills 3, Maintenance, 03/23/20 9:43:00 EDT, Route to Pharmacy Electronically, [facility]/pharmacy #[id number], 162.5, cm, 08/25/19 8:40:00 EST, Height, [...] DAILY, # 100 Unknown, 6 Refills, Maintenance, [facility] ST[facility], 50, TEST BLOOD SUGAR TWICE DAILY, 162.5, cm, 08/25/19 8:40:00 EST, Height, 101.6, kg, 08/06/19 9:59:00 EST, Dry Weight Start Date: 11/19/19 Status: Ordered lisinopril 20 mg oral tablet 20 mg, 1, tablet, By Mouth, Daily, # 90 tablet, Refills 3, Tot. Refills 3, Maintenance, 03/23/20 9:43:00 EDT, Route to Pharmacy Electronically, [facility]/pharmacy #[id number], please cancel HCTZ-lisinopril and replace with this medication. thanks., 162.5, cm, ... Start Date: 03/23/20 Stop Date: 03/18/21 Status: Ordered metFORMIN 1000 mg oral tablet 1 tablet = 1,000 mg, By Mouth, 2 times a day, # 180 tablet, 3 Refills, Maintenance, 03/23/20 9:43:00 EDT, Tablet, [facility]/pharmacy #[id number], please note dose increase from 500 mg to 1000 mg daily, 162.5, cm, 08/25/19 8:40:00 EST, Height, 101.6, kg, 08/06/19... Start Date: 03/23/20 Stop Date: 03/18/21 Status: Ordered NuLYTELY with Flavor Packs oral powder for reconstitution See Instructions, 240 mL By Mouth Every 15 minutes, # 4,000 mL, 0 Refills, Maintenance, 08/25/19 9:00:00 EST, [facility]/pharmacy #[id number], 240 mL By Mouth Every 15 minutes, 162.5, cm, 08/25/19 8:40:00 EST, Height, 101.6, kg, 08/06/19 9:59:00 EST, Dry Weight Start Date: 08/25/19 Status: Ordered Trulicity Pen 1.5 mg/0.5 mL subcutaneous solution 0.5 mL = 1.5 mg, Subcutaneous Injection, Every week, # 2.5 mL, 5 Refills, Maintenance, 03/23/20 9:42:00 EDT, [facility], [id number], 162.5, cm, 08/25/19 8:40:00 EST, Height, 101.6, kg, 209:59:00 EST, Dry Weight Start Date: 03/23/20 Status: Ordered Problem List Condition Effective Dates Status Health Status Inform ant Back pain at L4-L5 level(Confirmed) Active CAD - Inferior STEMI s/p KIM in 2013(Confirmed) Active History of TIA 2012(Confirmed) Active Hyperlipidemia(Confirmed) Active Hypertension(Confirmed) Active Multiple sclerosis(Confirmed) Active Tobacco Use(Confirmed) Active SAQIB - refuses CPAP(Confirmed) Active Optic neuritis(Confirmed) Active Colonoscopy due in 2019(Confirmed) Active Type 2 diabetes mellitus(Confirmed) Active Social History Social History Type Response Smoking Status Current every day tosha gallo; Tobacco user in household: No entered on: 04/24/18 Sex
--- OUTSIDE RECORDS SUMMARY | 2023-02-06 19:28 | XMS_ITS | Continuity of Care Document ---
Author Name Unknown Organization [facility] Address [address] [place] [address]- Care Team Providers Care Shell Trim Operator Name Role Phone Vicki Hammer MD Primary Care Physician Encounter [facility] [place] Date(s): 11/19/19 - 11/26/19 [facility] [address] [place] [address]- [facility] Attending Physician: Vicki Hammer MD Allergies, Adverse Reactions, Alerts Substance Reaction Severity Status NKA Active Immunizations Given and Recorded Vaccine Date Status Refusal Reason influenza virus vaccine, inactivated 1 05/14/18 Re corded influenza virus vaccine, inactivated 04/21/16 Sergey rded pneumococcal 23-valent vaccine 03/25/14 Recorded diphtheria/tetanus/pertussis, acel(DTaP) 04/03/13 Recorded 1Result Comment: [05/14/2018] flu shot rec'd at [facility] Medications Alcohol Wipes See Instructions, # 100 each, Refills 6, Tot. Refills 6, Maintenance, Type 2 Diabetes Mellitus ICD 10 E 11.9. Test 3 times daily., 10/08/19 12:03:00 EDT, Compound, 162.5, cm, 08/25/19 8:40:00 EST, Height, 101.6, kg, 08/06/19 9:59:00 EST, Dry Weight Start Date: 10/08/19 Status: Ordered amLODIPine 5 mg oral tablet 5 mg, 1, tablet, By Mouth, Daily, # 90 tablet, Refills 3, Tot. Refills 3, Maintenance, 08/06/19 10:11:00 EST, Route to Pharmacy Electronically, [facility]/pharmacy #[id number], 162.5, cm, 08/06/19 9:59:00 EST, Height, [...] 3 Refills, Maintenance, 07/21/19 12:24:00 EST, Tablet, [facility]/pharmacy #[id number], 162.5, cm, 04/11/19 8:53:00 EDT, Height, 106.6, kg, 10/03/18 11:10:00 EDT, Dry Weight Start Date: 07/21/19 Stop Date: 07/15/20 Status: Ordered clopidogrel 75 mg oral tablet 75 mg, 1, tablet, By Mouth, Daily, # 90 tablet, Refills 3, Tot. Refills 3, Maintenance, 07/21/19 12:24:00 EST, Route to Pharmacy Electronically, [facility]/pharmacy #[id number], 162.5, cm, 04/11/19 8:53:00 EDT, Height, [...] 100 Unknown, 6 Refills, Maintenance, [facility], 50, TEST BLOOD SUGAR TWICE DAILY, 162.5, cm, 08/25/19 8:40:00 EST, Height, 101.6, kg, 08/06/19 9:59:00 EST, Dry Weight Start Date: 11/19/19 Status: Ordered lisinopril 20 mg oral tablet 20 mg, 1, tablet, By Mouth, Daily, # 90 tablet, Refills 3, Tot. Refills 3, Maintenance, 08/06/19 10:12:00 EST, Route to Pharmacy Electronically, [facility]/pharmacy #[id number], please cancel HCTZ-lisinopril and replace with this medication. thanks., 162.5, cm, 01... Start Date: 08/06/19 Stop Date: 07/31/20 Status: Ordered magnesium oxide 400 mg oral tablet 1 tablet = 400 mg, By Mouth, Daily, for 30 days, Take with meal., # 30 tablet, 5 Refills, Acute 01/26/20 14:28:00 EDT, 07/30/19 14:28:00 EST, [id number], 162.5, cm, 07/30/19 14:05:00 EST, Height, 106.6, kg, 10/03/18 11:10:00 EDT, Dry Weight Start Date: 07/30/19 Stop Date: 01/26/20 Status: Ordered metFORMIN 1000 mg oral tablet 1 tablet = 1,000 mg, By Mouth, 2 times a day, # 180 tablet, 3 Refills, Maintenance, 11/19/19 8:54:00 EDT, Tablet, [id number], please note dose increase from 500 mg to 1000 mg daily, 162.5, cm, 08/25/19 8:40:00 EST, Height, 101.6, kg, 08/06/19... Start Date: 11/19/19 Stop Date: 11/13/20 Status: Ordered NuLYTELY with Flavor Packs oral powder for reconstitution See Instructions, 240 mL By Mouth Every 15 minutes, # 4,000 mL, 0 Refills, Maintenance, 08/25/19 9:00:00 EST, [id number], 240 mL By Mouth Every 15 minutes, 162.5, cm, 08/25/19 8:40:00 EST, Height, 101.6, kg, 08/06/19 9:59:00 EST, Dry Weight Start Date: 08/25/19 Status: Ordered Trulicity Pen 1.5 mg/0.5 mL subcutaneous solution 0.5 mL = 1.5 mg, Subcutaneous Injection, Every week, # 2.5 mL, 5 Refills, Maintenance, 07/25/19 15:18:00 EST, Solution, [id number], 162.5, cm, 04/11/19 8:53:00 EDT, Height, [...]
--- OUTSIDE RECORDS SUMMARY | 2023-02-06 19:28 | XMS_ITS | Continuity of Care Document ---
Author Name Unknown Organization [facility] Address [address] [facility], [address], [address] [place] [address]- Care Team Providers Care Communication Consultant Name Role Phone Harman SOW, Vicki Primary Care Physician Encounter [facility] Date(s): 08/21/19 - 08/31/19 [facility] [address] [facility], [address]rd Floor, [address] [place] [address] [facility] Attending Physician: Otis Gonzales Admitting Physician: AdmOtis hussein Referring Physician: AdmtrOtis Allergies, Adverse Reactions, Alerts Substance Reaction Severity [...] 08/06/19 10:11:00 EST, Route to Pharmacy Electronically, [facility]/pharmacy #[id number], 162.5, cm, 08/06/19 9:59:00 EST, [...] 3 Refills, Maintenance, 07/21/19 12:24:00 EST, Tablet, [facility]/pharmacy #[id number], 162.5, cm, 04/11/19 8:53:00 EDT, Height, 106.6, kg, 10/03/18 11:10:00 EDT, Dry Weight Start Date: 07/21/19 Stop Date: 07/15/20 Status: Ordered clopidogrel 75 mg oral tablet 75 mg, 1, tablet, By Mouth, Daily, # 90 tablet, Refills 3, Tot. Refills 3, Maintenance, 07/21/19 12:24:00 EST, Route to Pharmacy Electronically, [facility]/pharmacy #[id number], 162.5, cm, 04/11/19 8:53:00 EDT, [...] supply, 10/03/18 11:31:30 EDT, Compound Start Date: 3/21/19 Status: Ordered lisinopril 20 mg oral tablet 20 mg, 1, tablet, By Mouth, Daily, # 90 tablet, Refills 3, Tot. Refills 3, Maintenance, 08/06/19 10:12:00 EST, Route to Pharmacy Electronically, [facility]/pharmacy #[id number], please cancel HCTZ-lisinopril and replace with this medication. thanks., 162.5, cm, 01... Start Date: 08/06/19 Stop Date: 07/31/20 Status: Ordered magnesium oxide 400 mg oral tablet 1 tablet = 400 mg, By Mouth, Daily, for 30 days, Take with meal., # 30 tablet, 5 Refills, Acute 01/26/20 14:28:00 EDT, 07/30/19 14:28:00 EST, [facility]/pharmacy #[id number], 162.5, cm, 07/30/19 14:05:00 EST, [...]
--- OUTSIDE RECORDS SUMMARY | 2023-02-06 19:28 | XMS_ITS | Continuity of Care Document ---
Author Name Unknown Organization [facility] Address [address] [place] [address]- Care Team Providers Care Insurance Producer Name Role Phone Preethi Kessler MD Primary Care Physician [phone] Encounter [facility] Date(s): 10/25/21 - 11/24/21 [facility] [address] [place], [place] [address] Attending Physician: Otis Gonzales Admitting Physician: Otis Gonzales Referring Physician: AdmtrOtis Allergies, Adverse Reactions, Alerts No Known Allergies Immunizations Given and Recorded Vaccine Date Status Refusal Reason SARS-CoV-2 mRNA ([id number]) vax 10/25/21 Given SARS-CoV-2 (COVID-19) mRNA BNT-162b2 [...] Stop 05/08/22 10:14:00 EDT, 05/13/21 10:14:00 EDT, [facility]/pharmacy #[id number], 161.5, cm, 12/14/20 7:49:00 EDT, Height, 100, kg, 05/23/20 18:05:00 EST, Dry Weight Start Date: 05/13/21 Stop Date: 05/08/22 Status: Ordered atorvastatin 80 mg oral tablet 1 tablet = 80 mg, By Mouth, Daily at bedtime, # 90 tablet, 3 Refills, Maintenance, 05/13/21 10:15:00 EDT, Tablet, [facility]/pharmacy #[id number], 161.5, cm, 12/14/20 7:49:00 EDT, Height, [...] DAILY, # 100 Unknown, 6 Refills, Maintenance, [facility], 50, TEST BLOOD SUGAR TWICE DAILY, 162.5, cm, 08/25/19 8:40:00 EST, Height, 101.6, kg, 08/06/19 9:59:00 EST, Dry Weight Start Date: 11/19/19 Status: Ordered lisinopril 20 mg oral tablet 1, tablet, By Mouth, Daily, for 90 days, # 90 tablet, Refills 3, Tot. Refills 3, Physician Stop 10/15/22 10:51:00 EDT, 10/20/21 10:51:00 EDT, [id number], 163, cm, 10/20/21 10:33:00 EDT, Height, 93, kg, ... Start Date: 10/20/21 Stop Date: 10/15/22 Status: Ordered lisinopril 30 mg oral tablet 1 tablet = 30 mg, By Mouth, Daily, new dosage, # 90 tablet, 1 Refills, Maintenance, 10/21/21 16:06:00 EDT, Tablet[id number], new dosage, 163, cm, 10/20/21 11:13:00 EDT, Height, 93, kg, 08/04/21 11:31:00 EST, Dry Weight Start Date: 10/21/21 Status: Ordered NuLYTELY with Flavor Packs oral powder for reconstitution See Instructions, 240 mL By Mouth Every 15 minutes, # 4,000 mL, 0 Refills, Maintenance, 08/25/19 9:00:00 EST, [facility]/pharmacy #[id number], 240 mL By Mouth Every 15 minutes, 162.5, cm, 08/25/19 8:40:00 EST, Height, 101.6, kg, 08/06/19 9:59:00 EST, Dry Weight Start Date: 08/25/19 Status: Ordered Trulicity Pen 3 mg/0.5 mL subcutaneous solution = 3 mg, Subcutaneous Injection, Every week, rotate injection sites, # 6 mL, 3 Refills, Maintenance,10/20/21 10:48:00 EDT, Solution, [facility]/pharmacy #[id number], cancel rx for trulicity 1.5mg, 163, cm, 10/20/21 10:33:00 EDT, Height, 93, kg, 08/04/21 11:31:00 E... Start Date: 10/20/21 Stop Date: 10/15/22 Status: Ordered Problem List Condition Effective Dates Status Health Status Inform ant Back pain at L4-L5 level(Confirmed) Active Chest pain(Confirmed) Active ; Chest pain(Confirmed) Active ; Myocardial infarctions - s/p KIM LCx in 2013, s/p KMI OM in 2019(Confirmed) Active History of TIA 2012(Confirmed) Active Hyperlipidemia(Confirmed) Active Hypertension(Confirmed) Active Multiple sclerosis(Confirmed) Active Tobacco Use(Confirmed) Active Obese class II(Confirmed) Active SAQIB - refuses CPAP(Confirmed) Active Optic neuritis(Confirmed) Active Routine medical exam(Confirmed) Active Colonoscopy due in 2018(Confirmed) Active Type 2 diabetes mellitus(Confirmed) Active Social History Social History Type Response Smoking Status Current every day tosha gallo; Tobacco user in household: No entered on: 04/24/18 Sex
--- OUTSIDE RECORDS SUMMARY | 2023-02-06 19:28 | XMS_ITS | Continuity of Care Document ---
Author Name Unknown Organization [facility] Address [address] [place] [address]- Care Team Providers Care Audiovisual Equipment Operator Name Role Phone Preethi Kessler MD Primary Care Physician [phone] Encounter [facility] Date(s): 08/08/21 - 09/07/21 [facility] [address] [place] [address] [place] Allergies, Adverse Reactions, Alerts No Known Allergies Immunizations Given and Recorded Vaccine Date Status Refusal Reason SARS-CoV-2 (COVID-19) mRNA BNT-162b2 vac 06/03/21 Recorded [...] 100 Unknown, 6 Refills, Maintenance, [facility], 50, TEST BLOOD SUGAR TWICE DAILY, 162.5, cm, 08/25/19 8:40:00 EST, Height, 101.6, kg, 08/06/19 9:59:00 EST, Dry Weight Start Date: 11/19/19 Status: Ordered lisinopril 20 mg oral tablet 1, tablet, By Mouth, Daily, # 30 tablet, Refills 4, Tot. Refills 4, 08/08/21 9:29:00 EST, Route to Pharmacy Electronically, [facility]/pharmacy #[id number], 163, cm, 08/04/21 11:31:00 EST, Height, 93, kg, 08/04/21 11:31:00 EST, Dry Weight Start Date: 08/08/21 Status: Ordered NuLYTELY with Flavor Packs oral [...] INJECT 0.5 ML SUBCUTANEOUSLY EVERY WEEK, # 4 Unknown, 5 Refills, 08/08/21 9:37:00EST, [facility]/pharmacy #[id number], 163, cm, 08/04/21 11:31:00 EST, Height, 93, kg, 08/04/21 11:31:00 EST, DryWeight Start Date: 08/08/21 Status: Ordered Problem List Condition Effective Dates [...]
--- OUTSIDE RECORDS SUMMARY | 2023-02-06 19:28 | XMS_ITS | Continuity of Care Document ---
Author Name Unknown Organization [facility] Address [address] [place] [address]- Care Team Providers Care Forms Analyst Name Role Phone Harman SOW, Vicki Primary Care Physician [phone] Encounter [facility] [place] Date(s): 03/18/20 - 04/17/20 [facility] [address] [place] [address]- [facility] Allergies, Adverse Reactions, Alerts Substance Reaction Severity [...] 03/23/20 9:43:00 EDT, Route to Pharmacy Electronically, [facility]/pharmacy #[id number], 162.5, cm, 08/25/19 8:40:00 EST, [...] tablet, 3 Refills, Maintenance, 03/23/20 9:42:00EDT, Tablet, [facility]/pharmacy #[id number], 162.5, cm, 08/25/19 8:40:00 EST, Height, 101.6, kg, 08/06/19 9:59:00 EST, Dry Weight Start Date: 03/23/20 Stop Date: 03/18/21 Status: Ordered clopidogrel 75 mg oral tablet 75 mg, 1, tablet, By Mouth, Daily, # 90 tablet, Refills 3, Tot. Refills 3, Maintenance, 03/23/20 9:43:00 EDT, Route to Pharmacy Electronically, [facility]/pharmacy #[id number], 162.5, cm, 08/25/19 8:40:00 EST, [...] DAILY, # 100 Unknown, 6 Refills, Maintenance, [facility], 50, TEST BLOOD SUGAR TWICE DAILY, 162.5, cm, 08/25/19 8:40:00 EST, Height, 101.6, kg, 08/06/19 9:59:00 EST, Dry Weight Start Date: 11/19/19 Status: Ordered lisinopril 20 mg oral tablet 20 mg, 1, tablet, By Mouth, Daily, # 90 tablet, Refills 3, Tot. Refills 3, Maintenance, 03/23/20 9:43:00 EDT, Route to Pharmacy Electronically, [facility]/pharmacy #[id number], please cancel HCTZ-lisinopril and replace with this medication. thanks., 162.5, cm, ... Start Date: 03/23/20 Stop Date: 03/18/21 Status: Ordered metFORMIN 1000 mg oral tablet 1 tablet = 1,000 mg, By Mouth, 2 times a day, # 180 tablet, 3 Refills, Maintenance, 03/23/20 9:43:00 EDT, Tablet, [facility]/pharmacy #[id number], please note dose increase from 500 mg to 1000 mg daily, 162.5, cm, 08/25/19 8:40:00 EST, Height, 101.6, kg, 08/06/19... Start Date: 03/23/20 Stop Date: 03/18/21 Status: Ordered NuLYTELY with Flavor Packs oral powder for reconstitution See Instructions, 240 mL By Mouth Every 15 minutes, # 4,000 mL, 0 Refills, Maintenance, 08/25/19 9:00:00 EST, [facility]/pharmacy #[id number], 240 mL By Mouth Every 15 minutes, 162.5, cm, 08/25/19 8:40:00 EST, Height, 101.6, kg, 08/06/19 9:59:00 EST, Dry Weight Start Date: 08/25/19 Status: Ordered Trulicity Pen 1.5 mg/0.5 mL subcutaneous solution 0.5 mL = 1.5 mg, Subcutaneous Injection, Every week, # 2.5 mL, 5 Refills, Maintenance, 03/23/20 9:42:00 EDT, Solution, [facility]/pharmacy #[id number], 162.5, cm, 08/25/19 8:40:00 EST, [...]
--- OUTSIDE RECORDS SUMMARY | 2023-02-06 19:28 | XMS_ITS | Continuity of Care Document ---
Author Name Unknown Organization [facility] Address [address] [place] [address]- Care Team Providers Care Mint Machine Operator Name Role Phone Checo SOW, Preethi Baez Primary Care Physician [phone] [facility] [facility] Date(s): 06/30/21 - 07/30/21 [facility] [address] [place] [address]- Allergies, Adverse Reactions, Alerts No Known Allergies [...] 05/13/21 10:14:00 EDT, Route to Pharmacy Electronically, [facility]/pharmacy #[id number], 161.5, cm, 12/14/20 7:49:00 EDT, Height, 100, kg, 05/23/20 18:05:00 EST, Dry Weight Start Date: 05/13/21 Stop Date: 05/08/22 Status: Ordered Aspirin Low Dose 81 mg oral tablet, chewable 1 tablet, By Mouth, Daily, for 90 days, # 90 tablet, 3 Refills, Physician Stop 05/08/22 10:14:00 EDT, 05/13/21 10:14:00 EDT, [facility]/pharmacy #[id number], 161.5, cm, 12/14/20 7:49:00 EDT, Height, 100, kg, 05/23/20 18:05:00 EST, Dry Weight Start Date: 05/13/21 Stop Date: 05/08/22 Status: Ordered atorvastatin 80 mg oral tablet 1 tablet = 80 mg, By Mouth, Daily at bedtime, # 90 tablet, 3 Refills, Maintenance, 05/13/21 10:15:00 EDT, Tablet, [facility]/pharmacy #[id number], 161.5, cm, 12/14/20 7:49:00 [...] 100 Unknown, 6 Refills, Maintenance, [facility], 50, TEST BLOOD SUGAR TWICE DAILY, 162.5, cm, 08/25/19 8:40:00 EST, Height, 101.6, kg, 08/06/19 9:59:00 EST, Dry Weight Start Date: 11/19/19 Status: Ordered Januvia 50 mg oral tablet = 50 mg, By Mouth, Daily, # 30 tablet, 3 Refills, Maintenance, 06/28/21 15:30:00 EST, Tablet, [facility]/pharmacy #[id number], new medication; cancel meformin, 161.5, cm, 06/20/21 7:32:00 EST, Height, 100, kg, 05/23/20 18:05:00 EST, Dry Weight Start Date: 06/28/21 Status: Ordered lisinopril 20 mg oral tablet 1, tablet, By Mouth, Daily, # 30 tablet, Refills 2, Route to Pharmacy Electronically, [id number], 161.5, cm, 12/14/20 7:49:00 EDT, Height, 100, [...] mL, 0 Refills, Maintenance, 08/25/19 9:00:00 EST, [facility]/pharmacy #[id number], 240 mL By Mouth [...] 1 Refills, Maintenance, 06/20/21 7:56:00 EST, Tablet, [facility]/pharmacy #[id number], Partial fill upon patient request if [...]
--- OUTSIDE RECORDS SUMMARY | 2023-02-06 19:28 | XMS_ITS | Continuity of Care Document ---
Author Name Unknown Organization [facility] Address [address] [place] [address]- Care Team Providers Care Induction Furnace Operator Name Role Phone Preethi Kessler MD Primary Care Physician Encounter [facility] [place] Date(s): 12/05/21 - 01/04/22 [facility] [address] [place] [address]- Attending Physician: Admjovita, Otis Admitting Physician: Admtr, Ar8 Referring Physician: Admtr, Ar8 Allergies, Adverse Reactions, Alerts No Known Allergies Immunizations Given and Recorded Vaccine Date Status Refusal Reason SARS-CoV-2 mRNA ([id number]-[id number]) vax 10/25/21 Given SARS-CoV-2 (COVID-19) mRNA BNT-162b2 [...] Stop 05/08/22 10:14:00 EDT, 05/13/21 10:14:00 EDT, [facility]/pharmacy #[id number], 161.5, cm, 12/14/20 7:49:00 EDT, Height, 100, kg, 05/23/20 18:05:00 EST, Dry Weight Start Date: 05/13/21 Stop Date: 05/08/22 Status: Ordered atorvastatin 80 mg oral tablet 1 tablet = 80 mg, By Mouth, Daily at bedtime, # 90 tablet, 3 Refills, Maintenance, 05/13/21 10:15:00 EDT, Tablet, [facility]/pharmacy #[id number], 161.5, cm, 12/14/20 7:49:00 [...] 100 Unknown, 6 Refills, Maintenance, [facility], 50, TEST BLOOD SUGAR TWICE DAILY, 162.5, cm, 08/25/19 8:40:00 EST, Height, 101.6, kg, 08/06/19 9:59:00 EST, Dry Weight Start Date: 11/19/19 Status: Ordered lisinopril 20 mg oral tablet 1, tablet, By Mouth, Daily, for 90 days, # 90 tablet, Refills 3, Tot. Refills 3, Physician Stop 10/15/22 10:51:00 EDT, 10/20/21 10:51:00 EDT, Route to Pharmacy Electronically, [facility]/pharmacy #[id number], 163, cm, 10/20/21 10:33:00 EDT, Height, 93, kg, ... Start Date: 10/20/21 Stop Date: 10/15/22 Status: Ordered lisinopril 30 mg oral tablet 1 tablet = 30 mg, By Mouth, Daily, new dosage, # 90 tablet, 1 Refills, Maintenance, 10/21/21 16:06:00 EDT, Tablet, [facility]/pharmacy #[id number], new dosage, 163, cm, 10/20/21 11:13:00 EDT, Height, 93, kg, 08/04/21 11:31:00 EST, Dry Weight Start Date: 10/21/21 Status: Ordered NuLYTELY with Flavor Packs oral powder for reconstitution See Instructions, 240 mL By Mouth Every 15 minutes, # 4,000 mL, 0 Refills, Maintenance, 08/25/19 9:00:00 EST, [facility]/pharmacy #[id number], 240 mL By Mouth Every 15 minutes, 162.5, cm, 08/25/19 8:40:00 EST, Height, 101.6, kg, 08/06/19 9:59:00 EST, Dry Weight Start Date: 08/25/19 Status: Ordered Trulicity Pen 3 mg/0.5 mL subcutaneous solution = 3 mg, Subcutaneous Injection, Every week, rotate injection sites, # 6 mL, 3 Refills, Maintenance,10/20/21 10:48:00 EDT, Solution, [facility]/pharmacy #[id number], cancel rx for trulicity [...]
--- OUTSIDE RECORDS SUMMARY | 2023-02-06 19:28 | XMS_ITS | Continuity of Care Document ---
Author Name Unknown Organization [facility] Address [address] [place] [address]- Care Team Providers Care Hot Room Attendant Name Role Phone Harman SOW, Vicki Primary Care Physician [place] [facility] [place]s): 07/12/20 - 08/11/20 [facility] [address] [place], [place] [address] Allergies, Adverse Reactions, Alerts Substance Reaction Severity [...] mg, 1, tablet, By Mouth, Daily, # 30 tablet, Refills 11, Tot. Refills 11, Maintenance, 05/25/20 8:25:00 EST, Route to Pharmacy Electronically, [facility]/pharmacy #[id number], 161.5, cm, 05/24/20 15:59:00 EST, Height, 100, kg, 05/23/20 18:05:00 EST, Dry Weight Start Date: 05/25/20 Stop Date: 05/20/21 Status: Ordered aspirin 81 mg oral tablet, chewable 81 mg, 1, tablet, By Mouth, Daily, OTC, # 30 tablet, Refills 11, Tot. Refills 11, Maintenance, 05/25/20 8:25:00 EST, Route to Pharmacy Electronically, [facility]/pharmacy #[id number], 161.5, cm, 05/24/20 15:59:00EST, Height, 100, kg, 05/23/20 18:05:00 EST, Dry We... Start Date: 05/25/20 Stop Date: 05/20/21 Status: Ordered atorvastatin 80 mg oral tablet 1 tablet = 80 mg, By Mouth, Daily at bedtime, # 30 tablet, 11 Refills, Maintenance, 05/25/20 8:25:00 EST, Tablet, [facility]/pharmacy #[id number], 161.5, cm, 05/24/20 15:59:00 EST, Height, 100, kg, 05/23/20 18:05:00 EST, Dry Weight Start Date: 05/25/20 Stop Date: 05/20/21 Status: Ordered clopidogrel 75 mg oral tablet 75 mg, 1, tablet, By Mouth, Daily, # 30 tablet, Refills 11, Tot. Refills 11, Maintenance, 05/25/20 8:25:00 EST, Route to Pharmacy Electronically, [facility]/pharmacy #[id number], 161.5, cm, 05/24/20 15:59:00 EST,Height, 100, kg, 05/23/20 18:05:00 EST, Dry Weight Start Date: 05/25/20 Stop Date: 05/20/21 Status: Ordered Freestyle Lite Lancets See Instructions, [...] 100 Unknown, 6 Refills, Maintenance, [facility], 50, TEST BLOOD SUGAR TWICE DAILY, 162.5, cm, 08/25/19 8:40:00 EST, Height, 101.6, kg, 08/06/19 9:59:00 EST, Dry Weight Start Date: 11/19/19 Status: Ordered lisinopril 20 mg oral tablet 20 mg, 1, tablet, By Mouth, Daily, # 90 tablet, Refills 3, Tot. Refills 3, Maintenance, 03/23/20 9:43:00 EDT, Route to Pharmacy Electronically, [facility]/pharmacy #[id number], please cancel HCTZ-lisinopril and replace with this medication. thanks., 162.5, cm, 02/... Start Date: 03/23/20 Stop Date: 03/18/21 Status: [...] 3 Refills, Maintenance, 03/23/20 9:43:00 EDT, Tablet, [facility]/pharmacy #[id number], please note dose increase from 500 mg to 1000 mg daily, 162.5, cm, 08/25/19 8:40:00 EST, Height, 101.6, kg, 08/06/19... Start Date: 03/23/20 Stop Date: 03/18/21 Status: Ordered Nicotine 2 mg gum 1 each = 2 mg, Chew, Every 2 hours, PRN as needed for smoking cessation, as directed on package labeling, # 160 each, 0 Refills, Acute 05/26/21 8:00:00 EST, 05/25/20 17:42:00 EST, [facility]um, [id number], 161.5, cm, 05/24/20 15:59:00 EST, Height, 100,... Start Date: 05/25/20 Stop Date: 05/26/21 Status: Ordered NuLYTELY with Flavor Packs oral [...]
--- OUTSIDE RECORDS SUMMARY | 2023-02-06 19:28 | XMS_ITS | Continuity of Care Document ---
Author Name Unknown Organization [facility] Address [address] [place] [address]- Care Team Providers Care Research Microbiologist Name Role Phone Harman SOW, Vicki Primary Care Physician [phone] Encounter [facility] Date(s): 05/25/20 - 06/24/20 [facility] [address] [place], [place] [address] Allergies, Adverse Reactions, Alerts [...] 8:25:00 EST, Route to Pharmacy Electronically, [facility]/pharmacy #[id number], 161.5, cm, 05/24/20 15:59:00 EST, Height, 100, kg, 05/23/20 18:05:00 EST, Dry Weight Start Date: 05/25/20 Stop Date: 05/20/21 Status: Ordered aspirin 81 mg oral tablet, chewable 81 mg, 1, tablet, By Mouth, Daily, OTC, # 30 tablet, Refills 11, Tot. Refills 11, Maintenance, 05/25/20 8:25:00 EST, Route to Pharmacy Electronically, [facility]/pharmacy #[id number], 161.5, cm, 05/24/20 15:59:00EST, Height, 100, kg, 05/23/20 18:05:00 EST, Dry We... Start Date: 05/25/20 Stop Date: 05/20/21 Status: Ordered atorvastatin 80 mg oral tablet 1 tablet = 80 mg, By Mouth, Daily at bedtime, # 30 tablet, 11 Refills, Maintenance, 05/25/20 8:25:00 EST, Tablet, [facility]/pharmacy #[id number], 161.5, cm, 05/24/20 15:59:00 EST, Height, 100, kg, 05/23/20 18:05:00 EST, Dry Weight Start Date: 05/25/20 Stop Date: 05/20/21 Status: Ordered clopidogrel 75 mg oral tablet 75 mg, 1, tablet, By Mouth, Daily, # 30 tablet, Refills 11, Tot. Refills 11, Maintenance, 05/25/20 8:25:00 EST, Route to Pharmacy Electronically, [facility]/pharmacy #[id number], 161.5, cm, 05/24/20 15:59:00 EST,Height, 100, [...] 100 Unknown, 6 Refills, Maintenance, [facility], 50, TEST BLOOD SUGAR TWICE DAILY, 162.5, cm, 08/25/19 8:40:00 EST, Height, 101.6, kg, 08/06/19 9:59:00 EST, Dry Weight Start Date: 11/19/19 Status: Ordered lisinopril 20 mg oral tablet 20 mg, 1, tablet, By Mouth, Daily, # 90 tablet, Refills 3, Tot. Refills 3, Maintenance, 03/23/20 9:43:00 EDT, Route to Pharmacy Electronically, [facility]/pharmacy #[id number], please cancel HCTZ-lisinopril and replace [...] Refills, Maintenance, 03/23/20 9:43:00 EDT, Tablet, [facility]/pharmacy #[id number], please note dose increase from [...]
--- OUTSIDE RECORDS SUMMARY | 2023-02-06 19:28 | XMS_ITS | Continuity of Care Document ---
Author Name Unknown Organization [facility] Address [address] [place] [address]- Care Team Providers Care Staff Nurse Anesthetist Name Role Phone Preethi Kessler MD Primary Care Physician Encounter [facility] [place] [facility] [id number] Date(s): 03/23/22 - 03/30/22 [facility] [address] [place], [place] [address] Attending Physician: Preethi Kessler MD Allergies, Adverse Reactions, Alerts No Known Allergies Immunizations Given and Recorded Vaccine Date Status Refusal Reason SARS-CoV-2 mRNA ([id number]) vax 10/25/21 Given SARS-CoV-2 (COVID-19) mRNA BNT-162b2 [...] Stop 05/08/22 10:14:00 EDT, 05/13/21 10:14:00 EDT, [facility]/pharmacy #[id number], 161.5, cm, 12/14/20 7:49:00 EDT, Height, 100, kg, 05/23/20 18:05:00 EST, Dry Weight Start Date: 05/13/21 Stop Date: 05/08/22 Status: Ordered atorvastatin 80 mg oral tablet 1 tablet = 80 mg, By Mouth, Daily at bedtime, # 90 tablet, 3 Refills, Maintenance, 05/13/21 10:15:00 EDT, Tablet, [facility]/pharmacy #[id number], 161.5, cm, 12/14/20 7:49:00 EDT, Height, [...] DAILY, # 100 Unknown, 6 Refills, Maintenance, [facility], 50, TEST BLOOD SUGAR TWICE DAILY, 162.5, cm, 08/25/19 8:40:00 EST, Height, 101.6, kg, 08/06/19 9:59:00 EST, Dry Weight Start Date: 11/19/19 Status: Ordered lisinopril 20 mg oral tablet 1, tablet, By Mouth, Daily, for 90 days, # 90 tablet, Refills 3, Tot. Refills 3, Physician Stop 10/15/22 10:51:00 EDT, 10/20/21 10:51:00 EDT, Route to Pharmacy Electronically, [facility]/pharmacy #[id number], 163, cm, 10/20/21 10:33:00 EDT, Height, 93, kg, ... Start Date: 10/20/21 Stop Date: 10/15/22 Status: Ordered lisinopril 30 mg oral tablet 1 tablet = 30 mg, By Mouth, Daily, new dosage, # 90 tablet, 1 Refills, Maintenance, 10/21/21 16:06:00 EDT, Tablet, [facility]/pharmacy #[id number], new dosage, 163, cm, 10/20/21 11:13:00 EDT, Height, 93, kg, 08/04/21 11:31:00 EST, Dry Weight Start Date: 10/21/21 Status: Ordered NuLYTELY with Flavor Packs oral powder for reconstitution See Instructions, 240 mL By Mouth Every 15 minutes, # 4,000 mL, 0 Refills, Maintenance, 08/25/19 9:00:00 EST, [facility]/pharmacy #[id number], 240 mL By Mouth Every 15 minutes, 162.5, cm, 08/25/19 8:40:00 EST, Height, 101.6, kg, 08/06/19 9:59:00 EST, Dry Weight Start Date: 08/25/19 Status: Ordered Trulicity Pen 3 mg/0.5 mL subcutaneous solution = 3 mg, Subcutaneous Injection, Every week, rotate injection sites, # 6 mL, 3 Refills, Maintenance,10/20/21 10:48:00 EDT, Solution, [facility]/pharmacy #[id number], cancel rx for trulicity 1.5mg, 163, [...] Most recent to oldest [Reference Range]: 1 Height 163 cm (03/23/22 10:27 AM) Weight 95.1 kg (03/23/22 10:27 AM) Oxygen Saturation [94-100 %] 98 % (03/23/22 10:27 AM) Pulse Rate [55-90 bpm] 88 bpm (03/23/22 10:27 AM) Body Mass Index [18.5-24.99] 35.79 *>HHI* (03/23/22 10:27 AM) Mode of Delivery (Oxygen) Room air (03/23/22 10:27 AM) Social History Social History Type Response Smoking Status Current every day tosha gallo; Tobacco user in household: No entered on: 04/24/18 Sex Care Team Personnel Name: Preethi Kessler MD Address: [address] [place] [address]
--- OUTSIDE RECORDS SUMMARY | 2023-02-06 19:28 | XMS_ITS | Continuity of Care Document ---
Author Name Unknown Organization [facility] Address Unknown Care Team Providers Care Client Service Associate Name Role Phone Preethi Kessler MD Primary Care Physician Encounter [facility] [place] Date(s): 02/02/22 - 03/04/22 [facility] Allergies, Adverse Reactions, Alerts No Known Allergies Immunizations Given and Recorded Vaccine Date Status Refusal Reason SARS-CoV-2 mRNA ([id number]-[id number]) vax 10/25/21 Given SARS-CoV-2 (COVID-19) mRNA BNT-162b2 [...] Stop 05/08/22 10:14:00 EDT, 05/13/21 10:14:00 EDT, [facility]/pharmacy #[id number], 161.5, cm, 12/14/20 7:49:00 EDT, Height, 100, kg, 05/23/20 18:05:00 EST, Dry Weight Start Date: 05/13/21 Stop Date: 05/08/22 Status: Ordered atorvastatin 80 mg oral tablet 1 tablet = 80 mg, By Mouth, Daily at bedtime, # 90 tablet, 3 Refills, Maintenance, 05/13/21 10:15:00 EDT, Tablet, [facility]/pharmacy #[id number], 161.5, cm, 12/14/20 7:49:00 EDT, [...] DAILY, # 100 Unknown, 6 Refills, Maintenance, [facility], 50, TEST BLOOD SUGAR TWICE DAILY, 162.5, cm, 08/25/19 8:40:00 EST, Height, 101.6, kg, 08/06/19 9:59:00 EST, Dry Weight Start Date: 11/19/19 Status: Ordered lisinopril 20 mg oral tablet 1, tablet, By Mouth, Daily, for 90 days, # 90 tablet, Refills 3, Tot. Refills 3, Physician Stop 10/15/22 10:51:00 EDT, 10/20/21 10:51:00 EDT, Route to Pharmacy Electronically, [facility]/pharmacy #[id number], 163, cm, 10/20/21 10:33:00 EDT, Height, 93, kg, ... Start Date: 10/20/21 Stop Date: 10/15/22 Status: Ordered lisinopril 30 mg oral tablet 1 tablet = 30 mg, By Mouth, Daily, new dosage, # 90 tablet, 1 Refills, Maintenance, 10/21/21 16:06:00 EDT, Tablet, [facility]/pharmacy #[id number], new dosage, 163, cm, 10/20/21 11:13:00 EDT, Height, 93, kg, 08/04/21 11:31:00 EST, Dry Weight Start Date: 10/21/21 Status: Ordered NuLYTELY with Flavor Packs oral powder for reconstitution See Instructions, 240 mL By Mouth Every 15 minutes, # 4,000 mL, 0 Refills, Maintenance, 08/25/19 9:00:00 EST, [facility]/pharmacy #[id number], 240 mL By Mouth Every 15 minutes, 162.5, cm, 08/25/19 8:40:00 EST, Height, 101.6, kg, 08/06/19 9:59:00 EST, Dry Weight Start Date: 08/25/19 Status: Ordered Trulicity Pen 3 mg/0.5 mL subcutaneous solution = 3 mg, Subcutaneous Injection, Every week, rotate injection sites, # 6 mL, 3 Refills, Maintenance,10/20/21 10:48:00 EDT, Solution, [facility]/pharmacy #[id number], cancel rx for trulicity 1.5mg, 163, [...]
--- OUTSIDE RECORDS SUMMARY | 2023-02-06 19:28 | XMS_ITS | Continuity of Care Document ---
Author Name Unknown Organization [facility] Address [address] [facility], [address], [address] [place] [address]- Care Team Providers Care Truck Shop Mechanic Name Role Phone Not on Staff, PCP Primary Care Physician Unavail able Encounter [facility] Date(s): 03/23/22 - 04/22/22 [facility] [address], [address], [address] [place] [address]- Attending Physician: Otis Gonzales Admitting Physician: Otis Gonzales Referring Physician: AdmtrOtis Allergies, Adverse Reactions, Alerts No Known Allergies Immunizations Given and Recorded Vaccine Date Status Refusal Reason SARS-CoV-2 mRNA ([id number]-[id number]) vax 10/25/21 Given SARS-CoV-2 (COVID-19) mRNA BNT-162b2 [...] 3 Refills, Maintenance, 05/13/21 10:15:00 EDT, Tablet, [facility]/pharmacy #[id number], 161.5, cm, 12/14/20 [...] DAILY, # 100 Unknown, 6 Refills, Maintenance, [facility], 50, TEST BLOOD SUGAR TWICE DAILY, 162.5, cm, 08/25/19 8:40:00 EST, Height, 101.6, kg, 08/06/19 9:59:00 EST, Dry Weight Start Date: 11/19/19 Status: Ordered lisinopril 20 mg oral tablet 1, tablet, By Mouth, Daily, for 90 days, # 90 tablet, Refills 3, Tot. Refills 3, Physician Stop 10/15/22 10:51:00 EDT, 10/20/21 10:51:00 EDT, Route to Pharmacy Electronically, [facility]/pharmacy #[id number], 163, cm, 10/20/21 10:33:00 EDT, Height, 93, kg, ... Start Date: 10/20/21 Stop Date: 10/15/22 Status: Ordered lisinopril 30 mg oral tablet 1 tablet = 30 mg, By Mouth, Daily, new dosage, # 90 tablet, 1 Refills, Maintenance, 10/21/21 16:06:00 EDT, Tablet, [facility]/pharmacy #[id number], new dosage, 163, cm, 10/20/21 11:13:00 EDT, Height, 93, kg, 08/04/21 11:31:00 EST, Dry Weight Start Date: 10/21/21 Status: Ordered NuLYTELY with Flavor Packs oral powder for reconstitution See Instructions, 240 mL By Mouth Every 15 minutes, # 4,000 mL, 0 Refills, Maintenance, 08/25/19 9:00:00 EST, [facility]/pharmacy #[id number], 240 mL By Mouth Every 15 minutes, 162.5, cm, 08/25/19 8:40:00 EST, Height, 101.6, kg, 08/06/19 9:59:00 EST, Dry Weight Start Date: 08/25/19 Status: Ordered Trulicity Pen 3 mg/0.5 mL subcutaneous solution = 3 mg, Subcutaneous Injection, Every week, rotate injection sites, # 6 mL, 3 Refills, Maintenance,10/20/21 10:48:00 EDT, Solution, [facility]/pharmacy #[id number], cancel rx for [...]
--- OUTSIDE RECORDS SUMMARY | 2023-02-06 19:28 | XMS_ITS | Continuity of Care Document ---
Author Name Unknown Organization [facility] Address [address] [place] [address]- Care Team Providers Care Bit Bender Name Role Phone Harman SOW, Vicki Primary Care Physician Encounter [facility] Date(s): 06/16/20 - 07/16/20 [facility] [address] [place] [id number] Attending Physician: Otis Gonzales Admitting Physician: AdmtrOtis Referring Physician: Admtr, Ar8 Allergies, Adverse Reactions, Alerts Substance Reaction Severity [...] 05/25/20 8:25:00 EST, Route to Pharmacy Electronically, [facility]/pharmacy #[id number], 161.5, cm, 05/24/20 15:59:00 EST, Height, 100, kg, 05/23/20 18:05:00 EST, Dry Weight Start Date: 05/25/20 Stop Date: 05/20/21 Status: Ordered aspirin 81 mg oral tablet, chewable 81 mg, 1, tablet, By Mouth, Daily, OTC, # 30 tablet, Refills 11, Tot. Refills 11, Maintenance, 05/25/20 8:25:00 EST, Route to Pharmacy Electronically, [facility]/pharmacy #[id number], 161.5, cm, 05/24/20 15:59:00EST, Height, 100, kg, 05/23/20 18:05:00 EST, Dry We... Start Date: 05/25/20 Stop Date: 05/20/21 Status: Ordered atorvastatin 80 mg oral tablet 1 tablet = 80 mg, By Mouth, Daily at bedtime, # 30 tablet, 11 Refills, Maintenance, 05/25/20 8:25:00 EST, Tablet, [facility]/pharmacy #[id number], 161.5, cm, 05/24/20 15:59:00 EST, Height, 100, kg, 05/23/20 18:05:00 EST, Dry Weight Start Date: 05/25/20 Stop Date: 05/20/21 Status: Ordered clopidogrel 75 mg oral tablet 75 mg, 1, tablet, By Mouth, Daily, # 30 tablet, Refills 11, Tot. Refills 11, Maintenance, 05/25/20 8:25:00 EST, [id number] 161.5, cm, 05/24/20 15:59:00 EST,Height, 100, [...] 100 Unknown, 6 Refills, Maintenance, [facility], 50, TEST BLOOD SUGAR TWICE DAILY, 162.5, cm, 08/25/19 8:40:00 EST, Height, 101.6, kg, 08/06/19 9:59:00 EST, Dry Weight Start Date: 11/19/19 Status: Ordered lisinopril 20 mg oral tablet 20 mg, 1, tablet, By Mouth, Daily, # 90 tablet, Refills 3, Tot. Refills 3, Maintenance, 03/23/20 9:43:00 EDT, Route to Pharmacy Electronically, [facility]/pharmacy #[id number], please cancel HCTZ-lisinopril and replace with [...] 3 Refills, Maintenance, 03/23/20 9:43:00 EDT, Tablet, [facility]/pharmacy #[id number], please note dose increase from 500 [...]
--- OUTSIDE RECORDS SUMMARY | 2023-02-06 19:28 | XMS_ITS | Continuity of Care Document ---
Author Name Unknown Organization [facility] Address [address] [place] [address]- Care Team Providers Care Bending Frame Operator Name Role Phone Hamran SOW, Vicki Primary Care Physician [phone] Encounter [facility] Date(s): 08/08/19 - 09/13/[address] [address] Attending Physician: Mely Montes NP Admitting Physician: Mely Montes NP Referring Physician: Mely Montes NP Allergies, Adverse Reactions, Alerts Substance Reaction Severity [...] 08/06/19 10:11:00 EST, Route to Pharmacy Electronically, [facility]/pharmacy #[id number], 162.5, cm, 08/06/19 9:59:00 EST, [...] 3 Refills, Maintenance, 07/21/19 12:24:00 EST, Tablet, [facility]/pharmacy #[id number], 162.5, cm, 04/11/19 8:53:00 EDT, Height, 106.6, kg, 10/03/18 11:10:00 EDT, Dry Weight Start Date: 07/21/19 Stop Date: 07/15/20 Status: Ordered clopidogrel 75 mg oral tablet 75 mg, 1, tablet, By Mouth, Daily, # 90 tablet, Refills 3, Tot. Refills 3, Maintenance, 07/21/19 12:24:00 EST, Route to Pharmacy Electronically, [facility]/pharmacy #[id number], 162.5, cm, 04/11/19 8:53:00 EDT, [...] 08/06/19 10:12:00 EST, Route to Pharmacy Electronically, [facility]/pharmacy #[id number], please cancel HCTZ-lisinopril and replace with this medication. thanks., 162.5, cm, 01... Start Date: 08/06/19 Stop Date: 07/31/20 Status: Ordered magnesium oxide 400 mg oral tablet 1 tablet = 400 mg, By Mouth, Daily, for 30 days, Take with meal., # 30 tablet, 5 Refills, Acute 01/26/20 14:28:00 EDT, 07/30/19 14:28:00 EST, [facility]/pharmacy #[id number], 162.5, cm, 07/30/19 14:05:00 EST, [...] mL, 0 Refills, Maintenance, 08/25/19 9:00:00 EST, [facility]/pharmacy #[id number], 240 mL By Mouth Every 15 minutes, 162.5, cm, 08/25/19 8:40:00 EST, Height, 101.6, kg, 08/06/19 9:59:00 EST, Dry Weight Start Date: 08/25/19 Status: Ordered Trulicity Pen 1.5 mg/0.5 mL subcutaneous solution 0.5 mL = 1.5 mg, Subcutaneous Injection, Every week, # 2.5 mL, 5 Refills, Maintenance, 07/25/19 15:18:00 EST, Solution, [facility]/pharmacy #[id number], 162.5, cm, 04/11/19 8:53:00 EDT, [...]
--- OUTSIDE RECORDS SUMMARY | 2023-02-06 19:28 | XMS_ITS | Continuity of Care Document ---
Author Name Unknown Organization [facility] Address [address] [place] [address]- Care Team Providers Care Child Psychiatrist Name Role Phone Vicki Hammer MD Primary Care Physician [phone] Encounter [facility] Date(s): 05/28/20 - 06/27/20 [facility] [address] [place] [address]- Attending Physician: Otis Gonzales Admitting Physician: Admtr, Otis Referring Physician: Admtr, Ar8 Allergies, Adverse Reactions, [...] 05/25/20 8:25:00 EST, Route to Pharmacy Electronically, [facility]/pharmacy #[id number], 161.5, cm, 05/24/20 15:59:00 EST, Height, 100, kg, 05/23/20 18:05:00 EST, Dry Weight Start Date: 05/25/20 Stop Date: 05/20/21 Status: Ordered aspirin 81 mg oral tablet, chewable 81 mg, 1, tablet, By Mouth, Daily, OTC, # 30 tablet, Refills 11, Tot. Refills 11, Maintenance, 05/25/20 8:25:00 EST, Route to Pharmacy Electronically, [facility]/pharmacy #[id number], 161.5, cm, 05/24/20 15:59:00EST, Height, 100, kg, 05/23/20 18:05:00 EST, Dry We... Start Date: 05/25/20 Stop Date: 05/20/21 Status: Ordered atorvastatin 80 mg oral tablet 1 tablet = 80 mg, By Mouth, Daily at bedtime, # 30 tablet, 11 Refills, Maintenance, 05/25/20 8:25:00 EST, Tablet, [facility]/pharmacy #[id number], 161.5, cm, 05/24/20 15:59:00 EST, Height, 100, kg, 05/23/20 18:05:00 EST, Dry Weight Start Date: 05/25/20 Stop Date: 05/20/21 Status: Ordered clopidogrel 75 mg oral tablet 75 mg, 1, tablet, By Mouth, Daily, # 30 tablet, Refills 11, Tot. Refills 11, Maintenance, 05/25/20 8:25:00 EST, [id number] 161.5, cm, 05/24/20 15:59:00 EST,Height, 100, [...] 100 Unknown, 6 Refills, Maintenance, [facility], 50, TEST BLOOD SUGAR TWICE DAILY, 162.5, cm, 08/25/19 8:40:00 EST, Height, 101.6, kg, 08/06/19 9:59:00 EST, Dry Weight Start Date: 11/19/19 Status: Ordered lisinopril 20 mg oral tablet 20 mg, 1, tablet, By Mouth, Daily, # 90 tablet, Refills 3, Tot. Refills 3, Maintenance, 03/23/20 9:43:00 EDT, Route to Pharmacy Electronically, [facility]/pharmacy #[id number], please cancel HCTZ-lisinopril and replace [...] 3 Refills, Maintenance, 03/23/20 9:43:00 EDT, Tablet, [facility]/pharmacy #[id number], please note dose increase from [...]
--- OUTSIDE RECORDS SUMMARY | 2023-02-06 19:28 | XMS_ITS | Continuity of Care Document ---
Author Name Unknown Organization [facility] Address [address] [place] [address]- Care Team Providers Care Clinical Application Specialist Name Role Phone Harman SOW, Vicki Primary Care Physician [phone] Encounter [facility] Date(s): 06/25/20 - 07/25/20 [facility] [address] [place], [place] [address] Allergies, Adverse Reactions, Alerts [...] 05/25/20 8:25:00 EST, Route to Pharmacy Electronically, [facility]/pharmacy #[id number], 161.5, cm, 05/24/20 15:59:00 EST, Height, 100, kg, 05/23/20 18:05:00 EST, Dry Weight Start Date: 05/25/20 Stop Date: 05/20/21 Status: Ordered aspirin 81 mg oral tablet, chewable 81 mg, 1, tablet, By Mouth, Daily, OTC, # 30 tablet, Refills 11, Tot. Refills 11, Maintenance, 05/25/20 8:25:00 EST, Route to Pharmacy Electronically, [facility]/pharmacy #[id number], 161.5, cm, 05/24/20 15:59:00EST, Height, 100, kg, 05/23/20 18:05:00 EST, Dry We... Start Date: 05/25/20 Stop Date: 05/20/21 Status: Ordered atorvastatin 80 mg oral tablet 1 tablet = 80 mg, By Mouth, Daily at bedtime, # 30 tablet, 11 Refills, Maintenance, 05/25/20 8:25:00 EST, Tablet, [facility]/pharmacy #[id number], 161.5, cm, 05/24/20 15:59:00 EST, Height, 100, kg, 05/23/20 18:05:00 EST, Dry Weight Start Date: 05/25/20 Stop Date: 05/20/21 Status: Ordered clopidogrel 75 mg oral tablet 75 mg, 1, tablet, By Mouth, Daily, # 30 tablet, Refills 11, Tot. Refills 11, Maintenance, 05/25/20 8:25:00 EST, Route to Pharmacy Electronically, [facility]/pharmacy #[id number], 161.5, cm, 05/24/20 15:59:00 EST,Height, [...] 100 Unknown, 6 Refills, Maintenance, [facility], 50, TEST BLOOD SUGAR TWICE DAILY, 162.5, cm, 08/25/19 8:40:00 EST, Height, 101.6, kg, 08/06/19 9:59:00 EST, Dry Weight Start Date: 11/19/19 Status: Ordered lisinopril 20 mg oral tablet 20 mg, 1, tablet, By Mouth, Daily, # 90 tablet, Refills 3, Tot. Refills 3, Maintenance, 03/23/20 9:43:00 EDT, Route to Pharmacy Electronically, [facility]/pharmacy #[id number], please cancel HCTZ-lisinopril and replace [...] 3 Refills, Maintenance, 03/23/20 9:43:00 EDT, Tablet, [facility]/pharmacy #[id number], please note dose increase from [...]
--- OUTSIDE RECORDS SUMMARY | 2023-02-06 19:29 | XMS_ITS | Continuity of Care Document ---
Author Name Unknown Organization [facility] Address [address] [place] [address]- Care Team Providers Care Indirect Sales Representative Name Role Phone Not on Staff, PCP Primary Care Physician Unavail able [facility]counter [facility] Date(s): 05/16/22 - 06/15/22 [facility] [address] [place] [address]- Allergies, Adverse Reactions, Alerts No Known Allergies Immunizations Given and Recorded Vaccine Date Status Refusal Reason [id number] 12y+ bivalent booster vax 04/29/22 Recorded SARS-CoV-2 mRNA (lktzjhy-hvlz-sjsht) vax 10/25/21 Given SARS-CoV-2 (COVID-19) mRNA BNT-162b2 [...] 3 Refills, Maintenance, 05/13/21 10:15:00 EDT, Tablet, [facility]/pharmacy #[id number], 161.5, cm, 12/14/20 7:49:00 EDT, Height, [...] on: 04/24/18 Sex Patient Care team information Care Team Personnel Name: Nitish Bishop RN Position: [facility] ED RN W/OE and Tasks Member Role: Primary Care Nurse Name: Sandrine Celaya RN Position: S RN Member Role: Primary Care Nurse Name: Not on Staff, PCP Position: [facility] Physician (General Medicine) Member Role: PCP Name: Tracee Zamarripa RN Position: [facility] RN Member Role: Primary Care Nurse Care Team Related Persons Name: JANETTE PENA Name: NO ONE, PER PT
--- OUTSIDE RECORDS SUMMARY | 2023-02-06 19:29 | XMS_ITS | Continuity of Care Document ---
Author Name Unknown Organization [facility] Address [address] [place] [address]- Care Team Providers Care Events Associate Name Role Phone Harman SOW, Vicki Primary Care Physician Encounter [facility] Date(s): 06/29/20 - 07/29/20 [facility] [address] [place], [place] [address] Allergies, Adverse Reactions, Alerts Substance Reaction Severity [...] 8:25:00 EST, Route to Pharmacy Electronically, [facility]/pharmacy #[id number], 161.5, cm, 05/24/20 15:59:00 EST, Height, 100, kg, 05/23/20 18:05:00 EST, Dry Weight Start Date: 05/25/20 Stop Date: 05/20/21 Status: Ordered aspirin 81 mg oral tablet, chewable 81 mg, 1, tablet, By Mouth, Daily, OTC, # 30 tablet, Refills 11, Tot. Refills 11, Maintenance, 05/25/20 8:25:00 EST, Route to Pharmacy Electronically, [facility]/pharmacy #[id number], 161.5, cm, 05/24/20 15:59:00EST, Height, 100, kg, 05/23/20 18:05:00 EST, Dry We... Start Date: 05/25/20 Stop Date: 05/20/21 Status: Ordered atorvastatin 80 mg oral tablet 1 tablet = 80 mg, By Mouth, Daily at bedtime, # 30 tablet, 11 Refills, Maintenance, 05/25/20 8:25:00 EST, Tablet, [facility]/pharmacy #[id number], 161.5, cm, 05/24/20 15:59:00 EST, Height, 100, kg, 05/23/20 18:05:00 EST, Dry Weight Start Date: 05/25/20 Stop Date: 05/20/21 Status: Ordered clopidogrel 75 mg oral tablet 75 mg, 1, tablet, By Mouth, Daily, # 30 tablet, Refills 11, Tot. Refills 11, Maintenance, 05/25/20 8:25:00 EST, Route to Pharmacy Electronically, [facility]/pharmacy #[id number], 161.5, cm, 05/24/20 15:59:00 EST,Height, 100, [...] 100 Unknown, 6 Refills, Maintenance, [facility], 50, TEST BLOOD SUGAR TWICE DAILY, 162.5, cm, 08/25/19 8:40:00 EST, Height, 101.6, kg, 08/06/19 9:59:00 EST, Dry Weight Start Date: 11/19/19 Status: Ordered lisinopril 20 mg oral tablet 20 mg, 1, tablet, By Mouth, Daily, # 90 tablet, Refills 3, Tot. Refills 3, Maintenance, 03/23/20 9:43:00 EDT, Route to Pharmacy Electronically, [facility]/pharmacy #[id number], please cancel HCTZ-lisinopril and replace with [...] Refills, Maintenance, 03/23/20 9:43:00 EDT, Tablet, [facility]/pharmacy #[id number], please note dose increase from 500 [...]
--- OUTSIDE RECORDS SUMMARY | 2023-02-06 19:29 | XMS_ITS | Continuity of Care Document ---
Author Name Unknown Organization [facility] Address [address] [place] [address]- Care Team Providers Care Mast Maker Name Role Phone Preethi Kessler MD Primary Care Physician [id number] Date(s): 10/20/21 - 10/27/21 [facility] [address] [place] [address]- Encounter Diagnosis Hypertension(Discharge Diagnosis) - 10/20/21 Hyperlipidemia(Discharge Diagnosis) - 10/20/21 Type 2 diabetes mellitus(Discharge Diagnosis) - 10/20/21 Routine medical exam(Discharge Diagnosis) - 10/20/21 Attending Physician: Preethi Kessler MD Allergies, Adverse Reactions, Alerts No Known Allergies Immunizations Given and Recorded Vaccine Date Status Refusal Reason SARS-CoV-2 mRNA (pzkzzvu-viyj-nwnpv) vax 10/25/21 Given SARS-CoV-2 (COVID-19) mRNA BNT-162b2 [...] Stop 05/08/22 10:14:00 EDT, 05/13/21 10:14:00 EDT, [facility]/pharmacy #[id number], 161.5, cm, 12/14/20 7:49:00 EDT, Height, 100, kg, 05/23/20 18:05:00 EST, Dry Weight Start Date: 05/13/21 Stop Date: 05/08/22 Status: Ordered atorvastatin 80 mg oral tablet 1 tablet = 80 mg, By Mouth, Daily at bedtime, # 90 tablet, 3 Refills, Maintenance, 05/13/21 10:15:00 EDT, Tablet, [facility]/pharmacy #[id number], 161.5, cm, 12/14/20 7:49:00 EDT, [...] DAILY, # 100 Unknown, 6 Refills, Maintenance, [facility], 50, TEST BLOOD SUGAR TWICE DAILY, 162.5, cm, 08/25/19 8:40:00 EST, Height, 101.6, kg, 08/06/19 9:59:00 EST, Dry Weight Start Date: 11/19/19 Status: Ordered lisinopril 20 mg oral tablet 1, tablet, By Mouth, Daily, for 90 days, # 90 tablet, Refills 3, Tot. Refills 3, Physician Stop 10/15/22 10:51:00 EDT, 10/20/21 10:51:00 EDT, [id number], 163, cm, 10/20/21 10:33:00 EDT, Height, 93, kg, ... Start Date: 10/20/21 Stop Date: 10/15/22 Status: Ordered lisinopril 30 mg oral tablet 1 tablet = 30 mg, By Mouth, Daily, new dosage, # 90 tablet, 1 Refills, Maintenance, 10/21/21 16:06:00 EDT, Tablet, [facility]/pharmacy #[id number], new dosage, 163, cm, 10/20/21 [...] 2018(Confirmed) Active Type 2 diabetes mellitus(Confirmed) Active Diagnosis Diagnosis Type Effective Dates Health Status Clinical Service Informant Hypertension Discharge Diagnosis 10/20/21 Hyperlipidemia Discharge Diagnosis 10/20/21 Type 2 diabetes mellitus Discharge Diagnosis 10/20/21 Routine medical exam Discharge Diagnosis 10/20/21 Vital Signs Most recent to oldest [Reference Range]: 1 2 3 Height 163 cm (10/20/21 11:13 AM) 163 cm (10/20/21 10:33 AM) 163 cm (10/20/21 10:15 AM) Weight 94 kg (10/20/21 10:15 AM) Oxygen Saturation [94-100 %] 96 % (10/20/21 10:15 AM) Pulse Rate [55-90 bpm] 100 bpm *H* (10/20/21 10:15 AM) Body Mass Index [18.5-24.99] 35.38 *>HHI* (10/20/21 10:15 AM) Blood Pressure [90-138/55-84 mm Hg] 132/92mm Hg (10/20/21 11:13 AM) 138/90mm Hg (10/20/21 10:33 AM) 138/92mm Hg (10/20/21 10:15 AM) Respiratory Rate [16-30 br/min] 18 br/min (10/20/21 10:15 AM) Temperature [96.8-100.4 DegF] 98.2 DegF (10/20/21 10:15 AM) Mode of Delivery (Oxygen) Room air (10/20/21 10:15 AM) Blood pressure sites Arm, left (10/20/21 10:33 AM) Arm, right (10/20/21 10:15 AM) Temperature Route Temporal (10/20/21 10:15 AM) Weight Obtained Via Standing scale (10/20/21 10:15 AM) Social History Social History Type Response Smoking Status Current every day tosha gallo; Tobacco user in household: No entered on: 04/24/18 Sex
--- OUTSIDE RECORDS SUMMARY | 2023-02-06 19:29 | XMS_ITS | Continuity of Care Document ---
Author Name Unknown Organization [facility] Address [address] [place] [address]- Care Team Providers Care Research Dairy Farm Supervisor Name Role Phone Checo SOW, Preethi Baez Primary Care Physician Encounter [facility] Date(s): 06/28/21 - 07/28/21 [facility] [address] [place] [address]- Allergies, Adverse Reactions, Alerts No Known Allergies [...] 05/13/21 10:14:00 EDT, Route to Pharmacy Electronically, [facility]/pharmacy #[id number], 161.5, cm, 12/14/20 7:49:00 EDT, Height, 100, kg, 05/23/20 18:05:00 EST, Dry Weight Start Date: 05/13/21 Stop Date: 05/08/22 Status: Ordered Aspirin Low Dose 81 mg oral tablet, chewable 1 tablet, By Mouth, Daily, for 90 days, # 90 tablet, 3 Refills, Physician Stop 05/08/22 10:14:00 EDT, 05/13/21 10:14:00 EDT, [facility]/pharmacy #[id number], 161.5, cm, 12/14/20 7:49:00 EDT, Height, 100, kg, 05/23/20 18:05:00 EST, Dry Weight Start Date: 05/13/21 Stop Date: 05/08/22 Status: Ordered atorvastatin 80 mg oral tablet 1 tablet = 80 mg, By Mouth, Daily at bedtime, # 90 tablet, 3 Refills, Maintenance, 05/13/21 10:15:00 EDT, Tablet, [facility]/pharmacy #[id number], 161.5, cm, 12/14/20 7:49:00 EDT, [...] 100 Unknown, 6 Refills, Maintenance, [facility], 50, TEST BLOOD SUGAR TWICE DAILY, 162.5, cm, 08/25/19 8:40:00 EST, Height, 101.6, kg, 08/06/19 9:59:00 EST, Dry Weight Start Date: 11/19/19 Status: Ordered Januvia 50 mg oral tablet = 50 mg, By Mouth, Daily, # 30 tablet, 3 Refills, Maintenance, 06/28/21 15:30:00 EST, Tablet, [facility]/pharmacy #[id number], new medication; cancel meformin, 161.5, cm, 06/20/21 7:32:00 EST, Height, 100, kg, 05/23/20 18:05:00 EST, Dry Weight Start Date: 06/28/21 Status: Ordered lisinopril 20 mg oral tablet 1, tablet, By Mouth, Daily, # 30 tablet, Refills 2, Route to Pharmacy Electronically, [facility], 161.5, cm, 12/14/20 7:49:00 EDT, Height, 100, [...] mL, 0 Refills, Maintenance, 08/25/19 9:00:00 EST, [facility]/pharmacy #[id number], 240 mL By Mouth Every [...] 1 Refills, Maintenance, 06/20/21 7:56:00 EST, Tablet, [facility]/pharmacy #[id number], Partial fill upon patient request [...]
--- OUTSIDE RECORDS SUMMARY | 2023-02-06 19:29 | XMS_ITS | Continuity of Care Document ---
Author Name Unknown Organization [facility] Address Unknown Care Team Providers Care Bottler Name Role Phone Checo SOW, Preethi Baez Primary Care Physician Encounter [facility] [id number] Date(s): 09/21/21 - 01/19/22 [facility] Attending Physician: Krissy Kendall MD Admitting Physician: Krissy Kendall MD Allergies, Adverse Reactions, Alerts No Known Allergies Immunizations Given and Recorded Vaccine Date Status Refusal Reason SARS-CoV-2 mRNA (dtstmns-ptkh-[id number]) vax 10/25/21 Given SARS-CoV-2 (COVID-19) mRNA BNT-162b2 [...] 100 Unknown, 6 Refills, Maintenance, [facility], 50, TEST BLOOD SUGAR TWICE DAILY, 162.5, cm, 08/25/19 8:40:00 EST, Height, 101.6, kg, 08/06/19 9:59:00 EST, Dry Weight Start Date: 11/19/19 Status: Ordered lisinopril 20 mg oral tablet 1, tablet, By Mouth, Daily, for 90 days, # 90 tablet, Refills 3, Tot. Refills 3, Physician Stop 10/15/22 10:51:00 EDT, 10/20/21 10:51:00 EDT, Route to Pharmacy Electronically, [facility]/pharmacy #[id number], 163, cm, 10/20/21 10:33:00 EDT, Height, 93, kg, ... Start Date: 10/20/21 Stop Date: 10/15/22 Status: Ordered lisinopril 30 mg oral tablet 1 tablet = 30 mg, By Mouth, Daily, new dosage, # 90 tablet, 1 Refills, Maintenance, 10/21/21 16:06:00 EDT, Tablet, [facility]/pharmacy #[id number], new dosage, 163, cm, 10/20/21 11:13:00 EDT, Height, 93, kg, 08/04/21 11:31:00 EST, Dry Weight Start Date: 10/21/21 Status: Ordered NuLYTELY with Flavor Packs oral powder for reconstitution See Instructions, 240 mL By Mouth Every 15 minutes, # 4,000 mL, 0 Refills, Maintenance, 08/25/19 9:00:00 EST, [facility]/pharmacy #[id number], 240 mL By Mouth Every 15 minutes, 162.5, cm, 08/25/19 8:40:00 EST, Height, 101.6, kg, 08/06/19 9:59:00 EST, Dry Weight Start Date: 08/25/19 Status: Ordered Trulicity Pen 3 mg/0.5 mL subcutaneous solution = 3 mg, Subcutaneous Injection, Every week, rotate injection sites, # 6 mL, 3 Refills, Maintenance,10/20/21 10:48:00 EDT, Solution, [facility]/pharmacy #[id number], cancel rx for trulicity 1.5mg, 163, [...]
--- OUTSIDE RECORDS SUMMARY | 2023-02-06 19:29 | XMS_ITS | Continuity of Care Document ---
Author Name Unknown Organization [facility] Address [address] [place] [address]- Care Team Providers Care English Composition Teacher Name Role Phone Checo SOW, Preethi Baez Primary Care Physician [phone] [facility] [facility] Date(s): 06/28/21 - 07/28/21 [facility] [address] [place], [place] [address] Allergies, Adverse Reactions, Alerts No Known Allergies [...] 05/13/21 10:14:00 EDT, Route to Pharmacy Electronically, [facility]/pharmacy #[id number], 161.5, cm, 12/14/20 7:49:00 EDT, Height, 100, kg, 05/23/20 18:05:00 EST, Dry Weight Start Date: 05/13/21 Stop Date: 05/08/22 Status: Ordered Aspirin Low Dose 81 mg oral tablet, chewable 1 tablet, By Mouth, Daily, for 90 days, # 90 tablet, 3 Refills, Physician Stop 05/08/22 10:14:00 EDT, 05/13/21 10:14:00 EDT, [facility]/pharmacy #[id number], 161.5, cm, 12/14/20 7:49:00 EDT, Height, 100, kg, 05/23/20 18:05:00 EST, Dry Weight Start Date: 05/13/21 Stop Date: 05/08/22 Status: Ordered atorvastatin 80 mg oral tablet 1 tablet = 80 mg, By Mouth, Daily at bedtime, # 90 tablet, 3 Refills, Maintenance, 05/13/21 10:15:00 EDT, Tablet, [facility]/pharmacy #[id number], 161.5, cm, 12/14/20 7:49:00 EDT, Height, [...] 100 Unknown, 6 Refills, Maintenance, [facility], 50, TEST BLOOD SUGAR TWICE DAILY, 162.5, cm, 08/25/19 8:40:00 EST, Height, 101.6, kg, 08/06/19 9:59:00 EST, Dry Weight Start Date: 11/19/19 Status: Ordered Januvia 50 mg oral tablet = 50 mg, By Mouth, Daily, # 30 tablet, 3 Refills, Maintenance, 06/28/21 15:30:00 EST, Tablet, [facility]/pharmacy #[id number], new medication; cancel meformin, 161.5, cm, 06/20/21 7:32:00 EST, Height, 100, kg, 05/23/20 18:05:00 EST, Dry Weight Start Date: 06/28/21 Status: Ordered lisinopril 20 mg oral tablet 1, tablet, By Mouth, Daily, # 30 tablet, Refills 2, Route to Pharmacy Electronically, [facility], 161.5, cm, 12/14/20 7:49:00 EDT, Height, 100, [...] mL, 0 Refills, Maintenance, 08/25/19 9:00:00 EST, [facility]/pharmacy #[id number], 240 mL By Mouth Every 15 [...] 1 Refills, Maintenance, 06/20/21 7:56:00 EST, Tablet, [facility]/pharmacy #[id number], Partial fill upon patient request if [...]
--- OUTSIDE RECORDS SUMMARY | 2023-02-06 19:29 | XMS_ITS | Continuity of Care Document ---
Author Name Unknown Organization [facility] Address [address] [place] [address]- Care Team Providers Care Security Compliance Specialist Name Role Phone Harman SOW, Vicki Primary Care Physician [phone] En[place] [facility] [place] [place] Date(s): 08/25/19 - 11/06/[address] [address]- [facility] Attending Physician: Jaydon Moreno MD Admitting Physician: Jaydon Moreno MD Allergies, Adverse Reactions, Alerts Substance Reaction [...] 08/06/19 10:11:00 EST, Route to Pharmacy Electronically, [facility]/pharmacy #[id number], 162.5, cm, 08/06/19 9:59:00 EST, [...] 3 Refills, Maintenance, 07/21/19 12:24:00 EST, Tablet, [facility]/pharmacy #[id number], 162.5, cm, 04/11/19 8:53:00 EDT, Height, 106.6, kg, 10/03/18 11:10:00 EDT, Dry Weight Start Date: 07/21/19 Stop Date: 07/15/20 Status: Ordered clopidogrel 75 mg oral tablet 75 mg, 1, tablet, By Mouth, Daily, # 90 tablet, Refills 3, Tot. Refills 3, Maintenance, 07/21/19 12:24:00 EST, Route to Pharmacy Electronically, [facility]/pharmacy #[id number], 162.5, cm, 04/11/19 8:53:00 EDT, [...] EDT, Compound Start Date: 10/03/18 Status: Ordered isopropyl alcohol 70% topical pad See Instructions, TEST BLOOD SUGAR TWICE DAILY, # 100 Unknown, 2 Refills, Maintenance, [facility], 50, TEST BLOOD SUGAR TWICE DAILY, 162.5, cm, 08/25/19 8:40:00 EST, Height, 101.6, kg, 08/06/19 9:59:00 EST, Dry Weight Start Date: 10/07/19 Status: Ordered lisinopril 20 mg oral tablet 20 mg, 1, tablet, By Mouth, Daily, # 90 tablet, Refills 3, Tot. Refills 3, Maintenance, 08/06/19 10:12:00 EST, Route to Pharmacy Electronically, [facility]/pharmacy #[id number], please cancel HCTZ-lisinopril and replace with this medication. thanks., 162.5, cm, 01... Start Date: 08/06/19 Stop Date: 07/31/20 Status: Ordered magnesium oxide 400 mg oral tablet 1 tablet = 400 mg, By Mouth, Daily, for 30 days, Take with meal., # 30 tablet, 5 Refills, Acute 01/26/20 14:28:00 EDT, 07/30/19 14:28:00 EST, [facility]/pharmacy #[id number], 162.5, cm, 07/30/19 14:05:00 EST, [...] mL, 0 Refills, Maintenance, 08/25/19 9:00:00 EST, [facility]/pharmacy #[id number], 240 mL By Mouth Every 15 minutes, 162.5, cm, 08/25/19 8:40:00 EST, Height, 101.6, kg, 08/06/19 9:59:00 EST, Dry Weight Start Date: 08/25/19 Status: Ordered Trulicity Pen 1.5 mg/0.5 mL subcutaneous solution 0.5 mL = 1.5 mg, Subcutaneous Injection, Every week, # 2.5 mL, 5 Refills, Maintenance, 07/25/19 15:18:00 EST, Solution, [facility]/pharmacy #[id number], 162.5, cm, 04/11/19 8:53:00 EDT, [...]
--- OUTSIDE RECORDS SUMMARY | 2023-02-06 19:29 | XMS_ITS | Continuity of Care Document ---
Author Name Unknown Organization [facility] Address [address] [place] [address]- Care Team Providers Care Cable Puller Name Role Phone Not on Staff, PCP Primary Care Physician Unavail able Encounter [facility] Date(s): 03/23/22 - 04/22/22 [facility] [address] [place] [address]- Attending Physician: Otis Gonzales Admitting Physician: Otis Gonzales Referring Physician: AdmtrOtis Allergies, Adverse Reactions, Alerts No Known Allergies Immunizations Given and Recorded Vaccine Date Status Refusal Reason SARS-CoV-2 mRNA (akztsoq-zogb-nzmgg) vax 10/25/21 Given SARS-CoV-2 (COVID-19) mRNA BNT-162b2 [...] 6 Refills, Maintenance, [facility], 50, TEST BLOOD SUGAR TWICE DAILY, 162.5, [...]
--- OUTSIDE RECORDS SUMMARY | 2023-02-06 19:29 | XMS_ITS | Continuity of Care Document ---
Author Name Unknown Organization [facility] Address [address] [place] [address]- Care Team Providers Care Die Maker Name Role Phone Preethi Kessler MD Primary Care Physician [phone] Encounter [facility] [place] Date(s): 08/08/21 - 09/07/21 [facility] [address] [place], [place] [address] Allergies, Adverse Reactions, Alerts No Known Allergies [...] 100 Unknown, 6 Refills, Maintenance, [facility], 50, TEST BLOOD SUGAR TWICE DAILY, 162.5, cm, 08/25/19 8:40:00 EST, Height, 101.6, kg, 08/06/19 9:59:00 EST, Dry Weight Start Date: 11/19/19 Status: Ordered lisinopril 20 mg oral tablet 1, tablet, By Mouth, Daily, # 30 tablet, Refills 4, Tot. Refills 4, 08/08/21 9:29:00 EST, Route to Pharmacy Electronically, [facility]/pharmacy #[id number], 163, cm, 08/04/21 11:31:00 EST, Height, 93, kg, 08/04/21 11:31:00 EST, Dry Weight Start Date: 08/08/21 Status: Ordered NuLYTELY with Flavor Packs oral powder for reconstitution See Instructions, 240 mL By Mouth Every 15 minutes, # 4,000 mL, 0 Refills, Maintenance, 08/25/19 9:00:00 EST, [facility]/pharmacy #[id number], 240 mL By Mouth Every 15 minutes, 162.5, cm, 08/25/19 8:40:00 EST, Height, 101.6, kg, 08/06/19 9:59:00 EST, Dry Weight Start Date: 08/25/19 Status: Ordered Trulicity Pen 1.5 mg/0.5 mL subcutaneous solution See Instructions, INJECT 0.5 ML SUBCUTANEOUSLY EVERY WEEK, # 4 Unknown, 5 Refills, 08/08/21 9:37:00EST, [facility]/pharmacy #[id number], 163, cm, 08/04/21 11:31:00 EST, Height, [...]
--- OUTSIDE RECORDS SUMMARY | 2023-02-06 19:29 | XMS_ITS | Continuity of Care Document ---
Author Name Unknown Organization [facility] Address [address] [place] [address]- Care Team Providers Care Biomedical Equipment Specialist Name Role Phone Checo SOW, Preethi Baez Primary Care Physician Encounter [facility] [place] Date(s): 05/12/21 - 06/11/21 [facility] [address] [place] [address]- Allergies, Adverse Reactions, Alerts Substance Reaction Severity [...] 10:14:00 EDT, Route to Pharmacy Electronically, [facility]/pharmacy #[id number], 161.5, cm, 12/14/20 7:49:00 EDT, Height, 100, kg, 05/23/20 18:05:00 EST, Dry Weight Start Date: 05/13/21 Stop Date: 05/08/22 Status: Ordered Aspirin Low Dose 81 mg oral tablet, chewable 1 tablet, By Mouth, Daily, for 90 days, # 90 tablet, 3 Refills, Physician Stop 05/08/22 10:14:00 EDT, 05/13/21 10:14:00 EDT, [facility]/pharmacy #[id number], 161.5, cm, 12/14/20 7:49:00 EDT, Height, 100, kg, 05/23/20 18:05:00 EST, Dry Weight Start Date: 05/13/21 Stop Date: 05/08/22 Status: Ordered atorvastatin 80 mg oral tablet 1 tablet = 80 mg, By Mouth, Daily at bedtime, # 90 tablet, 3 Refills, Maintenance, 05/13/21 10:15:00 EDT, Tablet, [facility]/pharmacy #[id number], 161.5, cm, 12/14/20 7:49:00 EDT, Height, 100, kg, 05/23/20 18:05:00 EST, Dry Weight Start Date: 05/13/21 Stop Date: 05/08/22 Status: Ordered clopidogrel 75 mg oral tablet 75 mg, 1, tablet, By Mouth, Daily, # 90 tablet, Refills 1, Tot. Refills 1, Maintenance, 05/13/21 10:15:00 EDT, Route to Pharmacy Electronically, [facility]/pharmacy #[id number], 161.5, cm, 12/14/20 7:49:00 EDT, Height, 100, kg, 05/23/20 18:05:00 EST, Dry Weight Start Date: 05/13/21 Stop Date: 11/09/21 Status: Ordered Freestyle Lite Lancets See Instructions, [...] 100 Unknown, 6 Refills, Maintenance, [facility], 50, TEST BLOOD SUGAR TWICE DAILY, 162.5, cm, 08/25/19 8:40:00 EST, Height, 101.6, kg, 08/06/19 9:59:00 EST, Dry Weight Start Date: 11/19/19 Status: Ordered lisinopril 20 mg oral tablet 1, tablet, By Mouth, Daily, # 30 tablet, Refills 2, Route to Pharmacy Electronically, [facility], 161.5, cm, 12/14/20 7:49:00 EDT, Height, 100, [...] mg, By Mouth, 2 times a day, to [address] [place] [address], # 180 tablet, 2 Refills, Maintenance, 05/25/21 16:09:00 EST, Tablet, [facility], please note dose increase from 500mg to 1000 mg daily, 161.5, cm, 12/14/20 7:49:00 ED... Start Date: 05/25/21 Status: Ordered NuLYTELY with Flavor Packs oral [...] Dry Weight Start Date: 05/12/21 Status: Ordered Problem List Condition Effective Dates [...]
--- OUTSIDE RECORDS SUMMARY | 2023-02-06 19:29 | XMS_ITS | Continuity of Care Document ---
Author Name Unknown Organization [facility] Address [address] [place] [address]- Care Team Providers Care Gas Golf Cart Repairer Name Role Phone Preethi Kessler MD Primary Care Physician En[place] [facility] [place] Date(s): 03/02/22 - 04/01/22 [facility] [address] [place], [place] [address] Allergies, Adverse Reactions, Alerts No Known Allergies Immunizations Given and Recorded Vaccine Date Status Refusal Reason SARS-CoV-2 mRNA (mbgogro-pzem-lntjl) vax 10/25/21 Given SARS-CoV-2 (COVID-19) mRNA BNT-162b2 [...] Stop 05/08/22 10:14:00 EDT, 05/13/21 10:14:00 EDT, [facility]/pharmacy #[id number], 161.5, cm, 12/14/20 7:49:00 EDT, Height, [...] 100 Unknown, 6 Refills, Maintenance, [facility], 50, TEST BLOOD SUGAR TWICE DAILY, 162.5, cm, 08/25/19 8:40:00 EST, Height, 101.6, kg, 08/06/19 9:59:00 EST, Dry Weight Start Date: 11/19/19 Status: Ordered lisinopril 20 mg oral tablet 1, tablet, By Mouth, Daily, for 90 days, # 90 tablet, Refills 3, Tot. Refills 3, Physician Stop 10/15/22 10:51:00 EDT, 10/20/21 10:51:00 EDT, Route to Pharmacy Electronically, [facility]/pharmacy #[id number], 163, cm, 10/20/21 10:33:00 EDT, Height, 93, kg, ... Start Date: 10/20/21 Stop Date: 10/15/22 Status: Ordered lisinopril 30 mg oral tablet 1 tablet = 30 mg, By Mouth, Daily, new dosage, # 90 tablet, 1 Refills, Maintenance, 10/21/21 16:06:00 EDT, Tablet, [facility]/pharmacy #[id number], new dosage, 163, cm, 10/20/21 11:13:00 [...] 93, kg, 08/04/21 11:31:00 E... Start Date: 4/7/22 Stop Date: 10/15/22 Status: Ordered Problem List [...] Team Personnel Name: Preethi Kessler MD Address: [address] [place] [address]
--- OUTSIDE RECORDS SUMMARY | 2023-02-06 19:29 | XMS_ITS | Continuity of Care Document ---
Author Name Unknown Organization [facility] Address [address] [place] [address]- Care Team Providers Care Nca Certified Concierge Name Role Phone Not on Staff, PCP Primary Care Physician Unavail able Encounter [facility] Date(s): 03/28/22 - 04/27/22 [facility] [address] [place], [place] [address] Allergies, Adverse Reactions, Alerts No Known Allergies Immunizations Given and Recorded Vaccine Date Status Refusal Reason SARS-CoV-2 mRNA (jaumucx-qmbx-mxccx) vax 10/25/21 Given SARS-CoV-2 (COVID-19) mRNA BNT-162b2 [...] cm, 12/14/20 7:49:00 EDT, Height, 100, kg, 11/08/20 18:05:00 EST, Dry Weight Start Date: 05/13/21 [...] 100 Unknown, 6 Refills, Maintenance, [facility], 50, TEST BLOOD SUGAR TWICE DAILY, 162.5, cm, 08/25/19 8:40:00 EST, Height, 101.6, kg, 08/06/19 9:59:00 EST, Dry Weight Start Date: 11/19/19 Status: Ordered lisinopril 20 mg oral tablet 1, tablet, By Mouth, Daily, for 90 days, # 90 tablet, Refills 3, Tot. Refills 3, Physician Stop 10/15/22 10:51:00 EDT, 10/20/21 10:51:00 EDT, Route to Pharmacy Electronically, [facility]/pharmacy #[id number], 163, cm, 10/20/21 10:33:00 EDT, Height, 93, kg, ... Start Date: 10/20/21 Stop Date: 10/15/22 Status: Ordered lisinopril 30 mg oral tablet 1 tablet = 30 mg, By Mouth, Daily, new dosage, # 90 tablet, 1 Refills, Maintenance, 10/21/21 16:06:00 EDT, Tablet, [facility]/pharmacy #[id number], new dosage, 163, cm, 10/20/21 11:13:00 EDT, Height, 93, kg, 08/04/21 11:31:00 EST, Dry Weight Start Date: 10/21/21 Status: Ordered NuLYTELY with Flavor Packs oral powder for reconstitution See Instructions, 240 mL By Mouth Every 15 minutes, # 4,000 mL, 0 Refills, Maintenance, 08/25/19 9:00:00 EST, [facility]/pharmacy #[id number], 240 mL By Mouth Every 15 minutes, 162.5, cm, 08/25/19 8:40:00 EST, Height, 101.6, kg, 08/06/19 9:59:00 EST, Dry Weight Start Date: 08/25/19 Status: Ordered Trulicity Pen 3 mg/0.5 mL subcutaneous solution = 3 mg, Subcutaneous Injection, Every week, rotate injection sites, # 6 mL, 3 Refills, Maintenance,10/20/21 10:48:00 EDT, Solution, [facility]/pharmacy #[id number], cancel rx for trulicity 1.5mg, [...]
--- OUTSIDE RECORDS SUMMARY | 2023-02-06 19:29 | XMS_ITS | Continuity of Care Document ---
Author Name Unknown Organization [facility] Address [address] [place] [address]- Care Team Providers Care Foundation Drill Operator Helper Name Role Phone Vicki Hammer MD Primary Care Physician Encounter [facility] [place] Date(s): 05/25/20 - 06/24/20 [facility] [address] [place] [address]- Allergies, Adverse Reactions, Alerts Substance Reaction Severity [...] 05/25/20 8:25:00 EST, Route to Pharmacy Electronically, [facility]/pharmacy #[id number], 161.5, cm, 05/24/20 15:59:00 EST, Height, 100, kg, 05/23/20 18:05:00 EST, Dry Weight Start Date: 05/25/20 Stop Date: 05/20/21 Status: Ordered aspirin 81 mg oral tablet, chewable 81 mg, 1, tablet, By Mouth, Daily, OTC, # 30 tablet, Refills 11, Tot. Refills 11, Maintenance, 05/25/20 8:25:00 EST, Route to Pharmacy Electronically, [facility]/pharmacy #[id number], 161.5, cm, 05/24/20 15:59:00EST, Height, 100, kg, 05/23/20 18:05:00 EST, Dry We... Start Date: 05/25/20 Stop Date: 05/20/21 Status: Ordered atorvastatin 80 mg oral tablet 1 tablet = 80 mg, By Mouth, Daily at bedtime, # 30 tablet, 11 Refills, Maintenance, 05/25/20 8:25:00 EST, Tablet, [facility]/pharmacy #[id number], 161.5, cm, 05/24/20 15:59:00 EST, Height, 100, kg, 05/23/20 18:05:00 EST, Dry Weight Start Date: 05/25/20 Stop Date: 05/20/21 Status: Ordered clopidogrel 75 mg oral tablet 75 mg, 1, tablet, By Mouth, Daily, # 30 tablet, Refills 11, Tot. Refills 11, Maintenance, 05/25/20 8:25:00 EST, Route to Pharmacy Electronically, [facility]/pharmacy #[id number], 161.5, cm, 05/24/20 15:59:00 EST,Height, 100, [...] 100 Unknown, 6 Refills, Maintenance, [facility], 50, TEST BLOOD SUGAR TWICE DAILY, 162.5, cm, 08/25/19 8:40:00 EST, Height, 101.6, kg, 08/06/19 9:59:00 EST, Dry Weight Start Date: 11/19/19 Status: Ordered lisinopril 20 mg oral tablet 20 mg, 1, tablet, By Mouth, Daily, # 90 tablet, Refills 3, Tot. Refills 3, Maintenance, 03/23/20 9:43:00 EDT, Route to Pharmacy Electronically, [facility]/pharmacy #[id number], please cancel HCTZ-lisinopril and replace with [...] 3 Refills, Maintenance, 03/23/20 9:43:00 EDT, Tablet, [facility]/pharmacy #[id number], please note dose increase from 500 [...]
--- OUTSIDE RECORDS SUMMARY | 2023-02-06 19:29 | XMS_ITS | Continuity of Care Document ---
Author Name Unknown Organization [facility] Address [address], [address] [place] [address]- Care Team Providers Care Silk Screen Operator Name Role Phone Not on Staff, PCP Primary Care Physician Unavail able Encounter [facility] Date(s): 07/19/22 - 08/18/22 [facility] [address], [address], [address] [place] [address]- Attending Physician: Otis Gonzales Admitting Physician: AdmOtis hussein Referring Physician: Admtr, Ar8 Allergies, Adverse Reactions, Alerts No Known Allergies Immunizations Given and Recorded Vaccine Date Status Refusal Reason [id number] 12y+ bivalent booster vax 04/29/22 Recorded SARS-CoV-2 mRNA (wqhkaxy-ynzp-ccguo) vax 10/25/21 Given SARS-CoV-2 (COVID-19) mRNA BNT-162b2 [...] Refills, Maintenance, 06/23/22 8:15:00 EST, [facility], 162, cm, 06/14/22 13:02:00 EST, Height, 89.7, kg, 06/12/22 19:44:00 EST, Dry Weight Start Date: 06/23/22 Status: Ordered atorvastatin 80 mg oral tablet 1 tablet = 80 mg, By Mouth, Daily at bedtime, # 90 tablet, 3 Refills, Maintenance, 05/13/21 10:15:00 EDT, Tablet, [facility]/pharmacy #[id number], 161.5, cm, 12/14/20 [...] mL, 3 Refills, Maintenance,10/20/21 10:48:00 EDT, Solution, [facility]/pharmacy #[id number], cancel rx for [...] Team Personnel Name: Nitish Bishop RN Position: [facility] ED RN W/OE and Tasks Member Role: Primary Care Nurse Name: Sandrine Celaya RN Position: S RN Member Role: Primary Care Nurse Name: Not on Staff, PCP Position: [facility] Physician (General Medicine) Member Role: PCP Care Team Related Persons Name: JANETTE PENA Name: NO ONE, PER PT
--- OUTSIDE RECORDS SUMMARY | 2023-02-06 19:29 | XMS_ITS | Continuity of Care Document ---
Author Name Unknown Organization [facility] Address [address] [place] [address]- Care Team Providers Care Laser Operator Name Role Phone Vicki Hammer MD Primary Care Physician [phone] [place] [facility] [place] 08/25[place]19 - 09/04/19 [facility] [address] [place] [address] [facility] Attending Physician: Otis Gonzales Admitting Physician: Otis [...] 08/06/19 10:11:00 EST, Route to Pharmacy Electronically, [facility]/pharmacy #[id number], 162.5, cm, 08/06/19 9:59:00 EST, Height, [...] 3 Refills, Maintenance, 07/21/19 12:24:00 EST, Tablet, [facility]/pharmacy #[id number], 162.5, cm, 04/11/19 8:53:00 EDT, Height, 106.6, kg, 10/03/18 11:10:00 EDT, Dry Weight Start Date: 07/21/19 Stop Date: 07/15/20 Status: Ordered clopidogrel 75 mg oral tablet 75 mg, 1, tablet, By Mouth, Daily, # 90 tablet, Refills 3, Tot. Refills 3, Maintenance, 07/21/19 12:24:00 EST, Route to Pharmacy Electronically, [facility]/pharmacy #[id number], 162.5, cm, 04/11/19 8:53:00 EDT, Height, [...] 08/06/19 10:12:00 EST, Route to Pharmacy Electronically, [facility]/pharmacy #[id number], please cancel HCTZ-lisinopril and replace with this medication. thanks., 162.5, cm, 01... Start Date: 08/06/19 Stop Date: 07/31/20 Status: Ordered magnesium oxide 400 mg oral tablet 1 tablet = 400 mg, By Mouth, Daily, for 30 days, Take with meal., # 30 tablet, 5 Refills, Acute 01/26/20 14:28:00 EDT, 07/30/19 14:28:00 EST, [facility]/pharmacy #[id number], 162.5, cm, 07/30/19 14:05:00 EST, Height, [...] mL, 0 Refills, Maintenance, 08/25/19 9:00:00 EST, [facility]/pharmacy #[id number], 240 mL By Mouth Every 15 minutes, 162.5, cm, 08/25/19 8:40:00 EST, Height, 101.6, kg, 08/06/19 9:59:00 EST, Dry Weight Start Date: 08/25/19 Status: Ordered Trulicity Pen 1.5 mg/0.5 mL subcutaneous solution 0.5 mL = 1.5 mg, Subcutaneous Injection, Every week, # 2.5 mL, 5 Refills, Maintenance, 07/25/19 15:18:00 EST, Solution, [facility]/pharmacy #[id number], 162.5, cm, 04/11/19 8:53:00 EDT, Height, [...]
--- OUTSIDE RECORDS SUMMARY | 2023-02-06 19:29 | XMS_ITS | Continuity of Care Document ---
Author Name Unknown Organization [facility] Address [address] [place] [address]- Care Team Providers Care Pet Store Merchandiser Name Role Phone Checo SOW, Preethi Baez Primary Care Physician Encounter [facility] [place] Date(s): 06/27/21 - 07/27/21 [facility] [address] [place] [address]- Allergies, Adverse Reactions, Alerts Substance Reaction Severity [...] 05/13/21 10:14:00 EDT, Route to Pharmacy Electronically, [facility]/pharmacy #[id number], 161.5, cm, 12/14/20 7:49:00 EDT, Height, 100, kg, 05/23/20 18:05:00 EST, Dry Weight Start Date: 05/13/21 Stop Date: 05/08/22 Status: Ordered Aspirin Low Dose 81 mg oral tablet, chewable 1 tablet, By Mouth, Daily, for 90 days, # 90 tablet, 3 Refills, Physician Stop 05/08/22 10:14:00 EDT, 05/13/21 10:14:00 EDT, [facility]/pharmacy #[id number], 161.5, cm, 12/14/20 7:49:00 EDT, Height, 100, kg, 05/23/20 18:05:00 EST, Dry Weight Start Date: 05/13/21 Stop Date: 05/08/22 Status: Ordered atorvastatin 80 mg oral tablet 1 tablet = 80 mg, By Mouth, Daily at bedtime, # 90 tablet, 3 Refills, Maintenance, 05/13/21 10:15:00 EDT, Tablet, [facility]/pharmacy #0843, 161.5, cm, 12/14/20 7:49:00 EDT, [...] 100 Unknown, 6 Refills, Maintenance, [facility], 50, TEST BLOOD SUGAR TWICE DAILY, 162.5, cm, 08/25/19 8:40:00 EST, Height, 101.6, kg, 08/06/19 9:59:00 EST, Dry Weight Start Date: 11/19/19 Status: Ordered Januvia 50 mg oral tablet = 50 mg, By Mouth, Daily, # 30 tablet, 3 Refills, Maintenance, 06/28/21 15:30:00 EST, Tablet, [facility]/pharmacy #0843, new medication; cancel meformin, 161.5, cm, 06/20/21 7:32:00 EST, Height, 100, kg, 05/23/20 18:05:00 EST, Dry Weight Start Date: 06/28/21 Status: Ordered lisinopril 20 mg oral tablet 1, tablet, By Mouth, Daily, # 30 tablet, Refills 2, Route to Pharmacy Electronically, [facility], 161.5, cm, 12/14/20 7:49:00 EDT, Height, 100, [...] mL, 0 Refills, Maintenance, 08/25/19 9:00:00 EST, [facility]/pharmacy #0843, 240 mL By Mouth Every 15 minutes, 162.5, cm, 08/25/19 8:40:00 EST, Height, 101.6, kg, 08/06/19 9:59:00 EST, Dry Weight Start Date: 08/25/19 Status: Ordered Trulicity Pen 1.5 mg/0.5 mL subcutaneous solution See Instructions, INJECT 0.5 ML SUBCUTANEOUSLY EVERY WEEK, # 2 Unknown, 5 Refills, 05/12/21 16:42:00 EDT, [facility]/pharmacy #0843, 161.5, cm, 12/14/20 7:49:00 EDT, Height, 100, kg, 05/23/20 18:05:00 EST, Dry Weight Start Date: 05/12/21 Status: Ordered Zetia 10 mg oral tablet 1 tablet = 10 mg, By Mouth, Daily, # 30 tablet, 1 Refills, Maintenance, 06/20/21 7:56:00 EST, Tablet, [facility]/pharmacy #[id number], Partial fill upon patient request if [...]
--- OUTSIDE RECORDS SUMMARY | 2023-02-06 19:29 | XMS_ITS | Continuity of Care Document ---
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 Name Role Phone Not on Staff, PCP Primary Care Physician Unavail able En[place] [facility] [place](s): 03/25/22 - 07/23/22 [facility] [address] [place] [address]- Attending Physician: Shanthi SOW, Pelon Admitting Physician: Shanthi SOW, [place]on Referring Physician: Preethi Kessler MD Allergies, Adverse Reactions, Alerts No Known Allergies Immunizations Given and Recorded Vaccine Date Status Refusal Reason [id number] 12y+ bivalent booster vax 04/29/22 Recorded SARS-CoV-2 mRNA (ywidvmr-vgym-qcccs) vax 10/25/21 Given SARS-CoV-2 (COVID-19) mRNA BNT-162b2 [...] Refills, Maintenance, 06/23/22 8:15:00 EST, [facility], 162, cm, 06/14/22 13:02:00 EST, Height, 89.7, kg, 06/12/22 19:44:00 EST, Dry Weight Start Date: 06/23/22 Status: Ordered atorvastatin 80 mg oral tablet 1 tablet = 80 mg, By Mouth, Daily at bedtime, # 90 tablet, 3 Refills, Maintenance, 05/13/21 10:15:00 EDT, Tablet, [facility]/pharmacy #[id number], 161.5, cm, 12/14/20 7:49:00 [...] Team Personnel Name: Nitish Bishop RN Position: [facility] ED RN W/OE and Tasks Member Role: Primary Care Nurse Name: Sandrine Celaya RN Position: S RN Member Role: Primary Care Nurse Name: Not on Staff, PCP Position: [facility] Physician (General Medicine) Member Role: PCP Care Team Related Persons Name: JANETTE PENA Name: NO ONE, PER PT
--- OUTSIDE RECORDS SUMMARY | 2023-02-06 19:29 | XMS_ITS | Continuity of Care Document ---
Author Name Unknown Organization [facility] Address [address] [place] [address]- Care Team Providers Care Dairy Manager Name Role Phone Harman SOW, Vicki Primary Care Physician [phone] Encounter [facility] [place] [place] Date(s): 04/09/20 - 05/09/20 [facility] [address] [place] [address]- [facility] Allergies, Adverse Reactions, Alerts Substance [...] 03/23/20 9:43:00 EDT, Route to Pharmacy Electronically, [facility]/pharmacy #[id number], 162.5, cm, 08/25/19 8:40:00 EST, [...] tablet, 3 Refills, Maintenance, 03/23/20 9:42:00EDT, Tablet, [facility]/pharmacy #[id number], 162.5, cm, 08/25/19 8:40:00 EST, Height, 101.6, kg, 08/06/19 9:59:00 EST, Dry Weight Start Date: 03/23/20 Stop Date: 03/18/21 Status: Ordered clopidogrel 75 mg oral tablet 75 mg, 1, tablet, By Mouth, Daily, # 90 tablet, Refills 3, Tot. Refills 3, Maintenance, 03/23/20 9:43:00 EDT, Route to Pharmacy Electronically, [facility]/pharmacy #[id number], 162.5, cm, 08/25/19 8:40:00 EST, [...] DAILY, # 100 Unknown, 6 Refills, Maintenance, [facility], 50, TEST BLOOD SUGAR TWICE DAILY, 162.5, cm, 08/25/19 8:40:00 EST, Height, 101.6, kg, 08/06/19 9:59:00 EST, Dry Weight Start Date: 11/19/19 Status: Ordered lisinopril 20 mg oral tablet 20 mg, 1, tablet, By Mouth, Daily, # 90 tablet, Refills 3, Tot. Refills 3, Maintenance, 03/23/20 9:43:00 EDT, Route to Pharmacy Electronically, [facility]/pharmacy #[id number], please cancel HCTZ-lisinopril and replace with this medication. thanks., 162.5, cm, ... Start Date: 03/23/20 Stop Date: 03/18/21 Status: Ordered metFORMIN 1000 mg oral tablet 1 tablet = 1,000 mg, By Mouth, 2 times a day, # 180 tablet, 3 Refills, Maintenance, 03/23/20 9:43:00 EDT, Tablet, [facility]/pharmacy #[id number], please note dose increase from 500 mg to 1000 mg daily, 162.5, cm, 08/25/19 8:40:00 EST, Height, 101.6, kg, 08/06/19... Start Date: 03/23/20 Stop Date: 03/18/21 Status: Ordered NuLYTELY with Flavor Packs oral powder for reconstitution See Instructions, 240 mL By Mouth Every 15 minutes, # 4,000 mL, 0 Refills, Maintenance, 08/25/19 9:00:00 EST, [facility]/pharmacy #[id number], 240 mL By Mouth Every 15 minutes, 162.5, cm, 08/25/19 8:40:00 EST, Height, 101.6, kg, 08/06/19 9:59:00 EST, Dry Weight Start Date: 08/25/19 Status: Ordered Trulicity Pen 1.5 mg/0.5 mL subcutaneous solution 0.5 mL = 1.5 mg, Subcutaneous Injection, Every week, # 2.5 mL, 5 Refills, Maintenance, 03/23/20 9:42:00 EDT, Solution, [facility]/pharmacy #[id number], 162.5, cm, 08/25/19 8:40:00 EST, [...]
--- OUTSIDE RECORDS SUMMARY | 2023-02-06 19:29 | XMS_ITS | Continuity of Care Document ---
Author Name Unknown Organization [facility] Address [address] [place] [address]- Care Team Providers Care Phlebotomy Program Coordinator Name Role Phone Preethi Kessler MD [id number] Date(s[facility] 08/08/[facility] - 09/07/21 [facility] [address] [place], [place] [address] Attending Physician: Preethi Kessler MD Allergies, Adverse [...] 100 Unknown, 6 Refills, Maintenance, [facility], 50, TEST BLOOD SUGAR TWICE DAILY, 162.5, cm, 08/25/19 8:40:00 EST, Height, 101.6, kg, 08/06/19 9:59:00 EST, Dry Weight Start Date: 11/19/19 Status: Ordered lisinopril 20 mg oral tablet 1, tablet, By Mouth, Daily, # 30 tablet, Refills 4, Tot. Refills 4, 08/08/21 9:29:00 EST, Route to Pharmacy Electronically, [facility]/pharmacy #[id number], 163, cm, 08/04/21 11:31:00 EST, Height, 93, kg, 08/04/21 11:31:00 EST, Dry Weight Start Date: 08/08/21 Status: Ordered NuLYTELY with Flavor Packs oral powder for reconstitution See Instructions, 240 mL By Mouth Every 15 minutes, # 4,000 mL, 0 Refills, Maintenance, 08/25/19 9:00:00 EST, [facility]/pharmacy #[id number], 240 mL By Mouth Every 15 minutes, 162.5, cm, 08/25/19 8:40:00 EST, Height, 101.6, kg, 08/06/19 9:59:00 EST, Dry Weight Start Date: 08/25/19 Status: Ordered Trulicity Pen 1.5 mg/0.5 mL subcutaneous solution See Instructions, INJECT 0.5 ML SUBCUTANEOUSLY EVERY WEEK, # 4 Unknown, 5 Refills, 08/08/21 9:37:00EST, [facility]/pharmacy #[id number], 163, cm, 08/04/21 11:31:00 EST, Height, [...]
--- OUTSIDE RECORDS SUMMARY | 2023-02-06 19:29 | XMS_ITS | Continuity of Care Document ---
Author Name Unknown Organization [facility] Address [address] [place] [address]- Care Team Providers Care Manager Life Insurance Name Role Phone Checo SOW, Preethi Baez Primary Care Physician [phone] [place] [facility] [facility] [place]/25/[place] - 06/24/21 [facility] [address] [place] [address]- Allergies, Adverse Reactions, Alerts Substance Reaction Severity [...] 05/13/21 10:14:00 EDT, Route to Pharmacy Electronically, [facility]/pharmacy #[id number], 161.5, cm, 12/14/20 7:49:00 EDT, Height, 100, kg, 05/23/20 18:05:00 EST, Dry Weight Start Date: 05/13/21 Stop Date: 05/08/22 Status: Ordered Aspirin Low Dose 81 mg oral tablet, chewable 1 tablet, By Mouth, Daily, for 90 days, # 90 tablet, 3 Refills, Physician Stop 05/08/22 10:14:00 EDT, 05/13/21 10:14:00 EDT, [facility]/pharmacy #[id number], 161.5, cm, 12/14/20 7:49:00 EDT, Height, 100, kg, 05/23/20 18:05:00 EST, Dry Weight Start Date: 05/13/21 Stop Date: 05/08/22 Status: Ordered atorvastatin 80 mg oral tablet 1 tablet = 80 mg, By Mouth, Daily at bedtime, # 90 tablet, 3 Refills, Maintenance, 05/13/21 10:15:00 EDT, Tablet, [facility]/pharmacy #[id number], 161.5, cm, 12/14/20 7:49:00 EDT, Height, [...] 100 Unknown, 6 Refills, Maintenance, [facility], 50, TEST BLOOD SUGAR TWICE DAILY, 162.5, cm, 08/25/19 8:40:00 EST, Height, 101.6, kg, 08/06/19 9:59:00 EST, Dry Weight Start Date: 11/19/19 Status: Ordered lisinopril 20 mg oral tablet 1, tablet, By Mouth, Daily, # 30 tablet, Refills 2, Route to Pharmacy Electronically, [facility], 161.5, cm, 12/14/20 7:49:00 EDT, Height, 100, [...] By Mouth, 2 times a day, to [address] [place] [address], # 180 tablet, 2 Refills, Maintenance, 05/25/21 16:09:00 EST, Tablet, [facility], please note dose increase from 500mg to 1000 mg daily, 161.5, cm, 12/14/20 7:49:00 ED... Start Date: 05/25/21 Status: Ordered NuLYTELY with Flavor Packs oral powder for reconstitution See Instructions, 240 mL By Mouth Every 15 minutes, # 4,000 mL, 0 Refills, Maintenance, 08/25/19 9:00:00 EST, [facility]/pharmacy #[id number], 240 mL By Mouth Every 15 [...] 1 Refills, Maintenance, 06/20/21 7:56:00 EST, Tablet, [facility]/pharmacy #[id number], Partial fill upon patient request if [...]
--- OUTSIDE RECORDS SUMMARY | 2023-02-06 19:29 | XMS_ITS | Continuity of Care Document ---
Author Name Unknown Organization [facility] Address [address] [facility], [address] Floor, [address] [place] [address]- Care Team Providers Care Mixer Wet Pour Name Role Phone Not on Staff, PCP Primary Care Physician Unavail able [facility]counter [facility] Date(s): 03/24/22 - 04/23/22 [facility] [address], [address], [address] [place] [address]- Allergies, Adverse Reactions, Alerts No Known Allergies Immunizations Given and Recorded Vaccine Date Status Refusal Reason SARS-CoV-2 mRNA (vegjzuw-ekio-nyvnv) vax 10/25/21 Given SARS-CoV-2 (COVID-19) mRNA BNT-162b2 [...] 100 Unknown, 6 Refills, Maintenance, [facility], 50, TEST BLOOD SUGAR TWICE DAILY, 162.5, cm, 08/25/19 8:40:00 EST, Height, 101.6, kg, 08/06/19 9:59:00 EST, Dry Weight Start Date: 11/19/19 Status: Ordered lisinopril 20 mg oral tablet 1, tablet, By Mouth, Daily, for 90 days, # 90 tablet, Refills 3, Tot. Refills 3, Physician Stop 10/15/22 10:51:00 EDT, 10/20/21 10:51:00 EDT, Route to Pharmacy Electronically, [facility]/pharmacy #[id number], 163, cm, 10/20/21 10:33:00 EDT, Height, 93, kg, ... Start Date: 10/20/21 Stop Date: 10/15/22 Status: Ordered lisinopril 30 mg oral tablet 1 tablet = 30 mg, By Mouth, Daily, new dosage, # 90 tablet, 1 Refills, Maintenance, 10/21/21 16:06:00 EDT, Tablet, [facility]/pharmacy #[id number], new dosage, 163, cm, 10/20/21 11:13:00 [...] mL, 3 Refills, Maintenance,10/20/21 10:48:00 EDT, Solution, [facility]/pharmacy #[id number], cancel rx for trulicity 1.5mg, 163, [...]
--- OUTSIDE RECORDS SUMMARY | 2023-02-06 19:29 | XMS_ITS | Continuity of Care Document ---
Author Name Unknown Organization [facility] Address [address] [place] [address]- Care Team Providers Care Fly Raiser Lockstitch Name Role Phone Not on Staff, PCP Primary Care Physician Unavail able [facility]counter [facility] Date(s): 03/27/22 - 04/26/22 [facility] [address] [place], [place] [address] Allergies, Adverse Reactions, Alerts No Known Allergies Immunizations Given and Recorded Vaccine Date Status Refusal Reason SARS-CoV-2 mRNA (rxgcivq-mhmf-ovrya) vax 10/25/21 Given SARS-CoV-2 (COVID-19) mRNA BNT-162b2 [...] 100 Unknown, 6 Refills, Maintenance, [facility], 50, TEST BLOOD SUGAR TWICE DAILY, 162.5, cm, 08/25/19 8:40:00 EST, Height, 101.6, kg, 08/06/19 9:59:00 EST, Dry Weight Start Date: 11/19/19 Status: Ordered lisinopril 20 mg oral tablet 1, tablet, By Mouth, Daily, for 90 days, # 90 tablet, Refills 3, Tot. Refills 3, Physician Stop 10/15/22 10:51:00 EDT, 10/20/21 10:51:00 EDT, Route to Pharmacy Electronically, [facility]/pharmacy #[id number], 163, cm, 10/20/21 10:33:00 EDT, Height, 93, kg, ... Start Date: 10/20/21 Stop Date: 10/15/22 Status: Ordered lisinopril 30 mg oral tablet 1 tablet = 30 mg, By Mouth, Daily, new dosage, # 90 tablet, 1 Refills, Maintenance, 10/21/21 16:06:00 EDT, Tablet, [facility]/pharmacy #[id number], new dosage, 163, cm, 10/20/21 11:13:00 EDT, Height, 93, kg, 08/04/21 11:31:00 EST, Dry Weight Start Date: 10/21/21 Status: Ordered NuLYTELY with Flavor Packs oral powder for reconstitution See Instructions, 240 mL By Mouth Every 15 minutes, # 4,000 mL, 0 Refills, Maintenance, 08/25/19 9:00:00 EST, [facility]/pharmacy #[id number], 240 mL By Mouth Every 15 minutes, 162.5, cm, 08/25/19 8:40:00 EST, Height, 101.6, kg, 08/06/19 9:59:00 EST, Dry Weight Start Date: 08/25/19 Status: Ordered Trulicity Pen 3 mg/0.5 mL subcutaneous solution = 3 mg, Subcutaneous Injection, Every week, rotate injection sites, # 6 mL, 3 Refills, Maintenance,10/20/21 10:48:00 EDT, Solution, [facility]/pharmacy #[id number], cancel rx for trulicity [...]
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
--- OUTSIDE RECORDS SUMMARY | 2023-02-06 19:29 | XMS_ITS | Continuity of Care Document ---
Author Name Unknown Organization [facility] Address [address] [place] [address]- Care Team Providers Care Vb Developer Name Role Phone Preethi Kessler MD Primary Care Physician [place] [facility] [place] 06/20/21 - 07/20/21 [facility] [address] [place] [address]- [place] Allergies, Adverse Reactions, Alerts Substance Reaction Severity [...] 05/13/21 10:14:00 EDT, Route to Pharmacy Electronically, [facility]/pharmacy #[id number], 161.5, cm, 12/14/20 7:49:00 EDT, Height, 100, kg, 05/23/20 18:05:00 EST, Dry Weight Start Date: 05/13/21 Stop Date: 05/08/22 Status: Ordered Aspirin Low Dose 81 mg oral tablet, chewable 1 tablet, By Mouth, Daily, for 90 days, # 90 tablet, 3 Refills, Physician Stop 05/08/22 10:14:00 EDT, 05/13/21 10:14:00 EDT, [facility]/pharmacy #[id number], 161.5, cm, 12/14/20 7:49:00 EDT, Height, 100, kg, 05/23/20 18:05:00 EST, Dry Weight Start Date: 05/13/21 Stop Date: 05/08/22 Status: Ordered atorvastatin 80 mg oral tablet 1 tablet = 80 mg, By Mouth, Daily at bedtime, # 90 tablet, 3 Refills, Maintenance, 05/13/21 10:15:00 EDT, Tablet, [facility]/pharmacy #[id number], 161.5, cm, 12/14/20 7:49:00 EDT, [...] 100 Unknown, 6 Refills, Maintenance, [facility], 50, TEST BLOOD SUGAR TWICE DAILY, 162.5, cm, 08/25/19 8:40:00 EST, Height, 101.6, kg, 08/06/19 9:59:00 EST, Dry Weight Start Date: 11/19/19 Status: Ordered Januvia 50 mg oral tablet = 50 mg, By Mouth, Daily, # 30 tablet, 3 Refills, Maintenance, 06/28/21 15:30:00 EST, Tablet, [facility]/pharmacy #[id number], new medication; cancel meformin, 161.5, cm, 06/20/21 7:32:00 EST, Height, 100, kg, 05/23/20 18:05:00 EST, Dry Weight Start Date: 06/28/21 Status: Ordered lisinopril 20 mg oral tablet 1, tablet, By Mouth, Daily, # 30 tablet, Refills 2, Route to Pharmacy Electronically, [facility], 161.5, cm, 12/14/20 7:49:00 EDT, Height, 100, [...] 2 Unknown, 5 Refills, 05/12/21 16:42:00 EDT, [facility]/pharmacy #[id number], 161.5, cm, 12/14/20 7:49:00 EDT, Height, 100, kg, 05/23/20 18:05:00 EST, Dry Weight Start Date: 05/12/21 Status: Ordered Zetia 10 mg oral tablet 1 tablet = 10 mg, By Mouth, Daily, # 30 tablet, 1 Refills, Maintenance, 06/20/21 7:56:00 EST, Tablet, [facility]/pharmacy #[id number], Partial fill upon patient request if [...]
--- OUTSIDE RECORDS SUMMARY | 2023-02-06 19:29 | XMS_ITS | Continuity of Care Document ---
Author Name Unknown Organization [facility] ter Address [address] [place] [address]- Care Team Providers Care Internal Medicine Veterinary Technician Name Role Phone Harman SOW, Vicki Primary Care Physician [phone] [place] [facility] [place] - 05/09/[address] [address]- [place] Attending Physician: AdmOtis hussein Admitting Physician: AdmtrOtis Referring Physician: Admtr, ArMane Allergies, Adverse Reactions, Alerts Substance Reaction Severity [...] 03/23/20 9:43:00 EDT, Route to Pharmacy Electronically, [facility]/pharmacy #[id number], 162.5, cm, 08/25/19 8:40:00 EST, Height, [...] tablet, 3 Refills, Maintenance, 03/23/20 9:42:00EDT, Tablet, [facility]/pharmacy #[id number], 162.5, cm, 08/25/19 8:40:00 EST, Height, 101.6, kg, 08/06/19 9:59:00 EST, Dry Weight Start Date: 03/23/20 Stop Date: 03/18/21 Status: Ordered clopidogrel 75 mg oral tablet 75 mg, 1, tablet, By Mouth, Daily, # 90 tablet, Refills 3, Tot. Refills 3, Maintenance, 03/23/20 9:43:00 EDT, Route to Pharmacy Electronically, [facility]/pharmacy #[id number], 162.5, cm, 08/25/19 8:40:00 EST, Height, [...] DAILY, # 100 Unknown, 6 Refills, Maintenance, [facility], 50, TEST BLOOD SUGAR TWICE DAILY, 162.5, cm, 08/25/19 8:40:00 EST, Height, 101.6, kg, 08/06/19 9:59:00 EST, Dry Weight Start Date: 11/19/19 Status: Ordered lisinopril 20 mg oral tablet 20 mg, 1, tablet, By Mouth, Daily, # 90 tablet, Refills 3, Tot. Refills 3, Maintenance, 03/23/20 9:43:00 EDT, Route to Pharmacy Electronically, [facility]/pharmacy #[id number], please cancel HCTZ-lisinopril and replace with this medication. thanks., 162.5, cm, ... Start Date: 03/23/20 Stop Date: 03/18/21 Status: Ordered metFORMIN 1000 mg oral tablet 1 tablet = 1,000 mg, By Mouth, 2 times a day, # 180 tablet, 3 Refills, Maintenance, 03/23/20 9:43:00 EDT, Tablet, [facility]/pharmacy #[id number], please note dose increase from 500 mg to 1000 mg daily, 162.5, cm, 08/25/19 8:40:00 EST, Height, 101.6, kg, 08/06/19... Start Date: 03/23/20 Stop Date: 03/18/21 Status: Ordered NuLYTELY with Flavor Packs oral powder for reconstitution See Instructions, 240 mL By Mouth Every 15 minutes, # 4,000 mL, 0 Refills, Maintenance, 08/25/19 9:00:00 EST, [facility]/pharmacy #[id number], 240 mL By Mouth Every 15 [...]
--- OUTSIDE RECORDS SUMMARY | 2023-02-06 19:29 | XMS_ITS | Continuity of Care Document ---
Author Name Unknown Organization [facility] Address [address] [place] [address]- Care Team Providers Care Practice Advisor Name Role Phone Not on Staff, PCP Primary Care Physician Unavail able [facility]counter [facility] Date(s): 03/30/22 - 04/29/22 [facility] [address] [place] [address] [place] Allergies, Adverse Reactions, Alerts No Known Allergies Immunizations Given and Recorded Vaccine Date Status Refusal Reason SARS-CoV-2 mRNA (oocyfax-lkfm-qgagy) vax 10/25/21 Given SARS-CoV-2 (COVID-19) mRNA BNT-162b2 [...] 100 Unknown, 6 Refills, Maintenance, [facility], 50, TEST BLOOD SUGAR TWICE DAILY, 162.5, [...]
--- OUTSIDE RECORDS SUMMARY | 2023-02-06 19:30 | XMS_ITS | Continuity of Care Document ---
Author Name Unknown Organization [facility] Address [address] [place] [address]- Care Team Providers Care Sheet Metal Shop Helper Name Role Phone Harman SOW, Vicki Primary Care Physician [facility]counter [facility] Date(s): 06/03/20 - 07/03/20 [facility] [address] [place] [address]- Attending Physician: Otis Gonzales Admitting Physician: AdmtrOtis Referring Physician: Admtr ArMane Allergies, Adverse Reactions, Alerts Substance Reaction [...] 8:25:00 EST, Route to Pharmacy Electronically, [facility]/pharmacy #[id number], 161.5, cm, 05/24/20 15:59:00 EST, Height, 100, kg, 05/23/20 18:05:00 EST, Dry Weight Start Date: 05/25/20 Stop Date: 05/20/21 Status: Ordered aspirin 81 mg oral tablet, chewable 81 mg, 1, tablet, By Mouth, Daily, OTC, # 30 tablet, Refills 11, Tot. Refills 11, Maintenance, 05/25/20 8:25:00 EST, Route to Pharmacy Electronically, [facility]/pharmacy #[id number], 161.5, cm, 05/24/20 15:59:00EST, Height, 100, kg, 05/23/20 18:05:00 EST, Dry We... Start Date: 05/25/20 Stop Date: 05/20/21 Status: Ordered atorvastatin 80 mg oral tablet 1 tablet = 80 mg, By Mouth, Daily at bedtime, # 30 tablet, 11 Refills, Maintenance, 05/25/20 8:25:00 EST, Tablet, [facility]/pharmacy #[id number], 161.5, cm, 05/24/20 15:59:00 EST, Height, 100, kg, 05/23/20 18:05:00 EST, Dry Weight Start Date: 05/25/20 Stop Date: 05/20/21 Status: Ordered clopidogrel 75 mg oral tablet 75 mg, 1, tablet, By Mouth, Daily, # 30 tablet, Refills 11, Tot. Refills 11, Maintenance, 05/25/20 8:25:00 EST, [id number], 161.5, cm, 05/24/20 15:59:00 EST,Height, [...] DAILY, # 100 Unknown, 6 Refills, Maintenance, [facility], 50, TEST BLOOD SUGAR TWICE DAILY, 162.5, cm, 08/25/19 8:40:00 EST, Height, 101.6, kg, 08/06/19 9:59:00 EST, Dry Weight Start Date: 11/19/19 Status: Ordered lisinopril 20 mg oral tablet 20 mg, 1, tablet, By Mouth, Daily, # 90 tablet, Refills 3, Tot. Refills 3, Maintenance, 03/23/20 9:43:00 EDT, Route to Pharmacy Electronically, [facility]/pharmacy #[id number], please cancel HCTZ-lisinopril and replace with this medication. thanks., 162.5, cm, /... Start Date: 03/23/20 Stop Date: 03/18/21 Status: [...] Refills, Maintenance, 03/23/20 9:43:00 EDT, Tablet, [facility]/pharmacy #[id number], please note dose increase [...]
--- OUTSIDE RECORDS SUMMARY | 2023-02-06 19:30 | XMS_ITS | Continuity of Care Document ---
Author Name Unknown Organization [facility] Address [address] [place] [address]- Care Team Providers Care Head Waitress Name Role Phone Harman SOW, Vicki Primary Care Physician [phone] Encounter [facility] [place] Date(s): 07/30/19 - 08/09/19 [facility] [address] [place] [address]- [facility] Attending [...] 08/06/19 10:11:00 EST, Route to Pharmacy Electronically, [facility]/pharmacy #[id number], 162.5, cm, 08/06/19 9:59:00 [...] 3 Refills, Maintenance, 07/21/19 12:24:00 EST, Tablet, [facility]/pharmacy #[id number], 162.5, cm, 04/11/19 8:53:00 EDT, Height, 106.6, kg, 10/03/18 11:10:00 EDT, Dry Weight Start Date: 07/21/19 Stop Date: 07/15/20 Status: Ordered clopidogrel 75 mg oral tablet 75 mg, 1, tablet, By Mouth, Daily, # 90 tablet, Refills 3, Tot. Refills 3, Maintenance, 07/21/19 12:24:00 EST, Route to Pharmacy Electronically, [facility]/pharmacy #[id number], 162.5, cm, 04/11/19 8:53:00 [...] 08/06/19 10:12:00 EST, Route to Pharmacy Electronically, [facility]/pharmacy #[id number], please cancel HCTZ-lisinopril and replace with this medication. thanks., 162.5, cm, 01... Start Date: 08/06/19 Stop Date: 07/31/20 Status: Ordered magnesium oxide 400 mg oral tablet 1 tablet = 400 mg, By Mouth, Daily, for 30 days, Take with meal., # 30 tablet, 5 Refills, Acute 01/26/20 14:28:00 EDT, 07/30/19 14:28:00 EST, [facility]/pharmacy #[id number], 162.5, cm, 07/30/19 14:05:00 EST, Height, [...] Date: 10/03/18 Stop Date: 09/28/19 Status: Ordered Trulicity Pen 1.5 mg/0.5 mL subcutaneous solution 0.5 mL = 1.5 mg, Subcutaneous Injection, Every week, # 2.5 mL, 5 Refills, Maintenance, 07/25/19 15:18:00 EST, Solution, [facility]/pharmacy #[id number], 162.5, cm, 04/11/19 8:53:00 [...]
--- OUTSIDE RECORDS SUMMARY | 2023-02-06 19:30 | XMS_ITS | Continuity of Care Document ---
Author Name Unknown Organization [facility] Address [address] [place] [phone]- Care Team Providers Care Winding Inspector Name Role Phone Vicki Hammer MD Primary Care Physician Encounter [facility] Date(s): 05/01/19 - 08/29/19 [facility] [address] [place] [address]- [facility] Attending Physician: Pelon Maki MD Admitting Physician: Shanthi SOW, Pelon Referring Physician: Vicki Hammer MD Allergies, Adverse Reactions, [...] 08/06/19 10:11:00 EST, Route to Pharmacy Electronically, [facility]/pharmacy #[id number], 162.5, cm, 08/06/19 9:59:00 EST, [...] 3 Refills, Maintenance, 07/21/19 12:24:00 EST, Tablet, [facility]/pharmacy #[id number], 162.5, cm, 04/11/19 8:53:00 EDT, Height, 106.6, kg, 10/03/18 11:10:00 EDT, Dry Weight Start Date: 07/21/19 Stop Date: 07/15/20 Status: Ordered clopidogrel 75 mg oral tablet 75 mg, 1, tablet, By Mouth, Daily, # 90 tablet, Refills 3, Tot. Refills 3, Maintenance, 07/21/19 12:24:00 EST, Route to Pharmacy Electronically, [facility]/pharmacy #[id number], 162.5, cm, 04/11/19 8:53:00 EDT, [...] 08/06/19 10:12:00 EST, Route to Pharmacy Electronically, [facility]/pharmacy #[id number], please cancel HCTZ-lisinopril and replace with this medication. thanks., 162.5, cm, 01... Start Date: 08/06/19 Stop Date: 07/31/20 Status: Ordered magnesium oxide 400 mg oral tablet 1 tablet = 400 mg, By Mouth, Daily, for 30 days, Take with meal., # 30 tablet, 5 Refills, Acute 01/26/20 14:28:00 EDT, 07/30/19 14:28:00 EST, [facility]/pharmacy #[id number], 162.5, cm, 07/30/19 14:05:00 EST, [...] mL, 0 Refills, Maintenance, 08/25/19 9:00:00 EST, [facility]/pharmacy #[id number], 240 mL By Mouth Every 15 minutes, 162.5, cm, 08/25/19 8:40:00 EST, Height, 101.6, kg, 08/06/19 9:59:00 EST, Dry Weight Start Date: 08/25/19 Status: Ordered Trulicity Pen 1.5 mg/0.5 mL subcutaneous solution 0.5 mL = 1.5 mg, Subcutaneous Injection, Every week, # 2.5 mL, 5 Refills, Maintenance, 07/25/19 15:18:00 EST, Solution, [facility]/pharmacy #[id number], 162.5, cm, 04/11/19 8:53:00 EDT, [...]
--- OUTSIDE RECORDS SUMMARY | 2023-02-06 19:30 | XMS_ITS | Continuity of Care Document ---
Author Name Unknown Organization [facility] ter Address [address] [place] [phone]- Care Team Providers Care Customer Acquisition Specialist Name Role Phone Harman SOW, Vicki Primary Care Physician Encounter [facility] Date(s): 05/23/20 - 05/24/[address] [address]- Encounter Diagnosis Non-ST elevation NM (NSTEMI)(Final) - 05/23/20 Discharge Disposition: A-D/C AMA Attending Physician: Bear De La Fuente MD Admitting Physician: Bear De La Fuente MD Referring Physician: Not on Staff, Referring [...] 03/23/20 9:43:00 EDT, Route to Pharmacy Electronically, [facility]/pharmacy #[id number], 162.5, cm, 08/25/19 8:40:00 EST, [...] tablet, 3 Refills, Maintenance, 03/23/20 9:42:00EDT, Tablet, [facility]/pharmacy #[id number], 162.5, cm, 08/25/19 8:40:00 EST, Height, 101.6, kg, 08/06/19 9:59:00 EST, Dry Weight Start Date: 03/23/20 Stop Date: 03/18/21 Status: Ordered clopidogrel 75 mg oral tablet 75 mg, 1, tablet, By Mouth, Daily, # 90 tablet, Refills 3, Tot. Refills 3, Maintenance, 03/23/20 9:43:00 EDT, Route to Pharmacy Electronically, [facility]/pharmacy #[id number], 162.5, cm, 08/25/19 8:40:00 EST, [...] DAILY, # 100 Unknown, 6 Refills, Maintenance, [id number], 50, TEST BLOOD SUGAR TWICE DAILY, 162.5, cm, 08/25/19 8:40:00 EST, Height, 101.6, kg, 08/06/19 9:59:00 EST, Dry Weight Start Date: 11/19/19 Status: Ordered lisinopril 20 mg oral tablet 20 mg, 1, tablet, By Mouth, Daily, # 90 tablet, Refills 3, Tot. Refills 3, Maintenance, 03/23/20 9:43:00 EDT, Route to Pharmacy Electronically, [facility]/pharmacy #[id number], please cancel HCTZ-lisinopril and replace [...] 3 Refills, Maintenance, 03/23/20 9:43:00 EDT, Tablet, [facility]/pharmacy #[id number], please note dose increase from [...] pain(Confirmed) Active ; Chest pain(Confirmed) Active ; CAD - Inferior STEMI s/p KIM in 2013(Confirmed) Active History of TIA 2012(Confirmed) Active Hyperlipidemia(Confirmed) Active Hypertension(Confirmed) Active Multiple sclerosis(Confirmed) Active Tobacco Use(Confirmed) Active SAQIB - refuses CPAP(Confirmed) Active Optic neuritis(Confirmed) Active Colonoscopy due in 2018(Confirmed) Active Type 2 diabetes mellitus(Confirmed) Active Results Radiology Reports * Exam Date Time Procedure Performing Provider Status 05/23/20 9:27 AM Chest Portable Dion , Irma; Auth (V erified) Notes: (Chest Portable) Reason For Exam: Chest Pain;Other: RESULT: Chest Portable AP portable chest, INDICATION: Hx of Present Illness: CP started last night about 8pm, took roll- aids for heartburn, gone before went to sleep at 10pm. woke up, CP present R side of chest, sharp in nature. roll aids did not help. Denies SOB, called EMS. Pt states CP improved with ASA. c o nausea; Reason: Other:; Chest Pain; Clinical Question(s): CHF COMPARISON: 05/19/2020 FINDINGS: LINES AND TUBES: None LUNGS AND PLEURA AND MEDIASTINUM: There is no pneumothorax. Clear lungs without focal infiltrate. Normal size heart. IMPRESSION: No acute abnormality. WSN: [id number] Ordering Physician: Gaye Cordero Dictated By: Afua Lamar MD Dictated Date/Time: 05/23/20 10:05 a Reviewed By: Afua Lamar MD Signed By: Afua Lamar MD Signed Date/Time: 05/23/20 10:05 am Transcribed By: ALEJANDRA Transcribed Date/Time: 05/23/20 10:05 am Vital Signs Most recent to oldest [Reference Range]: 1 2 3 Height 161.5 cm (05/24/20 3:59 PM) 161.5 cm (05/24/20 7:38 AM) 161.5 cm (05/24/20 6:50 AM) Weight 96.1 kg (05/24/20 7:00 AM) 97.0 kg (05/24/20 6:50 AM) 97.0 kg (05/23/20 3:28 PM) Oxygen Saturation [94-100 %] 93 % *L* (05/24/20 3:59 PM) 95 % (05/24/20 7:38 AM) 93 % *L* (05/24/20 2:52 AM) Pulse Rate [55-90 bpm] 95 bpm *H* (05/24/20 3:59 PM) 95 bpm *H* (05/24/20 7:38 AM) 109 bpm *H* (05/24/20 2:52 AM) Body Mass Index [18.5-24.99] 37.19 *>HHI* (05/23/20 3:28 PM) Blood Pressure [90-138/55-84 mm Hg] 153/75mm Hg *H* (05/24/20 3:59 PM) 126/86mm Hg (05/24/20 7:38 AM) 135/95mm Hg (05/24/20 2:52 AM) Respiratory Rate [16-30 br/min] 18 br/min (05/24/20 3:59 PM) 18 br/min (05/24/20 7:38 AM) 18 br/min (05/24/20 2:52 AM) Temperature [96.8-100.4 DegF] 97.9 DegF (05/24/20 3:59 PM) 97 DegF (05/24/20 7:38 AM) 97.5 DegF (05/24/20 2:52 AM) Mode of Delivery (Oxygen) Room air (05/24/20 3:59 PM) Room air (05/24/20 7:38 AM) Room air (05/24/20 2:52 AM) Blood pressure sites Arm, left (05/24/20 3:59 PM) Arm, right (05/24/20 7:38 AM) Arm, left (05/24/20 2:52 AM) Temperature Route Oral (05/24/20 3:59 PM) Temporal (05/24/20 7:38 AM) Temporal (05/24/20 2:52 AM) Dry Weight 100 kg (05/23/20 3:28 PM) 102.2 kg (05/23/20 2:00 PM) 102.2 kg (05/23/20 1:04 PM) Weight Obtained Via Bed scale (05/24/20 7:00 AM) Bed scale (05/23/20 3:28 PM) Dry Weight Obtained Via Patient/family stated (05/23/20 1:04 PM) Social History Social History Type Response Smoking Status Current every day tosha gallo; Tobacco user in household: No entered on: 04/24/18 Sex
--- OUTSIDE RECORDS SUMMARY | 2023-02-06 19:30 | XMS_ITS | Continuity of Care Document ---
Author Name Unknown Organization [facility] Address [address] [facility], [address] d Floor, [address] [place] [address]- Care Team Providers Care Offset Plate Maker Name Role Phone Not on Staff, PCP Primary Care Physician Unavail able Encounter [facility] Date(s): 06/15/22 - 08/18/22 [facility] [address], [address] Floor, [address] [place] [address]- Attending Physician: Bertha Marin MD, Annemarie Allergies, Adverse Reactions, Alerts No Known Allergies Immunizations Given and Recorded Vaccine Date Status Refusal Reason [id number] 12y+ bivalent booster vax 04/29/22 Recorded SARS-CoV-2 mRNA (gesvfau-pekk-fwzkp) vax 10/25/21 Given SARS-CoV-2 (COVID-19) mRNA BNT-162b2 [...] Refills, Maintenance, 06/23/22 8:15:00 EST, [facility], 162, cm, 06/14/22 13:02:00 EST, Height, 89.7, [...] Team Personnel Name: Nitish Bishop RN Position: [facility] ED RN W/OE and Tasks Member Role: Primary Care Nurse Name: Sandrine Celaya RN Position: S RN Member Role: Primary Care Nurse Name: Not on Staff, PCP Position: [facility] Physician (General Medicine) Member Role: PCP Care Team Related Persons Name: JANETTE PENA Name: NO ONE, PER PT
--- OUTSIDE RECORDS SUMMARY | 2023-02-06 19:30 | XMS_ITS | Continuity of Care Document ---
Author Name Unknown Organization [facility] Address [address] [facility], 3r d Floor, [address] [place] [address]- Care Team Providers Care Mica Patcher Name Role Phone Not on Staff, PCP Primary Care Physician Unavail able Encounter [facility] Date(s): 07/19/22 - 08/18/22 [facility] [address] [place], [address]rd Floor, [address] [place] [address]- Allergies, Adverse Reactions, Alerts No Known Allergies Immunizations Given and Recorded Vaccine Date Status Refusal Reason [id number] 12y+ bivalent booster vax 04/29/22 Recorded SARS-CoV-2 mRNA (wopnrpn-wrlk-uahaf) vax 10/25/21 Given SARS-CoV-2 (COVID-19) mRNA BNT-162b2 [...] Refills, Maintenance, 06/23/22 8:15:00 EST, [facility], 162, cm, 06/14/22 13:02:00 EST, Height, 89.7, kg, 06/12/22 19:44:00 EST, Dry Weight Start Date: 06/23/22 Status: Ordered atorvastatin 80 mg oral tablet 1 tablet = 80 mg, By Mouth, Daily at bedtime, # 90 tablet, 3 Refills, Maintenance, 05/13/21 10:15:00 EDT, Tablet, [facility]/pharmacy #[id number], 161.5, cm, 12/14/20 7:49:00 EDT, [...] Team Personnel Name: Nitish Bishop RN Position: [facility] ED RN W/OE and Tasks Member Role: Primary Care Nurse Name: Sandrine Celaya RN Position: S RN Member Role: Primary Care Nurse Name: Not on Staff, PCP Position: [facility] Physician (General Medicine) Member Role: PCP Care Team Related Persons Name: JANETTE PENA Name: NO ONE, PER PT
--- OUTSIDE RECORDS SUMMARY | 2023-02-06 19:30 | XMS_ITS | Continuity of Care Document ---
Author Name Unknown Organization [facility] Address [address] [place] [address]- Care Team Providers Care Clinical Resource Manager Name Role Phone Preethi Kessler MD Primary Care Physician En[id number] Date(s): 10/25/21 - 11/01/21 [facility] [address] [place], [place] [address] Attending Physician: Preethi Kessler MD Allergies, Adverse Reactions, Alerts No Known Allergies Immunizations Given and Recorded Vaccine Date Status Refusal Reason SARS-CoV-2 mRNA (xeenyre-begm-nfzcg) vax 10/25/21 Given SARS-CoV-2 (COVID-19) mRNA BNT-162b2 [...] Stop 05/08/22 10:14:00 EDT, 05/13/21 10:14:00 EDT, [facility]/pharmacy #[id number], 161.5, cm, 12/14/20 7:49:00 EDT, Height, 100, kg, 05/23/20 18:05:00 EST, Dry Weight Start Date: 05/13/21 Stop Date: 05/08/22 Status: Ordered atorvastatin 80 mg oral tablet 1 tablet = 80 mg, By Mouth, Daily at bedtime, # 90 tablet, 3 Refills, Maintenance, 05/13/21 10:15:00 EDT, Tablet, [facility]/pharmacy #[id number], 161.5, cm, 12/14/20 7:49:00 EDT, Height, [...] DAILY, # 100 Unknown, 6 Refills, Maintenance, [facility], 50, TEST BLOOD SUGAR TWICE DAILY, 162.5, cm, 08/25/19 8:40:00 EST, Height, 101.6, kg, 08/06/19 9:59:00 EST, Dry Weight Start Date: 11/19/19 Status: Ordered lisinopril 20 mg oral tablet 1, tablet, By Mouth, Daily, for 90 days, # 90 tablet, Refills 3, Tot. Refills 3, Physician Stop 10/15/22 10:51:00 EDT, 10/20/21 10:51:00 EDT, Route to Pharmacy Electronically, [facility]/pharmacy #[id number], 163, cm, 10/20/21 10:33:00 EDT, Height, 93, kg, ... Start Date: 10/20/21 Stop Date: 10/15/22 Status: Ordered lisinopril 30 mg oral tablet 1 tablet = 30 mg, By Mouth, Daily, new dosage, # 90 tablet, 1 Refills, Maintenance, 10/21/21 16:06:00 EDT, Tablet, [facility]/pharmacy #[id number], new dosage, 163, cm, 10/20/21 11:13:00 EDT, Height, 93, kg, 08/04/21 11:31:00 EST, Dry Weight Start Date: 10/21/21 Status: Ordered NuLYTELY with Flavor Packs oral powder for reconstitution See Instructions, 240 mL By Mouth Every 15 minutes, # 4,000 mL, 0 Refills, Maintenance, 08/25/19 9:00:00 EST, [facility]/pharmacy #[id number], 240 mL By Mouth Every 15 minutes, 162.5, cm, 08/25/19 8:40:00 EST, Height, 101.6, kg, 08/06/19 9:59:00 EST, Dry Weight Start Date: 08/25/19 Status: Ordered Trulicity Pen 3 mg/0.5 mL subcutaneous solution = 3 mg, Subcutaneous Injection, Every week, rotate injection sites, # 6 mL, 3 Refills, Maintenance,10/20/21 10:48:00 EDT, Solution, [facility]/pharmacy #[id number], cancel rx for trulicity 1.5mg, 163, [...]
--- OUTSIDE RECORDS SUMMARY | 2023-02-06 19:30 | XMS_ITS | Continuity of Care Document ---
Author Name Unknown Organization [facility] Address [address] [place] [address]- Care Team Providers Care Lens Fabricating Machine Tender Name Role Phone Harman SOW, Vicki Primary Care Physician Encounter [facility] Date(s): 06/23/20 - 07/23/20 [facility] [address] [place], [place] [address] Attending Physician: Otis Gonzales Admitting Physician: AdmtrOtis Referring Physician: AdmtrOtis Allergies, Adverse Reactions, Alerts [...] 05/25/20 8:25:00 EST, Route to Pharmacy Electronically, [facility]/pharmacy #[id number], 161.5, cm, 05/24/20 15:59:00 EST, Height, 100, kg, 05/23/20 18:05:00 EST, Dry Weight Start Date: 05/25/20 Stop Date: 05/20/21 Status: Ordered aspirin 81 mg oral tablet, chewable 81 mg, 1, tablet, By Mouth, Daily, OTC, # 30 tablet, Refills 11, Tot. Refills 11, Maintenance, 11/10/20 8:25:00 EST, Route to Pharmacy Electronically, [facility]/pharmacy #[id number], 161.5, cm, 05/24/20 15:59:00EST, Height, 100, kg, 05/23/20 18:05:00 EST, Dry We... Start Date: 05/25/20 Stop Date: 05/20/21 Status: Ordered atorvastatin 80 mg oral tablet 1 tablet = 80 mg, By Mouth, Daily at bedtime, # 30 tablet, 11 Refills, Maintenance, 05/25/20 8:25:00 EST, Tablet, [facility]/pharmacy #[id number], 161.5, cm, 05/24/20 15:59:00 EST, Height, 100, kg, 05/23/20 18:05:00 EST, Dry Weight Start Date: 05/25/20 Stop Date: 05/20/21 Status: Ordered clopidogrel 75 mg oral tablet 75 mg, 1, tablet, By Mouth, Daily, # 30 tablet, Refills 11, Tot. Refills 11, Maintenance, 05/25/20 8:25:00 EST, [id number] 161.5, cm, 05/24/20 15:59:00 [...] 100 Unknown, 6 Refills, Maintenance, [facility], 50, TEST BLOOD SUGAR TWICE DAILY, 162.5, cm, 08/25/19 8:40:00 EST, Height, 101.6, kg, 08/06/19 9:59:00 EST, Dry Weight Start Date: 11/19/19 Status: Ordered lisinopril 20 mg oral tablet 20 mg, 1, tablet, By Mouth, Daily, # 90 tablet, Refills 3, Tot. Refills 3, Maintenance, 03/23/20 9:43:00 EDT, Route to Pharmacy Electronically, [facility]/pharmacy #[id number], please cancel HCTZ-lisinopril and replace [...] 3 Refills, Maintenance, 03/23/20 9:43:00 EDT, Tablet, [facility]/pharmacy #[id number], please note dose increase from [...]
--- OUTSIDE RECORDS SUMMARY | 2023-02-06 19:30 | XMS_ITS | Continuity of Care Document ---
Author Name Unknown Organization [facility] Address [address] [place] [address]- Care Team Providers Care Turkey Egg Gatherer Name Role Phone Not on Staff, PCP Primary Care Physician Unavail able Encounter [facility] Date(s): 03/23/22 - 04/22/22 [facility] [address] [place], [place] [address] Allergies, Adverse Reactions, Alerts No Known Allergies Immunizations Given and Recorded Vaccine Date Status Refusal Reason SARS-CoV-2 mRNA (mtjtnqd-nrhf-ajhjp) vax 10/25/21 Given SARS-CoV-2 (COVID-19) mRNA BNT-162b2 [...] 100 Unknown, 6 Refills, Maintenance, [facility], 50, TEST BLOOD SUGAR TWICE DAILY, 162.5, cm, 08/25/19 8:40:00 EST, Height, 101.6, kg, 08/06/19 9:59:00 EST, Dry Weight Start Date: 11/19/19 Status: Ordered lisinopril 20 mg oral tablet 1, tablet, By Mouth, Daily, for 90 days, # 90 tablet, Refills 3, Tot. Refills 3, Physician Stop 10/15/22 10:51:00 EDT, 10/20/21 10:51:00 EDT, Route to Pharmacy Electronically, [facility]/pharmacy #[id number], 163, cm, 10/20/21 10:33:00 EDT, Height, 93, kg, ... Start Date: 10/20/21 Stop Date: 10/15/22 Status: Ordered lisinopril 30 mg oral tablet 1 tablet = 30 mg, By Mouth, Daily, new dosage, # 90 tablet, 1 Refills, Maintenance, 10/21/21 16:06:00 EDT, Tablet, [facility]/pharmacy #[id number], new dosage, 163, cm, 10/20/21 11:13:00 EDT, Height, 93, kg, 08/04/21 11:31:00 EST, Dry Weight Start Date: 10/21/21 Status: Ordered NuLYTELY with Flavor Packs oral powder for reconstitution See Instructions, 240 mL By Mouth Every 15 minutes, # 4,000 mL, 0 Refills, Maintenance, 08/25/19 9:00:00 EST, [facility]/pharmacy #[id number], 240 mL By Mouth Every 15 minutes, 162.5, cm, 08/25/19 8:40:00 EST, Height, 101.6, kg, 08/06/19 9:59:00 EST, Dry Weight Start Date: 08/25/19 Status: Ordered Trulicity Pen 3 mg/0.5 mL subcutaneous solution = 3 mg, Subcutaneous Injection, Every week, rotate injection sites, # 6 mL, 3 Refills, Maintenance,10/20/21 10:48:00 EDT, Solution, [facility]/pharmacy #[id number], cancel rx for trulicity 1.5mg, [...]
--- OUTSIDE RECORDS SUMMARY | 2023-02-06 19:30 | XMS_ITS | Continuity of Care Document ---
Author Name Unknown Organization [facility] Address [address] [place] [address]- Care Team Providers Care Embroidery Assistant Name Role Phone Vicki Hammer MD Primary Care Physician Encounter [facility] Date(s): 08/06/19 - 08/13/19 [facility] [address] [place] [address]- [facility] Attending Physician: Vicki Hammer MD [...] 08/06/19 10:11:00 EST, Route to Pharmacy Electronically, [facility]/pharmacy #[id number], 162.5, cm, 08/06/19 9:59:00 [...] 3 Refills, Maintenance, 07/21/19 12:24:00 EST, Tablet, [facility]/pharmacy #[id number], 162.5, cm, 04/11/19 8:53:00 EDT, Height, 106.6, kg, 10/03/18 11:10:00 EDT, Dry Weight Start Date: 07/21/19 Stop Date: 07/15/20 Status: Ordered clopidogrel 75 mg oral tablet 75 mg, 1, tablet, By Mouth, Daily, # 90 tablet, Refills 3, Tot. Refills 3, Maintenance, 07/21/19 12:24:00 EST, Route to Pharmacy Electronically, [facility]/pharmacy #[id number], 162.5, cm, 04/11/19 8:53:00 [...] 08/06/19 10:12:00 EST, Route to Pharmacy Electronically, [facility]/pharmacy #[id number], please cancel HCTZ-lisinopril and replace with this medication. thanks., 162.5, cm, 01... Start Date: 08/06/19 Stop Date: 07/31/20 Status: Ordered magnesium oxide 400 mg oral tablet 1 tablet = 400 mg, By Mouth, Daily, for 30 days, Take with meal., # 30 tablet, 5 Refills, Acute 01/26/20 14:28:00 EDT, 07/30/19 14:28:00 EST, [facility]/pharmacy #[id number], 162.5, cm, 07/30/19 14:05:00 [...] 5 Refills, Maintenance, 07/25/19 15:18:00 EST, Solution, [facility]/pharmacy #[id number], 162.5, cm, 04/11/19 8:53:00 [...] recent to oldest [Reference Range]: 1 Height 162.5 cm (08/06/19 9:59 AM) Weight 101.6 kg (08/06/19 9:59 AM) Oxygen Saturation [94-100 %] 95 % (08/06/19 9:59 AM) Pulse Rate [55-90 bpm] 103 bpm *H* (08/06/19 9:59 AM) Body Mass Index [18.5-24.99] 38.48 *>HHI* (08/06/19 9:59 AM) Blood Pressure [90-138/55-84 mm Hg] 112/ 84mm Hg (08/06/19 9:59 AM) Temperature [96.8-100.4 DegF] 98.0 DegF (08/06/19 9:59 AM) Mode of Delivery (Oxygen) Room air (08/06/19 9:59 AM) Blood pressure sites Arm, left (08/06/19 9:59 AM) Temperature Route Oral (08/06/19 9:59 AM) Dry Weight 101.6 kg (08/06/19 9:59 AM) Weight Obtained Via Pediatric scale (08/06/19 9:59 AM) Social History Social History Type Response Smoking Status Current every day tosha gallo; Tobacco user in household: No entered on: 04/24/18 Sex
--- OUTSIDE RECORDS SUMMARY | 2023-02-06 19:30 | XMS_ITS | Continuity of Care Document ---
Author Name Unknown Organization [facility] Address [address] [place] [address]- Care Team Providers Care Superintendent Division Name Role Phone Not on Staff, PCP Primary Care Physician Unavail able Encounter [facility] Date(s): 06/23/22 - 07/23/22 [facility] [address] [place] [address]- Attending Physician: Otis Gonzales Admitting Physician: Otis Gonzales Referring Physician: Admtr, Ar8 Allergies, Adverse Reactions, Alerts No Known Allergies Immunizations Given and Recorded Vaccine Date Status Refusal Reason [id number] 12y+ bivalent booster vax 04/29/22 Recorded SARS-CoV-2 mRNA (vhgvmwy-cvgc-zoyjl) vax 10/25/21 Given SARS-CoV-2 (COVID-19) mRNA BNT-162b2 [...] Refills, Maintenance, 06/23/22 8:15:00 EST, [facility], 162, cm, 06/14/22 13:02:00 EST, Height, 89.7, kg, 06/12/22 19:44:00 EST, Dry Weight Start Date: 06/23/22 Status: Ordered atorvastatin 80 mg oral tablet 1 tablet = 80 mg, By Mouth, Daily at bedtime, # 90 tablet, 3 Refills, Maintenance, 05/13/21 10:15:00 EDT, Tablet, [facility]/pharmacy #[id number], 161.5, cm, 12/14/20 7:49:00 EDT, Height, [...] Team Personnel Name: Nitish Bishop RN Position: [facility] ED RN W/OE and Tasks Member Role: Primary Care Nurse Name: Sandrine Celaya RN Position: S RN Member Role: Primary Care Nurse Name: Not on Staff, PCP Position: [facility] Physician (General Medicine) Member Role: PCP Care Team Related Persons Name: JANETTE PENA Name: NO ONE, PER PT
--- OUTSIDE RECORDS SUMMARY | 2023-02-06 19:30 | XMS_ITS | Continuity of Care Document ---
Author Name Unknown Organization [facility] Address [address] [place] [address]- Care Team Providers Care Dispensing Operator Name Role Phone Harman SOW, Vicki Primary Care Physician [phone] Encounter [facility] [place] Date(s): 06/23/20 - 06/30/20 [facility] [address] [place], [place] [address] Attending Physician: Vicki Hammer MD Allergies, Adverse [...] 05/25/20 8:25:00 EST, Route to Pharmacy Electronically, [facility]/pharmacy #[id number], 161.5, cm, 05/24/20 15:59:00 EST, Height, 100, kg, 05/23/20 18:05:00 EST, Dry Weight Start Date: 05/25/20 Stop Date: 05/20/21 Status: Ordered aspirin 81 mg oral tablet, chewable 81 mg, 1, tablet, By Mouth, Daily, OTC, # 30 tablet, Refills 11, Tot. Refills 11, Maintenance, 05/25/20 8:25:00 EST, Route to Pharmacy Electronically, [facility]/pharmacy #[id number], 161.5, cm, 05/24/20 15:59:00EST, Height, 100, kg, 05/23/20 18:05:00 EST, Dry We... Start Date: 05/25/20 Stop Date: 05/20/21 Status: Ordered atorvastatin 80 mg oral tablet 1 tablet = 80 mg, By Mouth, Daily at bedtime, # 30 tablet, 11 Refills, Maintenance, 05/25/20 8:25:00 EST, Tablet, [facility]/pharmacy #[id number], 161.5, cm, 05/24/20 15:59:00 EST, Height, 100, kg, 05/23/20 18:05:00 EST, Dry Weight Start Date: 05/25/20 Stop Date: 05/20/21 Status: Ordered clopidogrel 75 mg oral tablet 75 mg, 1, tablet, By Mouth, Daily, # 30 tablet, Refills 11, Tot. Refills 11, Maintenance, 05/25/20 8:25:00 EST, Route to Pharmacy Electronically, [facility]/pharmacy #[id number], 161.5, cm, 05/24/20 15:59:00 EST,Height, [...] 100 Unknown, 6 Refills, Maintenance, [facility], 50, TEST BLOOD SUGAR TWICE DAILY, 162.5, cm, 08/25/19 8:40:00 EST, Height, 101.6, kg, 08/06/19 9:59:00 EST, Dry Weight Start Date: 11/19/19 Status: Ordered lisinopril 20 mg oral tablet 20 mg, 1, tablet, By Mouth, Daily, # 90 tablet, Refills 3, Tot. Refills 3, Maintenance, 03/23/20 9:43:00 EDT, Route to Pharmacy Electronically, [facility]/pharmacy #[id number], please cancel HCTZ-lisinopril and replace [...] 3 Refills, Maintenance, 03/23/20 9:43:00 EDT, Tablet, [facility]/pharmacy #[id number], please note dose increase from [...]
--- OUTSIDE RECORDS SUMMARY | 2023-02-06 19:30 | XMS_ITS | Continuity of Care Document ---
Author Name Unknown Organization [facility] Address [address] [place] [address]- Care Team Providers Care Television Maintenance Worker Name Role Phone Harman SOW, Vicki Primary Care Physician Encounter [facility] Date(s): 05/25/20 - 09/22/20 [facility] [address] [place], [place] [address] Attending Physician: Vicki Hammer MD Allergies, Adverse [...] 05/25/20 8:25:00 EST, Route to Pharmacy Electronically, [facility]/pharmacy #[id number], 161.5, cm, 05/24/20 15:59:00 EST, Height, 100, kg, 05/23/20 18:05:00 EST, Dry Weight Start Date: 05/25/20 Stop Date: 05/20/21 Status: Ordered aspirin 81 mg oral tablet, chewable 81 mg, 1, tablet, By Mouth, Daily, OTC, # 30 tablet, Refills 11, Tot. Refills 11, Maintenance, 05/25/20 8:25:00 EST, Route to Pharmacy Electronically, [facility]/pharmacy #[id number], 161.5, cm, 05/24/20 15:59:00EST, Height, 100, kg, 05/23/20 18:05:00 EST, Dry We... Start Date: 05/25/20 Stop Date: 05/20/21 Status: Ordered atorvastatin 80 mg oral tablet 1 tablet = 80 mg, By Mouth, Daily at bedtime, # 30 tablet, 11 Refills, Maintenance, 05/25/20 8:25:00 EST, Tablet, [facility]/pharmacy #[id number], 161.5, cm, 05/24/20 15:59:00 EST, Height, 100, kg, 05/23/20 18:05:00 EST, Dry Weight Start Date: 05/25/20 Stop Date: 05/20/21 Status: Ordered clopidogrel 75 mg oral tablet 75 mg, 1, tablet, By Mouth, Daily, # 30 tablet, Refills 11, Tot. Refills 11, Maintenance, 05/25/20 8:25:00 EST, [id number] 161.5, cm, 05/24/20 15:59:00 [...] 100 Unknown, 6 Refills, Maintenance, [facility], 50, TEST BLOOD SUGAR TWICE DAILY, 162.5, cm, 08/25/19 8:40:00 EST, Height, 101.6, kg, 08/06/19 9:59:00 EST, Dry Weight Start Date: 11/19/19 Status: Ordered lisinopril 20 mg oral tablet 20 mg, 1, tablet, By Mouth, Daily, # 90 tablet, Refills 3, Tot. Refills 3, Maintenance, 03/23/20 9:43:00 EDT, Route to Pharmacy Electronically, [facility]/pharmacy #[id number], please cancel HCTZ-lisinopril and replace with [...] 3 Refills, Maintenance, 03/23/20 9:43:00 EDT, Tablet, [facility]/pharmacy #[id number], please note dose increase from 500 [...]
--- OUTSIDE RECORDS SUMMARY | 2023-02-06 19:30 | XMS_ITS | Continuity of Care Document ---
Author Name Unknown Organization [facility] Address [address] [place] [address]- Care Team Providers Care Pullman Car Repairer Name Role Phone Preethi Kessler MD Primary Care Physician Encounter [facility] [place] [id number] Date(s): 08/08/21 - 08/15/21 [facility] [address] [place] [address]- Encounter Diagnosis Hypertension(Discharge Diagnosis) - 08/08/21 Hyperlipidemia(Discharge Diagnosis) - 08/08/21 Multiple sclerosis(Discharge Diagnosis) - 08/08/21 Type 2 diabetes mellitus(Discharge Diagnosis) - 08/08/21 Attending Physician: Preethi Kessler MD Allergies, Adverse [...] Stop 05/08/22 10:14:00 EDT, 05/13/21 10:14:00 EDT, [facility]/pharmacy #[id number], 161.5, cm, 12/14/20 7:49:00 EDT, Height, 100, kg, 05/23/20 18:05:00 EST, Dry Weight Start Date: 05/13/21 Stop Date: 05/08/22 Status: Ordered atorvastatin 80 mg oral tablet 1 tablet = 80 mg, By Mouth, Daily at bedtime, # 90 tablet, 3 Refills, Maintenance, 05/13/21 10:15:00 EDT, Tablet, [facility]/pharmacy #[id number], 161.5, cm, 12/14/20 7:49:00 [...] DAILY, # 100 Unknown, 6 Refills, Maintenance, [id number], 50, TEST BLOOD SUGAR TWICE DAILY, 162.5, cm, 08/25/19 8:40:00 EST, Height, 101.6, kg, 08/06/19 9:59:00 EST, Dry Weight Start Date: 11/19/19 Status: Ordered lisinopril 20 mg oral tablet 1, tablet, By Mouth, Daily, # 30 tablet, Refills 4, Tot. Refills 4, 08/08/21 9:29:00 EST, Route to Pharmacy Electronically, [facility]/pharmacy #[id number], 163, cm, 08/04/21 11:31:00 EST, Height, 93, kg, 08/04/21 11:31:00 EST, Dry Weight Start Date: 08/08/21 Status: Ordered NuLYTELY with Flavor Packs oral powder for reconstitution See Instructions, 240 mL By Mouth Every 15 minutes, # 4,000 mL, 0 Refills, Maintenance, 08/25/19 9:00:00 EST, [facility]/pharmacy #[id number], 240 mL By Mouth Every 15 minutes, 162.5, cm, 08/25/19 8:40:00 EST, Height, 101.6, kg, 08/06/19 9:59:00 EST, Dry Weight Start Date: 08/25/19 Status: Ordered Trulicity Pen 1.5 mg/0.5 mL subcutaneous solution See Instructions, INJECT 0.5 ML SUBCUTANEOUSLY EVERY WEEK, # 4 Unknown, 5 Refills, 08/08/21 9:37:00EST, [facility]/pharmacy #[id number], 163, cm, 08/04/21 11:31:00 [...] Status Clinical Service Informant Hypertension Discharge Diagnosis 08/08/21 Hyperlipidemia Discharge Diagnosis 08/08/21 Multiple sclerosis Discharge Diagnosis 08/08/21 Type 2 diabetes mellitus Discharge Diagnosis 08/08/21 Social History Social History Type Response Smoking Status Current every day tosha gallo; Tobacco user in household: No entered on: 04/24/18 Sex
--- OUTSIDE RECORDS SUMMARY | 2023-02-06 19:30 | XMS_ITS | Continuity of Care Document ---
Author Name Unknown Organization [facility] Address [address] [place] [address]- Care Team Providers Care Funeral Service Manager Name Role Phone Harman SOW, Vicki Primary Care Physician Encounter [facility] [place] Date(s): 01/07/21 - 02/06/21 [facility] [address] [place], [place] [address] Allergies, Adverse Reactions, Alerts Substance Reaction [...] 05/25/20 8:25:00 EST, Route to Pharmacy Electronically, [facility]/pharmacy #[id number], 161.5, cm, 05/24/20 15:59:00 EST, Height, 100, kg, 05/23/20 18:05:00 EST, Dry Weight Start Date: 05/25/20 Stop Date: 05/20/21 Status: Ordered aspirin 81 mg oral tablet, chewable 81 mg, 1, tablet, By Mouth, Daily, OTC, # 30 tablet, Refills 11, Tot. Refills 11, Maintenance, 05/25/20 8:25:00 EST, Route to Pharmacy Electronically, [facility]/pharmacy #[id number], 161.5, cm, 05/24/20 15:59:00EST, Height, 100, kg, 05/23/20 18:05:00 EST, Dry We... Start Date: 05/25/20 Stop Date: 05/20/21 Status: Ordered atorvastatin 80 mg oral tablet 1 tablet = 80 mg, By Mouth, Daily at bedtime, # 30 tablet, 11 Refills, Maintenance, 05/25/20 8:25:00 EST, Tablet, [facility]/pharmacy #[id number], 161.5, cm, 05/24/20 15:59:00 EST, Height, 100, kg, 05/23/20 18:05:00 EST, Dry Weight Start Date: 05/25/20 Stop Date: 05/20/21 Status: Ordered clopidogrel 75 mg oral tablet 75 mg, 1, tablet, By Mouth, Daily, # 30 tablet, Refills 11, Tot. Refills 11, Maintenance, 05/25/20 8:25:00 EST, [id number] 161.5, cm, 05/24/20 15:59:00 [...] 100 Unknown, 6 Refills, Maintenance, [facility], 50, TEST BLOOD SUGAR TWICE DAILY, 162.5, cm, 08/25/19 8:40:00 EST, Height, 101.6, kg, 08/06/19 9:59:00 EST, Dry Weight Start Date: 11/19/19 Status: Ordered lisinopril 20 mg oral tablet 20 mg, 1, tablet, By Mouth, Daily, # 90 tablet, Refills 3, Tot. Refills 3, Maintenance, 03/23/20 9:43:00 EDT, Route to Pharmacy Electronically, [facility]/pharmacy #[id number], please cancel HCTZ-lisinopril and [...] 3 Refills, Maintenance, 03/23/20 9:43:00 EDT, Tablet, [facility]/pharmacy #[id number], please note dose increase [...] week, # 2.5 mL, 5 Refills, Maintenance, 10/05/20 7:41:00 EDT, [facility], [id number], 161.5, cm, 05/24/20 15:59:00 EST, Height, 100, kg, 05/23/20 18:05:00 EST, Dry Weight Start Date: 10/05/20 Status: Ordered Problem List Condition Effective Dates [...]
--- OUTSIDE RECORDS SUMMARY | 2023-02-06 19:30 | XMS_ITS | Continuity of Care Document ---
Author Name Unknown Organization [facility] Address [address] [place] [address]- Care Team Providers Care Process Controls Technician Name Role Phone Preethi Kessler MD Primary Care Physician Encounter [facility] [place] Date(s): 08/09/21 - 09/08/21 [facility] [address] [place], [place] [address] Allergies, Adverse Reactions, Alerts No [...] 100 Unknown, 6 Refills, Maintenance, [facility], 50, TEST BLOOD SUGAR TWICE DAILY, 162.5, cm, 08/25/19 8:40:00 EST, Height, 101.6, kg, 08/06/19 9:59:00 EST, Dry Weight Start Date: 11/19/19 Status: Ordered lisinopril 20 mg oral tablet 1, tablet, By Mouth, Daily, # 30 tablet, Refills 4, Tot. Refills 4, 08/08/21 9:29:00 EST, Route to Pharmacy Electronically, [facility]/pharmacy #[id number], 163, cm, 08/04/21 11:31:00 EST, Height, 93, kg, 08/04/21 11:31:00 EST, Dry Weight Start Date: 08/08/21 Status: Ordered NuLYTELY with Flavor Packs oral powder for reconstitution See Instructions, 240 mL By Mouth Every 15 minutes, # 4,000 mL, 0 Refills, Maintenance, 08/25/19 9:00:00 EST, [facility]/pharmacy #[id number], 240 mL By Mouth Every 15 minutes, 162.5, cm, 08/25/19 8:40:00 EST, Height, 101.6, kg, 08/06/19 9:59:00 EST, Dry Weight Start Date: 08/25/19 Status: Ordered Trulicity Pen 1.5 mg/0.5 mL subcutaneous solution See Instructions, INJECT 0.5 ML SUBCUTANEOUSLY EVERY WEEK, # 4 Unknown, 5 Refills, 08/08/21 9:37:00EST, [facility]/pharmacy #[id number], 163, cm, 08/04/21 11:31:00 EST, Height, [...]
--- OUTSIDE RECORDS SUMMARY | 2023-02-06 19:30 | XMS_ITS | Continuity of Care Document ---
Author Name Unknown Organization [facility] Address [address] [place] [address]- Care Team Providers Care Extraction Supervisor Name Role Phone Vicki Hammer MD [id number] - [facility]09[facility]20 [facility] [address] [place] [address]- [facility] Attending Physician: Vicki Hammer MD Allergies, Adverse [...] 08/06/19 10:11:00 EST, Route to Pharmacy Electronically, [facility]/pharmacy #[id number], 162.5, cm, 08/06/19 9:59:00 [...] 3 Refills, Maintenance, 07/21/19 12:24:00 EST, Tablet, [facility]/pharmacy #[id number], 162.5, cm, 04/11/19 8:53:00 EDT, Height, 106.6, kg, 10/03/18 11:10:00 EDT, Dry Weight Start Date: 07/21/19 Stop Date: 07/15/20 Status: Ordered clopidogrel 75 mg oral tablet 75 mg, 1, tablet, By Mouth, Daily, # 90 tablet, Refills 3, Tot. Refills 3, Maintenance, 07/21/19 12:24:00 EST, Route to Pharmacy Electronically, [facility]/pharmacy #[id number], 162.5, cm, 04/11/19 8:53:00 [...] 100 Unknown, 6 Refills, Maintenance, [facility], 50, TEST BLOOD SUGAR TWICE DAILY, 162.5, cm, 08/25/19 8:40:00 EST, Height, 101.6, kg, 08/06/19 9:59:00 EST, Dry Weight Start Date: 11/19/19 Status: Ordered lisinopril 20 mg oral tablet 20 mg, 1, tablet, By Mouth, Daily, # 90 tablet, Refills 3, Tot. Refills 3, Maintenance, 08/06/19 10:12:00 EST, Route to Pharmacy Electronically, [facility]/pharmacy #[id number], please cancel HCTZ-lisinopril and [...] week, # 2.5 mL, 5 Refills, Maintenance, 01/02/20 8:38:00 EDT, [facility], [id number], 162.5, cm, 08/25/19 8:40:00 EST, Height, 101.6, kg, :59:00 EST, Dry Weight Start Date: 01/02/20 Status: Ordered Problem List Condition Effective Dates [...]
--- OUTSIDE RECORDS SUMMARY | 2023-02-06 19:30 | XMS_ITS | Continuity of Care Document ---
Author Name Unknown Organization [facility] Address [address] [place] [address]- Care Team Providers Care Senior Government Program Analyst Name Role Phone Preethi Kessler MD Primary Care Physician [phone] Encounter [facility] [place] Date(s): 10/20/21 - 01/04/22 [facility] [address] [place] [address]- Attending Physician: Avis Keller MD Admitting Physician: Avis Keller MD Referring Physician: Preethi Kessler MD Allergies, Adverse Reactions, Alerts No Known Allergies Immunizations Given and Recorded Vaccine Date Status Refusal Reason SARS-CoV-2 mRNA ([id number]) vax 10/25/21 Given SARS-CoV-2 (COVID-19) mRNA BNT-162b2 [...] Stop 05/08/22 10:14:00 EDT, 05/13/21 10:14:00 EDT, [facility]/pharmacy #[id number], 161.5, cm, 12/14/20 7:49:00 EDT, Height, 100, kg, 05/23/20 18:05:00 EST, Dry Weight Start Date: 05/13/21 Stop Date: 05/08/22 Status: Ordered atorvastatin 80 mg oral tablet 1 tablet = 80 mg, By Mouth, Daily at bedtime, # 90 tablet, 3 Refills, Maintenance, 05/13/21 10:15:00 EDT, Tablet, [facility]/pharmacy #[id number], 161.5, cm, 12/14/20 7:49:00 [...] DAILY, # 100 Unknown, 6 Refills, Maintenance, [facility], 50, TEST BLOOD SUGAR TWICE DAILY, 162.5, cm, 08/25/19 8:40:00 EST, Height, 101.6, kg, 08/06/19 9:59:00 EST, Dry Weight Start Date: 11/19/19 Status: Ordered lisinopril 20 mg oral tablet 1, tablet, By Mouth, Daily, for 90 days, # 90 tablet, Refills 3, Tot. Refills 3, Physician Stop 10/15/22 10:51:00 EDT, 10/20/21 10:51:00 EDT, Route to Pharmacy Electronically, [facility]/pharmacy #[id number], 163, cm, 10/20/21 10:33:00 EDT, Height, 93, kg, ... Start Date: 10/20/21 Stop Date: 10/15/22 Status: Ordered lisinopril 30 mg oral tablet 1 tablet = 30 mg, By Mouth, Daily, new dosage, # 90 tablet, 1 Refills, Maintenance, 10/21/21 16:06:00 EDT, Tablet, [facility]/pharmacy #[id number], new dosage, 163, cm, 10/20/21 11:13:00 EDT, Height, 93, kg, 08/04/21 11:31:00 EST, Dry Weight Start Date: 10/21/21 Status: Ordered NuLYTELY with Flavor Packs oral powder for reconstitution See Instructions, 240 mL By Mouth Every 15 minutes, # 4,000 mL, 0 Refills, Maintenance, 08/25/19 9:00:00 EST, [facility]/pharmacy #[id number], 240 mL By Mouth Every 15 minutes, 162.5, cm, 08/25/19 8:40:00 EST, Height, 101.6, kg, 08/06/19 9:59:00 EST, Dry Weight Start Date: 08/25/19 Status: Ordered Trulicity Pen 3 mg/0.5 mL subcutaneous solution = 3 mg, Subcutaneous Injection, Every week, rotate injection sites, # 6 mL, 3 Refills, Maintenance,10/20/21 10:48:00 EDT, Solution, [facility]/pharmacy #[id number], cancel rx for trulicity 1.5mg, [...]
--- OUTSIDE RECORDS SUMMARY | 2023-02-06 19:30 | XMS_ITS | Continuity of Care Document ---
Author Name Unknown Organization [facility] Address [facility] [place] [address]- Care Team Providers Care Digital Content Manager Name Role Phone Harman SOW, Vicki Primary Care Physician En[place] [facility] [place] Date(s): 04/01/20 - 06/27/20 [facility] [address] [place] [id number] Attending Physician: Not on Staff, Attending MD Referring Physician: Vicki Hammer MD Allergies, Adverse [...] 8:25:00 EST, Route to Pharmacy Electronically, [facility]/pharmacy #[id number], 161.5, cm, 05/24/20 15:59:00 EST, Height, 100, kg, 05/23/20 18:05:00 EST, Dry Weight Start Date: 05/25/20 Stop Date: 05/20/21 Status: Ordered aspirin 81 mg oral tablet, chewable 81 mg, 1, tablet, By Mouth, Daily, OTC, # 30 tablet, Refills 11, Tot. Refills 11, Maintenance, 05/25/20 8:25:00 EST, Route to Pharmacy Electronically, [facility]/pharmacy #[id number], 161.5, cm, 05/24/20 15:59:00EST, Height, 100, kg, 05/23/20 18:05:00 EST, Dry We... Start Date: 05/25/20 Stop Date: 05/20/21 Status: Ordered atorvastatin 80 mg oral tablet 1 tablet = 80 mg, By Mouth, Daily at bedtime, # 30 tablet, 11 Refills, Maintenance, 05/25/20 8:25:00 EST, Tablet, [facility]/pharmacy #[id number], 161.5, cm, 05/24/20 15:59:00 EST, Height, 100, kg, 05/23/20 18:05:00 EST, Dry Weight Start Date: 05/25/20 Stop Date: 05/20/21 Status: Ordered clopidogrel 75 mg oral tablet 75 mg, 1, tablet, By Mouth, Daily, # 30 tablet, Refills 11, Tot. Refills 11, Maintenance, 05/25/20 8:25:00 EST, Route to Pharmacy Electronically, [facility]/pharmacy #[id number], 161.5, cm, 05/24/20 15:59:00 EST,Height, 100, [...] 100 Unknown, 6 Refills, Maintenance, [facility], 50, TEST BLOOD SUGAR TWICE DAILY, 162.5, cm, 08/25/19 8:40:00 EST, Height, 101.6, kg, 08/06/19 9:59:00 EST, Dry Weight Start Date: 11/19/19 Status: Ordered lisinopril 20 mg oral tablet 20 mg, 1, tablet, By Mouth, Daily, # 90 tablet, Refills 3, Tot. Refills 3, Maintenance, 03/23/20 9:43:00 EDT, Route to Pharmacy Electronically, [facility]/pharmacy #[id number], please cancel HCTZ-lisinopril and replace with [...] Refills, Maintenance, 03/23/20 9:43:00 EDT, Tablet, [facility]/pharmacy #[id number], please note dose increase from 500 [...]
--- OUTSIDE RECORDS SUMMARY | 2023-02-06 19:30 | XMS_ITS | Continuity of Care Document ---
Author Name Unknown Organization [facility] Address [address] [facility], [address], [address] [place] [address]- Care Team Providers Care Sweatband Shaper Name Role Phone Harman SOW, Vicki Primary Care Physician En[place] [facility] [place] Date(s[place] 05/01/20 - 08/29/20 [facility] [address] [facility], [address], [address] [place] [address]- Attending Physician: Krissy Kendall MD Admitting Physician: Krissy Kendall MD Allergies, Adverse Reactions, Alerts Substance Reaction [...] 05/25/20 8:25:00 EST, Route to Pharmacy Electronically, [facility]/pharmacy #[id number], 161.5, cm, 05/24/20 15:59:00 EST, Height, 100, kg, 05/23/20 18:05:00 EST, Dry Weight Start Date: 05/25/20 Stop Date: 05/20/21 Status: Ordered aspirin 81 mg oral tablet, chewable 81 mg, 1, tablet, By Mouth, Daily, OTC, # 30 tablet, Refills 11, Tot. Refills 11, Maintenance, 05/25/20 8:25:00 EST, Route to Pharmacy Electronically, [facility]/pharmacy #[id number], 161.5, cm, 05/24/20 15:59:00EST, Height, 100, kg, 05/23/20 18:05:00 EST, Dry We... Start Date: 05/25/20 Stop Date: 05/20/21 Status: Ordered atorvastatin 80 mg oral tablet 1 tablet = 80 mg, By Mouth, Daily at bedtime, # 30 tablet, 11 Refills, Maintenance, 05/25/20 8:25:00 EST, Tablet, [facility]/pharmacy #[id number], 161.5, cm, 05/24/20 15:59:00 EST, Height, 100, kg, 05/23/20 18:05:00 EST, Dry Weight Start Date: 05/25/20 Stop Date: 05/20/21 Status: Ordered clopidogrel 75 mg oral tablet 75 mg, 1, tablet, By Mouth, Daily, # 30 tablet, Refills 11, Tot. Refills 11, Maintenance, 05/25/20 8:25:00 EST, [id number] 161.5, cm, 05/24/20 15:59:00 [...] 100 Unknown, 6 Refills, Maintenance, [facility], 50, TEST BLOOD SUGAR TWICE DAILY, 162.5, cm, 08/25/19 8:40:00 EST, Height, 101.6, kg, 08/06/19 9:59:00 EST, Dry Weight Start Date: 11/19/19 Status: Ordered lisinopril 20 mg oral tablet 20 mg, 1, tablet, By Mouth, Daily, # 90 tablet, Refills 3, Tot. Refills 3, Maintenance, 03/23/20 9:43:00 EDT, Route to Pharmacy Electronically, [facility]/pharmacy #[id number], please cancel HCTZ-lisinopril [...] 3 Refills, Maintenance, 03/23/20 9:43:00 EDT, Tablet, [facility]/pharmacy #[id number], please note dose [...]
--- OUTSIDE RECORDS SUMMARY | 2023-02-06 19:30 | XMS_ITS | Continuity of Care Document ---
Author Name Unknown Organization [facility] Address [address] [place] [address]- Care Team Providers Care Facilities Engineering Manager Name Role Phone Harman SOW, Vicki Primary Care Physician [place] [facility] [place]20 [facility] [address] [place] [id number]- Attending Physician: Brayden Golden MD Admitting Physician: Brayden Golden MD Referring Physician: Vicki Hammer MD Allergies, [...] 05/25/20 8:25:00 EST, Route to Pharmacy Electronically, [facility]/pharmacy #[id number], 161.5, cm, 05/24/20 15:59:00 EST, Height, 100, kg, 05/23/20 18:05:00 EST, Dry Weight Start Date: 05/25/20 Stop Date: 05/20/21 Status: Ordered aspirin 81 mg oral tablet, chewable 81 mg, 1, tablet, By Mouth, Daily, OTC, # 30 tablet, Refills 11, Tot. Refills 11, Maintenance, 05/25/20 8:25:00 EST, Route to Pharmacy Electronically, [facility]/pharmacy #[id number], 161.5, cm, 05/24/20 15:59:00EST, Height, 100, kg, 05/23/20 18:05:00 EST, Dry We... Start Date: 05/25/20 Stop Date: 05/20/21 Status: Ordered atorvastatin 80 mg oral tablet 1 tablet = 80 mg, By Mouth, Daily at bedtime, # 30 tablet, 11 Refills, Maintenance, 05/25/20 8:25:00 EST, Tablet, [facility]/pharmacy #[id number], 161.5, cm, 05/24/20 15:59:00 EST, Height, 100, kg, 05/23/20 18:05:00 EST, Dry Weight Start Date: 05/25/20 Stop Date: 05/20/21 Status: Ordered clopidogrel 75 mg oral tablet 75 mg, 1, tablet, By Mouth, Daily, # 30 tablet, Refills 11, Tot. Refills 11, Maintenance, 05/25/20 8:25:00 EST, [id number] 161.5, cm, 05/24/20 [...] DAILY, # 100 Unknown, 6 Refills, Maintenance, [facility] STORE [id number], 50, TEST BLOOD SUGAR TWICE DAILY, 162.5, cm, 08/25/19 8:40:00 EST, Height, 101.6, kg, 08/06/19 9:59:00 EST, Dry Weight Start Date: 11/19/19 Status: Ordered lisinopril 20 mg oral tablet 20 mg, 1, tablet, By Mouth, Daily, # 90 tablet, Refills 3, Tot. Refills 3, Maintenance, 03/23/20 9:43:00 EDT, Route to Pharmacy Electronically, [facility]/pharmacy #[id number], please cancel HCTZ-lisinopril and replace [...] 3 Refills, Maintenance, 03/23/20 9:43:00 EDT, Tablet, [facility]/pharmacy #[id number], please note dose increase from [...] 05/26/21 8:00:00 EST, 05/25/20 17:42:00 EST, Gum, [facility]/pharmacy #[id number], 161.5, cm, 05/24/20 15:59:00 EST, [...]
--- OUTSIDE RECORDS SUMMARY | 2023-02-06 19:30 | XMS_ITS | Continuity of Care Document ---
Author Name Unknown Organization [facility] Address [address] [place] [address]- Care Team Providers Care Pheresis Nurse Name Role Phone Preethi Kessler MD Primary Care Physician [phone] Encounter [facility] [place] Date(s): 08/08/21 - 09/07/21 [facility] [address] [place], [place] [address] Attending Physician: Otis Gonzales Admitting Physician: Otis Gonzales Referring Physician: Otis Gonzales Allergies, Adverse Reactions, Alerts No Known Allergies [...] 10:14:00 EDT, 05/13/21 10:14:00 EDT, [facility]/pharmacy #[id number], 161.5, cm, 12/14/20 [...] 100 Unknown, 6 Refills, Maintenance, [id number], 50, TEST BLOOD SUGAR TWICE DAILY, 162.5, cm, 08/25/19 8:40:00 EST, Height, 101.6, kg, 08/06/19 9:59:00 EST, Dry Weight Start Date: 11/19/19 Status: Ordered lisinopril 20 mg oral tablet 1, tablet, By Mouth, Daily, # 30 tablet, Refills 4, Tot. Refills 4, 08/08/21 9:29:00 EST, Route to Pharmacy Electronically, [facility]/pharmacy #[id number], 163, cm, 08/04/21 11:31:00 EST, Height, 93, kg, 08/04/21 11:31:00 EST, Dry Weight Start Date: 08/08/21 Status: Ordered NuLYTELY with Flavor Packs oral powder for reconstitution See Instructions, 240 mL By Mouth Every 15 minutes, # 4,000 mL, 0 Refills, Maintenance, 08/25/19 9:00:00 EST, [facility]/pharmacy #[id number], 240 mL By Mouth Every 15 minutes, 162.5, cm, 08/25/19 8:40:00 EST, Height, 101.6, kg, 08/06/19 9:59:00 EST, Dry Weight Start Date: 08/25/19 Status: Ordered Trulicity Pen 1.5 mg/0.5 mL subcutaneous solution See Instructions, INJECT 0.5 ML SUBCUTANEOUSLY EVERY WEEK, # 4 Unknown, 5 Refills, 08/08/21 9:37:00EST, [facility]/pharmacy #[id number], 163, cm, 08/04/21 11:31:00 EST, Height, [...]
--- OUTSIDE RECORDS SUMMARY | 2023-02-06 19:30 | XMS_ITS | Continuity of Care Document ---
Author Name Unknown Organization [facility] Address [address] [place] [id number]- Care Team Providers Care Marking Room Supervisor Name Role Phone Preethi Kessler MD Primary Care Physician Encounter [facility] [place] Date(s): 06/28/21 - 07/28/21 [facility] [address] [place] [id number]- [place] Allergies, Adverse Reactions, Alerts No Known [...] 05/13/21 10:14:00 EDT, Route to Pharmacy Electronically, [facility]/pharmacy #[id number], 161.5, cm, 12/14/20 7:49:00 EDT, Height, 100, kg, 05/23/20 18:05:00 EST, Dry Weight Start Date: 05/13/21 Stop Date: 05/08/22 Status: Ordered Aspirin Low Dose 81 mg oral tablet, chewable 1 tablet, By Mouth, Daily, for 90 days, # 90 tablet, 3 Refills, Physician Stop 05/08/22 10:14:00 EDT, 05/13/21 10:14:00 EDT, [facility]/pharmacy #[id number], 161.5, cm, 12/14/20 7:49:00 EDT, Height, 100, kg, 05/23/20 18:05:00 EST, Dry Weight Start Date: 05/13/21 Stop Date: 05/08/22 Status: Ordered atorvastatin 80 mg oral tablet 1 tablet = 80 mg, By Mouth, Daily at bedtime, # 90 tablet, 3 Refills, Maintenance, 05/13/21 10:15:00 EDT, Tablet, [facility]/pharmacy #[id number], 161.5, cm, 12/14/20 7:49:00 EDT, Height, [...] 100 Unknown, 6 Refills, Maintenance, [id number], 50, TEST BLOOD SUGAR TWICE DAILY, 162.5, cm, 08/25/19 8:40:00 EST, Height, 101.6, kg, 08/06/19 9:59:00 EST, Dry Weight Start Date: 11/19/19 Status: Ordered Januvia 50 mg oral tablet = 50 mg, By Mouth, Daily, # 30 tablet, 3 Refills, Maintenance, 06/28/21 15:30:00 EST, Tablet, [facility]/pharmacy #[id number], new medication; cancel meformin, 161.5, cm, 06/20/21 7:32:00 EST, Height, 100, kg, 05/23/20 18:05:00 EST, Dry Weight Start Date: 06/28/21 Status: Ordered lisinopril 20 mg oral tablet 1, tablet, By Mouth, Daily, # 30 tablet, Refills 2, Route to Pharmacy Electronically, [id number], 161.5, cm, 12/14/20 7:49:00 EDT, Height, 100, [...] mL, 0 Refills, Maintenance, 08/25/19 9:00:00 EST, [facility]/pharmacy #[id number], 240 mL By Mouth Every 15 minutes, 162.5, cm, 08/25/19 8:40:00 EST, Height, 101.6, kg, 08/06/19 9:59:00 EST, Dry Weight Start Date: 08/25/19 Status: Ordered Trulicity Pen 1.5 mg/0.5 mL subcutaneous solution See Instructions, INJECT 0.5 ML SUBCUTANEOUSLY EVERY WEEK, # 2 Unknown, 5 Refills, 05/12/21 16:42:00 EDT, [facility]/pharmacy #[id number], 161.5, cm, 12/14/20 7:49:00 EDT, Height, 100, kg, 05/23/20 18:05:00 EST, Dry Weight Start Date: 05/12/21 Status: Ordered Zetia 10 mg oral tablet 1 tablet = 10 mg, By Mouth, Daily, # 30 tablet, 1 Refills, Maintenance, 06/20/21 7:56:00 EST, Tablet, [id number], Partial fill upon patient request if [...]
--- OUTSIDE RECORDS SUMMARY | 2023-02-06 19:30 | XMS_ITS | Continuity of Care Document ---
Author Name Unknown Organization [facility] Address [address] [place] [address]- Care Team Providers Care Phlebotomy Director Name Role Phone Preethi Kessler MD Primary Care Physician Encounter [facility] [place] Date(s): 02/23/21 - 03/25/21 [facility] [address] [place], [place] [address] Allergies, Adverse Reactions, Alerts Substance Reaction Severity [...] Route to Pharmacy Electronically, [facility]/pharmacy #[id number], 161.5, cm, 05/24/20 15:59:00 EST, Height, 100, kg, 05/23/20 18:05:00 EST, Dry Weight Start Date: 05/25/20 Stop Date: 05/20/21 Status: Ordered aspirin 81 mg oral tablet, chewable 81 mg, 1, tablet, By Mouth, Daily, OTC, # 30 tablet, Refills 11, Tot. Refills 11, Maintenance, 05/25/20 8:25:00 EST, [id number] 161.5, cm, 05/24/20 15:59:00EST, Height, 100, kg, 05/23/20 18:05:00 EST, Dry We... Start Date: 05/25/20 Stop Date: 05/20/21 Status: Ordered atorvastatin 80 mg oral tablet 1 tablet = 80 mg, By Mouth, Daily at bedtime, # 30 tablet, 11 Refills, Maintenance, 05/25/20 8:25:00 EST, [id number] 161.5, cm, 05/24/20 15:59:00 EST, Height, 100, kg, 05/23/20 18:05:00 EST, Dry Weight Start Date: 05/25/20 Stop Date: 05/20/21 Status: Ordered clopidogrel 75 mg oral tablet 75 mg, 1, tablet, By Mouth, Daily, # 30 tablet, Refills 11, Tot. Refills 11, Maintenance, 05/25/20 8:25:00 EST, [id number] 161.5, cm, 05/24/20 15:59:00 [...] 100 Unknown, 6 Refills, Maintenance, [facility], 50, TEST BLOOD SUGAR TWICE DAILY, 162.5, cm, 08/25/19 8:40:00 EST, Height, 101.6, kg, 08/06/19 9:59:00 EST, Dry Weight Start Date: 11/19/19 Status: Ordered lisinopril 20 mg oral tablet 20 mg, 1, tablet, By Mouth, Daily, # 90 tablet, Refills 3, Tot. Refills 3, Maintenance, 03/23/20 9:43:00 EDT, Route to Pharmacy Electronically, [facility]/pharmacy #[id number], please cancel HCTZ-lisinopril and replace with this medication. thanks., 162.5, cm, 02... Start Date: 03/23/20 Stop Date: 03/18/21 Status: [...] 03/23/20 9:43:00 EDT, Tablet, [facility]/pharmacy #[id number], please note dose increase from 500 [...]
--- NOTE | 2023-02-06 20:44 | PHA.MEDREC ---
Pharmacy Consult ? Medication Reconciliation Pharmacy has completed the medication reconciliation. Patient has RX bottle with him and reported he take trulicity. He reported those were all he takes. Samaria Acevedo, NainD
--- NOTE | 2023-02-06 22:28 | PM.IMHP ---
History of Present Illness Date of Service: 02/06/23 Chief Complaint: weakness, slurred speech 57-year-old male with past medical history of CVA, HTN, type 2 diabetes, reported history of MS, comes into the hospital with complaints of right-sided weakness and slurred speech. Patient reports his symptoms started 12:00 this afternoon, by the time he presented to the ED he was outside of the tPA. He denies any chest pain, no abdominal pain, no headache, no change in vision, he reports right-sided facial weakness as well. On arrival to the ED patient has an elevated blood pressure of 208/111 vitals otherwise stable Labs are significant for WBC count of 10, hemoglobin of 15.5, hematocrit 47.2, labs otherwise unremarkable Imaging including chest x-ray negative CT angiogram of the head and neck shows no intracranial hemorrhage or large acute infarct, chronic lacunar infarct seen in bilateral basal ganglia, chronic microangiopathy, no large vessel occlusion, focal high-grade stenosis of the distal left M2 M3 MCA branch. Patient will be admitted for further management Review of Systems Review of Systems: Yes all other systems are reviewed and are negative [facility] Medical History Atherosclerotic cardiovascular disease Essential hypertension Other and unspecified hyperlipidemia Smoking Type 2 diabetes mellitus with unspecified complications Social History Household Members: None Housing: Apartment Do you presently have visiting nurse or other home services: No Alcohol intake: never Patient Tobacco Use Status: Current someday Tobacco user Smoked in Last 30 Days: Yes Use of substances other than those prescribed or required for medical reasons: No Advance Directives: No Advance Directives Information Provided: Yes service: Yes Current occupational status: disabled Meds Allergies Allergy/AdvReac Type Severity Reaction Status Date / Time morphine [MORPHINE] AdvReac Unknown VOMITING Verified 07/24/22 11:05 Home Medications Medication Instructions Recorded Confirmed Last Taken Type aspirin 81 mg chewable tablet 1 tab PO DAILY 07/17/22 02/06/23 02/06/23 History atorvastatin 80 mg tablet 1 tab PO BEDTIME 07/17/22 02/06/23 02/05/23 History dulaglutide 3 mg/0.5 mL 3 mg subcut WE 07/17/22 02/06/23 01/31/23 History subcutaneous pen injector (Trulicity) lisinopril 40 mg tablet 40 mg PO DAILY 02/06/23 02/06/23 02/06/23 History metformin 500 mg tablet 500 mg PO QAM 02/06/23 02/06/23 02/06/23 History Physical Exam Vital Signs and Narrative: Vital Signs: Last Vital Signs Temp 98 F 02/06/23 18:40 Pulse 92 02/06/23 19:07 Resp 20 02/06/23 19:07 BP 170/115 H 02/06/23 19:07 Pulse Ox 95 02/06/23 19:07 O2 Del Method Room Air 02/06/23 19:07 BMI result Body Mass Index 30.8 Const: General: cooperative and no acute distress Orientation/consciousness: patient oriented x3 Eyes: General: appearance normal, both eyes and all related structures Resp: Effort & Inspection: normal respiratory effort Auscultation: clear to auscultation bilaterally Cardio: Rate: regular rate Rhythm: regular rhythm GI: Palpation (GI): Soft to palpation Auscultation: normal bowel sounds Skin: Other: Slurred speech, but comprehensible Right facial droop 4/5 strength in upper and lower extremity on the right, 5/5 on the left General skin exam: no rashes or lesions noted Neuro: General: patient oriented x3 Cognition (Neuro): normal cognition Extrem: General: Yes normal to inspection and Yes no pedal edema Results Labs 02/06/23 18:37 02/06/23 18:37 Labs: Laboratory Results - last 24 hr 02/06/23 02/06/23 02/06/23 18:03 18:37 18:37 MCV 80.1 MCH 26.3 L MCHC 32.8 RDW 17.5 H Plt Count 243 MPV 9.5 Immature Gran % (Auto) 1.1 H Neut % (Auto) 75.2 H Lymph % (Auto) 14.2 L Mcdonough % (Auto) 7.4 Eos % (Auto) 1.4 Baso % (Auto) 0.7 Lymph # (Auto) 1.4 Mcdonough # (Auto) 0.8 Eos # (Auto) 0.1 Baso # (Auto) 0.1 Abs Immat Gran (auto) 0.11 H Absolute Neuts (auto) 7.6 Absolute Nucleated RBC 0.000 Nucleated RBC % (auto) 0.0 PT Whole Blood PT 13.1 INR Whole Blood INR 1.1 APTT Anion Gap 14 Estim Creat Clear Calc 115.4 Estimated GFR > 60 Random Glucose 118 H Calcium 9.4 Phosphorus 3.3 Magnesium 2.0 Total Bilirubin 0.5 Direct Bilirubin 0.2 AST 16 ALT 11 Alkaline Phosphatase 83 Total Creatine Kinase 259 H Total Protein 6.6 Albumin 4.2 TSH 1.65 02/06/23 02/06/23 18:37 18:37 MCV MCH MCHC RDW Plt Count MPV Immature Gran % (Auto) Neut % (Auto) Lymph % (Auto) Mcdonough % (Auto) Eos % (Auto) Baso % (Auto) Lymph # (Auto) Mcdonough # (Auto) Eos # (Auto) Baso # (Auto) Abs Immat Gran (auto) Absolute Neuts (auto) Absolute Nucleated RBC Nucleated RBC % (auto) PT 11.8 Whole Blood PT INR 1.0 Whole Blood INR APTT 37.3 H Anion Gap Estim Creat Clear Calc Estimated GFR Random Glucose 116 H Calcium Phosphorus Magnesium Total Bilirubin Direct Bilirubin AST ALT Alkaline Phosphatase Total Creatine Kinase Total Protein Albumin TSH Imaging Radiologist's Impressions: Impressions Head CT 02/06/23 18:04 IMPRESSION: 1. Evolving infarct in the right welch radiata/caudate tail. No new change. 2. Old lacunar infarct left basal ganglia. 3. No intracranial hemorrhage. This critical result was discussed with Dr. Brown at 1817 hours on 02/06/2023. It was ascertained that the content and urgency of the report was understood at the time of direct communication. Head/Neck CTA 02/06/23 18:20 IMPRESSION: CT HEAD: No intracranial hemorrhage or large acute infarction. Background changes of advanced chronic microangiopathy. Chronic lacunar infarcts seen in the bilateral basal ganglia. CTA NECK: Motion artifact limits evaluation of the carotid bifurcations. No significant stenosis within the major neck arteries. CTA HEAD: No large vessel occlusion. Focal high-grade stenosis of a distal left M2 M3 MCA branch. Chest X-Ray 02/06/23 18:22 IMPRESSION: Unremarkable chest examination. Assessment and Plan (1) Acute CVA (cerebrovascular accident): Status: Acute Plan 57-year-old male with history of CVA comes into the hospital with acute symptoms # acute CVA - right-sided symptoms, likely secondary to left M2 M3 MCA branch high-grade stenosis is seen on head CT angiogram - patient on baseline statin as well as aspirin as well as Plavix, will continue - MRI for a.m. - neurology consult - PT OT # diabetes - hold oral antihyperglycemics - will add low-dose sliding scale insulin - diabetic diet # hypertension - hold lisinopril to allow for permissive hypertension - monitor BP DVT prophylaxis: Lovenox Given patient's need for evaluation of acute CVA, evaluation by PT OT and neurology patient require minimum 2 nights inpatient hospital stay for further management and monitoring Time Spent With Patient Time: Total time managing care of this patient today ____ minutes. Quality Stroke Does the patient have a stroke diagnosis?: Yes Reason for No Anti-thrombotic by Day Two: N/A - Med Ordered VTE Prior VTE?: No VTE Risk Level:: Medical - moderate - high VTE Device Contraindication: Treatment Not Indicated VTE Drug Contraindication: N/A - Med Ordered
[2023-02-06 22:51] VITALS: BP 153/90; PULSE 70; RESP 20; O2SAT 95
[2023-02-07] VITALS (9 sets, daily range): BP systolic 158–181; BP diastolic 85–120; PULSE 74–100; RESP 17–20; TEMP 36–36.8; O2SAT 93–97; BMI 30.2
--- NOTE | 2023-02-07 00:20 | PC.NURSE ---
alert/oriented, slurred speech, passed swallow eval. awaiting room assignment. no nausea. breathing easy/comfortably. cont to monitor.
[2023-02-07] MEDS: Enoxaparin Sodium 40 MG/0.4 ML SYRINGE SUBCUT ×2 (00:30→21:46)
--- NOTE | 2023-02-07 02:45 | MHC.EDTECH ---
AFTER MULTIPLE ATTEMPTS PATIENT KEEPS ON TAKING OFF HEART MONITOR LEADS AND BLOOD PRESSURE CUFF
--- NOTE | 2023-02-07 03:12 | MHC.EDTECH ---
PER RN POC IS DUE AT 7:30
--- NOTE | 2023-02-07 03:14 | MHC.EDTECH ---
EKG WAS DONE YESTERDAY AT 1825 UNABLE TO DOCUMENT WILL CONTINUE TO MONITOR AT THIS TIME
[2023-02-07 04:50] LABS: MANUAL DIFF FLAG NO
[2023-02-07 04:52] LABS: Basophils Absolute Auto 0.1 X10*3/uL (0.0-0.2); Basophils Percent Auto 0.9 % (0-2); Eosinophils Absolute Auto 0.2 X10*3/uL (0.0-0.4); Eosinophils Percent Auto 2.3 % (0-4); Hematocrit 47.6 % (42.0-52.0); Hemoglobin 15.4 g/dl (14.0-18.0); Imm Gran Abs Auto 0.04 X10*3/uL (0.00-0.03); Imm Gran Pct Auto 0.4 % (0.0-0.4); Lymphocytes Absolute Auto 1.7 X10*3/uL (1.2-4.9); Lymphocytes Percent Auto 16.8 % (20-40); Mean Corpuscular HGB Conc 32.4 g/dl (31.0-36.0); Mean Corpuscular Volume 80.4 fL (80.0-98.0); Mean Platelet Volume 9.5 fL (9.4-12.4); Monocytes Absolute Auto 0.9 X10*3/uL (0.1-1.2); Monocytes Percent Auto 8.7 % (2-11); Neutrophils Absolute Auto 7.2 x10*3/uL (2.0-8.3); Neutrophils Percent Auto 70.9 % (45-73); Platelet Count 239 X10*3/uL (160-400); Red Blood Count 5.92 X10*6/uL (4.60-5.80); Red Cell Distribution Width 18.1 % (11.0-16.0); White Blood Count 10.2 X10*3/uL (4.8-10.8)
[2023-02-07 05:17] LABS: Anion Gap 13 (12-20); Blood Urea Nitrogen 10 mg/dL (9-16); Calcium 9.2 mg/dL (8.4-10.2); Carbon Dioxide 25 mmol/L (22-29); Chloride 107 mmol/L (96-108); Creatinine Clr Calc Pharmacy 115.4; Estimated Glomerular Filt Rate > 60; Glucose Random 110 mg/dL (60-115); Potassium 3.5 mmol/L (3.3-5.1); Sodium 141 mmol/L (135-145)
[2023-02-07 05:19] LABS: Cholesterol 172 mg/dL; HDL Cholesterol 41 mg/dL; LDL Cholesterol Calculated 109 mg/dl; Triglycerides 113 mg/dL
--- NOTE | 2023-02-07 06:13 | PC.NURSE ---
refuses to leave monitor leads on-- removes all monitoring devices. verbally abusive to hospital staff.
[2023-02-07 08:02] LABS: Glucose, Whole Blood 131 mg/dL (60-115)
[2023-02-07 08:05] LABS: Appearance Urine Clear; Color Urine Yellow; Glucose Urine UA Negative (Negative); Leukocyte Esterase Urine Negative (Negative); Nitrite Urine Negative (Negative); Specific Gravity - Urine 1.025 (1.005-1.025); UMIC TRIGGER UACC YES; Urine Blood Moderate (2+) (Negative); Urine Ketones Negative (Negative); Urine Protein Negative (Neg-Trace)
[2023-02-07] MEDS: Clopidogrel Bisulfate 75 MG TABLET PO (08:20)
[2023-02-07] MEDS: lisinopriL 40 MG TABLET PO (08:20)
[2023-02-07] MEDS: Aspirin 81 MG TAB.CHEW PO (08:20)
[2023-02-07] MEDS: Atorvastatin Calcium 80 MG TABLET PO (08:20)
--- NOTE | 2023-02-07 08:30 | MHC.EDTECH ---
assisted patient with eating breakfast.
[2023-02-07 09:08] LABS: Glucose, Whole Blood 125 mg/dL (60-115)
--- NOTE | 2023-02-07 09:22 | PM.NEUROCN ---
History of Present Illness Data of Consult Service Date: 02/07/23 Primary Care Provider: Unknown Physician HPI Reason for consult: Stroke 57 years old man with uncontrolled hypertension and previous brain MRI revealing extensive hypertension related microvascular disease of brain came to hospital with new onset of right-sided weakness that started many hours before he came to ER. Because of time delay he was not considered a candidate for aggressive treatment such as intravenous tPA. There was no associated speech or language difficulty or pain or headache. There has been no improvement of his weakness since he arrived. Review of Systems Review of Systems: No headache cold or flu-like illness or seizure-like episode [facility] Past Medical History Medical History Atherosclerotic cardiovascular disease Essential hypertension Other and unspecified hyperlipidemia Smoking Type 2 diabetes mellitus with unspecified complications Social History Social History Household Members: None Housing: Apartment Do you presently have visiting nurse or other home services: No Alcohol intake: never Patient Tobacco Use Status: Former Tobacco user service: Yes Current occupational status: disabled Meds Allergies Allergy/AdvReac Type Severity Reaction Status Date / Time morphine [MORPHINE] AdvReac Unknown VOMITING Verified 07/24/22 11:05 Active Medications: Current Medications Acetaminophen (Acetaminophen 325 Mg Tablet) 650 mg PO Q6H PRN PRN Reason: Pain, Mild (Pain Scale 1-3) Aspirin (Aspirin 81 Mg Tab.Chew) 81 mg PO DAILY [facility] Last Admin: 02/07/23 08:20 Dose: 81 mg Atorvastatin Calcium (Atorvastatin Calcium 80 Mg Tablet) 80 mg PO DAILY [facility] Last Admin: 02/07/23 08:20 Dose: 80 mg Clopidogrel Bisulfate (Clopidogrel Bisulfate 75 Mg Tablet) 75 mg PO DAILY [facility] Last Admin: 02/07/23 08:20 Dose: 75 mg Dextrose (Dextrose 50 % 25 Gm/50 Ml Syringe) 25 gm IVPUSH Q15M PRN; Protocol PRN Reason: per Hypoglycemia Standing Ord. Docusate Sodium (Docusate Sodium 100 Mg Capsule) 100 mg PO DAILY PRN PRN Reason: Constipation Enoxaparin Sodium (Enoxaparin Sodium 40 Mg/0.4 Ml Syringe) 40 mg SUBCUT BEDTIME [facility] Last Admin: 02/07/23 00:30 Dose: 40 mg Glucose (Glucose Gel 15 Gm Gel..Gram.) 15 gm PO Q15M PRN; Protocol PRN Reason: per Hypoglycemia Standing Ord. Insulin Human Lispro (Insulin Lispro 100 Unit/Ml 3 Ml Vial) 0 unit SUBCUT QIDACHS [facility]; Protocol Last Admin: 02/07/23 08:07 Dose: Not Given Lisinopril (Lisinopril 40 Mg Tablet) 40 mg PO DAILY [facility]; Protocol Last Admin: 02/07/23 08:20 Dose: 40 mg Melatonin (Melatonin 3 Mg Tablet) 6 mg PO BEDTIME PRN PRN Reason: Insomnia Nicotine (Nicotine 14 Mg Patch.Td24) 14 mg TRANSDERMA DAILY [facility] Ondansetron HCl (Ondansetron Hcl 4 Mg/2 Ml Vial) 4 mg IVPUSH Q8H PRN PRN Reason: Nausea and Vomiting Home Medications Medication Instructions Recorded Confirmed Last Taken Type aspirin 81 mg chewable tablet 1 tab PO DAILY 07/17/22 02/06/23 02/06/23 History atorvastatin 80 mg tablet 1 tab PO BEDTIME 07/17/22 02/06/23 02/05/23 History dulaglutide 3 mg/0.5 mL 3 mg subcut WE 07/17/22 02/06/23 01/31/23 History subcutaneous pen injector (Trulicity) lisinopril 40 mg tablet 40 mg PO DAILY 02/06/23 02/06/23 02/06/23 History metformin 500 mg tablet 500 mg PO QAM 02/06/23 02/06/23 02/06/23 History Physical Exam Vital Signs: Vital Signs: Last Vital Signs Temp 97.3 F 02/07/23 08:00 Pulse 87 02/07/23 08:00 Resp 18 02/07/23 08:00 BP 170/100 H 02/07/23 08:00 Pulse Ox 95 02/07/23 08:00 O2 Del Method Room Air 02/07/23 08:00 BMI result Body Mass Index 30.2 Neuro: Other: he is alert and awake with normal spontaneity of speech fluency comprehension and affect. Speech is somewhat slurred. Comprehension is intact. There is mild to moderate right-sided central facial weakness and moderate to severe right arm and leg weakness. Right plantar is extensor. There is no sensory or visual extinction. Results Labs 02/07/23 04:34 02/07/23 04:34 Labs: Short CBC 02/06/23 02/07/23 Range/Units 18:37 04:34 WBC 10.1 10.2 (4.8-10.8) X10*3/uL Hgb 15.5 15.4 (14.0-18.0) g/dl Hct 47.2 47.6 (42.0-52.0) % Plt Count 243 239 (160-400) X10*3/uL BMP 02/06/23 02/07/23 18:37 04:34 Sodium 143 141 Potassium 4.1 3.5 Chloride 106 107 Carbon Dioxide 27 25 BUN 12 10 Creatinine 0.68 0.68 Calcium 9.4 9.2 Cardiac Enzymes 02/06/23 Range/Units 18:37 Total Creatine Kinase 259 H (38-174) U/L Liver Function 02/06/23 Range/Units 18:37 Total Bilirubin 0.5 (0.0-1.0) mg/dL Direct Bilirubin 0.2 (0.0-0.5) mg/dL AST 16 (5-37) U/L ALT 11 (0-40) U/L Alkaline Phosphatase 83 (39-117) U/L Albumin 4.2 (3.5-5.0) g/dL Urine 02/07/23 Range/Units 07:55 Urine Color Yellow Urine Appearance Clear Urine pH 6.0 (5.0-9.0) Ur Specific [place] 1.025 (1.005-1.025) Urine Protein Negative (Neg-Trace) mg/dL Urine Glucose (UA) Negative (Negative) mg/dL Noncontrast head CT revealed chronic microvascular ischemic changes but no acute lesion. CTA of brain and neck did not reveal any large vessel disease. Assessment and Plan (1) Acute CVA (cerebrovascular accident): Status: Acute 57 years old man with longstanding history of uncontrolled hypertension and extensive atherothrombotic probably hypertension related microvascular disease of brain causing bilateral cerebral lesions and also brainstem lesions. He probably had another left subcortical ischemic infarct. This type of infarcts are classically triggered by uncontrolled hypertension from atherothrombotic sys. Mainstay of management is blood pressure control, anti-platelet agent and statin. PT OT consultation is also recommended. Time Spent With Patient Time: Total time managing care of this patient today ____ minutes. Procedures Date of Service Date of Service: 02/07/23
--- NOTE | 2023-02-07 09:29 | MHC.CM.PN ---
CM met with Patient at bedside and addressed IMM with him, providing him with the original and placing a copy on the chart. Patient lives alone in an apartment and uses a w/c at times to assist with mobility. OT is recommending Acute Rehab and Patient is agreeable to referrals to [facility] and [facility]. Patient is Covid vax x4 and his PCP is from [facility](Patient cannot recall the name).
--- NOTE | 2023-02-07 09:31 | P.PNIM_ITS ---
Subjective Subjective Date of Service: 02/07/23 Review of Systems Follow-up facial droop Denies pain, nausea, vomiting chest pain Physical Exam Vital Signs: Vital Signs: Last Vital Signs Temp 97.3 F 02/07/23 08:00 Pulse 87 02/07/23 08:00 Resp 18 02/07/23 08:00 BP 170/100 H 02/07/23 08:00 Pulse Ox 95 02/07/23 08:00 O2 Del Method Room Air 02/07/23 08:00 BMI result Body Mass Index 30.2 Appearing in no acute distress lung sounds are clear to auscultation heart regular rate rhythm, clear S1, S2 positive bowel sounds, abdomen is soft, nontender neuro patient is alert x3, no focal deficits Right-sided facial droop with right-sided upper and lower extremity paresthesia Objective Data Active Medications Acetaminophen (Acetaminophen 325 Mg Tablet) 650 mg PO Q6H PRN PRN Reason: Pain, Mild (Pain Scale 1-3) Aspirin (Aspirin 81 Mg Tab.Chew) 81 mg PO DAILY [facility] Last Admin: 02/07/23 08:20 Dose: 81 mg Documented By: HARSHAD Atorvastatin Calcium (Atorvastatin Calcium 80 Mg Tablet) 80 mg PO DAILY [facility] Last Admin: 02/07/23 08:20 Dose: 80 mg Documented By: HARSHAD Clopidogrel Bisulfate (Clopidogrel Bisulfate 75 Mg Tablet) 75 mg PO DAILY [facility] Last Admin: 02/07/23 08:20 Dose: 75 mg Documented By: HARSHAD Dextrose (Dextrose 50 % 25 Gm/50 Ml Syringe) 25 gm IVPUSH Q15M PRN; Protocol PRN Reason: per Hypoglycemia Standing Ord. Docusate Sodium (Docusate Sodium 100 Mg Capsule) 100 mg PO DAILY PRN PRN Reason: Constipation Enoxaparin Sodium (Enoxaparin Sodium 40 Mg/0.4 Ml Syringe) 40 mg SUBCUT BEDTIME [facility] Last Admin: 02/07/23 00:30 Dose: 40 mg Documented By: CHIO-MILAGROS Glucose (Glucose Gel 15 Gm Gel..Gram.) 15 gm PO Q15M PRN; Protocol PRN Reason: per Hypoglycemia Standing Ord. Insulin Human Lispro (Insulin Lispro 100 Unit/Ml 3 Ml Vial) 0 unit SUBCUT QIDACHS [facility]; Protocol Last Admin: 02/07/23 08:07 Dose: Not Given Documented By: HARSHAD Non-Admin Reason: No Insulin Coverage Lisinopril (Lisinopril 40 Mg Tablet) 40 mg PO DAILY [facility]; Protocol Last Admin: 02/07/23 08:20 Dose: 40 mg Documented By: HARSHAD Melatonin (Melatonin 3 Mg Tablet) 6 mg PO BEDTIME PRN PRN Reason: Insomnia Nicotine (Nicotine 14 Mg Patch.Td24) 14 mg TRANSDERMA DAILY [facility] Ondansetron HCl (Ondansetron Hcl 4 Mg/2 Ml Vial) 4 mg IVPUSH Q8H PRN PRN Reason: Nausea and Vomiting Labs 02/07/23 04:34 02/07/23 04:34 Labs: Laboratory Results - last 24 hr 02/06/23 02/06/23 02/06/23 18:01 18:03 18:37 MCV MCH MCHC RDW Plt Count MPV Immature Gran % (Auto) Neut % (Auto) Lymph % (Auto) [place] % (Auto) Eos % (Auto) Baso % (Auto) Lymph # (Auto) [place] # (Auto) Eos # (Auto) Baso # (Auto) Abs Immat Gran (auto) Absolute Neuts (auto) Absolute Nucleated RBC Nucleated RBC % (auto) PT Whole Blood PT 13.1 INR Whole Blood INR 1.1 APTT Anion Gap 14 Estim Creat Clear Calc 115.4 Estimated GFR > 60 POC Glucose 125 H Random Glucose 118 H Calcium 9.4 Phosphorus 3.3 Magnesium 2.0 Total Bilirubin 0.5 Direct Bilirubin 0.2 AST 16 ALT 11 Alkaline Phosphatase 83 Total Creatine Kinase 259 H Total Protein 6.6 Albumin 4.2 Triglycerides Cholesterol LDL Cholesterol, Calc HDL Cholesterol TSH 1.65 Urine Color Urine Appearance Urine pH Ur Specific [place] Urine Protein Urine Glucose (UA) Urine Ketones Urine Blood Urine Nitrite Ur Leukocyte Esterase 02/06/23 02/06/23 02/06/23 18:37 18:37 18:37 MCV 80.1 MCH 26.3 L MCHC 32.8 RDW 17.5 H Plt Count 243 MPV 9.5 Immature Gran % (Auto) 1.1 H Neut % (Auto) 75.2 H Lymph % (Auto) 14.2 L [place] % (Auto) 7.4 Eos % (Auto) 1.4 Baso % (Auto) 0.7 Lymph # (Auto) 1.4 [place] # (Auto) 0.8 Eos # (Auto) 0.1 Baso # (Auto) 0.1 Abs Immat Gran (auto) 0.11 H Absolute Neuts (auto) 7.6 Absolute Nucleated RBC 0.000 Nucleated RBC % (auto) 0.0 PT 11.8 Whole Blood PT INR 1.0 Whole Blood INR APTT 37.3 H Anion Gap Estim Creat Clear Calc Estimated GFR POC Glucose Random Glucose 116 H Calcium Phosphorus Magnesium Total Bilirubin Direct Bilirubin AST ALT Alkaline Phosphatase Total Creatine Kinase Total Protein Albumin Triglycerides Cholesterol LDL Cholesterol, Calc HDL Cholesterol TSH Urine Color Urine Appearance Urine pH Ur Specific [place] Urine Protein Urine Glucose (UA) Urine Ketones Urine Blood Urine Nitrite Ur Leukocyte Esterase 02/07/23 02/07/23 02/07/23 04:34 04:34 04:34 MCV 80.4 MCH 26.0 L MCHC 32.4 RDW 18.1 H Plt Count 239 MPV 9.5 Immature Gran % (Auto) 0.4 Neut % (Auto) 70.9 Lymph % (Auto) 16.8 L [place] % (Auto) 8.7 Eos % (Auto) 2.3 Baso % (Auto) 0.9 Lymph # (Auto) 1.7 [place] # (Auto) 0.9 Eos # (Auto) 0.2 Baso # (Auto) 0.1 Abs Immat Gran (auto) 0.04 H Absolute Neuts (auto) 7.2 Absolute Nucleated RBC 0.000 Nucleated RBC % (auto) 0.0 PT Whole Blood PT INR Whole Blood INR APTT Anion Gap 13 Estim Creat Clear Calc 115.4 Estimated GFR > 60 POC Glucose Random Glucose 110 Calcium 9.2 Phosphorus Magnesium Total Bilirubin Direct Bilirubin AST ALT Alkaline Phosphatase Total Creatine Kinase Total Protein Albumin Triglycerides 113 Cholesterol 172 LDL Cholesterol, Calc 109 HDL Cholesterol 41 TSH Urine Color Urine Appearance Urine pH Ur Specific [place] Urine Protein Urine Glucose (UA) Urine Ketones Urine Blood Urine Nitrite Ur Leukocyte Esterase 02/07/23 02/07/23 07:48 07:55 MCV MCH MCHC RDW Plt Count MPV Immature Gran % (Auto) Neut % (Auto) Lymph % (Auto) [place] % (Auto) Eos % (Auto) Baso % (Auto) Lymph # (Auto) [place] # (Auto) Eos # (Auto) Baso # (Auto) Abs Immat Gran (auto) Absolute Neuts (auto) Absolute Nucleated RBC Nucleated RBC % (auto) PT Whole Blood PT INR Whole Blood INR APTT Anion Gap Estim Creat Clear Calc Estimated GFR POC Glucose 131 H Random Glucose Calcium Phosphorus Magnesium Total Bilirubin Direct Bilirubin AST ALT Alkaline Phosphatase Total Creatine Kinase Total Protein Albumin Triglycerides Cholesterol LDL Cholesterol, Calc HDL Cholesterol TSH Urine Color Yellow Urine Appearance Clear Urine pH 6.0 Ur Specific [place] 1.025 Urine Protein Negative Urine Glucose (UA) Negative Urine Ketones Negative Urine Blood Moderate (2+) H Urine Nitrite Negative Ur Leukocyte Esterase Negative Assessment and Plan (1) Acute CVA (cerebrovascular accident): Status: Acute Plan 57-year-old male with history of CVA comes into the hospital with acute symptoms of right-sided facial droop and right upper and lower extremity weakness Acute CVA History of uncontrolled hypertension right-sided symptoms, likely secondary to 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 [place] Attending Dr. Ferrera Continue hospitalization for diagnostic workup of acute stroke during MRI Time Spent With Patient Time: Total time managing care of this patient today ____ minutes. Quality Stroke Does the patient have a stroke diagnosis?: Yes Reason for No Anti-thrombotic by Day Two: N/A - Med Ordered VTE Prior VTE?: No VTE Risk Level:: Medical - moderate - high VTE Device Contraindication: Treatment Not Indicated VTE Drug Contraindication: N/A - Med Ordered
--- NOTE | 2023-02-07 10:37 | PM.NEUROCN ---
History of Present Illness Data of Consult Service Date: 02/07/23 Primary Care Provider: Unknown Physician [facility] Past Medical History Medical History Smoking Other and unspecified hyperlipidemia Essential hypertension Type 2 diabetes mellitus with unspecified complications Atherosclerotic cardiovascular disease Social History Social History Household Members: None Housing: Apartment Do you presently have visiting nurse or other home services: Yes Alcohol intake: never Patient Tobacco Use Status: Former Tobacco user Tobacco use type: Cigarette Cigarette Packs Per Day: 0.5 Cigarettes Per Day: 10.0 e-Cigarette/Vaping Use: Currently Using Advance Directives: No Advance Directives Information Provided: Yes service: Yes Current occupational status: disabled Meds Allergies Allergy/AdvReac Type Severity Reaction Status Date / Time morphine [MORPHINE] AdvReac Unknown VOMITING Verified 07/24/22 11:05 Active Medications: Current Medications Acetaminophen (Acetaminophen 325 Mg Tablet) 650 mg PO Q6H PRN PRN Reason: Pain, Mild (Pain Scale 1-3) Aspirin (Aspirin 81 Mg Tab.Chew) 81 mg PO DAILY [facility] Last Admin: 02/07/23 08:20 Dose: 81 mg Atorvastatin Calcium (Atorvastatin Calcium 80 Mg Tablet) 80 mg PO DAILY [facility] Last Admin: 02/07/23 08:20 Dose: 80 mg Clopidogrel Bisulfate (Clopidogrel Bisulfate 75 Mg Tablet) 75 mg PO DAILY [facility] Last Admin: 02/07/23 08:20 Dose: 75 mg Dextrose (Dextrose 50 % 25 Gm/50 Ml Syringe) 25 gm IVPUSH Q15M PRN; Protocol PRN Reason: per Hypoglycemia Standing Ord. Docusate Sodium (Docusate Sodium 100 Mg Capsule) 100 mg PO DAILY PRN PRN Reason: Constipation Enoxaparin Sodium (Enoxaparin Sodium 40 Mg/0.4 Ml Syringe) 40 mg SUBCUT BEDTIME [facility] Last Admin: 02/07/23 00:30 Dose: 40 mg Glucose (Glucose Gel 15 Gm Gel..Gram.) 15 gm PO Q15M PRN; Protocol PRN Reason: per Hypoglycemia Standing Ord. Insulin Human Lispro (Insulin Lispro 100 Unit/Ml 3 Ml Vial) 0 unit SUBCUT QIDACHS [facility]; Protocol Last Admin: 02/07/23 08:07 Dose: Not Given Lisinopril (Lisinopril 40 Mg Tablet) 40 mg PO DAILY [facility]; Protocol Last Admin: 02/07/23 08:20 Dose: 40 mg Melatonin (Melatonin 3 Mg Tablet) 6 mg PO BEDTIME PRN PRN Reason: Insomnia Nicotine (Nicotine 14 Mg Patch.Td24) 14 mg TRANSDERMA DAILY [facility] Ondansetron HCl (Ondansetron Hcl 4 Mg/2 Ml Vial) 4 mg IVPUSH Q8H PRN PRN Reason: Nausea and Vomiting Home Medications Medication Instructions Recorded Confirmed Last Taken Type atorvastatin 80 mg tablet 1 tab PO BEDTIME 07/17/22 06/19/23 02/05/23 History metformin 500 mg tablet 500 mg PO QAM 02/06/23 06/19/23 02/06/23 History lisinopril 5 mg tablet 5 mg PO DAILY 06/19/23 06/19/23 Unknown History olanzapine 5 mg tablet 5 mg PO BEDTIME 06/19/23 06/19/23 Unknown History trazodone 50 mg tablet 75 mg PO BEDTIME PRN Insomnia 06/19/23 06/19/23 Unknown History Physical Exam Vital Signs: Vital Signs: Last Vital Signs Temp 97.3 F 02/07/23 08:00 Pulse 87 02/07/23 08:00 Resp 18 02/07/23 08:00 BP 170/100 H 02/07/23 08:00 Pulse Ox 95 02/07/23 08:00 O2 Del Method Room Air 02/07/23 08:00 BMI result Body Mass Index 30.2 Results Labs 02/07/23 04:34 02/08/23 06:48 Labs: Short CBC 02/06/23 02/07/23 Range/Units 18:37 04:34 WBC 10.1 10.2 (4.8-10.8) X10*3/uL Hgb 15.5 15.4 (14.0-18.0) g/dl Hct 47.2 47.6 (42.0-52.0) % Plt Count 243 239 (160-400) X10*3/uL BMP 02/06/23 02/07/23 18:37 04:34 Sodium 143 141 Potassium 4.1 3.5 Chloride 106 107 Carbon Dioxide 27 25 BUN 12 10 Creatinine 0.68 0.68 Calcium 9.4 9.2 Cardiac Enzymes 02/06/23 Range/Units 18:37 Total Creatine Kinase 259 H (38-174) U/L Liver Function 02/06/23 Range/Units 18:37 Total Bilirubin 0.5 (0.0-1.0) mg/dL Direct Bilirubin 0.2 (0.0-0.5) mg/dL AST 16 (5-37) U/L ALT 11 (0-40) U/L Alkaline Phosphatase 83 (39-117) U/L Albumin 4.2 (3.5-5.0) g/dL Urine 02/07/23 Range/Units 07:55 Urine Color Yellow Urine Appearance Clear Urine pH 6.0 (5.0-9.0) Ur Specific [place] 1.025 (1.005-1.025) Urine Protein Negative (Neg-Trace) mg/dL Urine Glucose (UA) Negative (Negative) mg/dL Assessment and Plan Time Spent With Patient Time: Total time managing care of this patient today ____ minutes. Procedures Date of Service Date of Service: 07/20/23
[2023-02-07 10:52] LABS: Bacteria Urine None Seen (None Seen); Hyaline Casts Urine 0-2 /LPF (0-2); RBC Urine >20 /HPF (0-2); Squamous Epithelial Cell Urine 0-2 /HPF (0-2); WBC Urine 0-5 /HPF (0-5)
--- NOTE | 2023-02-07 10:53 | MHC.STROKE ---
02/06/23 1739 EMS PRE-NOTIFIED STROKE ALERT LKW 1200, LEFT SIDED WEAKNESS, FACIAL DROOP, SLURRED SPEECH. ARRIVED AT [facility] [address]50. DR ADKINS ACTIVATED STROKE PROTOCOL. STAT CT AND CTA H/N, NO BLEED, NO LVO. OUT OF THE WINDOW FOR TPA. BP ELEVATED 208/111. PATIENT KNOWN TO STROKE SERVICE FROM PREVIOUS STROKE ADMISSION JUL 2022. I MET WITH THE PATIENT TO PROVIDE STROKE EDUCATION AND REVIEW THE PLAN OF CARE. I REVIEWED HIS MEDICATIONS AND LABS, VITALS, ASSESSED IF HE WAS TAKING HIS MEDICATIONS, HE SAID HE WAS, HE IS STILL SMOKING, COUNSELING DONE. I STRESSED THE S&S OF STROKE AND REVIEWED CALLING 911. HE SAID HE WASN'T SURE WHY HIS LEFT SIDE WAS WEAK AGAIN AND HE THOUGHT IT WOULD GO AWAY. HE DOES UNDERSTAND AND IS WILLING TO LEARN. I ANSWERED ALL OF HIS QUESTIONS. HI IS HAVING SOME DYSARTHRIA AND I AM RECOMMENDING SPEECH THERAPY. I WILL CONTINUE TO FOLLOW.
--- NOTE | 2023-02-07 10:59 | PC.NURSE ---
Patient admitted to unit from ED. Admission completed with patient. Calm and cooperative but shows some frustration with speech. Unable to move right arm, limited mobility in right leg, decreased sensation on right side. Right sided facial droop noted. Slurred speech, but appears to understand what is being asked. ED nurse gave patient po meds without difficulty. Will need assistance with meals and voiding in urinal. Aspiration precautions in place. Patient states that he was using a wheelchair at home due to old left sided deficit. Denies any pain. Denies headache, dizziness, blurred vision. Neurology consulted. Patient currently down at MRI. Buttocks red but blanchable, protective creams applied. Scabs noted on legs, no open areas noted. See assessment documentation for further information.
[2023-02-07 12:24] LABS: Glucose, Whole Blood 111 mg/dL (60-115)
[2023-02-07] MEDS: Nicotine 14 MG PATCH.TD24 TRANSDERMA (12:28)
[2023-02-07 15:59] LABS: Glucose, Whole Blood 169 mg/dL (60-115)
[2023-02-07] MEDS: Insulin Lispro 100 UNIT/ML 3 ML VIAL SUBCUT ×2 (17:03→21:46)
--- NOTE | 2023-02-07 17:28 | MHC.SP.ADU ---
Referring provider: Natasha Riojas NP Reason for Referral: Stroke protocol Type of Treatment: [id number] Clinical Swallowing Evaluation Date of Plan of Treatment: 02/07/23 Onset of Symptoms/Illness: 02/06/23 Date Treatment Started: 02/07/23 Medical Diagnosis: Acute CVA Primary Speech Language Diagnosis: R47.1 Dysarthria History Pt is a 57 year old male with hx of past CVA and reported hx of MS. Pt w/ slurred speech, limited mobility in R-leg, decreased sensation on R-side, R-facial droop. Pt's brain MRI revealed an acute left striatocapsular lacunar infarct. Pt reportedly passed his nursing swallow screening last night and tolerated meds w/ RN without difficulty. Per stroke RN, Jodie Dacosta, DESK PENS ASSEMBLER consult was placed for screening of speech and language, as pt seemed to be frustrated when speaking. Medical History: Other: Medical History Atherosclerotic cardiovascular disease Essential hypertension Other and unspecified hyperlipidemia Smoking Type 2 diabetes mellitus with unspecified complications Medication List: Recent Hospitalizations: Respiratory Needs: Room Air Patient Orientation: Social History: Employment Status: Highest level of education obtained: Current Living Situation: Assistive Devices in use: Comment: Past Speech Language Therapy: Other Therapies Seen in Current Calendar Year: Other: Swallowing History: Dysphagia Specific: Risk of Aspiration Comments: Risk of aspiration d/t recent stroke. Pt is currently on aspiration precautions per RN note. Pt was being fed dinner w/ 1:1 assistance provided by INVASIVE PHYSICIAN when DESK PENS ASSEMBLER arrived for speech screening. Pre-eval Risk for Aspiration: Neurological Condition Reported Speech, Language, Cognition difficulties: Speaking Assessment Speech Production: Dysarthric Nonfluent Slow Slurred Clinical Impression: Impaired Observations: Pt w/ moderately slurred and imprecise articulation. Pt's speech was slow and nonfluent, with intermittent word finding difficulties throughout conversation. Pt exhibited difficulty producing multisyllabic words and phrases. He was not able to repeat the phrase [employer] Jain after several attempts. He became frustrated and stated, some words I can't do. Tests of Speech & Lang Adults: Clinical Impression: Impaired Observations: Pt correctly named 10/10 items in the room (confrontational naming). He did present with some word finding difficulty throughout conversation, w/ pt pausing, groping for words, and stating, I have to think. Pt correctly stated his name and location. He stated he was in the hospital for a stroke and due to his MS. He referenced the whiteboard when stating today's date. Pt correctly answered yes/no and WH-questions. Impressions and Recommendations Summary: Impact on Daily Function/Activity Limitations: Daily Activities: Interpersonal Interactions: Moderate Education: Employment: Community: Recommendation for Speech Therapy: Further Testing Needed Inpatient Speech Therapy Speech Therapy through [facility] Speech Therapy through Rehab Facility Recommended Referrals to be Discussed with Primary Care Provider: Neurology Patient Education: Completed: Yes Patient/Caregiver Education: Described Results of Evaluation Patient expressed understanding of evaluation Comments/Barriers to Learning: Family Dinner Service Specialist Clinican/Clinical Fellow: No Supervisory Statement: N/A Speech Language Pathologist: Rosa Hernandez M.A., CCC-DESK PENS ASSEMBLER
[2023-02-07 20:03] LABS: Glucose, Whole Blood 174 mg/dL (60-115)
[2023-02-08 03:32] VITALS: BP 172/98; PULSE 89; RESP 20; TEMP 36.1; O2SAT 98
[2023-02-08 07:26] LABS: Glucose, Whole Blood 118 mg/dL (60-115)
[2023-02-08 07:41] VITALS: BP 160/108; PULSE 89; RESP 18; TEMP 36.3; O2SAT 95
[2023-02-08 07:43] LABS: Anion Gap 16 (12-20); Blood Urea Nitrogen 17 mg/dL (9-16); Calcium 9.4 mg/dL (8.4-10.2); Carbon Dioxide 22 mmol/L (22-29); Chloride 108 mmol/L (96-108); Creatinine Clr Calc Pharmacy 109.5; Estimated Glomerular Filt Rate > 60; Glucose Random 123 mg/dL (60-115); Potassium 3.6 mmol/L (3.3-5.1); Sodium 142 mmol/L (135-145)
[2023-02-08] MEDS: Nicotine 14 MG PATCH.TD24 TRANSDERMA (08:14)
[2023-02-08] MEDS: Clopidogrel Bisulfate 75 MG TABLET PO (08:14)
[2023-02-08] MEDS: Aspirin 81 MG TAB.CHEW PO (08:14)
[2023-02-08] MEDS: lisinopriL 40 MG TABLET PO (08:14)
[2023-02-08] MEDS: Atorvastatin Calcium 80 MG TABLET PO (08:14)
[2023-02-08 11:30] LABS: Glucose, Whole Blood 205 mg/dL (60-115)
[2023-02-08 11:42] VITALS: BP 182/96; PULSE 91; RESP 18; TEMP 36.4; O2SAT 94
[2023-02-08] MEDS: Insulin Lispro 100 UNIT/ML 3 ML VIAL SUBCUT (12:07)
--- NOTE | 2023-02-08 12:25 | HO.PM.IMPN ---
Subjective Subjective Date of Service: 02/08/23 Interval History: seen and examined this morning follow up for acute stroke still with right side droop and right hemiparesis no overnight events Physical Exam Vital Signs: Vital Signs: Last Vital Signs Temp 97.5 F 02/08/23 11:42 Pulse 91 02/08/23 11:42 Resp 18 02/08/23 11:42 BP 182/96 H 02/08/23 11:42 Pulse Ox 94 02/08/23 11:42 O2 Del Method Room Air 02/08/23 11:42 BMI result Body Mass Index 30.2 Const: General: cooperative, comfortable, alert and awake Nutritional Appearance: average body habitus Orientation/consciousness: patient oriented x3 Resp: Effort & Inspection: normal respiratory effort, able to speak in complete sentences, no respiratory distress and no use of accessory muscles Cardio: Rate: regular rate Heart sounds: S1 normal heart sound present and S2 normal heart sound present GI: Inspection: No distended Palpation (GI): Soft to palpation and nontender Neuro: Other: right facial droop right hemiparesis General: patient oriented x3 Extrem: General: Yes no pedal edema Objective Data Active Medications Acetaminophen (Acetaminophen 325 Mg Tablet) 650 mg PO Q6H PRN PRN Reason: Pain, Mild (Pain Scale 1-3) Aspirin (Aspirin 81 Mg Tab.Chew) 81 mg PO DAILY [facility] Last Admin: 02/08/23 08:14 Dose: 81 mg Documented By: MIKIE Atorvastatin Calcium (Atorvastatin Calcium 80 Mg Tablet) 80 mg PO DAILY [facility] Last Admin: 02/08/23 08:14 Dose: 80 mg Documented By: MIKIE Clopidogrel Bisulfate (Clopidogrel Bisulfate 75 Mg Tablet) 75 mg PO DAILY [facility] Last Admin: 02/08/23 08:14 Dose: 75 mg Documented By: MIKIE Dextrose (Dextrose 50 % 25 Gm/50 Ml Syringe) 25 gm IVPUSH Q15M PRN; Protocol PRN Reason: per Hypoglycemia Standing Ord. Docusate Sodium (Docusate Sodium 100 Mg Capsule) 100 mg PO DAILY PRN PRN Reason: Constipation Enoxaparin Sodium (Enoxaparin Sodium 40 Mg/0.4 Ml Syringe) 40 mg SUBCUT BEDTIME [facility] Last Admin: 02/07/23 21:46 Dose: 40 mg Documented By: STEPHANE Glucose (Glucose Gel 15 Gm Gel..Gram.) 15 gm PO Q15M PRN; Protocol PRN Reason: per Hypoglycemia Standing Ord. Insulin Human Lispro (Insulin Lispro 100 Unit/Ml 3 Ml Vial) 0 unit SUBCUT QIDACHS [facility]; Protocol Last Admin: 02/08/23 12:07 Dose: 4 unit Documented By: MIKIE Lisinopril (Lisinopril 40 Mg Tablet) 40 mg PO DAILY [facility]; Protocol Last Admin: 02/08/23 08:14 Dose: 40 mg Documented By: MIKIE Melatonin (Melatonin 3 Mg Tablet) 6 mg PO BEDTIME PRN PRN Reason: Insomnia Nicotine (Nicotine 14 Mg Patch.Td24) 14 mg TRANSDERMA DAILY [facility] Last Admin: 02/08/23 08:14 Dose: 14 mg Documented By: MIKIE Ondansetron HCl (Ondansetron Hcl 4 Mg/2 Ml Vial) 4 mg IVPUSH Q8H PRN PRN Reason: Nausea and Vomiting Labs 02/07/23 04:34 02/08/23 06:48 Labs: Laboratory Results - last 24 hr 02/07/23 02/07/23 02/07/23 12:20 15:43 19:55 Anion Gap Estim Creat Clear Calc Estimated GFR POC Glucose 111 169 H 174 H Random Glucose Calcium 02/08/23 02/08/23 02/08/23 06:48 07:23 11:22 Anion Gap 16 Estim Creat Clear Calc 109.5 Estimated GFR > 60 POC Glucose 118 H 205 H Random Glucose 123 H Calcium 9.4 Assessment and Plan (1) Acute CVA (cerebrovascular accident): Status: Acute Plan 57-year-old male with history of CVA comes into the hospital with acute symptoms of right-sided facial droop and right upper and lower extremity weakness Acute CVA was out of window for tpa on arival persistent right facial droop and right hemiparesis. Focal high grade stenosis of distal left M3 MCA branch seen on CT angiogram but no large vessel occlusion MRI positive for acute left striatocapsular lacunar infarct superimposed on numerous chronic small vessel ischemic changes. incidental finding of cavernous malformation - chronic from previous imaging seen by neurology - recommended to continue antiplatelet agent and statin continued on baseline DAPT and statin PT/OT rec acute rehab smoking cessation advised good blood pressure control advised - greater then 48 since onset of symptoms, will continue home dose of lisinopril and gradual reduction in blood pressure over the next several days/week Diabetes mellitus type 2 metformin on hold, trulicity NF on hold Sliding scale, ADA diet Hypertension continue lisinopril tobacco dependence smoking cessation advised Nicotine replacement History of MS Not on any maintenance medications recommend outpatient follow up DVT prophylaxis:? Luis F Attending Dr. Iban miguel acute rehab Continue hospitalization for safe disposition Time Spent With Patient Time: Total time managing care of this patient today ____ minutes. Quality Stroke Does the patient have a stroke diagnosis?: Yes Reason for No Anti-thrombotic by Day Two: N/A - Med Ordered VTE Prior VTE?: No VTE Risk Level:: Medical - moderate - high VTE Device Contraindication: Treatment Not Indicated VTE Drug Contraindication: N/A - Med Ordered
--- NOTE | 2023-02-08 14:04 | MHC.SL.SOA ---
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 Patient was awake and alert, but notably agitated and frustrated by his marked R hemiplegia and difficulty with speech. During session, patient frequently needed to be repositioned in bed due to slumping on right side, which patient often caused by lurching or turning to his right. Patient protested that he did not have any difficulty retrieving words, just that his speech was unclear. Patient expressed worry about his ability to return home, if rehab would be helpful (e.g. stated last time they did nothing! ), and other complaints. At end of session lunch arrived with patient saying he needed someone to help him eat, and that he was unable to eat with his left hand. HOSPITAL WELLNESS COORDINATOR assisted Patient with some of the meal, then requested CONTACT CENTER SPECIALIST continue after HOSPITAL WELLNESS COORDINATOR needed to leave room. Objective: On going assessment of Speech and Language skills, s/p CVA. Assessment:Patient was administered the short form of the [place] Naming test, with patient quickly identifying 11 out of 15 items. On items when patient had difficulty, he stated I don't know that that is called but then was noted to retrieve the word if given either a letter or a phonemic cue. Patient was asked to provide a narrative for the [employer] Picture with patient given a brief, rapid, general description of all characters and activities in the scene, and then saying and that's it! in conclusion. When asked general conversational questions, patient was able to provide some relatively terse information but did not evidence word finding difficulties during conversation. Word finding difficulties are still evident, but mild and improving. Patient continues to present with a moderate dysarthria characterized by imprecise articulation of multiple speech sounds, marked R sided weakness of oral structures. Patient at one point held up the right side of his face with his left hand and stated I can speak clearer when I do this. Recommend ongoing assessment of speech and language with continued Speech Therapy at the next level of care. Notes: Plan: Goal # : Status of Goal: Goal # : Status of Goal: Goal # : Status of Goal: Goal # : Status of Goal: Seen by: Graduate/Clinical Fellow: No Supervisory Statement: f_Reg Query Last Value , MHC.AU.SIGNUR Speech Language Pathologist: Unique Hoffman M.A., [facility]-HOSPITAL WELLNESS COORDINATOR
[2023-02-08 14:22] VITALS: PULSE 113
[2023-02-08 15:19] VITALS: BP 196/110; PULSE 100; RESP 18; TEMP 36.6; O2SAT 94
[2023-02-08 15:37] LABS: Glucose, Whole Blood 132 mg/dL (60-115)
[2023-02-08 20:00] VITALS: BP 160/91; PULSE 96; RESP 18; TEMP 37; O2SAT 96
[2023-02-08 20:04] LABS: Glucose, Whole Blood 143 mg/dL (60-115)
[2023-02-08] MEDS: Enoxaparin Sodium 40 MG/0.4 ML SYRINGE SUBCUT (20:40)
[2023-02-09] VITALS (8 sets, daily range): BP systolic 143–187; BP diastolic 30–108; PULSE 91–99; RESP 16–20; TEMP 36.1–37.1; O2SAT 93–98
[2023-02-09 07:31] LABS: Glucose, Whole Blood 122 mg/dL (60-115)
[2023-02-09] MEDS: lisinopriL 40 MG TABLET PO (08:40)
[2023-02-09] MEDS: Atorvastatin Calcium 80 MG TABLET PO (08:40)
[2023-02-09] MEDS: Aspirin 81 MG TAB.CHEW PO (08:40)
[2023-02-09] MEDS: Clopidogrel Bisulfate 75 MG TABLET PO (08:40)
[2023-02-09] MEDS: Nicotine 14 MG PATCH.TD24 TRANSDERMA (08:40)
--- NOTE | 2023-02-09 10:25 | MHC.CM.PN ---
Patient has been accepted at [facility] pending [facility] auth on Sunday02/12/2023. Weekend CM will need to send Sunday's 02/10/2023 PT note to [facility] on 02/10/2023 so [facility] can initiate [facility] auth first thing Sunday morning. CM will follow.
[2023-02-09 11:34] LABS: Glucose, Whole Blood 111 mg/dL (60-115)
[2023-02-09] MEDS: amLODIPine Besylate 5 MG TABLET PO (12:55)
--- NOTE | 2023-02-09 13:30 | MHC.SL.SOA ---
Referring Provider: Natasha Riojas NP Reason for Referral: Stroke protocol Date of Plan of Treatment:02/07/23 Onset of Symptoms/Illness:02/06/23 Date Treatment Started:02/07/23 Medical Diagnosis:Acute CVA Primary Speech Language Diagnosis:R47.1 Dysarthria Secondary Speech Language Diagnosis:R47.01 Aphasia Subjective:Pt appeared to be mildly agitated, frequently requesting METER ENGINEER to assist with repositioning in bed d/t discomfort. Nevertheless, pt expressed he wanted to participate in speech therapy. Objective: On going assessment of Speech and Language skills, s/p CVA. Assessment:Patient was administered the long form of the [place] Naming test, with patient correctly naming 32/60 line images. Pt correctly named common and more salient nouns, such as bed, comb, and scissors. He exhibited more difficulty with less salient items, stating, I know what it is....I just can't think of the word. Pt produced some paraphasias, naming snail as squirrel, tongs as tweezers, accordion as harmonica, and pelican as penguin. Pt did not appear to be aware of these word finding errors. At times, pt stated, I don't know, but in most trials, was able to then recall the word when given a phonemic cue, orthographic cue, or forced choice cue. Patient continues to present with a moderate dysarthria characterized by imprecise articulation of multiple speech sounds (especially fricative sounds), marked R sided weakness of oral structures. Patient again held up the right side of his face with his left hand and stated I can speak clearer when I do this. Lingual ROM was WFL, mild weakness to the right side. Recommend ongoing assessment of speech and language with continued Speech Therapy at the next level of care. Seen by: Graduate/Clinical Fellow: No Supervisory Statement: f_Reg Query Last Value , MHC.AU.SIGNATUR Speech Language Pathologist: Rosa Hernandez M.A., CCC-PEARL STRINGER
--- NOTE | 2023-02-09 15:09 | MHC.CM.PN ---
[facility] has now indicated that a bed has become available; DAVID has requested that [facility] initiate the auth process with [facility]. DAVID will follow.
--- NOTE | 2023-02-09 16:05 | MHC.CM.PN ---
Patient will be dc to [facility](One of his top choices) tomorrow at 11 AM, via [facility]. CM has informed Patient's Primary Contact/Friend/Thiago @ [phone] of the dc plan.IMM addressed.
--- NOTE | 2023-02-09 16:24 | P.PNIM_ITS ---
Subjective Subjective Date of Service: 02/09/23 Interval History: Seen and examined this morning Follow-up for stroke No overnight events Still with right-sided hemiparesis, appears frustrated Review of Systems Review of Systems: Yes all other systems are reviewed and are negative Constitutional Constitutional: Denies chills and Denies fever(s) Cardiovascular Cardiovascular: Denies chest pain, Denies palpitations and Denies dyspnea Respiratory Respiratory: Denies cough and Denies dyspnea Gastrointestinal Gastrointestinal: Denies abdominal pain Endocrine Endocrine: Denies palpitations Physical Exam Vital Signs: Vital Signs: Last Vital Signs Temp 97.1 F 02/09/23 11:07 Pulse 91 02/09/23 11:07 Resp 18 02/09/23 11:07 BP 143/94 H 02/09/23 11:07 Pulse Ox 93 02/09/23 11:07 O2 Del Method Room Air 02/09/23 11:07 BMI result Body Mass Index 30.2 Const: General: cooperative, comfortable, alert and awake Nutritional Appearance: average body habitus Orientation/consciousness: patient oriented x3 Resp: Effort & Inspection: normal respiratory effort, able to speak in complete sentences, no respiratory distress and no use of accessory muscles Cardio: Rate: regular rate Heart sounds: S1 normal heart sound present and S2 normal heart sound present GI: Inspection: No distended Palpation (GI): Soft to palpation and nontender Neuro: Other: right facial droop right hemiparesis General: patient oriented x3 Extrem: General: Yes no pedal edema Objective Data Active Medications Acetaminophen (Acetaminophen 325 Mg Tablet) 650 mg PO Q6H PRN PRN Reason: Pain, Mild (Pain Scale 1-3) Amlodipine Besylate (Amlodipine Besylate 5 Mg Tablet) 5 mg PO DAILY [facility]; Protocol Last Admin: 02/09/23 12:55 Dose: 5 mg Documented By: GREGORY Aspirin (Aspirin 81 Mg Tab.Chew) 81 mg PO DAILY [facility] Last Admin: 02/09/23 08:40 Dose: 81 mg Documented By: GREGORY Atorvastatin Calcium (Atorvastatin Calcium 80 Mg Tablet) 80 mg PO DAILY [facility] Last Admin: 02/09/23 08:40 Dose: 80 mg Documented By: GREGORY Clopidogrel Bisulfate (Clopidogrel Bisulfate 75 Mg Tablet) 75 mg PO DAILY [facility] Last Admin: 02/09/23 08:40 Dose: 75 mg Documented By: GREGORY Dextrose (Dextrose 50 % 25 Gm/50 Ml Syringe) 25 gm IVPUSH Q15M PRN; Protocol PRN Reason: per Hypoglycemia Standing Ord. Docusate Sodium (Docusate Sodium 100 Mg Capsule) 100 mg PO DAILY PRN PRN Reason: Constipation Enoxaparin Sodium (Enoxaparin Sodium 40 Mg/0.4 Ml Syringe) 40 mg SUBCUT BEDTIME [facility] Last Admin: 02/08/23 20:40 Dose: 40 mg Documented By: MARYURI Glucose (Glucose Gel 15 Gm Gel..Gram.) 15 gm PO Q15M PRN; Protocol PRN Reason: per Hypoglycemia Standing Ord. Insulin Human Lispro (Insulin Lispro 100 Unit/Ml 3 Ml Vial) 0 unit SUBCUT QIDACHS [facility]; Protocol Last Admin: 02/09/23 12:55 Dose: Not Given Documented By: GREGORY Non-Admin Reason: No Insulin Coverage Lisinopril (Lisinopril 40 Mg Tablet) 40 mg PO DAILY [facility]; Protocol Last Admin: 02/09/23 08:40 Dose: 40 mg Documented By: GREGORY Melatonin (Melatonin 3 Mg Tablet) 6 mg PO BEDTIME PRN PRN Reason: Insomnia Nicotine (Nicotine 14 Mg Patch.Td24) 14 mg TRANSDERMA DAILY [facility] Last Admin: 02/09/23 08:40 Dose: 14 mg Documented By: GREGORY Ondansetron HCl (Ondansetron Hcl 4 Mg/2 Ml Vial) 4 mg IVPUSH Q8H PRN PRN Reason: Nausea and Vomiting Labs 02/07/23 04:34 02/08/23 06:48 Labs: Laboratory Results - last 24 hr 02/08/23 02/09/23 02/09/23 19:52 07:15 11:09 POC Glucose 143 H 122 H 111 Assessment and Plan (1) Acute CVA (cerebrovascular accident): Status: Acute Plan 57-year-old male with history of CVA comes into the hospital with acute symptoms of right-sided facial droop and right upper and lower extremity weakness Acute CVA was out of window for tpa on arival persistent right facial droop and right hemiparesis. Focal high grade stenosis of distal left M3 MCA branch seen on CT angiogram but no large vessel occlusion MRI positive for acute left striatocapsular lacunar infarct superimposed on numerous chronic small vessel ischemic changes. incidental finding of cavernous malformation - chronic from previous imaging seen by neurology - recommended to continue antiplatelet agent and statin continued on baseline DAPT and statin PT/OT rec acute rehab smoking cessation advised good blood pressure control advised - greater then 48 since onset of symptoms, will continue home dose of lisinopril and gradual reduction in blood pressure over the next several days/week Diabetes mellitus type 2 metformin on hold, trulicity NF on hold Sliding scale, ADA diet Hypertension continue lisinopril bp still 180s, will add norvasc follow bp closely tobacco dependence smoking cessation advised Nicotine replacement History of MS Not on any maintenance medications recommend outpatient follow up DVT prophylaxis:? Luis F Attending Dr. Ferrera dispo - acute rehab-tomorrow am Continue hospitalization for safe disposition Time Spent With Patient Time: Total time managing care of this patient today ____ minutes. Quality Stroke Does the patient have a stroke diagnosis?: Yes Reason for No Anti-thrombotic by Day Two: N/A - Med Ordered VTE Prior VTE?: No VTE Risk Level:: Medical - moderate - high VTE Device Contraindication: Treatment Not Indicated VTE Drug Contraindication: N/A - Med Ordered
[2023-02-09 17:27] LABS: Glucose, Whole Blood 171 mg/dL (60-115)
[2023-02-09] MEDS: Insulin Lispro 100 UNIT/ML 3 ML VIAL SUBCUT (18:47)
[2023-02-09 20:12] LABS: Glucose, Whole Blood 124 mg/dL (60-115)
[2023-02-09] MEDS: Enoxaparin Sodium 40 MG/0.4 ML SYRINGE SUBCUT (20:40)
[2023-02-10 02:52] VITALS: BP 171/81; PULSE 86; RESP 16; TEMP 36.2; O2SAT 99
[2023-02-10] MEDS: hydrALAZINE HCl 20 MG/ML VIAL 5 MG IVPUSH (03:49)
[2023-02-10 06:23] VITALS: BP 148/87; PULSE 87
--- NOTE | 2023-02-10 06:35 | PC.NURSE ---
Patient alert and verbal, denies having any pain / discomfort. BP 171/77, patient asymptomatic, one time dose of IVP hydralazine 5mg administer with good effect, BP 148/87, HR 87.
[2023-02-10 07:18] VITALS: BP 159/88; PULSE 92; RESP 20; TEMP 36.4; O2SAT 97
[2023-02-10 07:25] LABS: Glucose, Whole Blood 133 mg/dL (60-115)
[2023-02-10] MEDS: Nicotine 14 MG PATCH.TD24 TRANSDERMA (08:50)
[2023-02-10] MEDS: Atorvastatin Calcium 80 MG TABLET PO (08:51)
[2023-02-10] MEDS: Aspirin 81 MG TAB.CHEW PO (08:51)
[2023-02-10] MEDS: amLODIPine Besylate 5 MG TABLET PO (08:51)
[2023-02-10] MEDS: lisinopriL 40 MG TABLET PO (08:51)
[2023-02-10] MEDS: Clopidogrel Bisulfate 75 MG TABLET PO (08:51)
--- NOTE | 2023-02-10 09:54 | P.DS_ITS ---
DS: Providers Provider Date of Service: 02/10/23 Date of admission: 02/06/23 22:20 Date of discharge: 02/10/23 Primary care physician: Eduard Garcia MD Consults: 02/06/23 22:20 Consult to Neurology Routine Consulting Provider: [facility] Reason for consultation: Acute CVA Has provider been notified: No Attending physician on discharge: Laura Guzman Discharging clinician: Kate Sherwood DS: Diagnosis Discharge Diagnosis (1) Acute CVA (cerebrovascular accident): Status: Acute DS: Summary Hospital Course Hospital Course: From H&P on day of admission 57-year-old male with past medical history of CVA, HTN, type 2 diabetes, reported history of MS, comes into the hospital with complaints of right-sided weakness and slurred speech.? Patient reports his symptoms started 12:00 this afternoon, by the time he presented to the ED he was outside of the tPA.? He denies any chest pain, no abdominal pain, no headache, no change in vision, he reports right-sided facial weakness as well. On arrival to the ED patient has an elevated blood pressure of 208/111 vitals otherwise stable Labs are significant for WBC count of 10, hemoglobin of 15.5, hematocrit 47.2, labs otherwise unremarkable Imaging including chest x-ray negative CT angiogram of the head and neck shows no intracranial hemorrhage or large acute infarct, chronic lacunar infarct seen in bilateral basal ganglia, chronic microangiopathy, no large vessel occlusion, focal high-grade stenosis of the distal left M2 M3 MCA branch. Patient will be admitted for further management Acute CVA. was out of window for tpa on arrival. he presented with right facial droop and right hemiparesis which has been persistent. Focal high grade stenosis of distal left M3 MCA branch seen on CT angiogram but no large vessel occlusion. MRI was positive for acute left striatocapsular lacunar infarct superimposed on numerous chronic small vessel ischemic changes. incidental finding of cavernous malformation - chronic and stable from previous imaging. He was seen by neurology - recommended to continue antiplatelet agent and statin. He was continued on baseline DAPT and statin. He was seen by PT/OT who recommended acute rehab smoking cessation advised good blood pressure control advised - norvasc was added to lisinopril and blood pressure is starting to improve, may need further titration as outpatient. Time Spent with Patient Time attestation: Total time managing care of this patient today ____ minutes. Discharge coordination time: Greater than 30 minutes Quality: Safe Use of Opioids Does Pt have an Active Cancer Diagnosis on the Problem List?: No Quality: Stroke Does the patient have a stroke diagnosis?: Yes Reason for No Anti-thrombotic at DC: N/A - Med Ordered Reason for No Anticoagulant at DC: N/A - Med Ordered Reason Not Initiating IV-Tpa: Not indicated Reason for No Anti-thrombotic by Day Two: N/A - Med Ordered Reason for No Statin at DC: N/A - Med Ordered Physical Exam Vital Signs: Vital Signs: Last Vital Signs Temp 97.5 F 02/10/23 07:18 Pulse 92 02/10/23 07:18 Resp 20 02/10/23 07:18 BP 159/88 H 02/10/23 07:18 Pulse Ox 97 02/10/23 07:18 O2 Del Method Room Air 02/10/23 07:18 BMI result Body Mass Index 30.2 Const: General: cooperative, comfortable, alert and awake Nutritional Appearance: average body habitus Orientation/consciousness: patient oriented x3 Resp: Effort & Inspection: normal respiratory effort, able to speak in complete sentences, no respiratory distress and no use of accessory muscles Cardio: Rate: regular rate Heart sounds: S1 normal heart sound present and S2 normal heart sound present GI: Inspection: No distended Palpation (GI): Soft to palpation and nontender Neuro: Other: right facial droop right hemiparesis General: patient oriented x3 Extrem: General: Yes no pedal edema DS: Data Data Completed and Pending Labs on day of discharge: Laboratory Results - last 24 hr 02/09/23 02/09/23 02/09/23 11:09 17:23 20:07 POC Glucose 111 171 H 124 H 02/10/23 07:20 POC Glucose 133 H Discharge Plan Discharge Anticipated Discharge Date/Time: 02/10/23 10:05 Patient Disposition: Xfer Inpatient Rehab Fac Discharge Diagnosis: acute stroke elevated blood pressure Referrals: [facility] [Outside] - 1 Week Eduard Garcia MD [Primary Care Provider] - 1 Week Discharge Medications: New nicotine 14 mg/24 hr Patch 24 Hour 14 mg transdermal DAILY Qty: 28 0RF amlodipine 5 mg Tablet 5 mg PO DAILY 30 Days Qty: 30 0RF Protocol: Hold for SBP< HOLD for SBP < : 90 Continued atorvastatin 80 mg tablet 1 tab PO BEDTIME aspirin 81 mg tablet,chewable 1 tab PO DAILY Trulicity 3 mg/0.5 mL pen injector 3 mg subcut WE clopidogrel 75 mg Tablet 75 mg PO DAILY Qty: 30 0RF metformin 500 mg tablet 500 mg PO QAM lisinopril 40 mg tablet 40 mg PO DAILY Discharge Orders: Discharge Order (Routine); Ordered 02/10/23 Ordered By: Kate Sherwood Activity on Discharge: As tolerated Stand Alone Forms: Patient Portal Discharge page Care Plan Goals: see below Health Concerns: Acute stroke with persistent right hemiparesis uncontrolled blood pressure tobacco dependence Plan of Treatment: smoking cessation advised continue lisinopril and Norvasc for blood pressure management, may need further titration of blood pressure medications to reach goal blood pressure continue aspirin, Plavix, statin recommend good blood sugar control your being transferred to acute rehab for rehabilitation following your stroke Assessment: see discharge summary
--- NOTE | 2023-02-10 10:55 | MHC.CM.PN ---
order for D/C to Rehab. Med Nec Form given to [employer] for ambulance transport. D/C Summary uploaded in to [employer] to [facility]. Confirmed w/[facility] Pt leaving here at 11:00am for transport to their Center.
== END 2023-02-10 10:54 | DRG 64 ==
LOC: HO.ED 19:25 → HO.EDOVER 22:30 → HO.IMC 02-07 07:13
PROVIDERS: Nurse Practitioner Acute Care; Admitting Provider Internal Medicine; Emergency Provider Emergency Medicine Emergency Medical Services; PCP Internal Medicine; Visit Provider Physician Assistant Medical
DX: I63.81 Other cerebral infarction due to occlusion or stenosis of small artery (principal); Q28.3 Other malformations of cerebral vessels; G81.91 Hemiplegia, unspecified affecting right dominant side; I25.10 Atherosclerotic heart disease of native coronary artery without angina pectoris; R29.810 Facial weakness; R29.704 NIHSS score 4; F17.210 Nicotine dependence, cigarettes, uncomplicated; Z71.6 Tobacco abuse counseling; R47.81 Slurred speech; G35 Multiple sclerosis; I10 Essential (primary) hypertension; E11.9 Type 2 diabetes mellitus without complications; Z79.82 Long term (current) use of aspirin; Z79.84 Long term (current) use of oral hypoglycemic drugs; Z79.899 Other long term (current) drug therapy
CPT/HCPCS: 36415; 70450; 70496; 70498; 70551; 71045; 80048; 80061; 80076; 81001; 82550; 82947; 83735; 84100; 84443; 84484; 85025; 85610; 85730; 93005; 97110; 97112; 97163; 97167; 97530; 99285; J1650; Q9967

== ENCOUNTER → 2023-02-06 17:57 | Outpatient (BNV) | payer OTHER, SELFPAY | PROVIDERS: Admitting Provider Internal Medicine; Emergency Provider Emergency Medicine Emergency Medical Services; Visit Provider Internal Medicine Cardiovascular Disease | DX: I63.9 Cerebral infarction, unspecified (principal) | CPT/HCPCS: 93010 ==

== ENCOUNTER → 2023-02-06 22:20 | Outpatient (BNV) | payer OTHER, SELFPAY | PROVIDERS: Admitting Provider Internal Medicine; Emergency Provider Emergency Medicine Emergency Medical Services; Visit Provider Internal Medicine | DX: I63.9 Cerebral infarction, unspecified (principal) | CPT/HCPCS: 99223; 99232; 99233; 99239 ==

== ENCOUNTER 2023-06-18 13:36 | Emergency (ER) | payer OTHER, SELFPAY ==
--- NOTE | ~2023-06-18 | XR_ITS ---
EXAMINATION: Right shoulder, right knee and right tibia and fibula. CLINICAL INDICATIONS: Fall and injury. COMPARISON: None. TECHNIQUE: Right shoulder 4 views. Right knee 4 views. Right tibia and fibula 2 views. FINDINGS: Right shoulder: The glenohumeral and AC joint spaces mildly reduced. No bony erosive changes or loose body seen. There is soft tissue calcification adjacent to the right foot greater tuberosity likely calcific bursitis. RIGHT KNEE: The tricompartment joint space is preserved. There is no visible fracture, dislocation or loose bodies. No abnormal joint effusion seen. RIGHT TIBIA AND FIBULA: There is no visible bony abnormality. The soft tissues are normal. XR/XR knee RT 3V IMPRESSION: 1. Calcific bursitis right shoulder. No acute fracture or dislocation in right shoulder. 2. Unremarkable right knee exam. 3. No visible fracture or dislocation seen in the right tibia and fibula or the right knee.
--- NOTE | ~2023-06-18 | XR_ITS ---
EXAMINATION: Right shoulder, right knee and right tibia and fibula. CLINICAL INDICATIONS: Fall and injury. COMPARISON: None. TECHNIQUE: Right shoulder 4 views. Right knee 4 views. Right tibia and fibula 2 views. FINDINGS: Right shoulder: The glenohumeral and AC joint spaces mildly reduced. No bony erosive changes or loose body seen. There is soft tissue calcification adjacent to the right foot greater tuberosity likely calcific bursitis. RIGHT KNEE: The tricompartment joint space is preserved. There is no visible fracture, dislocation or loose bodies. No abnormal joint effusion seen. RIGHT TIBIA AND FIBULA: There is no visible bony abnormality. The soft tissues are normal. XR/XR shoulder RT min 2V IMPRESSION: 1. Calcific bursitis right shoulder. No acute fracture or dislocation in right shoulder. 2. Unremarkable right knee exam. 3. No visible fracture or dislocation seen in the right tibia and fibula or the right knee.
--- NOTE | ~2023-06-18 | XR_ITS ---
EXAMINATION: Right shoulder, right knee and right tibia and fibula. CLINICAL INDICATIONS: Fall and injury. COMPARISON: None. TECHNIQUE: Right shoulder 4 views. Right knee 4 views. Right tibia and fibula 2 views. FINDINGS: Right shoulder: The glenohumeral and AC joint spaces mildly reduced. No bony erosive changes or loose body seen. There is soft tissue calcification adjacent to the right foot greater tuberosity likely calcific bursitis. RIGHT KNEE: The tricompartment joint space is preserved. There is no visible fracture, dislocation or loose bodies. No abnormal joint effusion seen. RIGHT TIBIA AND FIBULA: There is no visible bony abnormality. The soft tissues are normal. XR/XR tibia fibula RT 2V IMPRESSION: 1. Calcific bursitis right shoulder. No acute fracture or dislocation in right shoulder. 2. Unremarkable right knee exam. 3. No visible fracture or dislocation seen in the right tibia and fibula or the right knee.
[2023-06-18 13:43] VITALS: BP 118/72; PULSE 120; O2SAT 98
[2023-06-18 14:02] VITALS: BP 98/72; PULSE 112; RESP 16; TEMP 36.9; O2SAT 96; BMI 25.8
--- NOTE | 2023-06-18 14:02 | ED.FALL ---
HPI - Fall General Chief Complaint: Fall Stated Complaint: FALL FROM W/C, NO COMPLAINTS Time Seen by Provider: 06/18/23 14:02 Source: patient and EMS Mode of arrival: EMS Limitations: no limitations History of Present Illness HPI Narrative: Patient was in his wheelchair leaned over and it toppled over. 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, not on blood thinners, no LOC MD complaint: fall Onset (ago): hour(s) Fall from: wheelchair Fall witnessed: yes, by bystander Place fall occurred: home Loss of consciousness: none Related Data Home Medications Medication Instructions Recorded Confirmed aspirin 81 mg chewable tablet 1 tab PO DAILY 07/17/22 02/06/23 atorvastatin 80 mg tablet 1 tab PO BEDTIME 07/17/22 02/06/23 dulaglutide 3 mg/0.5 mL 3 mg subcut WE 07/17/22 02/06/23 subcutaneous pen injector (Trulicity) lisinopril 40 mg tablet 40 mg PO DAILY 02/06/23 02/06/23 metformin 500 mg tablet 500 mg PO QAM 02/06/23 02/06/23 Previous Rx's Medication Instructions Recorded clopidogrel 75 mg tablet 75 mg PO DAILY #30 tabs 07/26/22 amlodipine 5 mg tablet 5 mg PO DAILY 30 days #30 tabs 02/10/23 nicotine 14 mg/24 hr daily 14 mg transdermal DAILY #28 ea 02/10/23 transdermal patch Allergies Allergy/AdvReac Type Severity Reaction Status Date / Time morphine [MORPHINE] AdvReac Unknown VOMITING Verified 07/24/22 11:05 Review of Systems Review of Systems: Yes all other systems are reviewed and are negative Neurologic: Denies Sensory deficit (Neuro) [facility] Past Medical History Medical History Smoking Other and unspecified hyperlipidemia Essential hypertension Type 2 diabetes mellitus with unspecified complications Atherosclerotic cardiovascular disease Social History Social History Household Members: None Housing: Apartment Do you presently have visiting nurse or other home services: Yes Alcohol intake: never Patient Tobacco Use Status: Former Tobacco user Tobacco use type: Cigarette Cigarette Packs Per Day: 0.5 Cigarettes Per Day: 10.0 e-Cigarette/Vaping Use: Currently Using Advance Directives: No Advance Directives Information Provided: Yes service: Yes Current occupational status: disabled Physical Exam Vital Signs: Vital Signs: Last Vital Signs Temp 98.5 F 06/18/23 14:02 Pulse 112 H 06/18/23 14:02 Resp 16 06/18/23 14:02 BP 98/72 06/18/23 14:02 Pulse Ox 96 06/18/23 14:02 O2 Del Method Room Air 06/18/23 14:02 BMI result Body Mass Index 25.8 Const: Other: male chronically ill appearing looking older than stated age Nutritional Appearance: average body habitus Orientation/consciousness: oriented to person and patient oriented x3 Limitations: no limitations HEENT: Head: Yes normal to inspection Ears: external ears normal General nose exam: Normal external nose present Mouth: Normal oral and palatal mucosa present and oropharynx normal Throat: Yes posterior oropharynx normal Eyes: General: appearance normal, both eyes and all related structures Neck: Other: supple Neck: Yes normal visual inspection Chest: Chest palpation & inspection: normal inspection of the chest Resp: Auscultation: clear to auscultation bilaterally Cardio: Jugular venous distension: no JVD Rate: regular rate Rhythm: regular rhythm Heart sounds: S1 normal heart sound present and S2 normal heart sound present GI: Inspection: Yes normal to inspection Palpation (GI): Soft to palpation, nontender and No hepatosplenomegaly present Auscultation: normal bowel sounds : General: Yes no CVA tenderness Back/Spine/Pelvis: Back: no CVA tenderness Skin: Other: abrasion and ecchymosis to right shoulder, right knee and right lower extremity Neuro: Other: right sided paralysis old General: oriented to person and patient oriented x3 Cranial nerves: Yes CN's II-XII intact bilaterally Sensory Exam: No Sensory deficit (Neuro) Psych: Appearance: grossly normal Course Reevaluation(s) Reevaluation #1: no evidence of fracture will dc home Time: 15:17 Medical Decision Making Differential Diagnosis Differential Diagnoses: The differential diagnosis associated with the presentation includes (shoulder fracture, knee fracture, tib fib fracture were all considered) Admission/Observation Consideration of admission/observation: Escalation of care including admission/observation considered (upon arrival patient was considered for admission) Independent Interpretation I performed an independent interpretation of an: Plain X-Ray (knee: osteopenia, no fracture shoulder: osteopenia no fracture tib fib: osteopenia no fracture) Prescription Management I considered prescription management with: Pain Medication (narcotic pain medication considered but patient in no acute pain) Chronic Conditions Patient?s care impacted by: Other (CVA with right hemiparesis) Discharge Plan Discharge Clinical Impression: Abrasion, Contusion of right shoulder, Contusion of knee, right Patient Disposition: Home, Self-Care Instructions: Contusion in Adults (ED) Prescriptions: No Action atorvastatin 80 mg tablet 1 tab PO BEDTIME aspirin 81 mg tablet,chewable 1 tab PO DAILY Trulicity 3 mg/0.5 mL pen injector 3 mg subcut WE clopidogrel 75 mg Tablet 75 mg PO DAILY Qty: 30 0RF metformin 500 mg tablet 500 mg PO QAM lisinopril 40 mg tablet 40 mg PO DAILY nicotine 14 mg/24 hr Patch 24 Hour 14 mg transdermal DAILY Qty: 28 0RF amlodipine 5 mg Tablet 5 mg PO DAILY 30 Days Qty: 30 0RF Protocol: Hold for SBP< HOLD for SBP < : 90 Referrals: Physician,Unknown J [Primary Care Provider] - 1 week
--- OUTSIDE RECORDS SUMMARY | 2023-06-18 14:25 | XMS_ITS | Continuity of Care Document ---
Author Name Unknown Organization [facility] Address [address], [address], [address] [place] [id number] Care Team Providers Care Ball Point Splitter Name Role Phone Not on Staff, PCP Primary Care Physician Unavail able Encounter [facility] Date(s): 02/14/23 - 03/16/23 [facility] [address], [address], [address] [place] [id number]- Allergies, Adverse Reactions, Alerts No Known Allergies Immunizations Given and Recorded Vaccine Date Status Refusal Reason [id number] 12y+ bivalent booster vax 04/29/22 Recorded SARS-CoV-2 mRNA ([id number]) vax 10/25/21 Given SARS-CoV-2 (COVID-19) mRNA BNT-162b2 [...] VNA Medications amLODIPine 5 mg oral tablet 10 [...] Refills, Maintenance, 06/23/22 8:15:00 EST, [id number], 162, cm, 06/14/22 13:02:00 EST, Height, 89.7, kg, 06/12/22 19:44:00 EST, Dry Weight Start Date: 06/23/22 Status: Ordered atorvastatin 80 mg oral tablet 1 tablet = 80 mg, By Mouth, Daily at bedtime, # 90 tablet, 3 Refills, Maintenance, 05/13/21 10:15:00 EDT, Tablet, [facility]/pharmacy #[id number], 161.5, cm, 12/14/20 7:49:00 EDT, [...] mL, 3 Refills, Maintenance,10/20/21 10:48:00 EDT, Solution, [facility]/pharmacy #[id number], cancel rx for trulicity 1.5mg, [...] Team Personnel Name: Nitish Bishop RN Position: [facility] ED RN W/OE and Tasks Member Role: Primary Care Nurse Name: Sandrine Celaya RN Position: S RN Member Role: Primary Care Nurse Name: Not on Staff, PCP Position: [facility] Physician (General Medicine) Member Role: PCP Care Team Related Persons Name: JANETTE PENA Name: NO ONE, PER PT
--- NOTE | 2023-06-18 16:38 | PC.NURSE ---
patient moved into the hallway - awaiting ems transport. upset with nursing staff about being discharged requesting admission. educated on the reasons he does not meet inpatient criteria at this time.
--- NOTE | 2023-06-18 17:28 | PC.NURSE ---
patient refused transport back to his house. yelling at EMS and this RN about not being able to leave and get around his house utilizing his wheelchair due to his previous stroke and deficits in his right arm. provider at bedside to talk with patient, patient now reporting that he did not fall today and sustained his fall approx a month ago. this has been an ongoing problem
[2023-06-19 01:42] VITALS: BP 136/88; PULSE 95; RESP 16; TEMP 36.8; O2SAT 92
--- NOTE | 2023-06-19 05:48 | PC.NURSE ---
Assumed care of pt at 2300. PT sleeping for entire shift. rounds completed throughout night. safety precautions in place. call osuna within reach. plan of care ongoing.
[2023-06-19 08:13] VITALS: BP 122/74; PULSE 90; TEMP 36.3; O2SAT 94
[2023-06-19 09:06] LABS: COVID-19 Test Negative (Negative); IDNOW Serial# BCCEAD1C
--- NOTE | 2023-06-19 09:16 | PC.NURSE ---
patient a&ox3, pt is screaming and yelling being disruptive and upsetting the other patients due to his screaming, this nurse has spoken with the patient about his behavior which has not helped. patient continues to be cantankerous not listening to staff, vitals have been stable, call osuna is within reach so pt has no reason to be yelling, will continue to monitor
--- NOTE | 2023-06-19 10:23 | PC.NURSE ---
security called to come speak with the patient for his behaviors and yelling, patient advocate is at bedside speaking with patient about his behaviors as well.
[2023-06-19 14:00] VITALS: BP 115/77; PULSE 99; RESP 18; TEMP 36.8; O2SAT 95
--- NOTE | 2023-06-19 14:18 | PC.NURSE ---
patient a&o, oob sitting in recliner chair, vss, pt currently watching tv, call osuna within reach, will continue to monitor
--- NOTE | 2023-06-19 15:44 | MHC.CM.ED ---
Received case management consult overnight. Patient came to the ER due to a fall from wheelchair. Work up is essentially negative. Physical therapy eval completed. Short term rehab is recommended. Patient was yelling out in the overflow unit earlier today. Anticipate patient will be difficult to place due to this. Referral broadcasted within 25 miles to all facilities contracted with [facility]. Continue to monitor for d/c needs.
[2023-06-19 16:28] VITALS: BP 120/86; PULSE 87; RESP 16
[2023-06-19] MEDS: Clopidogrel Bisulfate 75 MG TABLET PO (16:30)
[2023-06-19] MEDS: metFORMIN HCl 500 MG TABLET PO (16:30)
[2023-06-19] MEDS: amLODIPine Besylate 5 MG TABLET PO (16:30)
--- NOTE | 2023-06-19 16:30 | PC.NURSE ---
Pyxis not stocked with Lisinopril, pharmacy called and will bring some doses down for patient.
--- NOTE | 2023-06-19 16:30 | PHA.MEDREC ---
Pharmacy Consult ? Medication Reconciliation Pharmacy has reviewed the medication reconciliation completed by Ale. Patient is a poor historian, therefore utilizde claim history. Zyprexa and trazodone recently fill therefore added to list. Samaria Acevedo, NainD
[2023-06-19] MEDS: lisinopriL 5 MG TABLET PO (16:57)
--- NOTE | 2023-06-19 19:19 | MHC.EDTECH ---
patient was transfer back to bed. Had to call security for help.
[2023-06-19] MEDS: Atorvastatin Calcium 80 MG TABLET PO (22:04)
[2023-06-19 22:38] LABS: Glucose, Whole Blood 166 mg/dL (60-115)
[2023-06-19 22:51] VITALS: BP 113/76; PULSE 87; RESP 18; TEMP 36.6; O2SAT 95
[2023-06-20 06:24] VITALS: BP 128/68; PULSE 62; RESP 14; TEMP 36.9; O2SAT 94
[2023-06-20 08:18] VITALS: BP 99/69; PULSE 99; RESP 17; TEMP 36.4; O2SAT 94
[2023-06-20] MEDS: lisinopriL 5 MG TABLET PO (09:35)
[2023-06-20] MEDS: metFORMIN HCl 500 MG TABLET PO (09:35)
[2023-06-20] MEDS: Clopidogrel Bisulfate 75 MG TABLET PO (09:35)
[2023-06-20] MEDS: amLODIPine Besylate 5 MG TABLET PO (09:36)
--- NOTE | 2023-06-20 09:40 | PC.NURSE ---
PT IS A/O X 2 NO SOB/DONALD NOTED SPEAKS IN FULL SENTENCES. DENIES ANY PAIN/DISC. R SIDE WEAKNESS (HX OF CVA). PT HAS BEEN CALM/CO-OP. WILL CONTINUE TO MONITOR.
--- NOTE | 2023-06-20 11:26 | MHC.CM.ED ---
Patient remains in ER overflow. [facility] and [facility] are able to offer a bed. Met with patient in regards to discharge planning. Patient accepts bed at [facility] [place]. [facility] made aware and is in the process of obtaining insurance auth. Continue to monitor for d/c needs.
--- NOTE | 2023-06-20 13:42 | PC.NURSE ---
CASE MANAGEMENT (MAIN) AT BEDSIDE.
[2023-06-20 13:49] VITALS: BP 111/95; PULSE 86; RESP 24; TEMP 36.4; O2SAT 97
[2023-06-20 13:49] LABS: Creatinine Clr Calc Pharmacy 113.7; Estimated Glomerular Filt Rate > 60
--- NOTE | 2023-06-20 14:21 | MHC.CM.ED ---
Patient will go to [facility] via BLS tomorrow 06/21 at 11am. Patient, Mely RAUSCH and Joya THOMPSON aware. Continue to monitor for d/c needs.
[2023-06-20 16:00] VITALS: BP 111/74; PULSE 100; RESP 16; TEMP 36.1; O2SAT 96
--- NOTE | 2023-06-20 17:30 | MHC.EDTECH ---
Patient was given dinner ate 100 % of meal ,drank 240 ml fluids .
--- NOTE | 2023-06-20 19:00 | MHC.EDTECH ---
Patient was inconient of urine and small amount of stool ,bed bath given and bedding change ,Call osuna within Pt reach .
--- NOTE | 2023-06-20 19:01 | MHC.EDTECH ---
This pct assumed care of pt at 1500 ,vitals taken ,pt had a can of esperanza lamine to drink .
[2023-06-20] MEDS: Atorvastatin Calcium 80 MG TABLET PO (20:45)
--- NOTE | 2023-06-20 20:49 | PC.NURSE ---
This editorial writer assumed care of this Pt at 1900. Pt calm and cooperative, A&Ox3, denies any pain. Pt medicated per MAR, PO fluids given per request. Pt requesting door to be closed, call osuna in place. Pt aware of plan for tomorrow.
[2023-06-20 21:28] VITALS: BP 116/77; PULSE 83; RESP 16; TEMP 36.8; O2SAT 96
--- NOTE | 2023-06-21 03:12 | PC.NURSE ---
Pt appears to be sleeping, equal, non labored respirations, no apparent distress.
[2023-06-21 06:00] VITALS: BP 127/91; PULSE 83; RESP 16; TEMP 36.7; O2SAT 98
--- NOTE | 2023-06-21 06:15 | MHC.EDTECH ---
Rounding done ,vitals taken ,pt was incontinent of large amount of stool and urine ,care given ,and pt was given esperanza lamine ,refused fresh water .
[2023-06-21 07:55] VITALS: BP 122/78; PULSE 75; RESP 20; O2SAT 97
[2023-06-21] MEDS: Clopidogrel Bisulfate 75 MG TABLET PO (07:56)
[2023-06-21] MEDS: metFORMIN HCl 500 MG TABLET PO (07:56)
[2023-06-21] MEDS: lisinopriL 5 MG TABLET PO (07:56)
[2023-06-21] MEDS: amLODIPine Besylate 5 MG TABLET PO (07:56)
[2023-06-21 08:03] LABS: Glucose, Whole Blood 186 mg/dL (60-115)
== END 2023-06-21 11:19 ==
PROVIDERS: Emergency Provider Emergency Medicine; PCP Internal Medicine
DX: S40.211A Abrasion of right shoulder, initial encounter (principal); S40.011A Contusion of right shoulder, initial encounter; R26.81 Unsteadiness on feet; M79.601 Pain in right arm; M79.604 Pain in right leg; W05.0XXA Fall from non-moving wheelchair, initial encounter; Y93.9 Activity, unspecified; Y92.9 Unspecified place or not applicable; Y99.9 Unspecified external cause status; Z11.52 Encounter for screening for COVID-19; Z20.822 Contact with and (suspected) exposure to COVID-19; Z87.891 Personal history of nicotine dependence; Z79.899 Other long term (current) drug therapy
CPT/HCPCS: 36415; 73030; 73562; 73590; 82565; 82947; 87635; 97163; 99284; 99285

== ENCOUNTER 2023-09-18 15:43 | Emergency (ER) | payer OTHER, SELFPAY ==
--- NOTE | ~2023-09-18 | CT_ITS ---
EXAMINATION: CT ABDOMEN AND PELVIS WITH CONTRAST CLINICAL INFORMATION: Microcytic anemia, evaluation of GI malignancy. COMPARISON: CT abdomen/pelvis 07/03/2022. TECHNIQUE: Multidetector volumetric images were obtained from the superior aspect of the liver through the pubic symphysis following administration 85 mL of Omnipaque 350 intravenous contrast. Sagittal and coronal reformatted images were obtained on the technologist's workstation. Oral contrast: No This CT examination was performed using dose optimization techniques as appropriate, variously including the following: *Automated exposure control *Adjustment of mA and/or kV according to patient size (this includes techniques or standardized protocols for targeted exams where dose is matched to indication/reason for exam; i.e. extremities or head) *Use of iterative reconstruction technique DLP: 498 mGy-cm FINDINGS: LUNG BASES: The visualized lung bases are unremarkable. LIVER, GALLBLADDER, AND BILIARY TREE: Liver is normal in size, morphology and attenuation. A 2.8 cm right hepatic lobe lesion with heterogeneous attenuation and suggestion of peripheral discontinuous enhancement is unchanged compared to 07/03/2022. No new liver lesion. Decompressed gallbladder with a 0.6 cm calculus in the body. No evidence of gallbladder wall thickening or surrounding inflammatory changes to suspect acute cholecystitis. No biliary ductal dilatation. PANCREAS: Mild dilatation of the main pancreatic duct at the level of the head and body transitioning to a lesser luminal caliber on axial image 29 series 2, the degree of dilatation is not significantly changed. Unchanged 1 cm low-density observation in the pancreatic head posterior to the SMV (2:30). Stable 0.8 cm fatty cleft along the anterior surface of the pancreatic body (2:23). No significant peripancreatic inflammatory changes. SPLEEN: Unremarkable. ADRENAL GLANDS: Stable 1.1 cm left adrenal nodule attenuation of 25 Hounsfield units (2:26). KIDNEYS AND URETERS: The kidneys are normal in size, shape, and attenuation. No enhancing lesion. No hydronephrosis or significant perinephric fat stranding. A few nonobstructive bilateral renal calculi are seen. BLADDER: Hyperdense material layering in the right posterior urinary bladder. GASTROINTESTINAL TRACT: Nonspecific moderate gastric distention. Equivocal gastric wall thickening at the level of the antrum (2:18). The small bowel is nondilated. Normal appendix. No pericolonic inflammatory changes. Large amount of stool in the colon and rectum with mild rectal wall thickening and perirectal fat stranding. ABDOMINAL WALL: No significant hernia is appreciated. LYMPH NODES: No lymphadenopathy. VASCULAR: Moderate atherosclerotic disease. Normal caliber abdominal aorta. PELVIC VISCERA: Unremarkable. OSSEOUS STRUCTURES: Stable grade 1/2 anterolisthesis of L5 on S1 with bilateral L5 pars defects. Degenerative changes of the spine. No acute or aggressive appearing osseous findings. CT/CT abdomen pelvis w IV con IMPRESSION: 1. Large amount of stool in the colon and rectum with mild rectal wall thickening and perirectal fat stranding raising the possibility of stercoral colitis. 2. Nonspecific moderate gastric distention that could be related with postprandial state, gastroparesis or less likely gastric outlet obstruction. 3. Equivocal wall thickening at the level of the stomach antrum, further characterization with upper endoscopy as clinically warranted. Evaluation of lesions in the small bowel and colon is limited due to underdistention, correlation with colonoscopy and/or enterography as clinically indicated. 4. Mild main pancreatic duct dilatation at the level of the head and body with suggestion of some luminal transitioning at the level of the head. Recommend further characterization with abdominal MRI pancreatic protocol. A 1 cm low-density observation in the pancreatic head posterior to the SMV is unchanged, possibly representing fatty infiltration with volume averaging, this could also be characterize with the MRI. 5. Layering high density material in the posterior right urinary bladder most likely representing calculi, limiting evaluation of underlying urothelial lesions. Correlation with direct visualization as clinically indicated. 6. A 1.1 cm left adrenal nodule is unchanged, stability is reassuring most likely representing an adenoma for which no additional imaging follow-up is recommended. 7. A 2.8 cm right liver lesion with peripheral discontinuous enhancement is unchanged, most suggestive of a hemangioma. This could be further characterize at the moment of evaluation of the pancreas.
--- NOTE | 2023-09-18 15:59 | ED.FALL ---
HPI - Fall General Chief Complaint: Fall Stated Complaint: fall Time Seen by Provider: 09/18/23 15:56 Source: patient Mode of arrival: EMS Limitations: no limitations History of Present Illness HPI Narrative: 57-year-old male with history of stroke with right-sided paralysis uses a wheelchair, diabetes mellitus, hypertension, hyperlipidemia, coronary artery disease who presents emergency department for evaluation of fall at home. The patient is difficult to get information from but apparently he states that he was ?kicked out of the skilled nursing because they did not like me ?. He states that from the skilled nursing he was sent to [facility] and was discharged home either yesterday or today. I will attempt to get these records from [facility]. He states that he fell out of his wheelchair and called an ambulance to be evaluated. He states he does not have any injuries but he wants to be checked out. He states that he does not want to go home because he does not think that he can care for himself he does not want to go back to the skilled nursing that he was at previously. In reviewing her records the patient was here on 06/18/2023 for a fall out of his wheelchair and weakness. He was placed by our bilingual case manager into the [facility] in [place] on 06/21/2023. He denies being ill in any way. He denied fever, chills, chest pain, shortness of breath, nausea, vomiting, headache, neck pain or extremity pain. Related Data Home Medications Medication Instructions Recorded Confirmed atorvastatin 80 mg tablet 1 tab PO BEDTIME 07/17/22 06/19/23 metformin 500 mg tablet 500 mg PO QAM 02/06/23 06/19/23 lisinopril 5 mg tablet 5 mg PO DAILY 06/19/23 06/19/23 olanzapine 5 mg tablet 5 mg PO BEDTIME 06/19/23 06/19/23 trazodone 50 mg tablet 75 mg PO BEDTIME PRN Insomnia 06/19/23 06/19/23 Previous Rx's Medication Instructions Recorded clopidogrel 75 mg tablet 75 mg PO DAILY #30 tabs 07/26/22 amlodipine 5 mg tablet 5 mg PO DAILY 30 days #30 tabs 02/10/23 Allergies Allergy/AdvReac Type Severity Reaction Status Date / Time morphine [MORPHINE] AdvReac Unknown VOMITING Verified 01/09/23 11:05 Review of Systems Review of Systems: Yes all other systems are reviewed and are negative [facility] Past Medical History Medical History Smoking Other and unspecified hyperlipidemia Essential hypertension Type 2 diabetes mellitus with unspecified complications Atherosclerotic cardiovascular disease Social History Social History Household Members: None Housing: Apartment Do you presently have visiting nurse or other home services: Yes Alcohol intake: never Patient Tobacco Use Status: Former Tobacco user Tobacco use type: Cigarette Cigarette Packs Per Day: 0.5 Cigarettes Per Day: 10.0 e-Cigarette/Vaping Use: Currently Using Advance Directives: No Advance Directives Information Provided: Yes service: Yes Current occupational status: disabled Physical Exam Vital Signs: Vital Signs: Last Vital Signs Temp 97.6 F 09/18/23 19:49 Pulse 99 09/18/23 21:10 Resp 20 09/18/23 21:10 BP 104/65 09/18/23 21:10 Pulse Ox 97 09/18/23 21:10 O2 Del Method Nasal Cannula 09/18/23 21:10 BMI result Body Mass Index 26.1 Exam: General: Awake, alert in no distress, patient does get agitated when question as to why he was kicked out of the skilled nursing. Head: Normocephalic, atraumatic EENT: PERRL, Lids normal, sclera normal, conjunctiva normal, nose normal , ears normal, throat without erythema or exudates Neck: Supple, no adenopathy Lung: breath sounds symmetric, no wheezing, rales or rhonchi Chest: symmetric movement, nontender Heart: regular rate and rhythm, normal S1, S2 no murmurs or rubs Abdomen: soft, non-tender, nondistended, normal bowel sounds Back: no vertebral tenderness, no CVAT Extremities: no deformities, moves all extremities symmetrically Neuro: Awake, alert, oriented, normal speech, cranial nerves intact, moves all extremities symmetrically Psych: Pleasant, cooperative Medications Administered Discontinued Medications Generic Name Dose Route Start Last Admin Trade Name Freq PRN Reason Stop Dose Admin Iohexol 100 ml 09/18/23 21:30 09/18/23 21:31 Iohexol 350 Mg/Ml 100 Ml Infus..Btl IV 09/18/23 21:31 85 ml ONCE ONE Administration Medical Decision Making Medical Decision Making [facility] Narrative: 57-year-old male patient with a history of diabetes mellitus, hypertension, hyperlipidemia, coronary disease, stroke with right-sided paralysis who presents emergency department for evaluation of a fall out of his wheelchair. The patient denies any injury but states that he can not stay at home. Patient was transferred from this facility on 06/21/2023 to [facility] for physical therapy and rehab. Patient denies any injury from his fall. He denies being ill prior to his fall. Physical examination was unremarkable. Differential diagnosis: ?Includes but is not limited to closed head injury, contusions, fall secondary to right-sided paralysis, anemia, electrolyte abnormalities, urinary tract infection Following evaluation was ordered: CBC, CMP, CK, urinalysis, COVID-19, influenza, RSV, case management consult Course: 19:39 Start physician observation My interpretation of the patient's laboratory evaluation is as follows: Microcytic anemia with an H&H of 8.1 and 27.9 with an MCV of 68.2-this is new compared to 02/07/2023 when his H&H was 15.4 and 47.8. Chloride elevated 111. BUN elevated 19. LFTs normal. Lipase normal. Coags were normal. Given his new microcytic anemia concerned that he may have a malignancy. Patient refused a rectal exam but I did order an occult stool to be obtained if he has a bowel movement. I did order a CT scan of the abdomen pelvis with IV contrast to evaluate for possible GI malignancy however patient is refusing IV at this time but states that he will agree after we feed him. Patient will need case management evaluation physical therapy evaluation to determine disposition. Until this can be obtained, patient will be kept in physician observation. 02:[address] scan of the abdomen pelvis revealed multiple nonspecific incidental finding but no clear evidence for malignancy causing the patient's microcytic anemia. The patient will need to pursue outpatient Gastroenterology follow-up to determine the cause of his microcytic anemia. Iron profile did reveal a low iron and a low% saturation she was consistent with iron deficiency. Patient will be started on ferrous sulfate 325 t.i.d Patient will remain in physician observation until disposition can be determined. Admission/Observation Consideration of admission/observation: Escalation of care including admission/observation considered Lab Data [facility] Lab Attestation statement: I reviewed the patient's lab results. 09/18/23 16:35 09/18/23 16:35 Labs: Lab Results 09/18/23 09/18/23 Range/Units 16:35 19:44 WBC 5.4 (4.8-10.8) X10*3/uL RBC 4.02 L D (4.60-5.80) X10*6/uL Hgb 8.1 L D (14.0-18.0) g/dl Hct 27.4 L D (42.0-52.0) % MCV 68.2 L (80.0-98.0) fL MCH 20.1 L (27.0-33.0) pg MCHC 29.6 L (31.0-36.0) g/dl RDW 16.3 H (11.0-16.0) % Plt Count 396 D (160-400) X10*3/uL MPV 9.0 L (9.4-12.4) fL Immature Gran % (Auto) 0.4 (0.0-0.4) % Neut % (Auto) 70.1 (45-73) % Lymph % (Auto) 16.6 L (20-40) % [place] % (Auto) 9.0 (2-11) % Eos % (Auto) 2.6 (0-4) % Baso % (Auto) 1.3 (0-2) % Lymph # (Auto) 0.9 L (1.2-4.9) X10*3/uL [place] # (Auto) 0.5 (0.1-1.2) X10*3/uL Eos # (Auto) 0.1 (0.0-0.4) X10*3/uL Baso # (Auto) 0.1 (0.0-0.2) X10*3/uL Abs Immat Gran (auto) 0.02 (0.00-0.03) X10*3/uL Absolute Neuts (auto) 3.8 (2.0-8.3) x10*3/uL Absolute Nucleated RBC 0.000 (0.0-0.012) X10*3/uL Nucleated RBC % (auto) 0.0 (0.0-0.2) /100WBC Sodium 144 (135-145) mmol/L Potassium 3.5 (3.3-5.1) mmol/L Chloride 111 H (96-108) mmol/L Carbon Dioxide 27 (22-29) mmol/L Anion Gap 10 L (12-20) BUN 19 H (9-16) mg/dL Creatinine 0.77 (0.5-1.4) mg/dL Estim Creat Clear Calc 88.6 Estimated GFR > 60 Random Glucose 111 (60-115) mg/dL Calcium 9.2 (8.4-10.2) mg/dL Iron 12 L (45-160) mcg/dL TIBC 323 (228-428) mcg/dL % Saturation 4 L (15-50) % Unsat Iron Binding 311 ug/dL Total Bilirubin 0.3 (0.0-1.0) mg/dL AST 14 (5-37) U/L ALT 9 (0-40) U/L Alkaline Phosphatase 89 (39-117) U/L Total Creatine Kinase 133 (38-174) U/L Total Protein 6.5 (6.5-8.0) g/dL Albumin 4.0 (3.5-5.0) g/dL Lipase 37 (8-78) U/L Influenza Type A (PCR) NEGATIVE (Negative) Influenza Type B (PCR) NEGATIVE (Negative) RSV RNA Qual (PCR) NEGATIVE (Negative) SARS-CoV-2 RNA (RT-PCR) NEGATIVE (Negative) Radiology Impression Discussion of test interpretation with radiology: I have reviewed the radiologist's reading. Radiologist Impression: CT abdomen pelvis w IV con IMPRESSION: 1. Large amount of stool in the colon and rectum with mild rectal wall thickening and perirectal fat stranding raising the possibility of stercoral colitis. 2. Nonspecific moderate gastric distention that could be related with postprandial state, gastroparesis or less likely gastric outlet obstruction. 3. Equivocal wall thickening at the level of the stomach antrum, further characterization with upper endoscopy as clinically warranted. Evaluation of lesions in the small bowel and colon is limited due to underdistention, correlation with colonoscopy and/or enterography as clinically indicated. 4. Mild main pancreatic duct dilatation at the level of the head and body with suggestion of some luminal transitioning at the level of the head. Recommend further characterization with abdominal MRI pancreatic protocol. A 1 cm low-density observation in the pancreatic head posterior to the SMV is unchanged, possibly representing fatty infiltration with volume averaging, this could also be characterize with the MRI. 5. Layering high density material in the posterior right urinary bladder most likely representing calculi, limiting evaluation of underlying urothelial lesions. Correlation with direct visualization as clinically indicated. 6. A 1.1 cm left adrenal nodule is unchanged, stability is reassuring most likely representing an adenoma for which no additional imaging follow-up is recommended. 7. A 2.8 cm right liver lesion with peripheral discontinuous enhancement is unchanged, most suggestive of a hemangioma. This could be further characterize at the moment of evaluation of the pancreas. Dictated By: Denisse Ibarra Chronic Conditions Patient?s care impacted by: Diabetes Discharge Plan Discharge Clinical Impression: Fall, Weakness, Iron deficiency anemia Patient Disposition: Still a Patient Additional Instructions: Your CT scan of your abdomen pelvis without IV contrast has multiple abnormal findings in you will need to follow-up with your primary care doctor and get a referral to a runner on for an endoscopy and colonoscopy to rule out cancer of your stomach, colon or gastrointestinal tract. The CT scan reading is below. You have an iron deficient anemia. You will need to take ferrous sulfate 325 mg pills 3 times a day for 3-6 months to repeat your iron stores. CT abdomen pelvis w IV con IMPRESSION: 1. Large amount of stool in the colon and rectum with mild rectal wall thickening and perirectal fat stranding raising the possibility of stercoral colitis. 2. Nonspecific moderate gastric distention that could be related with postprandial state, gastroparesis or less likely gastric outlet obstruction. 3. Equivocal wall thickening at the level of the stomach antrum, further characterization with upper endoscopy as clinically warranted. Evaluation of lesions in the small bowel and colon is limited due to underdistention, correlation with colonoscopy and/or enterography as clinically indicated. 4. Mild main pancreatic duct dilatation at the level of the head and body with suggestion of some luminal transitioning at the level of the head. Recommend further characterization with abdominal MRI pancreatic protocol. A 1 cm low-density observation in the pancreatic head posterior to the SMV is unchanged, possibly representing fatty infiltration with volume averaging, this could also be characterize with the MRI. 5. Layering high density material in the posterior right urinary bladder most likely representing calculi, limiting evaluation of underlying urothelial lesions. Correlation with direct visualization as clinically indicated. 6. A 1.1 cm left adrenal nodule is unchanged, stability is reassuring most likely representing an adenoma for which no additional imaging follow-up is recommended. 7. A 2.8 cm right liver lesion with peripheral discontinuous enhancement is unchanged, most suggestive of a hemangioma. This could be further characterize at the moment of evaluation of the pancreas. Dictated By: Denisse Ibarra Prescriptions: No Action atorvastatin 80 mg tablet 1 tab PO BEDTIME clopidogrel 75 mg Tablet 75 mg PO DAILY Qty: 30 0RF lisinopril 5 mg tablet 5 mg PO DAILY trazodone 50 mg tablet 75 mg PO BEDTIME PRN (Reason: Insomnia) olanzapine 5 mg tablet 5 mg PO BEDTIME metformin 500 mg tablet 500 mg PO QAM amlodipine 5 mg Tablet 5 mg PO DAILY 30 Days Qty: 30 0RF Protocol: Hold for SBP< HOLD for SBP < : 90
[2023-09-18 16:15] VITALS: BP 110/72; BP 112/76; PULSE 104; PULSE 88; RESP 20; TEMP 37.2; O2SAT 96; O2SAT 99; BMI 26.1
[2023-09-18 16:41] LABS: MANUAL DIFF FLAG NO
[2023-09-18 16:42] LABS: Basophils Absolute Auto 0.1 X10*3/uL (0.0-0.2); Basophils Percent Auto 1.3 % (0-2); Eosinophils Absolute Auto 0.1 X10*3/uL (0.0-0.4); Eosinophils Percent Auto 2.6 % (0-4); Hematocrit 27.4 % (42.0-52.0); Hemoglobin 8.1 g/dl (14.0-18.0); Imm Gran Abs Auto 0.02 X10*3/uL (0.00-0.03); Imm Gran Pct Auto 0.4 % (0.0-0.4); Lymphocytes Absolute Auto 0.9 X10*3/uL (1.2-4.9); Lymphocytes Percent Auto 16.6 % (20-40); Mean Corpuscular HGB Conc 29.6 g/dl (31.0-36.0); Mean Corpuscular Hemoglobin 20.1 pg (27.0-33.0); Mean Corpuscular Volume 68.2 fL (80.0-98.0); Monocytes Absolute Auto 0.5 X10*3/uL (0.1-1.2); Neutrophils Absolute Auto 3.8 x10*3/uL (2.0-8.3); Neutrophils Percent Auto 70.1 % (45-73); Platelet Count 396 X10*3/uL (160-400); Red Blood Count 4.02 X10*6/uL (4.60-5.80); Red Cell Distribution Width 16.3 % (11.0-16.0); White Blood Count 5.4 X10*3/uL (4.8-10.8)
[2023-09-18 16:56] LABS: Alanine Aminotransferase 9 U/L (0-40); Alkaline Phosphatase 89 U/L (39-117); Anion Gap 10 (12-20); Aspartate Amino Transferase 14 U/L (5-37); Bilirubin Total 0.3 mg/dL (0.0-1.0); Blood Urea Nitrogen 19 mg/dL (9-16); Calcium 9.2 mg/dL (8.4-10.2); Carbon Dioxide 27 mmol/L (22-29); Chloride 111 mmol/L (96-108); Creatinine Clr Calc Pharmacy 88.6; Estimated Glomerular Filt Rate > 60; Glucose Random 111 mg/dL (60-115); Lipase 37 U/L (8-78); Potassium 3.5 mmol/L (3.3-5.1); Sodium 144 mmol/L (135-145); Total Protein 6.5 g/dL (6.5-8.0)
[2023-09-18 17:07] VITALS: BP 108/64; PULSE 96; O2SAT 100
[2023-09-18 18:00] VITALS: BP 104/62; PULSE 92; RESP 18; O2SAT 99
--- NOTE | 2023-09-18 19:42 | PC.NURSE ---
this rn assumed care of pt. pt shouting at this this time. pt set up with dinner tray, no acute distress noted.
[2023-09-18 19:49] VITALS: BP 112/69; PULSE 102; RESP 20; TEMP 36.4; O2SAT 97
[2023-09-18 20:28] LABS: Influenza A PCR NEGATIVE (Negative); Influenza B PCR NEGATIVE (Negative); Resp Syncy Virus RNA Qual PCR NEGATIVE (Negative); SARS COV2 PCR INHOUSE NEGATIVE (Negative)
[2023-09-18 21:10] VITALS: BP 104/65; PULSE 99; RESP 20; O2SAT 97
--- NOTE | 2023-09-18 21:28 | MHC.CM.ED ---
CM received consult from Dr. Harvey. Pt was admitted to [facility] 06/18-06/21 and discharged to [place]. Pt apparently spend several months at facility. He is a poor historian. States he was kicked out of facility and cannot care for himself at home. Pt had a CVA and has R sided hemiparesis. Uses a wheelchair. Has [employer] insurance. States has no home services. States he needs a scooter. States he falls. Pt is very unhappy with his care at the facility and does not want to return to [facility]. Pt states his neighbor doesn't help him and he has no relationship with his family. PT is pending. Covid screen pending. Will hold on referrals at this time pending PT evaluation. D/C plan either STR or jail care.l CM will follow for discharge planning.
[2023-09-18] MEDS: iohexoL 350 MG/ML 100 ML INFUS..BTL IV (21:31)
--- NOTE | 2023-09-18 21:35 | PC.NURSE ---
pt to CT at this time.
[2023-09-18 23:16] LABS: Iron 12 mcg/dL (45-160); Percent Iron Saturation 4 % (15-50); Total Iron Binding Capacity 323 mcg/dL (228-428); Unsaturated Iron Binding 311 ug/dL
--- NOTE | 2023-09-19 05:17 | PC.NURSE ---
pt resting in stretcher, no acute distress noted, respirations even and unlabored, no new orders at this time.
[2023-09-19 06:19] VITALS: BP 112/77; PULSE 82; RESP 20; O2SAT 100
--- NOTE | 2023-09-19 07:52 | MHC.EDTECH ---
patient rang [facility]una this tech answered, patient stated he was wet. This tech and tech Alycia, changed and cleaned patient. Patient was verbally abusive to staff yelling and complaining about ever movement and claiming he could do nothing on his own. patient is currently clean and dry at this time.
--- NOTE | 2023-09-19 09:06 | PC.NURSE ---
called pharmacy to see if they could help out with the med rec
[2023-09-19 09:09] VITALS: BP 112/77; PULSE 82; O2SAT 100
--- NOTE | 2023-09-19 09:09 | PC.NURSE ---
Patient currently sleeping, respirations even and unlabored, call [facility]una within reach.
--- NOTE | 2023-09-19 09:24 | PHA.MEDREC ---
Pharmacy Consult ? Medication Reconciliation Pharmacy has completed the medication reconciliation with filling pharmacy, they confirmed meds and doses, pt nursing facility [place] was not able to provide list.
[2023-09-19 11:10] VITALS: BP 114/63; PULSE 84; RESP 18; TEMP 36.4; O2SAT 98
[2023-09-19] MEDS: Clopidogrel Bisulfate 75 MG TABLET PO (12:03)
[2023-09-19] MEDS: metFORMIN HCl ER 500 MG TAB.ER.24H PO (12:03)
[2023-09-19] MEDS: amLODIPine Besylate 5 MG TABLET PO (12:03)
[2023-09-19] MEDS: Aspirin 81 MG TAB.CHEW PO (12:03)
--- NOTE | 2023-09-19 12:09 | PC.NURSE ---
called pt's friend Thiago to see if he could bring in the pt Trulicity and he cannot, pharmacy aware. Pt eating lunch independently. nad. alert, awaiting meds from pharmacy
[2023-09-19] MEDS: lisinopriL 40 MG TABLET PO (12:14)
[2023-09-19] MEDS: traZODone HCL 25 MG HALFTAB PO (12:14)
--- NOTE | 2023-09-19 14:20 | MHC.CM.ED ---
Addendum entered by Jessie Castellanos 09/19/23 14:40: [facility] able to offer a bed. Patient accepts. Facility is in the process of obtaining ins auth. Original Note: Patient remains in ER overflow. Physical therapy eval completed. LTC is recommended. Spoke with Evelin at [facility]. Patient was not kicked out of their facility. He went to [facility] and then didn't return. They would be willing to accept patient back in order to help transition patient home. Met with patient in regards to discharge planning. He does not want to return to [facility] and requested referral be sent out. Referral broadcasted within 25 miles to all facilities that are contracted with [facility]. Continue to monitor for d/c needs.
== END 2023-09-19 18:05 | disposition skilled nursing facility (03) ==
PROVIDERS: Emergency Provider Emergency Medicine Emergency Medical Services
DX: S09.90XA Unspecified injury of head, initial encounter (principal); E61.1 Iron deficiency; R53.1 Weakness; R10.30 Lower abdominal pain, unspecified; W05.0XXA Fall from non-moving wheelchair, initial encounter; Y93.9 Activity, unspecified; Y92.099 Unspecified place in other non-institutional residence as the place of occurrence of the external cause; Y99.8 Other external cause status; Z79.899 Other long term (current) drug therapy; Z11.52 Encounter for screening for COVID-19; Z20.822 Contact with and (suspected) exposure to COVID-19
CPT/HCPCS: 0241U; 36415; 74177; 80053; 82550; 83540; 83690; 85025; 97162; 99284; 99285; Q9967

== ENCOUNTER 2023-10-29 11:28 | Emergency (ER) | payer OTHER, SELFPAY ==
--- NOTE | ~2023-10-29 | CT_ITS ---
EXAMINATION: CT HEAD WITHOUT CONTRAST CLINICAL INFORMATION: Fall. COMPARISON: Brain MRI dated 02/07/2023. TECHNIQUE: Contiguous axial imaging was performed from the skull base to vertex without intravenous administration of contrast. This CT examination was performed using dose optimization techniques as appropriate, variously including the following: *Automated exposure control *Adjustment of mA and/or kV according to patient size (this includes techniques or standardized protocols for targeted exams where dose is matched to indication/reason for exam; i.e. extremities or head) *Use of iterative reconstruction technique DLP: 688 mGy-cm FINDINGS: There is no acute intracranial hemorrhage. There is no evidence of acute/subacute cerebral or cerebellar infarction. There is extensive microvascular ischemic change. There are chronic lacunar infarctions within the left basal ganglia, right basal ganglia, and thalami bilaterally. There is no midline shift or mass effect. There is no extra-axial fluid collection. The ventricles are normal in size. The orbits are symmetric and within normal limits. The calvarium is intact. The mastoid air cells are well aerated. Visualized paranasal sinuses are clear. CT/CT head/brain wo IV con IMPRESSION: No acute intracranial pathology. Extensive microvascular ischemic change. Chronic lacunar infarctions within the basal ganglia and thalami bilaterally.
[2023-10-29 11:35] VITALS: BP 113/75; BP 118/76; PULSE 110; PULSE 112; RESP 18; TEMP 36.8; O2SAT 97; O2SAT 98; BMI 27.4
--- OUTSIDE RECORDS SUMMARY | 2023-10-29 12:05 | XMS_ITS | Continuity of Care Document ---
Author Organization [facility] ter Address [address] [place] [id number]- Care Team Providers Care Therapeutic Consultant Name Role Phone Not on Staff, PCP Primary Care Physician Unavail able Encounter [facility] Date(s): 09/18/23 - 09/18/[address] [address]- Encounter Diagnosis Agitation(Final) - 09/18/23 Discharge Disposition: A-D/C Home Attending Physician: Lanny Lockwood MD Admitting Physician: Lanny Lockwood MD Referring Physician: Not on Staff, Referring MD Allergies, Adverse Reactions, Alerts No Known Allergies Immunizations Given and Recorded Vaccine Date Status Refusal Reason [id number] 12y+ bivalent booster vax 04/29/22 Recorded SARS-CoV-2 mRNA ([id number]) vax 10/25/21 Given SARS-CoV-2 (COVID-19) mRNA BNT-162b2 [...] Refills, Maintenance, 06/23/22 8:15:00 EST, [id number], 162, cm, 06/14/22 13:02:00 EST, Height, 89.7, kg, 06/12/22 19:44:00 EST, Dry Weight Start Date: 06/23/22 Status: Ordered atorvastatin 80 mg oral tablet 1 tablet = 80 mg, By Mouth, Daily at bedtime, # 90 tablet, 3 Refills, Maintenance, 05/13/21 10:15:00 EDT, Tablet, [facility]/pharmacy #[id number], 161.5, cm, 12/14/20 7:49:00 [...] Active Type 2 diabetes mellitus Confirmed Active Vital Signs Most recent to oldest [Reference Range]: 1 2 Height 180 cm (09/18/23 12:15 PM) Oxygen Saturation [94-100 %] 100 % (09/18/23 2:06 PM) 98 % (09/18/23 12:15 PM) Pulse Rate [55-90 bpm] 94 bpm *H* (09/18/23 2:06 PM) 98 bpm *H* (09/18/23 12:15 PM) Blood Pressure [90-138/55-84 mm Hg] 110/ 75mm Hg (09/18/23 2:06 PM) 113/71mm Hg (09/18/23 12:15 PM) Respiratory Rate [16-30 br/min] 18 br/mi n (09/18/23 2:06 PM) 18 br/min (09/18/23 12:15 PM) Temperature [96.8-100.4 DegF] 98.0 DegF (09/18/23 2:06 PM) 97.7 DegF (09/18/23 12:15 PM) Mode of Delivery (Oxygen) Room air (09/18/23 2:06 PM) Room air (09/18/23 12:15 PM) Blood pressure sites Arm, left (09/18/23 2:06 PM) Arm, left (09/18/23 12:15 PM) Temperature Route Oral (09/18/23 2:06 PM) Oral (09/18/23 12:15 PM) Dry Weight 85 kg (09/18/23 12:15 PM) Social History Social History Type Response Smoking Status Current every day tosha gallo; Tobacco user in household: No entered on: 04/24/18 Sex Note * Laurie Lora RN: PERFORM Event Display: Patient Education Leaflets Authored Date: [id number] Psychosis ?? [id number] Psychosis Psychosis is a serious symptom of certain mental health problems. It also can be caused by some physical disease, traumatic experiences, or drugs and toxins. Psychosis involves perceiving reality differently from those around you. The difference between reality and what you think is reality becomesblurred in your mind. There are different kinds of psychosis, depending on the cause: ??? Health problems such as infections, thyroid disorders, some cancers, sleep deprivation, low or high blood sugar levels, or dementia ??? Drug-induced from drugs such as marijuana, alcohol, methamphetamine, cocaine, LSD, or PCP ??? Bipolar disorder ??? Depression ??? Schizophrenia Symptoms The symptoms of psychosis may not all be the same for each person. But they usually involve: ??? Hallucinations. Seeing, hearing, feeling, or even tasting or smelling things that are not there. ??? Delusions.??Believing something that's not true, or false beliefs that are not part of a person's holiness or cultural background. There may also be disturbances in thinking, speech, and behavior. These can include: ??? Hearing voices that others don't hear ??? Seeing things that others don't see ??? Racing thoughts ??? Lack of energy ??? Feeling very fearful ??? Disorganized speech ??? Intentional or unintentional bodily harm to others ??? An unfounded sense of not trusting people around you (paranoia) ??? Trouble thinking or concentrating clearly ??? Depression, feeling suicidal ??? Insomnia ??? Withdrawalfrom those around you Treatment for psychosis depends on the cause. Medicine is often used, with or without psychotherapy. You may need to stay in the hospital. This is to protect you and to carefully monitor medicines. ?? Home care ??? Find a healthcare provider and therapist who meet your needs. Seek help when you feellike your symptoms are returning. ??? Make sure to take your medicine as directed even if you thinkyou don't need it. ??? Never stop your medicine or change the dose without talking with your provider. Never use another person's medicine. ??? If you have trouble paying for your prescription, let your providers know so they can help you find resources. ??? Talk with your family and friends about your feelings and thoughts. Ask them to help you recognize any behavior changes so you can get help right away., Medicines can be adjusted if needed. ??? Contact your provider if you feel like your medicine is not working or you are having bad side effects. Medicine changes may need to be made. ?? Follow-up care is critical It's important to manage your condition by staying in close and regular contact with your healthcare team. Always follow up with your counselor, therapist, or psychiatrist as advised. Don't skip taking your medicine or change it without talking with your healthcare team. Take it as advised even if you think you don't need it. Also: ??? Tell each of your healthcare providers about all of the prescription medicines, [id number] medicines, illegal drugs, vitamins, and supplements you take.??Certain supplements interact with medicines. This can result in dangerous side effects.??Ask your pharmacist when you have questions about drug interactions. Tell your provider if you drink alcohol. If you do, tell them how oftenand how much you drink. ??? Tell your healthcare provider about all your medical conditions and anyrecent illnesses, such as infections. ??? Follow-up with lab tests as advised by your healthcare provider. Lab work is very important and can tell your provider the blood level of certain medicines. They can see if your dose needs to be increased or decreased. ??? Keep all follow-up appointments with healthcare providers who are treating other medical conditions. Long-term conditions like diabetes or thyroid problems can affect your emotional well-being if they are not controlled. ?? Crisis care If you or the person is at immediate risk, call or text the National Suicide Lifeline at 988. Or call emergency services at 911. You will be connected to trained crisis counselors. An online chat option is also available. Lifeline is free and available 05/02. The Lifeline will work together with [employer] to make sure you get the care you need. Call 988 if you: ??? Have suicidal thoughts, a suicide plan, and the means to carry out the plan ??? Hear voices that are telling you to harm yourself or others ??? Have trouble breathing ??? Are very confused ??? Are very drowsy or have trouble awakening ??? Faint or lose??consciousness ??? Have arapid heart rate, very low heart rate, or a new irregular heart rate ??? Have a seizure ?? When to seek medical advice Call your healthcare provider right away if any of these occur: ??? Gradual or rapid return of psychotic symptoms ??? Feeling like you want to harm yourself or another ??? Feeling extremely depressed??? Feeling very anxious, agitated, or angry ??? Feeling out of control or being controlled by others ??? Feeling unable to take care of yourself ??? Seeing things or hearing voices that you know aren't real ??? Family members or friends are worried about your emotional or physical health and ask you to call your provider ??? Symptoms from other health conditions that get worse. Or new symptoms develop. ?? Last Reviewed Date: 2023 ?? [id number] [employer]. All rights reserved. This information is not intended as a substitute for professional medical care. Always follow your healthcare professional's instructions. ?? * Mary Carmen Castellanos MD: PERFORM Event Display: Patient Education Leaflets Authored Date: [id number] [facility] - If you need a Doctor or Clinic ?? 34 If You Need a Doctor or Clinic ?? Call [facility] PCP Assignment Line to help you find a doctor:?? [phone] ?? Clinics in [place], [place] For a full list of clinics:? www.[employer] ?? [facility]? [address] [phone] [facility] Internal medicine Clinic?[address]?[phone] [place] [address]?[address][phone] [facility]?[address][phone] [facility]?[address] [phone] [facility]?[address][phone] [facility]?[address][phone] [facility]?[address] [phone] [facility]? [address][phone] [facility]?[address][phone] [facility]?[address][phone] [facility]?[address][phone] [facility]?[address][phone] [facility]? [address][phone] [facility]?[address][phone] ? Patient Care team information Care Team Personnel Name: Nitish Bishop RN Position: [facility] ED RN W/OE and Tasks Member Role: Primary Care Nurse Name: Sandrine Celaya RN Position: S RN Member Role: Primary Care Nurse Name: Not on Staff, PCP Position: [facility] Physician (General Medicine) Member Role: PCP Care Team Related Persons Name: JANETTE PENA Name: NO ONE, PER PT
--- NOTE | 2023-10-29 12:09 | PC.NURSE ---
pt poc noted to be elevated from EMS. poc taken in ED, 182. documented in worklist. pt sts he did not have breakfast this morning and is not a diabetic.
[2023-10-29 12:17] LABS: Glucose, Whole Blood 182 mg/dL (60-115)
[2023-10-29 12:43] VITALS: BP 116/81; PULSE 104; O2SAT 98
[2023-10-29 12:45] LABS: MANUAL DIFF FLAG NO
[2023-10-29 12:46] LABS: Basophils Absolute Auto 0.1 X10*3/uL (0.0-0.2); Basophils Percent Auto 0.8 % (0-2); Eosinophils Absolute Auto 0.3 X10*3/uL (0.0-0.4); Eosinophils Percent Auto 3.6 % (0-4); Hemoglobin 13.4 g/dl (14.0-18.0); Imm Gran Abs Auto 0.02 X10*3/uL (0.00-0.03); Imm Gran Pct Auto 0.3 % (0.0-0.4); Lymphocytes Absolute Auto 0.7 X10*3/uL (1.2-4.9); Lymphocytes Percent Auto 9.9 % (20-40); Mean Corpuscular HGB Conc 30.5 g/dl (31.0-36.0); Mean Corpuscular Hemoglobin 24.2 pg (27.0-33.0); Mean Corpuscular Volume 79.6 fL (80.0-98.0); Mean Platelet Volume 9.3 fL (9.4-12.4); Monocytes Absolute Auto 0.6 X10*3/uL (0.1-1.2); Monocytes Percent Auto 7.7 % (2-11); Neutrophils Absolute Auto 5.6 x10*3/uL (2.0-8.3); Neutrophils Percent Auto 77.7 % (45-73); Platelet Count 227 X10*3/uL (160-400); Red Blood Count 5.53 X10*6/uL (4.60-5.80); White Blood Count 7.2 X10*3/uL (4.8-10.8)
--- NOTE | 2023-10-29 12:51 | ED_ITS ---
HPI - Psych General Chief Complaint: Behavioral Concerns Stated Complaint: WAS BEING VERBALLY AGGRESSIVE TO STAFF Source: patient and old records reviewed Mode of arrival: EMS Limitations: no limitations History of Present Illness HPI Narrative: 57 yo male with PMH of CVA and R sided hemiparesis, DM, HTN, HLD, CAD [facility] and states he is ready to get out of there and go home and has been on the phone with insurance companies today and got angry with RN who wasn't listening to him so he yelled at her. Staff sent him in because he is angrier than usual and they want him checked out. He admits he also slumped out of his WC today due to leaning too far but no headstrike. He tells me he has problems with the same RN all the time and today she didn't want to deal with him MD complaint: other (agitation) Onset (ago): day(s) (today) Duration: intermittent History of same: Yes Relieving factors: none Exacerbating factors: other Context: significant life stressor Associated psychiatric symptoms: none Associated symptoms: denies other symptoms Treatments prior to arrival: none Related Data Home Medications ?Medication ?Instructions ?Recorded ?Confirmed atorvastatin 80 mg tablet 1 tab PO BEDTIME 07/17/22 09/19/23 metformin 500 mg tablet 500 mg PO QAM 02/06/23 06/19/23 trazodone 50 mg tablet 25 mg PO BID 06/19/23 09/19/23 aspirin 81 mg chewable tablet 81 mg PO DAILY 09/19/23 09/19/23 dulaglutide 3 mg/0.5 mL 3 mg subcut QWEEK 09/19/23 09/19/23 subcutaneous pen injector (Trulicity) lisinopril 40 mg tablet 40 mg PO DAILY 09/19/23 09/19/23 metformin 500 mg tablet,extended 500 mg PO DAILY 09/19/23 09/19/23 release 24 hr olanzapine 15 mg tablet 7.5 mg PO BEDTIME 09/19/23 09/19/23 Previous Rx's ?Medication ?Instructions ?Recorded clopidogrel 75 mg tablet 75 mg PO DAILY #30 tabs 07/26/22 amlodipine 5 mg tablet 5 mg PO DAILY 30 days #30 tabs 02/10/23 cefuroxime axetil 250 mg tablet 250 mg PO BID 9 days #18 tabs 10/29/23 Allergies Allergy/AdvReac Type Severity Reaction Status Date / Time morphine [MORPHINE] AdvReac Unknown VOMITING Verified 10/29/23 11:39 Review of Systems 2 Review of Systems: Constitutional : No Fever, No Chills, No Fatigue ENT/Mouth : No sore throat, No Rhinorrhea Eyes: No Eye Pain, No Swelling, No Redness Cardiovascular : No Chest Pain, No SOB, No Dyspnea on Exertion Respiratory : No Cough, No Sputum Gastrointestinal : No Nausea, No Vomiting, No Diarrhea, No abdominal Pain Genitourinary : No Dysuria, No Urinary Frequency, No Hematuria, Musculoskeletal : No joint pain, No Myalgias, No Joint Swelling Skin : No Skin Lesions, No rash Neuro : chronic R weakness Weakness, No Numbness, No Dizziness, no Headache Psych : No Anxiety/Panic, No Depression All other systems reviewed and are negative [facility] Past Medical History Attestation statement: The following information was validated with the patient. Source: old records reviewed Medical History Smoking Other and unspecified hyperlipidemia Essential hypertension Type 2 diabetes mellitus with unspecified complications Atherosclerotic cardiovascular disease Social History Social History Household Members: None Housing: Apartment Do you presently have visiting nurse or other home services: Yes Alcohol intake: never Patient Tobacco Use Status: Former Tobacco user Tobacco use type: Cigarette Cigarette Packs Per Day: 0.5 Cigarettes Per Day: 10.0 e-Cigarette/Vaping Use: Currently Using Advance Directives: Yes Advance Directives on File: Yes Advance Directives Date on File: 06/19/23 service: Yes Current occupational status: disabled Physical Exam 2 Vital Signs: Vital Signs: Last Vital Signs Temp 98.2 F 10/29/23 11:35 Pulse 104 H 10/29/23 12:43 Resp 18 10/29/23 11:35 BP 116/81 10/29/23 12:43 Pulse Ox 98 10/29/23 12:43 O2 Del Method Room Air 10/29/23 12:43 BMI result Body Mass Index 27.4 Appearance: Alert. Oriented X3. No acute distress. intermittently rude to staff particularly female Eyes: Pupils equal, round and reactive to light. ENT: Pharynx normal. atraumatic Neck: Normal inspection. Neck supple. CVS: Normal heart rate and rhythm. Pulses normal. Respiratory: No respiratory distress. Breath sounds normal. Abdomen: Soft and nontender. Skin: Skin warm and dry. Normal skin color. Normal skin turgor. Extremities: No lower extremity edema. No calf ttp Neuro: Oriented X 3. R sided hemiparesis No sensory deficit. Course Course Course Narrative: the patient is just rude - throwing stephan crackers on the floor and yelling where the fuck is my food? Medical Decision Making Medical Decision Making [facility] Narrative: 57 yo male with PMH of CVA and R sided hemiparesis, DM, HTN, HLD, CAD who [facility] who comes in being rude and verbally abusive to rehab staff. He reports also sliding out of his WC today. At this time will obtain UA, basic labs, head CT if it is negative I am going to DC him back he has no SI/HI this is clearly behavioral. He does not meet inpatient level of care for psychiatry. Differential Diagnosis Differential Diagnoses: The differential diagnosis associated with the presentation includes UTI, head injury, baseline rude, behavior control post CVA is already on zyprexa at baseline seems to have behavioral problems Admission/Observation Consideration of admission/observation: Escalation of care including admission/observation considered has no wbc count afebrile alert and oriented x 3, eating and drinking UA is positive no prior cultures will start on ceftin can be managed and watched as outpatient Lab Data [facility] Lab Attestation statement: I reviewed the patient's lab results. 10/29/23 12:41 10/29/23 12:41 Labs: Lab Results 10/29/23 10/29/23 10/29/23 Range/Units 12:08 12:41 15:09 WBC 7.2 (4.8-10.8) X10*3/uL RBC 5.53 D (4.60-5.80) X10*6/uL Hgb 13.4 L D (14.0-18.0) g/dl Hct 44.0 D (42.0-52.0) % MCV 79.6 L (80.0-98.0) fL MCH 24.2 L (27.0-33.0) pg MCHC 30.5 L (31.0-36.0) g/dl RDW Not Reportable Plt Count 227 D (160-400) X10*3/uL MPV 9.3 L (9.4-12.4) fL Immature Gran % (Auto) 0.3 (0.0-0.4) % Neut % (Auto) 77.7 H (45-73) % Lymph % (Auto) 9.9 L (20-40) % [place] % (Auto) 7.7 (2-11) % Eos % (Auto) 3.6 (0-4) % Baso % (Auto) 0.8 (0-2) % Lymph # (Auto) 0.7 L (1.2-4.9) X10*3/uL [place] # (Auto) 0.6 (0.1-1.2) X10*3/uL Eos # (Auto) 0.3 (0.0-0.4) X10*3/uL Baso # (Auto) 0.1 (0.0-0.2) X10*3/uL Abs Immat Gran (auto) 0.02 (0.00-0.03) X10*3/uL Absolute Neuts (auto) 5.6 (2.0-8.3) x10*3/uL Absolute Nucleated RBC 0.000 (0.0-0.012) X10*3/uL Nucleated RBC % (auto) 0.0 (0.0-0.2) /100WBC Sodium 144 (135-145) mmol/L Potassium 3.8 (3.3-5.1) mmol/L Chloride 108 (96-108) mmol/L Carbon Dioxide 29 (22-29) mmol/L Anion Gap 11 L (12-20) BUN 21 H (9-16) mg/dL Creatinine 0.78 (0.5-1.4) mg/dL Estim Creat Clear Calc 95.2 Estimated GFR > 60 POC Glucose 182 H (60-115) mg/dL Random Glucose 152 H (60-115) mg/dL Calcium 9.9 D (8.4-10.2) mg/dL Magnesium 2.0 (1.6-2.6) mg/dL Total Bilirubin 0.3 (0.0-1.0) mg/dL Direct Bilirubin 0.1 (0.0-0.5) mg/dL AST 12 (5-37) U/L ALT 13 (0-40) U/L Alkaline Phosphatase 100 (39-117) U/L Total Protein 6.7 (6.5-8.0) g/dL Albumin 4.1 (3.5-5.0) g/dL Lipase 20 (8-78) U/L Urine Color Yellow Urine Appearance Cloudy Urine pH 6.0 (5.0-9.0) Ur Specific [place] 1.025 (1.005-1.025) Urine Protein Negative (Neg-Trace) mg/dL Urine Glucose (UA) >=1000 H (Negative) mg/dL Urine Ketones Negative (Negative) mg/dL Urine Blood Trace H (Negative) Urine Nitrite Positive H (Negative) Ur Leukocyte Esterase Large (3+) H (Negative) Influenza Type A (PCR) NEGATIVE (Negative) Influenza Type B (PCR) NEGATIVE (Negative) RSV RNA Qual (PCR) NEGATIVE (Negative) SARS-CoV-2 RNA (RT-PCR) NEGATIVE (Negative) Independent Interpretation I performed an independent interpretation of an: CT Scan (no ICH) Radiology Impression Discussion of test interpretation with radiology: I have reviewed the radiologist's reading. Independent Historian Clinical information obtained from an independent historian. History obtained from or confirmed by: EMS External Record Review External record reviewed: Inpatient record and Outpatient record Discharge Plan Discharge Clinical Impression: Agitation, Acute UTI Patient Disposition: Home, Self-Care Instructions: Urinary Tract Infection in Men (ED) Additional Instructions: labs normal viral panel negative CT scan no bleed or new findings UA showed urinary tract infection given ceftriaxone in the ED should complete 9 days of ceftin 250mg BID please return for any worsening symptoms or concerns. Prescriptions: New cefuroxime axetil 250 mg tablet 250 mg PO BID 9 Days Qty: 18 0RF No Action atorvastatin 80 mg tablet 1 tab PO BEDTIME clopidogrel 75 mg Tablet 75 mg PO DAILY Qty: 30 0RF trazodone 50 mg tablet 25 mg PO BID aspirin 81 mg Tablet,Chewable 81 mg PO DAILY olanzapine 15 mg tablet 7.5 mg PO BEDTIME lisinopril 40 mg tablet 40 mg PO DAILY metformin 500 mg tablet extended release 24 hr 500 mg PO DAILY Trulicity 3 mg/0.5 mL pen injector 3 mg subcut QWEEK Rx Instructions: on FRIDAYS metformin 500 mg tablet 500 mg PO QAM amlodipine 5 mg Tablet 5 mg PO DAILY 30 Days Qty: 30 0RF Protocol: Hold for SBP< HOLD for SBP < : 90 Print Language: Romansh
--- NOTE | 2023-10-29 12:59 | PC.NURSE ---
pt becoming agitated, wants food and something to drink. pt given cheese stick, diabetic pudding, stephan crackers, saltines, and esperanza lamine, per MD parvez. pt resting quietly on stretcher, asking for meal tray. rr even/unlabored. call osuna within reach. plan of care ongoing.
[2023-10-29 13:00] LABS: Alanine Aminotransferase 13 U/L (0-40); Albumin Level 4.1 g/dL (3.5-5.0); Alkaline Phosphatase 100 U/L (39-117); Anion Gap 11 (12-20); Aspartate Amino Transferase 12 U/L (5-37); Bilirubin Direct 0.1 mg/dL (0.0-0.5); Bilirubin Total 0.3 mg/dL (0.0-1.0); Blood Urea Nitrogen 21 mg/dL (9-16); Calcium 9.9 mg/dL (8.4-10.2); Carbon Dioxide 29 mmol/L (22-29); Chloride 108 mmol/L (96-108); Creatinine Clr Calc Pharmacy 95.2; Estimated Glomerular Filt Rate > 60; Glucose Random 152 mg/dL (60-115); Lipase 20 U/L (8-78); Potassium 3.8 mmol/L (3.3-5.1); Sodium 144 mmol/L (135-145); Total Protein 6.7 g/dL (6.5-8.0)
[2023-10-29 13:24] LABS: Influenza A PCR NEGATIVE (Negative); Influenza B PCR NEGATIVE (Negative); Resp Syncy Virus RNA Qual PCR NEGATIVE (Negative); SARS COV2 PCR INHOUSE NEGATIVE (Negative)
[2023-10-29 15:21] LABS: Appearance Urine Cloudy; Color Urine Yellow; Glucose Urine UA >=1000 mg/dL (Negative); Leukocyte Esterase Urine Large (3+) (Negative); Nitrite Urine Positive (Negative); Specific Gravity - Urine 1.025 (1.005-1.025); UMIC TRIGGER UACC YES; Urine Blood Trace (Negative); Urine Ketones Negative (Negative); Urine Protein Negative (Neg-Trace)
[2023-10-29 15:54] LABS: Bacteria Urine 4+ (None Seen); Hyaline Casts Urine 0-2 /LPF (0-2); RBC Urine 0-2 /HPF (0-2); Squamous Epithelial Cell Urine 0-2 /HPF (0-2); UACC Culture Trigger YES; WBC Urine >50 /HPF (0-5)
[2023-10-29] MEDS: cefTRIAXone sodium 1 GM in 0.9 % Sodium Chloride 50 ML IV (16:02)
[2023-10-29] MEDS: Acetaminophen 325 MG TABLET 650 MG PO (16:03)
[2023-10-29 16:07] VITALS: BP 135/107; PULSE 109; RESP 16; TEMP 36.7; O2SAT 95
--- NOTE | 2023-10-29 16:13 | PC.NURSE ---
20G IV placed to right hand. pt medicated per sep.
[2023-10-29 17:25] VITALS: BP 135/107; PULSE 109; RESP 16; TEMP 36.7; O2SAT 95
== END 2023-10-29 17:21 | disposition home or self-care (01) ==
PROVIDERS: Emergency Provider Emergency Medicine
DX: N39.0 Urinary tract infection, site not specified (principal); R45.1 Restlessness and agitation; I10 Essential (primary) hypertension; E11.9 Type 2 diabetes mellitus without complications; I69.351 Hemiplegia and hemiparesis following cerebral infarction affecting right dominant side; Z03.818 Encounter for observation for suspected exposure to other biological agents ruled out
CPT/HCPCS: 0241U; 36415; 70450; 80048; 80076; 81001; 82947; 83690; 83735; 85025; 87086; 87088; 87186; 96365; 96366; 99284; J0696

== ENCOUNTER 2023-12-04 12:01 | Outpatient (AMB) | payer OTHER, SELFPAY ==
--- NOTE | 2023-12-04 12:06 | A.OFFVIS_ITS ---
Vital Signs 12/04/23 12:16 Height 5 ft 4 in Weight 159 lb BMI 27.3 BP 117/83 Blood Pressure Location Lt brachial Position Sitting Pulse 94 Intake Visit Reasons: Colonoscopy Screening And EGD screening Intake Note: Patient new consult for pre Colonoscopy and EGD screening. Patient denies any GI issues. Housing Development Specialist Required: No Accompanied by: Self / Same As Patient Allergies morphine [MORPHINE] Adverse Reaction (Unknown, Verified 10/29/23 11:39) VOMITING Medication List - Last Reconciled 12/04/23 by Oumou Graves PA-C amlodipine 5 mg See Protocol PO DAILY 30 days aspirin 81 mg PO DAILY atorvastatin 1 tab PO BEDTIME cefuroxime axetil 250 mg PO BID 9 days clopidogrel 75 mg PO DAILY dulaglutide (Trulicity) 3 mg subcut QWEEK lisinopril 40 mg PO DAILY metformin 500 mg PO QAM metformin ER 500 mg PO DAILY olanzapine 7.5 mg PO BEDTIME trazodone 25 mg PO BID HPI Comments Details: A 58 y/o male multiple comorbidities referred for EGD and colonoscopy Patient thinks he has been referred for paralysis-he has not happy, he says he has no feeling in his arms-or legs he can not even stand up He has had upper endoscopy and colonoscopy at some point he does not have detail-he feels that this has not importance- Reviewed labs with him from October- He has a good appetite, he does not have acid reflux He reports a normal bowel pattern he says he does not have constipation Attempt to get history however he is very focused on his satisfaction that he has not being seen today for paralysis [facility] Medical History Smoking Other and unspecified hyperlipidemia Essential hypertension Type 2 diabetes mellitus with unspecified complications Atherosclerotic cardiovascular disease Social History Household Members: None Housing: Apartment Do you presently have visiting nurse or other home services: Yes Alcohol intake: never Patient Tobacco Use Status: Former Tobacco user Tobacco use type: Cigarette Cigarette Packs Per Day: 0.5 Cigarettes Per Day: 10.0 e-Cigarette/Vaping Use: Currently Using Advance Directives Date on File: 06/19/23 service: Yes Current occupational status: disabled Review of Systems Const All systems reviewed & are unremarkable except as noted in HPI and below Card Denies chest pain and Denies dyspnea Resp Denies dyspnea GI Denies abdominal pain, Denies hematochezia, Denies change in bowel habits, Denies constipation, Denies heartburn, Denies diarrhea, Denies nausea and Denies vomiting Musc Reports muscle weakness and Reports numbness Neuro Reports numbness Physical Exam Vital Signs: Last Vital Signs Pulse 94 12/04/23 12:16 BP 117/83 12/04/23 12:16 BMI result Body Mass Index 27.3 Const General: no acute distress Orientation/consciousness: patient oriented x3 Limitations: behavioral limitations and wheelchair Eyes Sclerae: sclerae normal Resp Effort & Inspection: normal respiratory effort and able to speak in complete sentences Auscultation: clear to auscultation bilaterally, no rales, no rhonchi and no wheezes Cardio Rate: regular rate Rhythm: regular rhythm Heart sounds: S1 normal heart sound present and S2 normal heart sound present GI Palpation (GI): Soft to palpation and nontender Auscultation: normal bowel sounds Neuro General: patient oriented x3 Psych Speech and movement: Pressured speech present Affect: Hostile affect present and Irritable affect present Attitude: Other attitude/behavior findings present (Psych) Thought content: Obsession(s) present Results Reviewed Results Reviewed: 09/18/23 CT/CT abdomen pelvis w IV con IMPRESSION: 1. Large amount of stool in the colon and rectum with mild rectal wall thickening and perirectal fat stranding raising the possibility of stercoral colitis. 2. Nonspecific moderate gastric distention that could be related with postprandial state, gastroparesis or less likely gastric outlet obstruction. 3. Equivocal wall thickening at the level of the stomach antrum, further characterization with upper endoscopy as clinically warranted. Evaluation of lesions in the small bowel and colon is limited due to underdistention, correlation with colonoscopy and/or enterography as clinically indicated. 4. Mild main pancreatic duct dilatation at the level of the head and body with suggestion of some luminal transitioning at the level of the head. Recommend further characterization with abdominal MRI pancreatic protocol. A 1 cm low-density observation in the pancreatic head posterior to the SMV is unchanged, possibly representing fatty infiltration with volume averaging, this could also be characterize with the MRI. 5. Layering high density material in the posterior right urinary bladder most likely representing calculi, limiting evaluation of underlying urothelial lesions. Correlation with direct visualization as clinically indicated. 6. A 1.1 cm left adrenal nodule is unchanged, stability is reassuring most likely representing an adenoma for which no additional imaging follow-up is recommended. 7. A 2.8 cm right liver lesion with peripheral discontinuous enhancement is unchanged, most suggestive of a hemangioma. This could be further characterize at the moment of evaluation of the pancreas. Assessment & Plan Assessment & Plan (1) Anemia: Comment: Wheelchair assisted, Irritable, Dangelo,, escalating voice Reports no complaints-GI or general other than-associated with CVA/paralysis Recent history unclear-referral for EGD colonoscopy, patient expresses his decision to declined any further testing that is not associated with paralysis Reviewed records with patient-again declines Code(s): D64.9 - Anemia, unspecified Category: Medical Plan: Typically EGD colon Will hold up on workup until further input from PCP (2) Chronic constipation: Code(s): K59.09 - Other constipation Category: Medical Plan: Patient denies constipation, Recommend high-fiber diet (3) Anticoagulant long-term use: Code(s): Z79.01 - halfway (current) use of anticoagulants Category: Medical Plan: Clopidogrel s/p CVA Plan Hold off EGD/ colon-until further input from PCP Get updated at your convenience Order Medications: []PEG Medications to be Held Prior to Surgery Plavix x 7 days- if authorized- sent note to referring Ishmael ( mondays) Metformin- BMI: 27.3kg/m? 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
[2023-12-04 12:16] VITALS: BP 117/83; PULSE 94; BMI 27.3
== END 2023-12-04 13:17 | disposition home or self-care (01) ==
PROVIDERS: Visit Provider Physician Assistant
DX: D64.9 Anemia, unspecified (principal); K59.09 Other constipation; Z79.01 Long term (current) use of anticoagulants
CPT/HCPCS: 99204

== ENCOUNTER → 2023-12-04 12:01 | Outpatient (BNVA) | payer OTHER, SELFPAY | PROVIDERS: Visit Provider Physician Assistant | DX: D64.9 Anemia, unspecified (principal); K59.09 Other constipation; Z79.01 Long term (current) use of anticoagulants | CPT/HCPCS: 99202 ==